=== PATIENT | male | born 1930 | race Caucasian/White ===

== ENCOUNTER 2016-12-04 07:55 | Emergency (ER) | payer OTHER ==
[~2016-12-04] VITALS: Ht 172.7 cm; Wt 74.6 kg
[~2016-12-04 07:55] MED LIST: AGGR20025 PO; ALPR0.5T3 PO; CALC600T44 PO; FISH1000 PO; LEVO100T4 PO; MEVA40TA6 PO; OMEP20TA PO; PROC90TA PO; SYMB160A INH; TAB-TAB PO; TAMS0.4C4 PO; ULTR50TA PO; VASO10TA8 PO
[2016-12-04 08:01] VITALS: BP 144/89; PULSE 83; RESP 16; TEMP 97.6; O2SAT 94
[2016-12-04] MEDS ORDERED: ALPR0.5T3 PO (08:23)
[2016-12-04] MEDS ORDERED: LEVO88TA2 PO (08:23)
[2016-12-04] MEDS ORDERED: AGGR20025 PO (08:23)
[2016-12-04] MEDS ORDERED: ENAL20TA PO (08:23)
[2016-12-04] MEDS ORDERED: TRAM50TA PO (08:23)
[2016-12-04] MEDS ORDERED: REST0.05 EACH EYE (08:23)
[2016-12-04] MEDS ORDERED: LOVA40TA PO (08:23)
[2016-12-04] MEDS ORDERED: SYMB160A INH (08:23)
[2016-12-04] MEDS ORDERED: MIRA50TA PO (08:23)
[2016-12-04] MEDS ORDERED: OMEP20TA PO (08:23)
[2016-12-04] MEDS ORDERED: MECL-62 PO (08:23)
[2016-12-04] MEDS ORDERED: NIFE20 PO (08:23)
[2016-12-04] MEDS ORDERED: SODIUM CHLORID 0.9% 500 ML INJ 500 ML IV ONE (08:30)
[2016-12-04] MEDS ORDERED: SODIUM CHLORIDE 0.9% FLUSH 10 ML FLUSH IVF PRN (08:30)
[2016-12-04 08:40] VITALS: O2SAT 97
--- NOTE | 2016-12-04 08:43 | PD ---
HPI Chief Complaint: Dizziness Time Seen by Provider: 08:20 Travel History International Travel<30 days: No Contact w/Intl Traveler<30days: No Traveled to known affect area: No History of Present Illness HPI Patient is an 86-year-old male with history of TIA, vertigo, hypertension, hyperlipidemia, COPD, presents to emergency room with complaints of dizziness. Patient reports that he woke up at 3 AM this morning to use the restroom, reports that he sat up from his bed and felt acute onset lightheaded and dizzy. Patient reports that he felt as if everything in the room was moving. Reports that his eyes felt a little blurry but reports that his eyes always feel blurry and this is unchanged from baseline. Patient reports that he knows that he has history of vertigo, reports that he took a meclizine and reports that he felt a little better after he took this medication. Patient reports concerns as he feels weak in his knees today, reports that he feels ataxic when he walks. Patient reports that he has had TIAs in the past, and wanted to have everything "checked out". Patient with no chest pain or shortness breath at this time. Denies headache. Reports that his vision is back to baseline. Reports that "my legs still feel weak." PFSH Past Medical History AAA: Yes (3) Arthritis: Yes Asthma: No Autoimmune Disease: No Blood Disorders: No Heart Rhythm Problems: No Cancer: No Cardiovascular Problems: Yes High Cholesterol: Yes Chemotherapy: No Chest Pain: No Congestive Heart Failure: No COPD: Yes Cerebrovascular Accident: Yes Diabetes: No Diminished Hearing: Yes Endocrine: No GERD: Yes Genitourinary: Yes Headaches: No Hepatitis: No Hiatal Hernia: No Hypertension: Yes Immune Disorder: No Kidney Stones: Yes Musculoskeletal: Yes Neurologic: Yes (tia) Psychiatric: No Reproductive: No Respiratory: Yes Immunizations Current: Yes Migraines: No Myocardial Infarction: No Radiation Therapy: No Renal Failure: No Seizures: No Sleep Apnea: No Thyroid Disease: No Ulcer: No PNEUMOCCOCAL Vaccine (Year): 1 Past Surgical History Abdominal Surgery: Yes (inguinal hernia repair) AICD: No Appendectomy: Yes (1948) Arteriovenous Shunt: No Cholecystectomy: No Genitourinary Surgery: Yes (KIDNEY STONE) Insulin Pump: No Joint Replacement: No Pacemaker: No Other Surgery: Yes (HERNIA 63, SALVATORY GLAND REMOVED 1977, FATTY TUMORS FROM BACK REMOVED ) Social History Alcohol Use: Yes (1 DRINK A DAY) Tobacco Use: No (QUIT 50 YRS AGO) Substance Use: No Allergies-Medications (Allergen,Severity, Reaction): Coded Allergies: Penicillin (Verified Allergy, Severe, Rash, 12/04/16) Reported Meds & Prescriptions Reported Meds & Active Scripts Active Reported Meclizine (Meclizine HCl) 25 Mg Tab 25 Mg PO DIRECTED PRN Restasis Opth Drops (Cyclosporine Opth Drops) 0.05% Emul 1 Drop EACH EYE BID Levothyroxine (Levothyroxine Sodium) 88 Mcg Tab 88 Mcg PO DAILY Alprazolam 0.5 Mg Tab 0.5 Mg PO Q4H PRN Myrbetriq (Mirabegron) 50 Mg Tab 50 Mg PO DAILY Tramadol (Tramadol HCl) 50 Mg Tab 50 Mg PO Q4H PRN Symbicort Inh (Budesonide/Formoterol Fumarate) 160-4.5 Mcg/Act Aero 2 Puff INH Q12HR Lovastatin 40 Mg Tab 40 Mg PO DAILY Enalapril (Enalapril Maleate) 20 Mg Tab 20 Mg PO DAILY Nifedipine 20 Mg Cap 30 Mg PO BID Omeprazole 20 Mg Tab 20 Mg PO DAILY Aggrenox (Dipyridamole/Aspirin) 200-25 Mg Cap 1 Cap PO BID Review of Systems General / Constitutional: No: Fever Eyes: No: Diploplia, Blurred Vision, Photophobia, Visual changes HENT: No: Headaches Cardiovascular: No: Chest Pain or Discomfort Respiratory: No: Shortness of Breath Gastrointestinal: No: Abdominal Pain Genitourinary: No: Dysuria Musculoskeletal: No: Pain Skin: No Rash Neurologic: Positive: Dizziness, Ataxia, No: Weakness Psychiatric: No: Depression Endocrine: No: Polydipsia Hematologic/Lymphatic: No: Easy Bruising Physical Exam Narrative GENERAL: mild distress SKIN: Focused skin assessment warm/dry. HEAD: Atraumatic. Normocephalic. EYES: Pupils equal and round. No scleral icterus. No injection or drainage. Patient with horizontal nystagmus on exam ENT: No nasal bleeding or discharge. Mucous membranes pink and moist. NECK: Trachea midline. No JVD. CARDIOVASCULAR: Regular rate and rhythm. No murmur appreciated. RESPIRATORY: No accessory muscle use. Clear to auscultation. Breath sounds equal bilaterally. GASTROINTESTINAL: Abdomen soft, non-tender, nondistended. Hepatic and splenic margins not palpable. MUSCULOSKELETAL: No obvious deformities. No clubbing. No cyanosis. No edema. NEUROLOGICAL: Awake and alert. No obvious cranial nerve deficits. Motor grossly within normal limits. Normal speech. PSYCHIATRIC: Appropriate mood and affect; insight and judgment normal. Data Data Last Documented VS Vital Signs Date Time Temp Pulse Resp B/P Pulse Ox O2 Delivery O2 Flow Rate FiO2 12/04/16 10:24 76 15 146/79 98 12/04/16 08:40 Room Air 12/04/16 08:01 97.6 Orders Prothrombin Time / Inr (Pt) (12/04/16 08:30) Act Partial Throm Time (Ptt) (12/04/16 08:30) Complete Blood Count With Diff (12/04/16 08:30) Comprehensive Metabolic Panel (12/04/16 08:30) Troponin I (12/04/16 08:30) Urinalysis - C+S If Indicated (12/04/16 08:30) Ua Includes Microscopic (12/04/16 08:30) Ct Brain W/O Iv Contrast(Rout) (12/04/16 08:30) Ecg Monitoring (12/04/16 08:30) Iv Access Insert/Monitor (12/04/16 08:30) Oximetry (12/04/16 08:30) Sodium Chloride 0.9% Flush (Ns Flush) (12/04/16 08:30) Sodium Chlorid 0.9% 500 Ml Inj (Ns 500 M (12/04/16 08:30) Labs Laboratory Tests Test 12/04/16 12/04/16 08:45 09:55 White Blood Count 3.6 TH/MM3 Red Blood Count 4.57 MIL/MM3 Hemoglobin 15.3 GM/DL Hematocrit 45.5 % Mean Corpuscular Volume 99.5 FL Mean Corpuscular Hemoglobin 33.5 PG Mean Corpuscular Hemoglobin 33.7 % Concent Red Cell Distribution Width 13.1 % Platelet Count 124 TH/MM3 Mean Platelet Volume 7.3 FL Neutrophils (%) (Auto) 59.3 % Lymphocytes (%) (Auto) 25.6 % Monocytes (%) (Auto) 9.4 % Eosinophils (%) (Auto) 3.1 % Basophils (%) (Auto) 2.6 % Neutrophils # (Auto) 2.2 TH/MM3 Lymphocytes # (Auto) 0.9 TH/MM3 Monocytes # (Auto) 0.3 TH/MM3 Eosinophils # (Auto) 0.1 TH/MM3 Basophils # (Auto) 0.1 TH/MM3 CBC Comment DIFF FINAL Differential Comment Prothrombin Time 10.9 SEC Prothromb Time International 1.0 RATIO Ratio Activated Partial 26.6 SEC Thromboplast Time Sodium Level 143 MEQ/L Potassium Level 4.0 MEQ/L Chloride Level 108 MEQ/L Carbon Dioxide Level 24.0 MEQ/L Anion Gap 11 MEQ/L Blood Urea Nitrogen 19 MG/DL Creatinine 1.20 MG/DL Estimat Glomerular Filtration 57 ML/MIN Rate Random Glucose 92 MG/DL Calcium Level 8.9 MG/DL Total Bilirubin 0.6 MG/DL Aspartate Amino Transf 28 U/L (AST/SGOT) Alanine Aminotransferase 25 U/L (ALT/SGPT) Alkaline Phosphatase 56 U/L Troponin I LESS THAN 0.02 NG/ML Total Protein 7.4 GM/DL Albumin 3.8 GM/DL Urine Collection Type CATH Urine Color YELLOW Urine Turbidity CLEAR Urine pH 6.5 Urine Specific [place] 1.008 Urine Protein NEG mg/dL Urine Glucose (UA) NEG mg/dL Urine Ketones TRACE mg/dL Urine Occult Blood NEG Urine Nitrite NEG Urine Bilirubin NEG Urine Leukocyte Esterase NEG Urine RBC 0-3 /hpf Urine Squamous Epithelial 0-5 /hpf Cells Microscopic Urinalysis Comment CULT NOT INDICATED Urine Collection Time 09:55 MDM Medical Decision Making Medical Screen Exam Complete: Yes Emergency Medical Condition: Yes Interpretation(s) EKG at 0805: NSR at 78bpm, qt/qtc: 396/427, 1st degree av block Vital Signs Date Time Temp Pulse Resp B/P Pulse Ox O2 Delivery O2 Flow Rate FiO2 12/04/16 08:24 Room Air 12/04/16 08:01 97.6 83 16 144/89 94 Differential Diagnosis CVA, vertigo, TIA, ACS, dehydration, electrolyte abnormality Narrative Course Patient is an 86 year old male who present to ER with c/o of dizzyness. Reports acute onset of dizzyness this morning around 3AM. Reports that this is has improved with Antivert, reports concerns that she still feels ataxic and weak in his knees. EKG obtained. Patient was placed on a master baker. Plan to obtain CT of the head, obtain lab work and monitor patient Vital Signs Date Time Temp Pulse Resp B/P Pulse Ox O2 Delivery O2 Flow Rate FiO2 12/04/16 08:40 97 Room Air 12/04/16 08:24 Room Air 12/04/16 08:01 97.6 83 16 144/89 94 Laboratory Tests Test 12/04/16 12/04/16 08:45 09:55 White Blood Count 3.6 TH/MM3 (4.0-11.0) Red Blood Count 4.57 MIL/MM3 (4.50-5.90) Hemoglobin 15.3 GM/DL (13.0-17.0) Hematocrit 45.5 % (39.0-51.0) Mean Corpuscular Volume 99.5 FL (80.0-100.0) Mean Corpuscular Hemoglobin 33.5 PG (27.0-34.0) Mean Corpuscular Hemoglobin 33.7 % Concent (32.0-36.0) Red Cell Distribution Width 13.1 % (11.6-17.2) Platelet Count 124 TH/MM3 (150-450) Mean Platelet Volume 7.3 FL (7.0-11.0) Neutrophils (%) (Auto) 59.3 % (16.0-70.0) Lymphocytes (%) (Auto) 25.6 % (9.0-44.0) Monocytes (%) (Auto) 9.4 % (0.0-8.0) Eosinophils (%) (Auto) 3.1 % (0.0-4.0) Basophils (%) (Auto) 2.6 % (0.0-2.0) Neutrophils # (Auto) 2.2 TH/MM3 (1.8-7.7) Lymphocytes # (Auto) 0.9 TH/MM3 (1.0-4.8) Monocytes # (Auto) 0.3 TH/MM3 (0-0.9) Eosinophils # (Auto) 0.1 TH/MM3 (0-0.4) Basophils # (Auto) 0.1 TH/MM3 (0-0.2) CBC Comment DIFF FINAL Differential Comment Prothrombin Time 10.9 SEC (9.8-11.6) Prothromb Time International 1.0 RATIO Ratio Activated Partial 26.6 SEC Thromboplast Time (24.3-30.1) Sodium Level 143 MEQ/L (136-145) Potassium Level 4.0 MEQ/L (3.5-5.1) Chloride Level 108 MEQ/L (98-107) Carbon Dioxide Level 24.0 MEQ/L (21.0-32.0) Anion Gap 11 MEQ/L (5-15) Blood Urea Nitrogen 19 MG/DL (7-18) Creatinine 1.20 MG/DL (0.60-1.30) Estimat Glomerular Filtration 57 ML/MIN (>89) Rate Random Glucose 92 MG/DL (74-106) Calcium Level 8.9 MG/DL (8.5-10.1) Total Bilirubin 0.6 MG/DL (0.2-1.0) Aspartate Amino Transf 28 U/L (15-37) (AST/SGOT) Alanine Aminotransferase 25 U/L (12-78) (ALT/SGPT) Alkaline Phosphatase 56 U/L (45-117) Troponin I LESS THAN 0.02 NG/ML (0.02-0.05) Total Protein 7.4 GM/DL (6.4-8.2) Albumin 3.8 GM/DL (3.4-5.0) Urine Collection Type CATH Urine Color YELLOW (YELLW/STRAW) Urine Turbidity CLEAR (CLEAR) Urine pH 6.5 (5.0-8.5) Urine Specific [place] 1.008 (1.002-1.035) Urine Protein NEG mg/dL (NEG-TRACE) Urine Glucose (UA) NEG mg/dL (NEG) Urine Ketones TRACE mg/dL (NEG) Urine Occult Blood NEG (NEG) Urine Nitrite NEG (NEG) Urine Bilirubin NEG (NEG) Urine Leukocyte Esterase NEG (NEG) Urine RBC 0-3 /hpf (0-3) Urine Squamous Epithelial 0-5 /hpf (0-5) Cells Microscopic Urinalysis Comment CULT NOT INDICATED Urine Collection Time 09:55 Ct head: No acute infarcts or acute changes (ct reviewed with patient and copy of ct was given to patient). 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 Patient reports complete resolution of dizziness. I did ambulate patient while in the emergency room, patient ambulating in the emergency room without any difficulty and with normal gait with his cane which he always uses. Patient reports that he feels that he is at baseline at this time. I reviewed all labs and all studies as well as ALL findings with patient in detail. Signs and symptoms of when to return to emergency room was reviewed patient. Patient will follow up his primary care doctor and return to the emergency room as needed. Patient thankful for care Diagnosis Primary Impression: Dizziness Additional Impression: Dehydration Patient Instructions: General Instructions Additional Instructions: Please follow up with your primary care doctor in 2-3 days Return to the emergency room as needed Return to the emergency room if symptoms worsen or progress or return Please drink plenty of fluids Bring your radiology reports to doctor's office for follow-up and all findings from today Disposition: 01 DISCHARGE HOME Condition: Stable Maria Esther Timmons DO Dec 04, 2016 08:43
[2016-12-04 08:57] LABS: AUTOMATED NEUTROPHIL # 2.2 TH/MM3 (1.8-7.7); BASOPHIL # 0.1 TH/MM3 (0-0.2); BASOPHIL % 2.6 % (0.0-2.0); EOSINOPHIL # 0.1 TH/MM3 (0-0.4); EOSINOPHIL % 3.1 % (0.0-4.0); HEMATOCRIT 45.5 % (39.0-51.0); HEMO FLAGS DIFF FINAL; LYMPH % 25.6 % (9.0-44.0); LYMPHOCYTE # 0.9 TH/MM3 (1.0-4.8); MEAN CELL VOLUME 99.5 FL (80.0-100.0); MEAN CORPUSCULAR HEMOGLOBIN 33.5 PG (27.0-34.0); MEAN CORPUSCULAR HGB CONC 33.7 % (32.0-36.0); MONO % 9.4 % (0.0-8.0); NEUT % 59.3 % (16.0-70.0); PLATELET COUNT 124 TH/MM3 (150-450); RED BLOOD COUNT 4.57 MIL/MM3 (4.50-5.90); RED CELL DISTRIBUTION WIDTH 13.1 % (11.6-17.2); WHITE BLOOD COUNT 3.6 TH/MM3 (4.0-11.0)
[2016-12-04 09:00] LABS: CHLORIDE 108 MEQ/L (98-107); SODIUM (NA) 143 MEQ/L (136-145)
[2016-12-04 09:04] LABS: ANION GAP 11 MEQ/L (5-15); APTT (PATIENT) 26.6 SEC (24.3-30.1); BLOOD UREA NITROGEN 19 MG/DL (7-18); PROTHROMBIN TIME - PATIENT 10.9 SEC (9.8-11.6)
[2016-12-04 09:07] LABS: ALT (GPT) 25 U/L (12-78); AST (GOT) 28 U/L (15-37); GLOMERULAR FILTRATION RATE 57 ML/MIN (>89)
[2016-12-04 09:09] LABS: TOTAL BILIRUBIN ADULT 0.6 MG/DL (0.2-1.0)
[2016-12-04 09:10] LABS: ALKALINE PHOSPHATASE 56 U/L (45-117)
--- NOTE | 2016-12-04 09:23 | RADHPO ---
EXAM DATE/TIME: 12/04/2016 08:45 [facility] COMPARISON: CT BRAIN W/O CONTRAST, March 19, 2015, 8:07. INDICATIONS : Dizziness. RADIATION DOSE: 64.38 CTDIvol (mGy) MEDICAL HISTORY : Cerebrovascular disease. Cardiovascular disease. Chronic obstructive pulmonary disease. Abdominal aneurysm. Hypertension. SURGICAL HISTORY : Appendectomy. ENCOUNTER: Initial ACUITY: 1 day PAIN SCALE: 0/10 LOCATION: Cranial TECHNIQUE: Multiple contiguous axial images were obtained of the head. Using automated exposure control and adj ustment of the mA and/or kV according to patient size, radiation dose was kept as low as reasonably a chievable to obtain optimal diagnostic quality images. FINDINGS: Diffuse cerebral atrophy is again noted. Mild periventricular and subcortical white matter small vessel ischemic changes are noted bilaterally. There is an old lacunar infarct within the right thalamus which is unchanged. There is no acute infarct, acute hemorrhage, midline shift or extra-ax ial fluid collections. 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 CONCLUSION: 1. Mild periventricular white matter small vessel ischemic changes bilaterally. 2. Mild cerebral atrophy. 3. Old lacunar infarct within the right thalamus. 4. No acute infarct, acute hemorrhage, mass effect or extra-axial fluid collections. 5. Dolichoectasia of the basilar artery. Hermes Eller MD on December 04, 2016 at 8:58 Board Certified Radiologist. This report was verified electronically.
[2016-12-04 09:59] LABS: BLOOD, URINE NEG (NEG); GLUCOSE,URINE NEG (NEG); KETONE, URINE TRACE mg/dL (NEG); NITRITE,URINE NEG (NEG); PH, URINE 6.5 (5.0-8.5)
[2016-12-04 10:04] LABS: COMMENT (UR) CULT NOT INDICATED; CULTURE IF INDICATED CULT NOT INDICATED; METHOD OF COLLECTION CATH; RBC, URINE 0-3 /hpf (0-3); SQUAMOUS EPITHELIAL CELL URINE 0-5 /hpf (0-5); URINE COLOR YELLOW (YELLW/STRAW)
[2016-12-04 10:24] VITALS: BP 146/79
--- NOTE | 2016-12-05 18:50 | EKG ---
Date Performed: 12/04/2016 Time Performed: 08:05:04 PTAGE: 86 years EKG: Sinus rhythm with 1st degree A-V block Left anterior fascicular block Septal T wave changes are nonspecific [place] red to prior tracing no significant change Abnormal ECG PREVIOUS TRACING : 03/19/2015 07.39 DOCTOR: Bridger Chacko Interpretating Date/Time 12/05/2016 18:49:35
== END 2016-12-04 10:40 | disposition home or self-care (01) ==
LOC: PHED 07:55
DX: R42 Dizziness and giddiness (principal); E86.0 Dehydration; I44.0 Atrioventricular block, first degree; I44.4 Left anterior fascicular block; I71.4 Abdominal aortic aneurysm, without rupture; E78.00 Pure hypercholesterolemia, unspecified; J44.9 Chronic obstructive pulmonary disease, unspecified; I10 Essential (primary) hypertension; K21.9 Gastro-esophageal reflux disease without esophagitis; Z86.73 Personal history of transient ischemic attack (TIA), and cerebral infarction without residual deficits; Z87.891 Personal history of nicotine dependence
CPT/HCPCS: 70450; 80053; 81001; 84484; 85025; 85610; 85730; 93005; 96360; 99284; J7040

== ENCOUNTER 2017-04-15 23:03 | Inpatient (IN) | payer OTHER, MEDICARE ==
[~2017-04-15] VITALS: Ht 172.7 cm; Wt 72.2 kg
[~2017-04-15 23:03] MED LIST changes: -CALC600T44 PO; +ENAL20TA PO; -FISH1000 PO; -LEVO100T4 PO; +LEVO88TA2 PO; +LOVA40TA PO; +MECL-62 PO; -MEVA40TA6 PO; +MIRA50TA PO; +NIFE20 PO; -PROC90TA PO; +REST0.05 EACH EYE; -TAB-TAB PO; -TAMS0.4C4 PO; +TRAM50TA PO; -ULTR50TA PO; -VASO10TA8 PO
--- NOTE | 2017-04-15 23:19 | PD ---
HPI Chief Complaint: left arm weakness Time Seen by Provider: 23:14 Travel History International Travel<30 days: No Contact w/Intl Traveler<30days: No Traveled to known affect area: No History of Present Illness HPI This 86-year-old male said he had an episode tonight where his left arm became weak. he says it was flopping around. He did not try to use it but he thinks he would not open able to. He has had 5 TIAs. His last TIA was January [id number]. He is currently on Aggrenox. 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 He was in the hospital in November for vertigo. He is not having a headache. He said the episode lasted about 5 minutes and has resolved. He says he had been on Plavix in the past but had a TIA while taking it and has since been on Aggrenox PFSH Past Medical History AAA: Yes (3) Arthritis: Yes Asthma: No Autoimmune Disease: No Blood Disorders: No Heart Rhythm Problems: No Cancer: No Cardiovascular Problems: Yes High Cholesterol: Yes Chemotherapy: No Chest Pain: No Congestive Heart Failure: No COPD: Yes Cerebrovascular Accident: Yes Diabetes: No Diminished Hearing: Yes Endocrine: No GERD: Yes Genitourinary: Yes Headaches: No Hepatitis: No Hiatal Hernia: No Hypertension: Yes Immune Disorder: No Kidney Stones: Yes Musculoskeletal: Yes Neurologic: Yes (tia) Psychiatric: No Reproductive: No Respiratory: Yes Immunizations Current: Yes Migraines: No Myocardial Infarction: No Radiation Therapy: No Renal Failure: No Seizures: No Sleep Apnea: No Thyroid Disease: No Ulcer: No PNEUMOCCOCAL Vaccine (Year): 1 Past Surgical History Abdominal Surgery: Yes (inguinal hernia repair) AICD: No Appendectomy: Yes (1948) Arteriovenous Shunt: No Cholecystectomy: No Genitourinary Surgery: Yes (KIDNEY STONE) Insulin Pump: No Joint Replacement: No Pacemaker: No Other Surgery: Yes (HERNIA 63, SALVATORY GLAND REMOVED 1977, FATTY TUMORS FROM BACK REMOVED ) Social History Alcohol Use: Yes (1 DRINK A DAY) Tobacco Use: No (QUIT 50 YRS AGO) Substance Use: No Allergies-Medications (Allergen,Severity, Reaction): Coded Allergies: penicillin G (Unverified Allergy, Severe, Rash, 04/15/17) Reported Meds & Prescriptions Reported Meds & Active Scripts Active Reported Restasis Opth 0.05% (Cyclosporine Opth 0.05%) 0.05% Emul 1 Drop EACH EYE BID Levothyroxine (Levothyroxine Sodium) 88 Mcg Tab 88 Mcg PO DAILY Alprazolam 0.5 Mg Tab 0.5 Mg PO Q4H PRN Myrbetriq (Mirabegron) 50 Mg Tab 50 Mg PO DAILY Tramadol (Tramadol HCl) 50 Mg Tab 50 Mg PO Q4H PRN Symbicort Inh (Budesonide/Formoterol Fumarate) 160-4.5 Mcg/Act Aero 2 Puff INH Q12HR Lovastatin 40 Mg Tab 40 Mg PO DAILY Enalapril (Enalapril Maleate) 20 Mg Tab 20 Mg PO DAILY Nifedipine 20 Mg Cap 30 Mg PO BID Omeprazole 20 Mg Tab 20 Mg PO DAILY Aggrenox (Dipyridamole/Aspirin) 200-25 Mg Cap 1 Cap PO BID Review of Systems General / Constitutional: No: Fever, Chills Eyes: No: Diploplia, Blurred Vision HENT: No: Headaches, Vertigo Cardiovascular: No: Chest Pain or Discomfort, Palpitations Respiratory: No: Cough Gastrointestinal: No: Nausea, Vomiting Genitourinary: No: Urgency, Frequency Musculoskeletal: No: Myalgias, Arthralgias Skin: No Rash Neurologic: Positive: Weakness, Focal Abnormalities, No: Change in Mentation Psychiatric: No: Anxiety, Depression Endocrine: No: Heat Intolerance Hematologic/Lymphatic: No: Easy Bruising Physical Exam Narrative GENERAL: Well-developed male SKIN: Focused skin assessment warm/dry. HEAD: Atraumatic. Normocephalic. EYES: Pupils equal and round. No scleral icterus. No injection or drainage. ENT: No nasal bleeding or discharge. Mucous membranes pink and moist. NECK: Trachea midline. No JVD. CARDIOVASCULAR: Regular rate and rhythm. No murmur appreciated. RESPIRATORY: No accessory muscle use. Clear to auscultation. Breath sounds equal bilaterally. GASTROINTESTINAL: Abdomen soft, non-tender, nondistended. Hepatic and splenic margins not palpable. MUSCULOSKELETAL: No obvious deformities. No clubbing. No cyanosis. No edema. NEUROLOGICAL: Awake and alert. No obvious cranial nerve deficits. Motor grossly within normal limits. Normal speech. Waiter Waitress are equal. There is no drift of the arms. Sensation of the arms is intact. Leg strength is symmetric. Babinskis are downgoing bilaterally PSYCHIATRIC: Appropriate mood and affect; insight and judgment normal. Data Data Last Documented VS Vital Signs Date Time Temp Pulse Resp B/P (MAP) Pulse Ox O2 Delivery O2 Flow Rate FiO2 04/15/17 23:26 82 18 97 Room Air 04/15/17 23:23 98.4 149/86 (107) Orders Orders Prothrombin Time / Inr (Pt) (04/15/17 23:15) Act Partial Throm Time (Ptt) (04/15/17 23:15) Complete Blood Count With Diff (04/15/17 23:15) Basic Metabolic Panel (Bmp) (04/15/17 23:15) Troponin I (04/15/17 23:15) Ua Includes Microscopic (04/15/17 23:15) Ct Brain W/O Iv Contrast(Rout) (04/15/17 ) Electrocardiogram (04/15/17 ) Ecg Monitoring (04/15/17 23:15) Iv Access Insert/Monitor (04/15/17 23:15) NPO (04/15/17 23:15) Labs Laboratory Tests Test 04/15/17 23:45 White Blood Count 4.6 TH/MM3 Red Blood Count 4.27 MIL/MM3 Hemoglobin 14.4 GM/DL Hematocrit 43.0 % Mean Corpuscular Volume 100.9 FL Mean Corpuscular Hemoglobin 33.8 PG Mean Corpuscular Hemoglobin Concent 33.5 % Red Cell Distribution Width 13.4 % Platelet Count 130 TH/MM3 Mean Platelet Volume 6.8 FL Neutrophils (%) (Auto) 55.7 % Lymphocytes (%) (Auto) 28.4 % Monocytes (%) (Auto) 12.0 % Eosinophils (%) (Auto) 2.7 % Basophils (%) (Auto) 1.2 % Neutrophils # (Auto) 2.5 TH/MM3 Lymphocytes # (Auto) 1.3 TH/MM3 Monocytes # (Auto) 0.6 TH/MM3 Eosinophils # (Auto) 0.1 TH/MM3 Basophils # (Auto) 0.1 TH/MM3 CBC Comment DIFF FINAL Differential Comment Prothrombin Time 10.6 SEC Prothromb Time International Ratio 1.0 RATIO Activated Partial Thromboplast Time 27.5 SEC Blood Urea Nitrogen 25 MG/DL Random Glucose 92 MG/DL Calcium Level 9.0 MG/DL Sodium Level 138 MEQ/L Potassium Level 4.7 MEQ/L Chloride Level 105 MEQ/L Carbon Dioxide Level 23.6 MEQ/L Anion Gap 9 MEQ/L MDM Medical Decision Making Medical Screen Exam Complete: Yes Emergency Medical Condition: Yes Medical Record Reviewed: Yes Differential Diagnosis Differential includes TIA, CVA, TIA Narrative Course Clinically this gentleman's deficit has resolved. EKG shows a first-degree AV block which has been present previously though his CO is more prolonged now. CT scan is unchanged from December 04. Case discussed with Dr. Pineda. Patient has failed Plavix so we will maintain him on Aggrenox. He has had some issues with thrombocytopenia in the past Diagnosis Primary Impression: TIA (transient ischemic attack) Qualified Codes: G45.1 - Carotid artery syndrome (hemispheric) Admitting Information Admitting Physician Requests: Admit Trenton Phoenix MD Apr 15, 2017 23:19
[2017-04-15 23:23] VITALS: BP 149/86; PULSE 82; RESP 18; TEMP 98.4; O2SAT 97
--- NOTE | 2017-04-15 23:52 | RADRPT ---
EXAM DATE/TIME: 04/15/2017 23:32 [facility] COMPARISON: CT BRAIN W/O CONTRAST, December 04, 2016, 8:45. INDICATIONS : Altered mental status, possible stroke. RADIATION DOSE: 61.27 CTDIvol (mGy) MEDICAL HISTORY : Hypertension. TIA, AAA SURGICAL HISTORY : salivary gland removal ENCOUNTER: Initial ACUITY: 1 day PAIN SCALE: 7/10 LOCATION: cranial TECHNIQUE: Multiple contiguous axial images were obtained of the head. Using automated exposure control and adj ustment of the mA and/or kV according to patient size, radiation dose was kept as low as reasonably a chievable to obtain optimal diagnostic quality images. DICOM format image data is available electro nically for review and comparison. FINDINGS: Compare December 04. Stable cortical atrophy. Stable lacunar infarct right thalamus. No recent infarct. No hydrocephalus. No normal extra-axial fluid. Stable white matter ischemic change. Dolichoectasia of the basilar artery, stable. CONCLUSION: 1. No acute findings. Remote lacunar infarct right thalamus, stable. Jose L Matute MD on April 15, 2017 at 23:46 Board Certified Radiologist. This report was verified electronically.
[2017-04-15 23:57] LABS: AUTOMATED NEUTROPHIL # 2.5 TH/MM3 (1.8-7.7); BASOPHIL # 0.1 TH/MM3 (0-0.2); BASOPHIL % 1.2 % (0.0-2.0); EOSINOPHIL # 0.1 TH/MM3 (0-0.4); EOSINOPHIL % 2.7 % (0.0-4.0); HEMO FLAGS DIFF FINAL; LYMPH % 28.4 % (9.0-44.0); LYMPHOCYTE # 1.3 TH/MM3 (1.0-4.8); MEAN CELL VOLUME 100.9 FL (80.0-100.0); MEAN CORPUSCULAR HEMOGLOBIN 33.8 PG (27.0-34.0); MEAN CORPUSCULAR HGB CONC 33.5 % (32.0-36.0); NEUT % 55.7 % (16.0-70.0); PLATELET COUNT 130 TH/MM3 (150-450); RED BLOOD COUNT 4.27 MIL/MM3 (4.50-5.90); RED CELL DISTRIBUTION WIDTH 13.4 % (11.6-17.2); WHITE BLOOD COUNT 4.6 TH/MM3 (4.0-11.0)
[2017-04-16] VITALS (29 sets, daily range): BP systolic 112–157; BP diastolic 67–84; PULSE 61–94; RESP 18–42; TEMP 97.5–98.3; O2SAT 93–97
[2017-04-16 00:06] LABS: CHLORIDE 105 MEQ/L (98-107); POTASSIUM 4.7 MEQ/L (3.5-5.1); SODIUM (NA) 138 MEQ/L (136-145)
[2017-04-16 00:11] LABS: ANION GAP 9 MEQ/L (5-15); APTT (PATIENT) 27.5 SEC (24.3-30.1); BICARBONATE 23.6 MEQ/L (21.0-32.0); BLOOD UREA NITROGEN 25 MG/DL (7-18); PROTHROMBIN TIME - PATIENT 10.6 SEC (9.8-11.6)
[2017-04-16 00:14] LABS: GLOMERULAR FILTRATION RATE 44 ML/MIN (>89)
[2017-04-16] MEDS ORDERED: SODIUM CHLORIDE 0.9% FLUSH 5 ML FLUSH IV FLUSH PRN (00:45)
[2017-04-16 01:47] LABS: BLOOD, URINE NEG (NEG); GLUCOSE,URINE NEG (NEG); KETONE, URINE NEG (NEG); NITRITE,URINE NEG (NEG); PH, URINE 5.5 (5.0-8.5)
[2017-04-16 01:50] LABS: URINE COLOR YELLOW (YELLW/STRAW)
[2017-04-16 01:51] LABS: RBC, URINE 0-2 /hpf (0-3); SQUAMOUS EPITHELIAL CELL URINE 0-5 /hpf (0-5); WBC, URINE 0-2 /hpf (0-5)
[2017-04-16] MEDS: SODIUM CHLORIDE 0.9% FLUSH 5 ML FLUSH IV FLUSH SCH ×2 (09:00→21:00)
--- NOTE | 2017-04-16 11:24 | MB ---
cc: RANDY MAYO M.D. DATE OF CONSULTATION 04/16/2017 HISTORY An 86-year-old right-handed man with a history of hypertension, hypercholesterolemia, COPD, some chronic renal insufficiency, hypothyroidism who has been on Aggrenox. He tells me he has had about five TIAs over the years. About 20 years ago he had some difficulty moving the right foot and then in 1992 he had some numbness or tingling in the right hand, he is not sure what and then some numbness or weakness in the left hand in 1996 and then in December of 2009 he had weakness of the right hand and some slurred speech. He has been on Aggrenox, followed by Dr. Pineda. At one time he was on Plavix before the Aggrenox. Last night he was just going to bed, got into bed and had a fullness feeling on the left arm and then his left hand would not work properly. No involvement of the face or slurred speech, no vision loss. No chest pain, palpitations, headache or involvement of the left leg. It lasted about 5 minutes and then went away. REVIEW OF SYSTEMS He denies any history of diabetes, DC, CABG, stent, angioplasty, A-fib, Coumadin, hepatic disease, pulmonary disease besides COPD. No history of lupus, ulcer, cancer, seizure. No history of blood clots in his legs. SOCIAL HISTORY He is not a smoker. He has one drink at night. Lives alone. FAMILY HISTORY Negative for cancer, seizure or stroke. MEDICATIONS 1. Aggrenox. 2. Restasis eyedrops. 3. Thyroid medicine. 4. Xanax p.r.n. 0.5. 5. Myrbetriq. 6. Tramadol 50 q.4 hours p.r.n. 7. Symbicort. 8. Lovastatin. 9. Enalapril. 10. Nifedipine. 11. Omeprazole. ALLERGIES PENICILLIN. PAST MEDICAL HISTORY As above. Also some vertigo recently. Back in 2009 he was seen by Dr. Pineda. He was on Plavix and 325 of aspirin at that time. He was also on Tramadol at that time. PHYSICAL EXAMINATION VITAL SIGNS: On exam he has been in sinus rhythm, afebrile, 66, 157/83. NECK: There were no carotid bruits. HEART: Regular rhythm. I do not detect a murmur. NEUROLOGICAL EXAMINATION: Pupils are equal. Visual rose are full. Extraocular movements intact, without nystagmus. Face is symmetrical with normal sensation. Tongue was midline. There is no drift. He had normal strength in upper and lower extremities bilaterally but grasping movements are a little bit clumsy on the left compared to the right. DTRs are trace throughout. Toes are downgoing bilaterally. Pinprick is intact throughout. Vibratory sense was diminished about senior living up the lower leg bilaterally. Pinprick is intact specifically on left hand. He is not ataxic on [id number]. Speech is fluent. He is not aphasic. No apparent distress. LABORATORY DATA CBC is essentially normal, platelet count 130. He had a sed rate back in 2009 that was normal. RPR was normal at that time. Urine drug screen in 2009 positive for marijuana and benzos. UA on this admission negative. Basic metabolic profile here normal except for creatinine of 1.5. LFTs were normal in November of this year as was an albumin. Thyroid has been essentially normal in 2013. LDL cholesterol in 2009 was 80. Troponin was negative in 2013 and negative last night. Coags have been normal in the past. IMAGING STUDIES CAT scan of the brain last night shows what appears to be an older right thalamic infarct. He had MRI of the brain in 2014, showed no acute infarct. He had a neck CTA in 2009 that showed normal carotid systems by report. He had a CTA of the head at that time that was normal. He had an MRI of the brain in 2009 that showed no infarct but an old right thalamic infarct. 2010 echocardiogram showed a normal ejection fraction; mitral valve was normal. Aortic valve was normal at that time. The left atrial size was enlarged, however, at 46. Holter monitoring in 2010 showed sinus rhythm. IMPRESSION Some TIAs in the past but all of his imaging here so far has been negative for an acute infarct and even in 2002 there was something described on the right side. He it was a basal ganglia but I suspect may have been that thalamic infarct. The possibilities could be a small seizure or certainly a TIA is a consideration. We may consider putting him on Coumadin and doing a loop recorder. We will do an MRI of the brain, MRA lime of Ortiz and neck here now. 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 The Ultram can cause seizures so we will stop that. We will check an EEG on him too. MD FIFI Banda/SSB /10:37 AM /10:58 AM
[2017-04-16] MEDS: HEPARIN SODIUM - SQ 10,000 UNITS/ML VIAL SQ SCH ×2 (12:03→20:17)
[2017-04-16] MEDS: SODIUM CHLOR 0.9% 1000 ML INJ 1,000 ML IV SCH (12:05)
[2017-04-16] MEDS: DIPYRIDAMOLE/ASPIRIN 200 MG/25 MG CAP PO SCH ×2 (13:19→20:17)
[2017-04-16 13:30] LABS: FREE T4 1.19 NG/DL (0.76-1.46); LDL CHOLESTEROL 41 MG/DL (0-99); TOTAL PROTEIN SPE 7.4 GM/DL (6.0-7.6)
[2017-04-16] MEDS ORDERED: traMADol HCL 50 MG TAB PO PRN (13:30)
[2017-04-16 13:34] LABS: RHEUMATOID FACTOR TRIGGER LESS THAN 10.0 IU/ML (0.0-14.9)
--- NOTE | 2017-04-16 13:40 | HHI.HP ---
[facility] Esvin Steve MD Admission Diagnosis TIA Diagnoses: Chief Complaint: left arm weakness Travel History International Travel<30 Days: No Contact w/Intl Traveler <30 Da: No Traveled to Known Affected Are: No History of Present Illness Patient is and 83 year old male with a history of HTN and TIA/CVA on aggranox who complains of sudden onset of transient left arm heaviness, numbness and loss of movement, No headache or slurred speech is described. Symptoms resolved spontaneously. He has been recommended for obs due to this. 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 Past Surgical History appy Reported Medications reviewed in the emr Allergies: Coded Allergies: penicillin G (Unverified Allergy, Severe, Rash, 04/15/17) Active Ordered Medications reviewed in the EMR Family History none are living Social History no tobacco/etoh lives alone Physical Exam Vital Signs Vital Signs Date Time Temp Pulse Resp B/P (MAP) Pulse Ox O2 Delivery O2 Flow Rate FiO2 04/16/17 12:00 97.8 68 27 137/80 (99) 04/16/17 08:00 97.8 66 22 157/83 (107) 94 04/16/17 07:50 04/16/17 07:45 66 04/16/17 07:12 61 18 132/80 (97) 96 Room Air 04/16/17 06:33 65 18 156/84 (108) 97 Room Air 04/16/17 04:31 66 18 141/80 (100) 97 Room Air 04/16/17 02:30 73 18 143/81 (101) 97 Room Air 04/16/17 00:28 76 18 148/81 (103) 97 Room Air 04/15/17 23:26 82 18 97 Room Air 04/15/17 23:23 98.4 82 18 149/86 (107) 97 Physical Exam GENERAL: This is a well-nourished, well-developed patient, in no apparent distress. SKIN: No rashes, ecchymoses or lesions. Cool and dry. HEAD: Atraumatic. Normocephalic. No temporal or scalp tenderness. EYES: Pupils equal round and reactive. Extraocular motions intact. No scleral icterus. No injection or drainage. ENT: Nose without bleeding, purulent drainage or septal hematoma. Throat without erythema, tonsillar hypertrophy or exudate. Uvula midline. Airway patent. NECK: Trachea midline. No JVD or lymphadenopathy. Supple, nontender, no meningeal signs. CARDIOVASCULAR: Regular rate and rhythm with a 3/6 systolic murmurs, no gallops or rubs. RESPIRATORY: Clear to auscultation. Breath sounds equal bilaterally. No wheezes , rales, or rhonchi. GASTROINTESTINAL: Abdomen soft, non-tender, nondistended. No hepato-splenomegaly , or palpable masses. No guarding. MUSCULOSKELETAL: Extremities without clubbing, cyanosis, or edema. No joint tenderness, effusion, or edema noted. No calf tenderness. Negative Homans sign bilaterally. NEUROLOGICAL: Awake and alert. Cranial nerves II through XII intact. Motor and sensory grossly within normal limits. Five out of 5 muscle strength in all muscle groups. Normal speech. Laboratory Laboratory Tests Test 04/15/17 23:45 04/16/17 00:00 04/16/17 01:30 04/16/17 11:20 White Blood Count 4.6 Red Blood Count 4.27 Hemoglobin 14.4 Hematocrit 43.0 Mean Corpuscular Volume 100.9 Mean Corpuscular Hemoglobin 33.8 Mean Corpuscular Hemoglobin Concent 33.5 Red Cell Distribution Width 13.4 Platelet Count 130 Mean Platelet Volume 6.8 Neutrophils (%) (Auto) 55.7 Lymphocytes (%) (Auto) 28.4 Monocytes (%) (Auto) 12.0 Eosinophils (%) (Auto) 2.7 Basophils (%) (Auto) 1.2 Neutrophils # (Auto) 2.5 Lymphocytes # (Auto) 1.3 Monocytes # (Auto) 0.6 Eosinophils # (Auto) 0.1 Basophils # (Auto) 0.1 CBC Comment DIFF FINAL Differential Comment Prothrombin Time 10.6 11.0 Prothromb Time International Ratio 1.0 1.0 Activated Partial Thromboplast Time 27.5 Blood Urea Nitrogen 25 Creatinine 1.50 Random Glucose 92 Calcium Level 9.0 Sodium Level 138 Potassium Level 4.7 Chloride Level 105 Carbon Dioxide Level 23.6 Anion Gap 9 Estimat Glomerular Filtration Rate 44 Troponin I LESS THAN 0.02 LESS THAN 0.02 Urine Color YELLOW Urine Turbidity CLEAR Urine pH 5.5 Urine Specific Lapaz 1.010 Urine Protein NEG Urine Glucose (UA) NEG Urine Ketones NEG Urine Occult Blood NEG Urine Nitrite NEG Urine Bilirubin NEG Urine Leukocyte Esterase NEG Urine RBC 0-2 Urine WBC 0-2 Urine Squamous Epithelial Cells 0-5 Urine Bacteria NONE Microscopic Urinalysis Comment Urine Opiates Screen NEG Urine Barbiturates Screen NEG Urine Amphetamines Screen NEG Urine Benzodiazepines Screen NEG Urine Cocaine Screen NEG Urine Cannabinoids Screen NEG Erythrocyte Sedimentation Rate 4 Triglycerides Level 43 Cholesterol Level 172 Thyroid Stimulating Hormone 3rd Gen 0.880 Result Diagram: 04/15/17 2345 04/15/17 2345 Imaging Last Impressions Head CT 04/15/17 0000 Signed Impressions: Service Date/Time: Saturday, April 15, 2017 23:32 - CONCLUSION: 1. No acute findings. Remote lacunar infarct right thalamus, stable. Jose L Matute MD Caprini VTE Risk Assessment Caprini VTE Risk Assessment: Mod/High Risk (score >= 2) Caprini Risk Assessment Model Point Value = 1 Point Value = 2 Point Value = 3 Point Value = 5 Age 41-60 Minor surgery BMI > 25 kg/m2 Swollen legs Varicose veins or History of unexplained or recurrent spontaneous Oral contraceptives or hormone replacement Sepsis (< 1 month) Serious lung disease, including pneumonia (< 1 month) Abnormal pulmonary function Acute myocardial infarction Congestive heart failure (< 1 month) History of inflammatory bowel disease Medical patient at bed rest Age 61-74 Arthroscopic surgery Major open surgery (> 45 min) Laparoscopic surgery (> 45 min) Malignancy Confined to bed (> 72 hours) Immobilizing plaster cast Central venous access Age >= 75 History of VTE Family history of VTE Factor V Leiden Prothrombin [id number] Lupus anticoagulant Anticardiolipin antibodies Elevated serum homocysteine Heparin-induced thrombocytopenia Other congenital or acquired thrombophilia Stroke (< 1 month) Elective arthroplasty Hip, pelvis, or leg fracture Acute spinal cord injury (< 1 month) Prophylaxis Regimen Total Risk Factor Score Risk Level Prophylaxis Regimen 0-1 Low Early ambulation 2 Moderate Order ONE of the following: *Sequential Compression Device (SCD) *Heparin 5000 units SQ BID 3-4 Higher Order ONE of the following medications: *Heparin 5000 units SQ TID *Enoxaparin/Lovenox 40 mg SQ daily (WT < 150 kg, CrCl > 30 mL/min) *Enoxaparin/Lovenox 30 mg SQ daily (WT < 150 kg, CrCl > 10-29 mL/min) *Enoxaparin/Lovenox 30 mg SQ BID (WT < 150 kg, CrCl > 30 mL/min) AND/OR *Sequential Compression Device (SCD) 5 or more Highest Order ONE of the following medications: *Heparin 5000 units SQ TID (Preferred with Epidurals) *Enoxaparin/Lovenox 40 mg SQ daily (WT < 150 kg, CrCl > 30 mL/min) *Enoxaparin/Lovenox 30 mg SQ daily (WT < 150 kg, CrCl > 10-29 mL/min) *Enoxaparin/Lovenox 30 mg SQ BID (WT < 150 kg, CrCl > 30 mL/min) AND *Sequential Compression Device (SCD) Assessment and Plan Problem List: (1) TIA (transient ischemic attack) ICD Code: G45.9 - TIA (transient ischemic attack) Status: Acute Plan: TIA V SZ, resolved Neuro eval appreciated Resume Home BP meds advance diet coumadin added per neuro MRI/MRA/EcHO (2) Hypertension ICD Code: I10 - Hypertension Status: Acute Plan: controlled on home meds which we will resume (3) Hyperlipidemia ICD Code: E78.5 - Hyperlipidemia Status: Acute Plan: continue statin (4) COPD (chronic obstructive pulmonary disease) ICD Code: J44.9 - COPD (chronic obstructive pulmonary disease) Status: Acute Plan: Stable on home meds without exacerbation Problem Qualifiers (1) TIA (transient ischemic attack): Qualified Codes: G45.1 - Carotid artery syndrome (hemispheric) Tatum Garcia MD Apr 16, 2017 13:40
--- NOTE | 2017-04-16 14:20 | RADRPT ---
EXAM DATE/TIME: 04/16/2017 13:52 [facility] COMPARISON: MRA BRAIN W/O CONTRAST, January 11, 2010, 12:53. INDICATIONS : CVA. Left sided weakness. MEDICAL HISTORY : Hypertension. Skin cancer. SURGICAL HISTORY : Appendectomy. Inguinal hernia repair. Right knee, left knee and salivary gland removal. ENCOUNTER: Initial ACUITY: 1 day PAIN SCORE: 0/10 LOCATION: Head. Please note a normal MRA of the brain does not entirely exclude the possibility of a small aneurysm, nor the possibility of distal intracranial vessel disease. TECHNIQUE: 3D time of flight MRA was performed. Source images, multiplanar STS MIP, and 3D volume MIP reconstru ctions were reviewed. FINDINGS: There is excellent visualization of the major intracranial arteries out to the second-order branch ve ssels. There is no evidence for aneurysm, vessel truncation or stenosis, and no evidence for vascula r malformation. CONCLUSION: Normal examination. Pravin Gambino MD on April 16, 2017 at 14:14 Board Certified Radiologist. This report was verified electronically.
[2017-04-16] MEDS ORDERED: GADODIAMIDE PF 287 MG/ML 20 ML VIAL (for RAD MRI) IVCONTRAST ONE (15:02)
--- NOTE | 2017-04-16 15:04 | RADRPT ---
EXAM DATE/TIME: 04/16/2017 13:52 [facility] COMPARISON: No previous studies available for comparison. INDICATIONS : CVA. Left sided weakness. CONTRAST: 20 cc Omniscan (gadodiamide) IV MEDICAL HISTORY : Hypertension. Skin cancer SURGICAL HISTORY : Appendectomy. Inguinal hernia repair. Left knee, right knee and salivary gland removal. ENCOUNTER: Initial ACUITY: 1 day PAIN SCORE: 0/10 LOCATION: Head. TECHNIQUE: Multiplanar, multisequence MRI of the brain was performed both prior to and following the administrat ion of paramagnetic contrast. FINDINGS: The craniocervical junction and midline structures are unremarkable. There are punctate areas restric tiana diffusion at the level of the postcentral sulcus as well as in the right temporal lobe measuring no more than 5 mm diameter. They reflect small areas of embolic infarct. No hemorrhage is identified. There is periventricular hyperintensity on the T2 weighted images consistent with small vessel vascu lar disease slightly more than expected in a patient of this age. Following the administration of con trast no abnormal enhancement is identified. There is old lacunar infarct in the right thalamus. Posterior fossa structures demonstrate no other malady with the exception of dolichoectasia of the ba silar segment. CONCLUSION: 1. Small punctate areas of infarction the vidal white junction in the right middle cerebral artery dis tribution. Embolic process could be considered. No hemorrhage is identified Abiodun Zhang MD on April 16, 2017 at 15:00 Board Certified Radiologist. This report was verified electronically.
--- NOTE | 2017-04-16 15:06 | RADRPT ---
EXAM DATE/TIME: 04/16/2017 13:52 [facility] COMPARISON: No previous studies available for comparison. INDICATIONS : Stroke. Left sided weakness. CONTRAST: 20 cc Omniscan (gadodiamide) IV MEDICAL HISTORY : Hypertension. Skin cancer. SURGICAL HISTORY : Appendectomy. Inguinal hernia repair. Left knee, right knee and salivary gland removal. ENCOUNTER: Initial ACUITY: 1 day PAIN SCORE: 0/10 LOCATION: Head. Percent stenosis is calculated using the diameter of the stenotic region over the diameter of the nor mal distal internal carotid artery. TECHNIQUE: Bolus infused MRA of the extracranial circulation was performed using a neurovascular coil. Post pro cessing was performed including rotating subvolume maximum intensity projections of each carotid monico ry, rotating full volume maximum intensity projections of both carotid arteries, sagittal and coronal sliding thin slab reformations of each carotid artery, and left oblique sliding thin slab reformatio n through the aortic arch to include the origin of the arch branch vessels. FINDINGS: AORTIC ARCH: There is a three vessel origin of the great vessels from the aorta. No evidence of ostial narrowing. RIGHT CAROTID: The common carotid artery is intact. The carotid bulb has a normal configuration without ulceration or narrowing. The internal carotid artery lumen is smooth without stenosis. The external carotid ar kavin is intact. LEFT CAROTID: The common carotid artery is intact. The carotid bulb has a normal configuration without ulceration or narrowing. The internal carotid artery lumen is smooth without stenosis. The external carotid ar kavin is intact. VERTEBRALS: The vertebral arteries have a symmetric diameter. No stenotic lesions are seen. CONCLUSION: 1. No evidence of hemodynamically significant lesion. There is 0-10% stenosis bilaterally. Abiodun Zhang MD on April 16, 2017 at 15:03 Board Certified Radiologist. This report was verified electronically.
[2017-04-16] MEDS: WARFARIN SOD 5 MG TAB PO SCH (16:17)
[2017-04-16 16:55] LABS: HEMOGLOBIN A1a 0.9 %; HEMOGLOBIN A1b 1.8 %; HEMOGLOBIN Ao 85.3 %; HEMOGLOBIN LA1C 1.9 %; HEMOGLOBIN P3 4.2 %
--- NOTE | 2017-04-16 17:43 | EKG ---
Date Performed: 04/15/2017 Time Performed: 23:24:44 PTAGE: 86 years EKG: Sinus rhythm WITH FIRST DEGREE AV BLOCK MARKED LEFT AXIS DEVIATION ABNORMAL ECG Compared to prior tracing no sign ificant change PREVIOUS TRACING : 12/04/2016 08.05 DOCTOR: Bridger Chacko Interpretating Date/Time 04/16/2017 17:41:07
[2017-04-16] MEDS: NIFEdipine 10 MG CAP PO SCH (20:17)
[2017-04-16] MEDS: BUDESONIDE-FORMOTEROL 160/4.5 MCG INHALER INH SCH (20:17)
[2017-04-16] MEDS: PRAVASTATIN SOD 40 MG TAB PO SCH (20:17)
[2017-04-16] MEDS: CYCLOSPORINE 0.05% EACH EYE SCH (20:18)
[2017-04-17] VITALS (35 sets, daily range): BP systolic 102–144; BP diastolic 64–92; PULSE 62–96; RESP 16–47; TEMP 97–98.5; O2SAT 93–98
[2017-04-17] MEDS: SODIUM CHLOR 0.9% 1000 ML INJ 1,000 ML IV SCH (00:06)
[2017-04-17 05:07] LABS: PROTHROMBIN TIME - PATIENT 11.3 SEC (9.8-11.6)
--- NOTE | 2017-04-17 06:54 | MG ---
cc: JANE ERVIN M.D. Lab No: [id number] Date: 04/16/2017 Age: 86 Sex: M Race: DATE OF 1930 AGE [age] years old. EEG NUMBER [id number] REFERRING PHYSICIAN MD Vikas ROOM 8401 NOTE Awake, drowsy with photic stimulation. CT of remote lacune in the right thalamus, otherwise negative study. An 86-year-old man with left arm became weak and floppy, lasted 5 minutes, resolved on its own. History of hypothyroidism, cataracts, mitral valve disease, AAA, COPD, TIAs and on anticoagulant therapy. MEDICATIONS 1. Vasotec. 2. Synthroid. 3. Aggrenox. DESCRIPTION OF RECORD The patient had some background rhythm of 5 Hz, 6 Hz at times. After he relaxes, there is a lot of movement artifact, low amplitude EEG otherwise. Hyperventilation was not done. Photic stimulation - There is a posterior driving response. No epileptiform features. IMPRESSION Mild background slowing consistent with some mild encephalopathic process without any epileptiform features. Jane Ervin MD DF/SSB /8:32 PM /6:47 AM
[2017-04-17] MEDS: TOLTERODINE TARTRATE 4 MG CAP LA PO SCH (08:33)
[2017-04-17] MEDS: ENALAPRIL MALEATE 10 MG TAB PO SCH (08:33)
[2017-04-17] MEDS: NIFEdipine 10 MG CAP PO SCH ×2 (08:33→21:33)
[2017-04-17] MEDS: PANTOPRAZOLE SOD 20 MG DELAYED RELEASE TAB PO SCH (08:33)
[2017-04-17] MEDS: DIPYRIDAMOLE/ASPIRIN 200 MG/25 MG CAP PO SCH ×2 (08:33→21:33)
[2017-04-17] MEDS: SODIUM CHLORIDE 0.9% FLUSH 5 ML FLUSH IV FLUSH SCH ×2 (08:33→21:00)
[2017-04-17] MEDS: HEPARIN SODIUM - SQ 10,000 UNITS/ML VIAL SQ SCH ×2 (08:34→21:33)
[2017-04-17] MEDS: BUDESONIDE-FORMOTEROL 160/4.5 MCG INHALER INH SCH ×2 (08:34→21:32)
[2017-04-17] MEDS: CYCLOSPORINE 0.05% EACH EYE SCH ×2 (09:00→21:00)
[2017-04-17] MEDS ORDERED: INFLUENZA VIRUS VACCINE (QUADRIVALENT) 0.5 ML SYR IM ONE (10:00)
[2017-04-17 10:05] LABS: HDL CHOLESTEROL 108.1 MG/DL (40.0-60.0)
[2017-04-17] MEDS: LEVOTHYROXINE SODIUM 88 MCG TAB PO SCH (11:17)
--- NOTE | 2017-04-17 12:09 | HHI.DCPOC ---
Discharge Care Plan Diagnosis: (1) TIA (transient ischemic attack) Goals to Promote Your Health * To prevent worsening of your condition and complications * To maintain your health at the optimal level Directions to Meet Your Goals Take your medications as prescribed Follow your dietary instruction Follow activity as directed Keep your appointments as scheduled Take your immunizations and boosters as scheduled If your symptoms worsen call your PCP, if no PCP go to Urgent Care Center or Emergency Room Smoking is Dangerous to Your Health. Avoid second hand smoke Call the 24-hour hour crisis hotline for domestic abuse at Tatum Garcia MD Apr 17, 2017 12:09
--- NOTE | 2017-04-17 12:15 | HHI.DS ---
Discharge Summary Admission Date Apr 16, 2017 at 00:15 Discharge Date: Apr 17, 2017 Admitting Diagnosis TIA (1) TIA (transient ischemic attack) ICD Code: G45.9 - TIA (transient ischemic attack) Status: Acute (2) Hypertension ICD Code: I10 - Hypertension Status: Acute (3) Hyperlipidemia ICD Code: E78.5 - Hyperlipidemia Status: Acute (4) COPD (chronic obstructive pulmonary disease) ICD Code: J44.9 - COPD (chronic obstructive pulmonary disease) Status: Acute Procedures eeg Brief History - From Admission Patient is and 83 year old male with a history of HTN and TIA/CVA on aggranox who complains of sudden onset of transient left arm heaviness, numbness and loss of movement, No headache or slurred speech is described. Symptoms resolved spontaneously. He has been recommended for obs due to this. CBC/BMP: 04/15/17 2345 04/15/17 2345 Significant Findings Laboratory Tests Test 04/15/17 23:45 04/16/17 00:00 04/16/17 01:30 04/16/17 11:20 Red Blood Count 4.27 MIL/MM3 (4.50-5.90) Mean Corpuscular Volume 100.9 FL (80.0-100.0) Platelet Count 130 TH/MM3 (150-450) Mean Platelet Volume 6.8 FL (7.0-11.0) Monocytes (%) (Auto) 12.0 % (0.0-8.0) Blood Urea Nitrogen 25 MG/DL (7-18) Creatinine 1.50 MG/DL (0.60-1.30) Estimat Glomerular Filtration Rate 44 ML/MIN (>89) Troponin I LESS THAN 0.02 NG/ML LESS THAN 0.02 NG/ML HDL Cholesterol 122.0 MG/DL (40.0-60.0) Folate GREATER THAN 20.0 NG/ML Test 04/17/17 04:30 HDL Cholesterol 108.1 MG/DL (40.0-60.0) Imaging Last Impressions Neck Magnetic Resonance Angiography 04/16/17 1046 Signed Impressions: Service Date/Time: March 13:52 - CONCLUSION: 1. No evidence of hemodynamically significant lesion. There is 0-10%% stenosis bilaterally. Abiodun Zhang MD Head Magnetic Resonance Angiography 04/16/17 1046 Signed Impressions: Service Date/Time: March 13:52 - CONCLUSION: Normal examination. Pravin Gambino MD Brain MRI 04/16/17 1046 Signed Impressions: Service Date/Time: March 13:52 - CONCLUSION: 1. Small punctate areas of infarction the vidal white junction in the right middle cerebral artery distribution. Embolic process could be considered. No hemorrhage is identified Abiodun Zhang MD Head CT 04/15/17 0000 Signed Impressions: Service Date/Time: Saturday, April 15, 2017 23:32 - CONCLUSION: 1. No acute findings. Remote lacunar infarct right thalamus, stable. Jose L Matute MD Pt update on day of discharge Patient seen in follow up for TIA which has resolved Images and results discussed with paient He has refused Warfarin He will continue his aggrenox and discuss with his Neurologist further Hospital Course Patient is seen and treated in follow-up for TIA symptoms which resolved spontaneously. Patient evaluation for this and was seen in consultation by the neurologist. Patient did have recommended she by neurology to start warfarin however he did refuse this and would like to continue his Aggrenox with further discussion with his primary care physician and personal neurology specialist. Pt Condition on Discharge: Good Discharge Disposition: Discharge Home Discharge Time: <= 30 minutes Discharge Instructions DIET: Follow Instructions for: As Tolerated, No Restrictions Activities you can perform: Regular-No Restrictions Follow up Referrals: PCP Follow-up - 1 Week Continued Medications: Alprazolam (Alprazolam) 0.5 Mg Tab 0.5 MG PO Q4H PRN for ANXIETY, TAB 0 Refills Budesonide-Formoterol Inh (Symbicort Inh) 160-4.5 Mcg/Act Aero 2 PUFF INH Q12HR, #1 INHALER 0 Refills Cyclosporine Opth 0.05% (Restasis Opth 0.05%) 0.05% Emul 1 DROP EACH EYE BID for Dry Eye, #1 BOX 0 Refills Dipyridamole-Aspirin (Aggrenox) 200-25 Mg Cap 1 CAP PO BID for Prevent Blood Clot, #60 CAP 0 Refills Enalapril (Enalapril) 20 Mg Tab 20 MG PO DAILY, #30 TAB 0 Refills Levothyroxine (Levothyroxine) 88 Mcg Tab 88 MCG PO DAILY for Thyroid, #30 TAB 0 Refills Lovastatin (Lovastatin) 40 Mg Tab 40 MG PO DAILY for Cholesterol Management, #30 TAB 0 Refills Mirabegron (Myrbetriq) 50 Mg Tab 50 MG PO DAILY for Urinary Symptom Managemen, #30 TAB 0 Refills Nifedipine (Nifedipine) 20 Mg Cap 30 MG PO BID for Chest Pain, #120 CAP 0 Refills Omeprazole (Omeprazole) 20 Mg Tab 20 MG PO DAILY, #30 TAB 0 Refills Tramadol (Tramadol) 50 Mg Tab 50 MG PO Q4H PRN for PAIN, TAB 0 Refills Tatum Garcia MD Apr 17, 2017 12:15
--- NOTE | 2017-04-17 15:50 | ECHRPT ---
Indication: cva/tia CONCLUSIONS Normal left ventricular size. Wall thickness is normal. The left ventricular systolic function is hyperdynamic with an estimated ejection fraction in the ra nge of 65- 70%. Trace mitral valve regurgitation. Mild thickening of the aortic valve leaflets. No aortic valve regurgitation. Aortic valve mean gradient is 17 mmHg. Aortic valve area is 1.2 cm. Mild Aortic stenosis There is mild tricuspid valve regurgitation. The estimated pulmonary arterial pressure is _36_ mmHg. The pulmonary valve is not well visualized. BP: / HR: Rhythm: MEASUREMENTS (Male / Female) Normal Values Technical Quality:Very technically difficult study 2D ECHO LV Diastolic Diameter PLAX 3.8 cm 4.2 - 5.9 / 3.9 - 5.3 cm LV Systolic Diameter PLAX 2.7 cm IVS Diastolic Thickness 1.0 cm 0.6 - 1.0 / 0.6 - 0.9 cm LVPW Diastolic Thickness 1.0 cm 0.6 - 1.0 / 0.6 - 0.9 cm LV Relative Wall Thickness 0.5 RV Internal Dim ED PLAX 3.1 cm LVOT Diameter 2.1 cm M-MODE Aortic Root Diameter MM 3.4 cm LA Systolic Diameter MM 4.5 cm LA Ao Ratio MM 1.3 DOPPLER AV Peak Velocity 250.0 cm/s AV Peak Gradient 25.0 mmHg AV Mean Gradient 17.0 mmHg AV Velocity Time Integral 58.4 cm LVOT Peak Velocity 91.7 cm/s LVOT Peak Gradient 3.4 mmHg LVOT Velocity Time Integral 20.7 cm AV Area Cont Eq vti 1.2 cm AV Area Cont Eq pk 1.3 cm TR Peak Velocity 301.0 cm/s TR Peak Gradient 36.2 mmHg FINDINGS LEFT VENTRICLE Normal left ventricular size. Wall thickness is normal. The left ventricular systolic function is hyperdynamic with an estimated ejection fraction in the ra nge of 65- 70%. RIGHT VENTRICLE Normal right ventricular size and systolic function. LEFT ATRIUM The left atrial size is normal. RIGHT ATRIUM The right atrial size is normal. ATRIAL SEPTUM Normal atrial septal thickness without atrial level shunting by limited color doppler interrogation. AORTA The aortic root and proximal ascending aorta are normal in size on limited imaging. MITRAL VALVE Structurally normal mitral valve. Trace mitral valve regurgitation. AORTIC VALVE Mild thickening of the aortic valve leaflets. No aortic valve regurgitation. Aortic valve mean gradient is 17 mmHg. Aortic valve area is 1.2 cm. Mild Aortic Stenosis TRICUSPID VALVE Structurally normal tricuspid valve. There is mild tricuspid valve regurgitation. The estimated pulmonary arterial pressure is _36_ mmHg. PULMONARY VALVE The pulmonary valve is not well visualized. VESSELS The inferior vena cava is normal in size. PERICARDIUM No pericardial effusion. Amy Barreto MD, FACC (Electronically Signed) Final Date:17 April 2017 15:48
--- NOTE | 2017-04-17 16:31 | HHI.PR ---
Subjective Remarks sr Objective Vital Signs Date Time Temp Pulse Resp B/P (MAP) Pulse Ox O2 Delivery O2 Flow Rate FiO2 04/17/17 12:00 97.8 85 24 102/64 (77) 95 04/17/17 08:00 97.9 72 28 144/92 (109) 95 04/17/17 08:00 62 04/17/17 06:45 66 28 04/17/17 06:30 70 30 04/17/17 06:15 74 31 04/17/17 06:00 64 04/17/17 06:00 64 28 04/17/17 05:45 64 26 04/17/17 05:30 66 25 04/17/17 05:15 66 21 04/17/17 05:00 68 20 04/17/17 04:45 94 47 04/17/17 04:30 64 27 04/17/17 04:18 66 25 04/17/17 04:03 68 36 04/17/17 04:02 68 28 132/81 (98) 04/17/17 04:00 98.4 95 04/17/17 04:00 68 04/17/17 03:48 82 42 04/17/17 03:33 64 16 04/17/17 03:18 64 17 04/17/17 03:03 62 23 04/17/17 02:48 66 27 04/17/17 02:33 64 24 04/17/17 02:18 68 30 04/17/17 02:03 82 46 04/17/17 02:00 96 04/17/17 01:48 70 19 04/17/17 01:30 74 19 04/17/17 01:15 76 21 04/17/17 01:00 80 32 94 04/17/17 00:45 76 28 04/17/17 00:30 88 38 04/17/17 00:15 74 18 04/17/17 00:00 74 16 04/17/17 00:00 74 04/17/17 00:00 97.5 26 04/16/17 23:30 74 24 04/16/17 23:15 72 19 04/16/17 23:07 72 28 112/67 (82) 04/16/17 23:00 74 23 04/16/17 22:45 80 41 04/16/17 22:30 78 35 04/16/17 22:15 94 39 8/31/17 22:00 84 04/16/17 22:00 84 41 04/16/17 21:45 80 42 04/16/17 21:30 72 34 04/16/17 21:15 92 37 04/16/17 21:00 72 29 04/16/17 20:45 70 30 04/16/17 20:30 64 29 04/16/17 20:15 66 28 04/16/17 20:00 98.3 26 93 04/16/17 20:00 66 24 04/16/17 20:00 66 04/16/17 19:45 68 30 04/16/17 19:30 78 39 04/16/17 19:15 72 30 I/O 04/16/17 04/16/17 04/16/17 04/17/17 04/17/17 04/17/17 07:00 15:00 23:00 07:00 15:00 23:00 Intake Total 200 ml 150 ml 600 ml Output Total 1150 ml 2075 ml 450 ml 100 ml Balance -1150 ml -1875 ml -300 ml 500 ml Intake Oral 200 ml 150 ml IV Total 600 ml Output Urine Total 1150 ml 2075 ml 450 ml 100 ml # Voids 3 # Bowel Movements 0 Result Diagram: 04/15/17 2345 04/15/17 2345 Objective Remarks awake alert a little sob anxious movesall well nl speech Assessment and Plan Assessment and Plan mra cow and neck neg echo neg eeg neg holter pend mri brain positive two small r mca cva i think he should be on coumadin and get loop recorder o/p i dw him he had two new cva acute ldl nl inr 1.0 can [employer] set up o/p sq hep and daily inr? or should stay here until inr up dc agx when inr>1.9 i dw him and his brother in law who can help at home acc to nurse doing fine with gait Abiodun Bean MD Apr 17, 2017 16:31
[2017-04-17] MEDS: WARFARIN SOD 5 MG TAB PO SCH (16:37)
[2017-04-17] MEDS: PRAVASTATIN SOD 40 MG TAB PO SCH (21:33)
[2017-04-18] VITALS (7 sets, daily range): BP systolic 100–149; BP diastolic 66–88; PULSE 66–79; RESP 18–28; TEMP 96–97.9; O2SAT 92–96
[2017-04-18] MEDS: ALPRAZolam 0.5 MG TAB PO PRN ×2 (05:21→08:23)
[2017-04-18] MEDS: LEVOTHYROXINE SODIUM 88 MCG TAB PO SCH (05:21)
[2017-04-18] MEDS ORDERED: ACETAMINOPHEN/HYDROcodone 325 MG/5 MG TAB PO ONE (05:30)
[2017-04-18 06:43] LABS: PROTHROMBIN TIME - PATIENT 11.1 SEC (9.8-11.6)
[2017-04-18] MEDS: DIPYRIDAMOLE/ASPIRIN 200 MG/25 MG CAP PO SCH ×2 (08:20→21:02)
[2017-04-18] MEDS: BUDESONIDE-FORMOTEROL 160/4.5 MCG INHALER INH SCH ×2 (08:20→21:01)
[2017-04-18] MEDS: NIFEdipine 10 MG CAP PO SCH ×2 (08:20→21:04)
[2017-04-18] MEDS: TOLTERODINE TARTRATE 4 MG CAP LA PO SCH (08:22)
[2017-04-18] MEDS: ENALAPRIL MALEATE 10 MG TAB PO SCH (08:22)
[2017-04-18] MEDS: HEPARIN SODIUM - SQ 10,000 UNITS/ML VIAL SQ SCH ×2 (08:22→21:05)
[2017-04-18] MEDS: PANTOPRAZOLE SOD 20 MG DELAYED RELEASE TAB PO SCH (08:23)
[2017-04-18] MEDS: CYCLOSPORINE 0.05% EACH EYE SCH ×2 (08:23→21:00)
[2017-04-18] MEDS: SODIUM CHLORIDE 0.9% FLUSH 5 ML FLUSH IV FLUSH SCH ×2 (08:57→21:00)
--- NOTE | 2017-04-18 10:08 | HM ---
Date Performed: 04/16/2017 Time Performed: 16:46:00 HOOKUP DATE: 04/16/17 04:46:00 PM Manisha ANALYSIS START TIME: 04/16/2017 4:51:00 PM ANALYSIS END TIME: 04/17/2017 4:12:30 PM PATIENT AGE: 86 PATIENT HEIGHT PATIENT WEIGHT DRUG LIST PATIENT DIAGNOSIS: TIA/A-fib TEST NARRATIVE: The patient's average heart rate was 77 BPM. No episodes of tachycardia wer e noted. No episodes of bradycardia were noted. No pauses exceeding 2.0 seconds were noted. 724 ventricular ectopics, which represented 1% of the total beat count, were noted. The highest vent ricular ectopic frequency occurred from 09:00 AM to 10:00 AM Fri. During this time 59 VE(s) occurred . Ventricular ectopics were observed as 688 isolated beat(s) and as 18 couplet(s). No runs were not ed. 42 supraventricular ectopics, which represented < 1% of the total beat count, were noted. Th e highest supraventricular ectopic frequency occurred from 09:00 AM to 10:00 AM Fri. During this jacklyn e 8 SVE(s) occurred. No episodes of ST depression (defined as -1.0 mm or more) were noted in ferrell claudio 1. No episodes of ST depression (defined as -1.0 mm or more) were noted in channel 2. No episod es of ST depression (defined as -1.0 mm or more) were noted in channel 3. No diary events were r eported by the patient. TEST INTERPRETATION: Sinus rhythm SINUS TACHYCARDIA SINUS ARRHYTHMIA OCCASIONAL PVCs IN SINGLETS AND COUPLETS RARE PACs Signed by : Brian Castro
--- NOTE | 2017-04-18 10:14 | HHI.PR ---
Subjective Remarks Patient seen and evaluated in follow-up for stroke. No new events today. Patient is complaining of chronic shoulder pain which is usually relieved with Ultram. Care plan discussed with case management and with nursing team as well as Dr. Bean neurology. Objective Vitals Vital Signs Date Time Temp Pulse Resp B/P (MAP) Pulse Ox O2 Delivery O2 Flow Rate FiO2 04/18/17 08:00 74 04/18/17 07:46 97.0 79 28 133/87 (102) 92 04/18/17 04:00 97.9 69 24 149/88 (108) 94 04/18/17 00:00 97.9 66 18 118/78 (91) 96 04/17/17 20:00 68 04/17/17 20:00 98.5 75 30 108/66 (80) 98 04/17/17 16:00 97.0 74 38 142/86 (104) 93 04/17/17 12:00 97.8 85 24 102/64 (77) 95 I/O 04/17/17 04/17/17 04/17/17 04/18/17 04/18/17 04/18/17 07:00 15:00 23:00 07:00 15:00 23:00 Intake Total 150 ml 600 ml 1620 ml 360 ml Output Total 450 ml 100 ml 1200 ml Balance -300 ml 500 ml 1620 ml -840 ml Intake Oral 150 ml 1000 ml 360 ml IV Total 600 ml 620 ml 0 ml Output Urine Total 450 ml 100 ml 1200 ml # Voids 12 # Bowel Movements 1 0 Result Diagram: 04/15/17 2345 04/15/17 2345 Imaging Last Impressions Neck Magnetic Resonance Angiography 04/16/17 1046 Signed Impressions: Service Date/Time: March 13:52 - CONCLUSION: 1. No evidence of hemodynamically significant lesion. There is 0-10%% stenosis bilaterally. Abiodun Zhang MD Head Magnetic Resonance Angiography 04/16/17 104 Signed Impressions: Service Date/Time: March 13:52 - CONCLUSION: Normal examination. Pravin Gambino MD Brain MRI 04/16/17 1046 Signed Impressions: Service Date/Time: March 13:52 - CONCLUSION: 1. Small punctate areas of infarction the vidal white junction in the right middle cerebral artery distribution. Embolic process could be considered. No hemorrhage is identified Abiodun Zhang MD Head CT 04/15/17 0000 Signed Impressions: Service Date/Time: Saturday, April 15, 2017 23:32 - CONCLUSION: 1. No acute findings. Remote lacunar infarct right thalamus, stable. Jose L Matute MD Objective Remarks GENERAL: This is a well-nourished, well-developed patient, in no apparent distress. CARDIOVASCULAR: Regular rate and rhythm without murmurs, gallops, or rubs. RESPIRATORY: Clear to auscultation. Breath sounds equal bilaterally. No wheezes , rales, or rhonchi. GASTROINTESTINAL: Abdomen soft, non-tender, nondistended. Normal active bowel sounds MUSCULOSKELETAL: Extremities without clubbing, cyanosis, or edema. NEURO: Alert & Oriented x4 to person, place, time, situation. Moves all ext x4 Procedures eeg A/P Problem List: (1) TIA (transient ischemic attack) ICD Code: G45.9 - TIA (transient ischemic attack) Status: Acute Plan: cva Neuro eval appreciated Resume Home BP meds coumadin (2) Hypertension ICD Code: I10 - Hypertension Status: Acute Plan: controlled on home meds which we will resume (3) Hyperlipidemia ICD Code: E78.5 - Hyperlipidemia Status: Acute Plan: continue statin (4) COPD (chronic obstructive pulmonary disease) ICD Code: J44.9 - COPD (chronic obstructive pulmonary disease) Status: Acute Plan: Stable on home meds without exacerbation Discharge Planning home when INR above 1.9 Problem Qualifiers (1) TIA (transient ischemic attack): Qualified Codes: G45.1 - Carotid artery syndrome (hemispheric) Tatum Garcia MD Apr 18, 2017 10:14
[2017-04-18] MEDS: traMADol HCL 50 MG TAB PO PRN (10:43)
[2017-04-18] MEDS: WARFARIN SOD 5 MG TAB PO SCH (16:41)
[2017-04-18] MEDS: PRAVASTATIN SOD 40 MG TAB PO SCH (21:05)
[2017-04-19] MEDS ORDERED: ACETAMINOPHEN/HYDROcodone 325 MG/5 MG TAB PO ONE (00:30)
[2017-04-19 00:59] VITALS: BP 145/82; PULSE 69; RESP 20; TEMP 97; O2SAT 96
[2017-04-19] MEDS: LEVOTHYROXINE SODIUM 88 MCG TAB PO SCH (05:16)
[2017-04-19 07:34] LABS: PROTHROMBIN TIME - PATIENT 11.5 SEC (9.8-11.6)
[2017-04-19 08:00] VITALS: BP 138/89; PULSE 61; RESP 22; TEMP 98; O2SAT 95
[2017-04-19] MEDS: SODIUM CHLORIDE 0.9% FLUSH 5 ML FLUSH IV FLUSH SCH ×2 (09:00→21:00)
[2017-04-19] MEDS: CYCLOSPORINE 0.05% EACH EYE SCH ×2 (09:00→21:40)
[2017-04-19] MEDS: BUDESONIDE-FORMOTEROL 160/4.5 MCG INHALER INH SCH ×2 (09:10→21:42)
[2017-04-19] MEDS: PANTOPRAZOLE SOD 20 MG DELAYED RELEASE TAB PO SCH (09:12)
[2017-04-19] MEDS: ENALAPRIL MALEATE 10 MG TAB PO SCH (09:12)
[2017-04-19] MEDS: NIFEdipine 10 MG CAP PO SCH ×2 (09:13→21:47)
[2017-04-19] MEDS: HEPARIN SODIUM - SQ 10,000 UNITS/ML VIAL SQ SCH ×2 (09:13→21:45)
[2017-04-19] MEDS: DIPYRIDAMOLE/ASPIRIN 200 MG/25 MG CAP PO SCH ×2 (09:24→21:45)
[2017-04-19] MEDS: TOLTERODINE TARTRATE 4 MG CAP LA PO SCH (09:24)
[2017-04-19] MEDS: traMADol HCL 50 MG TAB PO PRN (11:44)
[2017-04-19 12:00] VITALS: BP 115/82; PULSE 79; RESP 20; TEMP 97.7; O2SAT 97
--- NOTE | 2017-04-19 13:33 | HHI.PR ---
Subjective Remarks Patient seen and evaluated today in follow-up for stroke. No new complaints today. INR still 1. Pain better controlled on tramadol Objective Vitals Vital Signs Date Time Temp Pulse Resp B/P (MAP) Pulse Ox O2 Delivery O2 Flow Rate FiO2 04/19/17 12:00 97.7 79 20 115/82 (93) 97 04/19/17 08:00 98.0 61 22 138/89 (105) 95 04/19/17 04:58 04/19/17 00:59 97.0 69 20 145/82 (103) 96 04/18/17 20:18 96.0 77 18 131/80 (97) 95 04/18/17 16:00 97.5 70 19 105/68 (80) 94 I/O 04/18/17 04/18/17 04/18/17 04/19/17 04/19/17 04/19/17 07:00 15:00 23:00 07:00 15:00 23:00 Intake Total 360 ml 240 ml Output Total 1200 ml 600 ml Balance -840 ml -360 ml Intake Oral 360 ml 240 ml IV Total 0 ml Output Urine Total 1200 ml 600 ml # Bowel Movements 0 Result Diagram: 04/15/17 2345 04/15/17 2345 Objective Remarks GENERAL: This is a well-nourished, well-developed patient, in no apparent distress. CARDIOVASCULAR: Regular rate and rhythm without murmurs, gallops, or rubs. RESPIRATORY: Clear to auscultation. Breath sounds equal bilaterally. No wheezes , rales, or rhonchi. GASTROINTESTINAL: Abdomen soft, non-tender, nondistended. Normal active bowel sounds MUSCULOSKELETAL: Extremities without clubbing, cyanosis, or edema. NEURO: Alert & Oriented x4 to person, place, time, situation. Moves all ext x4 Procedures eeg A/P Problem List: (1) CVA (cerebral vascular accident) ICD Code: I63.9 - Cerebral infarction, unspecified Plan: Continue current plans for medical management with Coumadin and statin and risk modification (2) Hypertension ICD Code: I10 - Hypertension Status: Acute Plan: controlled on home meds (3) Hyperlipidemia ICD Code: E78.5 - Hyperlipidemia Status: Acute Plan: continue statin (4) COPD (chronic obstructive pulmonary disease) ICD Code: J44.9 - COPD (chronic obstructive pulmonary disease) Status: Acute Plan: Stable on home meds without exacerbation Discharge Planning home when INR above 1.9 Tatum Garcia MD Apr 19, 2017 13:33
[2017-04-19 16:00] VITALS: BP 116/81; PULSE 75; RESP 20; TEMP 98; O2SAT 96
[2017-04-19] MEDS: WARFARIN SOD 5 MG TAB PO SCH (17:09)
[2017-04-19 20:00] VITALS: BP 116/74; PULSE 66; RESP 16; TEMP 98.4; O2SAT 95
[2017-04-19] MEDS: PRAVASTATIN SOD 40 MG TAB PO SCH (21:46)
[2017-04-20] VITALS: BP 104/72; PULSE 60; RESP 16; TEMP 98.8; O2SAT 95
[2017-04-20] MEDS: LEVOTHYROXINE SODIUM 88 MCG TAB PO SCH (05:07)
[2017-04-20 07:41] LABS: INTERNATIONAL NORMALIZED RATIO 1.1 RATIO; PROTHROMBIN TIME - PATIENT 12.3 SEC (9.8-11.6)
[2017-04-20 08:00] VITALS: BP 130/71; PULSE 80; RESP 20; TEMP 97.7; O2SAT 93
[2017-04-20] MEDS: TOLTERODINE TARTRATE 4 MG CAP LA PO SCH (08:33)
[2017-04-20] MEDS: NIFEdipine 10 MG CAP PO SCH ×2 (08:33→20:57)
[2017-04-20] MEDS: PANTOPRAZOLE SOD 20 MG DELAYED RELEASE TAB PO SCH (08:33)
[2017-04-20] MEDS: ENALAPRIL MALEATE 10 MG TAB PO SCH (08:33)
[2017-04-20] MEDS: DIPYRIDAMOLE/ASPIRIN 200 MG/25 MG CAP PO SCH (08:34)
[2017-04-20] MEDS: HEPARIN SODIUM - SQ 10,000 UNITS/ML VIAL SQ SCH (08:34)
[2017-04-20] MEDS: BUDESONIDE-FORMOTEROL 160/4.5 MCG INHALER INH SCH ×2 (08:34→20:58)
[2017-04-20] MEDS: CYCLOSPORINE 0.05% EACH EYE SCH ×2 (08:35→20:58)
[2017-04-20] MEDS: SODIUM CHLORIDE 0.9% FLUSH 5 ML FLUSH IV FLUSH SCH ×2 (08:37→20:58)
[2017-04-20] MEDS: traMADol HCL 50 MG TAB PO PRN ×2 (08:42→20:57)
[2017-04-20 12:00] VITALS: BP 139/75; PULSE 77; RESP 19; TEMP 98; O2SAT 94
--- NOTE | 2017-04-20 12:37 | HHI.PR ---
Subjective Remarks Patient seen in room Inr 1.1 Objective Vitals Vital Signs Date Time Temp Pulse Resp B/P (MAP) Pulse Ox O2 Delivery O2 Flow Rate FiO2 04/20/17 12:00 98.0 77 19 139/75 (96) 94 04/20/17 08:00 97.7 80 20 130/71 (90) 93 04/20/17 00:00 98.8 60 16 104/72 (83) 95 04/19/17 20:00 98.4 66 16 116/74 (88) 95 04/19/17 16:00 98.0 75 20 116/81 (93) 96 I/O 04/19/17 04/19/17 04/19/17 04/20/17 04/20/17 04/20/17 06:59 14:59 22:59 06:59 14:59 22:59 Intake Total 240 ml 240 ml Output Total 600 ml 300 ml 600 ml Balance -360 ml -60 ml -600 ml Intake Oral 240 ml 240 ml Output Urine Total 600 ml 300 ml 600 ml # Voids 8 Result Diagram: 04/15/17 2345 Imaging Last Impressions Neck Magnetic Resonance Angiography 04/16/17 1046 Signed Impressions: Service Date/Time: March 13:52 - CONCLUSION: 1. No evidence of hemodynamically significant lesion. There is 0-10%% stenosis bilaterally. Abiodun Zhang MD Head Magnetic Resonance Angiography 04/16/17 1046 Signed Impressions: Service Date/Time: March 13:52 - CONCLUSION: Normal examination. Pravin Gambino MD Brain MRI 04/16/17 1046 Signed Impressions: Service Date/Time: March 13:52 - CONCLUSION: 1. Small punctate areas of infarction the vidal white junction in the right middle cerebral artery distribution. Embolic process could be considered. No hemorrhage is identified Abiodun Zhang MD Head CT 04/15/17 0000 Signed Impressions: Service Date/Time: Saturday, April 15, 2017 23:32 - CONCLUSION: 1. No acute findings. Remote lacunar infarct right thalamus, stable. Jose L Matute MD Objective Remarks GENERAL: This is a well-nourished, well-developed patient, in no apparent distress. CARDIOVASCULAR: Regular rate and rhythm without murmurs, gallops, or rubs. RESPIRATORY: Clear to auscultation. Breath sounds equal bilaterally. No wheezes , rales, or rhonchi. GASTROINTESTINAL: Abdomen soft, non-tender, nondistended. Normal active bowel sounds MUSCULOSKELETAL: Extremities without clubbing, cyanosis, or edema. NEURO: Alert & Oriented x4 to person, place, time, situation. Moves all ext x4 Procedures eeg A/P Problem List: (1) CVA (cerebral vascular accident) ICD Code: I63.9 - Cerebral infarction, unspecified Plan: Continue current plans for medical management with Coumadin/lovenox and statin and risk modification (2) Hypertension ICD Code: I10 - Hypertension Status: Acute Plan: controlled on home meds (3) Hyperlipidemia ICD Code: E78.5 - Hyperlipidemia Status: Acute Plan: continue statin (4) COPD (chronic obstructive pulmonary disease) ICD Code: J44.9 - COPD (chronic obstructive pulmonary disease) Status: Acute Discharge Planning home when INR above 1.9 Tatum Garcia MD Apr 20, 2017 12:37
--- NOTE | 2017-04-20 12:38 | HHI.FF ---
Face to Face Verification Diagnosis: (1) CVA (cerebral vascular accident) Home Health Nursing Order: Medical education Signs/symptoms of disease process Medication education-adverse effect Nursing assessment with vital signs I have seen patient Marcellus JacksonJr on 04/20/17. My clinical findings support the need for the requested home health care services because: High risk of falls I certify that my clinical findings support that this patient is homebound because: Unsteady gait/balance Tatum Garcia MD Apr 20, 2017 12:38
[2017-04-20] MEDS: ENOXAPARIN SODIUM 80 MG/0.8 ML SYRINGE SQ SCH ×2 (14:37→20:58)
[2017-04-20 16:00] VITALS: BP 104/66; PULSE 71; RESP 17; TEMP 97.7; O2SAT 93
[2017-04-20] MEDS ORDERED: DO NOT ADM ANY ANTICOAGULANT DRUGS OTHER PRN (16:00)
[2017-04-20] MEDS: WARFARIN SOD 7.5 MG TAB PO SCH (16:59)
[2017-04-20 20:00] VITALS: BP 125/83; PULSE 68; RESP 18; TEMP 96.7; O2SAT 95
[2017-04-20] MEDS: PRAVASTATIN SOD 40 MG TAB PO SCH (20:58)
[2017-04-21] VITALS: BP 115/76; PULSE 61; RESP 18; TEMP 95.5; O2SAT 95
[2017-04-21] MEDS: LEVOTHYROXINE SODIUM 88 MCG TAB PO SCH (05:47)
[2017-04-21 05:58] LABS: INTERNATIONAL NORMALIZED RATIO 1.2 RATIO; PROTHROMBIN TIME - PATIENT 13.8 SEC (9.8-11.6)
[2017-04-21 08:00] VITALS: BP 122/80; PULSE 62; RESP 18; TEMP 97.3; O2SAT 95
[2017-04-21 09:00] LABS: ALBUMIN SPE 4.63 GM/DL (3.50-5.00); ALPHA 1 GLOBULIN 0.19 GM/DL (0.11-0.29)
[2017-04-21] MEDS: SODIUM CHLORIDE 0.9% FLUSH 5 ML FLUSH IV FLUSH SCH ×2 (09:00→21:00)
[2017-04-21 09:01] LABS: BETA GLOBULINS (SPE) 0.75 GM/DL (0.53-1.03)
[2017-04-21] MEDS: CYCLOSPORINE 0.05% EACH EYE SCH ×2 (09:16→21:00)
[2017-04-21] MEDS: TOLTERODINE TARTRATE 4 MG CAP LA PO SCH (09:17)
[2017-04-21] MEDS: PANTOPRAZOLE SOD 20 MG DELAYED RELEASE TAB PO SCH (09:17)
[2017-04-21] MEDS: ENALAPRIL MALEATE 10 MG TAB PO SCH (09:17)
[2017-04-21] MEDS: BUDESONIDE-FORMOTEROL 160/4.5 MCG INHALER INH SCH ×2 (09:17→21:05)
[2017-04-21] MEDS: NIFEdipine 10 MG CAP PO SCH ×2 (09:17→21:06)
[2017-04-21] MEDS: ENOXAPARIN SODIUM 80 MG/0.8 ML SYRINGE SQ SCH ×2 (09:18→21:07)
[2017-04-21] MEDS: traMADol HCL 50 MG TAB PO PRN (09:28)
--- NOTE | 2017-04-21 11:11 | HHI.PR ---
Subjective Remarks Patient seen and evaluated today in follow-up for stroke. Now started on Coumadin. Awaiting for home health care arrangements to be made for Coumadin and Lovenox management Objective Vitals Vital Signs Date Time Temp Pulse Resp B/P (MAP) Pulse Ox O2 Delivery O2 Flow Rate FiO2 04/21/17 08:00 97.3 62 18 122/80 (94) 95 04/21/17 04:00 Room Air 04/21/17 00:00 95.5 61 18 115/76 (89) 95 04/21/17 00:00 Room Air 04/20/17 20:00 Room Air 04/20/17 20:00 96.7 68 18 125/83 (97) 95 04/20/17 16:00 97.7 71 17 104/66 (79) 93 04/20/17 12:00 98.0 77 19 139/75 (96) 94 I/O 04/20/17 04/20/17 04/20/17 04/21/17 04/21/17 04/21/17 07:00 15:00 23:00 07:00 15:00 23:00 Output Total 600 ml 500 ml Balance -600 ml -500 ml Output Urine Total 600 ml 500 ml # Voids 1 # Bowel Movements 1 Imaging Last Impressions Neck Magnetic Resonance Angiography 04/16/17 1046 Signed Impressions: Service Date/Time: March 13:52 - CONCLUSION: 1. No evidence of hemodynamically significant lesion. There is 0-10%% stenosis bilaterally. Abiodun Zhang MD Head Magnetic Resonance Angiography 04/16/17 1046 Signed Impressions: Service Date/Time: March 13:52 - CONCLUSION: Normal examination. Pravin Gambino MD Brain MRI 04/16/17 1046 Signed Impressions: Service Date/Time: March 13:52 - CONCLUSION: 1. Small punctate areas of infarction the vidal white junction in the right middle cerebral artery distribution. Embolic process could be considered. No hemorrhage is identified Abiodun Zhang MD Head CT 04/15/17 0000 Signed Impressions: Service Date/Time: Saturday, April 15, 2017 23:32 - CONCLUSION: 1. No acute findings. Remote lacunar infarct right thalamus, stable. Jose L Matute MD Objective Remarks GENERAL: This is a well-nourished, well-developed patient, in no apparent distress. CARDIOVASCULAR: Regular rate and rhythm without murmurs, gallops, or rubs. RESPIRATORY: Clear to auscultation. Breath sounds equal bilaterally. No wheezes , rales, or rhonchi. GASTROINTESTINAL: Abdomen soft, non-tender, nondistended. Normal active bowel sounds MUSCULOSKELETAL: Extremities without clubbing, cyanosis, or edema. NEURO: Alert & Oriented x4 to person, place, time, situation. Moves all ext x4 Procedures eeg A/P Problem List: (1) CVA (cerebral vascular accident) ICD Code: I63.9 - Cerebral infarction, unspecified Plan: Continue current plans for medical management with Coumadin/lovenox and statin and risk modification (2) Hypertension ICD Code: I10 - Hypertension Status: Acute Plan: controlled on home meds (3) Hyperlipidemia ICD Code: E78.5 - Hyperlipidemia Status: Acute Plan: continue statin (4) COPD (chronic obstructive pulmonary disease) ICD Code: J44.9 - COPD (chronic obstructive pulmonary disease) Status: Acute Discharge Planning home with home healthcare when able to be arranged and goal INR above 1.9 Tatum Garcia MD Apr 21, 2017 11:11
[2017-04-21] MEDS ORDERED: COUM7.5T PO (11:12)
[2017-04-21] MEDS ORDERED: ENOX80P SQ (11:12)
[2017-04-21 12:00] VITALS: BP 112/68; PULSE 75; RESP 20; TEMP 97.5; O2SAT 94
[2017-04-21 16:00] VITALS: BP 115/73; PULSE 78; RESP 20; TEMP 98.9; O2SAT 96
[2017-04-21] MEDS: WARFARIN SOD 7.5 MG TAB PO SCH (17:11)
[2017-04-21 20:00] VITALS: BP 106/69; PULSE 66; RESP 20; TEMP 97.4; O2SAT 97
[2017-04-21] MEDS: PRAVASTATIN SOD 40 MG TAB PO SCH (21:07)
[2017-04-22] VITALS: BP 145/88; PULSE 65; RESP 20; TEMP 97.3; O2SAT 97
[2017-04-22] MEDS: LEVOTHYROXINE SODIUM 88 MCG TAB PO SCH (05:49)
[2017-04-22 08:00] VITALS: BP 136/79; PULSE 63; RESP 20; TEMP 97.5; O2SAT 93
[2017-04-22] MEDS: CYCLOSPORINE 0.05% EACH EYE SCH (09:03)
[2017-04-22] MEDS: SODIUM CHLORIDE 0.9% FLUSH 5 ML FLUSH IV FLUSH SCH (09:03)
[2017-04-22] MEDS: PANTOPRAZOLE SOD 20 MG DELAYED RELEASE TAB PO SCH (09:03)
[2017-04-22] MEDS: TOLTERODINE TARTRATE 4 MG CAP LA PO SCH (09:03)
[2017-04-22] MEDS: ENALAPRIL MALEATE 10 MG TAB PO SCH (09:03)
[2017-04-22] MEDS: BUDESONIDE-FORMOTEROL 160/4.5 MCG INHALER INH SCH (09:03)
[2017-04-22] MEDS: NIFEdipine 10 MG CAP PO SCH (09:03)
[2017-04-22] MEDS: ENOXAPARIN SODIUM 80 MG/0.8 ML SYRINGE SQ SCH ×2 (09:04→18:16)
--- NOTE | 2017-04-22 11:57 | HHI.PR ---
Subjective Remarks Patient denies any neurological complaints. He has been ambulating all throughout the hallway today. He would like to go home today. He states his [id number] can help with the Lovenox shots. The patient states that he still drives. Objective Vitals Vital Signs Date Time Temp Pulse Resp B/P (MAP) Pulse Ox O2 Delivery O2 Flow Rate FiO2 04/22/17 08:00 97.5 63 20 136/79 (98) 93 04/22/17 07:10 Room Air 04/22/17 00:00 97.3 65 20 145/88 (107) 97 04/21/17 20:00 97.4 66 20 106/69 (81) 97 04/21/17 20:00 Room Air 04/21/17 16:00 98.9 78 20 115/73 (87) 96 04/21/17 12:00 97.5 75 20 112/68 (83) 94 I/O 04/21/17 04/21/17 04/21/17 04/22/17 04/22/17 04/22/17 07:00 15:00 23:00 07:00 15:00 23:00 Intake Total 950 ml 500 ml 60 ml Output Total 500 ml 200 ml 525 ml 250 ml Balance -500 ml 750 ml -25 ml -190 ml Intake Oral 950 ml 500 ml 60 ml Output Urine Total 500 ml 200 ml 525 ml 250 ml # Voids 5 2 2 # Bowel Movements 0 0 0 Objective Remarks GENERAL: Well-nourished, well-developed pleasant elderly male patient. SKIN: Warm and dry. HEAD: Normocephalic. EYES: No scleral icterus. No injection or drainage. NECK: Supple, trachea midline. No JVD or lymphadenopathy. CARDIOVASCULAR: Regular rate and rhythm without murmurs, gallops, or rubs. RESPIRATORY: Breath sounds equal bilaterally. No accessory muscle use. GASTROINTESTINAL: Abdomen soft, non-tender, nondistended. EXTREMITIES: No cyanosis, or edema. NEUROLOGICAL: Awake, alert, and oriented x 3. Non-focal. 5 out of 5 strength all 4 extremities. Normal speech. Procedures A/P Problem List: (1) CVA (cerebral vascular accident) ICD Code: I63.9 - Cerebral infarction, unspecified (2) Hypertension ICD Code: I10 - Hypertension Status: Acute (3) Hyperlipidemia ICD Code: E78.5 - Hyperlipidemia Status: Acute (4) COPD (chronic obstructive pulmonary disease) ICD Code: J44.9 - COPD (chronic obstructive pulmonary disease) Status: Acute Assessment and Plan -2 punctate right MCA CVAs, presumably embolic, and the patient previously on Aggrenox with history of previous TIA. Echo and Holter monitor negative. Neck MRA negative. Patient has been started on Coumadin with Lovenox bridging per neurology. Continue pravastatin. Discussed with Dr. Bean. Patient will continue on Lovenox until INR is 1.9. This can be done at home if arrangements can be made. Discussed with Maria Esther social work case manager. [facility] has been arranged. His PCP is Dr. Pravin Steve. -Anxiety. Continue Xanax as needed. Hypertension continue Procardia and enalapril. Hypothyroidism continue Synthroid. Problem Qualifiers (1) CVA (cerebral vascular accident): Qualified Codes: I63.411 - Cerebral infarction due to embolism of right middle cerebral artery Dayanara Najera MD Apr 22, 2017 11:57
[2017-04-22 12:00] VITALS: BP 120/69; PULSE 73; RESP 20; TEMP 98.1; O2SAT 94
--- NOTE | 2017-04-22 12:03 | HHI.FF ---
Face to Face Verification Diagnosis: (1) CVA (cerebral vascular accident) Home Health Nursing Order: Medication education-adverse effect Instructions: lovenox injection teaching. Daily PT/INR blood draws - call results to Dr. Esvin Steve's office for coumadin dose changes. DC lovenox when INR>1.9. If unable to reach Dr. Steve, please page neurologist environmental lead at [facility] for coumadin dosing instructions. I have seen patient Marcellus Jr Manuel on 04/22/17. My clinical findings support the need for the requested home health care services because: Med compliance is questionable Need for psychosocial assistance I certify that my clinical findings support that this patient is homebound because: Need for psychosocial assistance Dayanara Najera MD Apr 22, 2017 12:03
[2017-04-22] MEDS ORDERED: ENOX80P SQ (12:40)
[2017-04-22 13:19] LABS: INTERNATIONAL NORMALIZED RATIO 1.5 RATIO; PROTHROMBIN TIME - PATIENT 16.3 SEC (9.8-11.6)
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
[2017-04-22 16:00] VITALS: BP 138/87; PULSE 75; RESP 20; TEMP 98.1; O2SAT 95
== END 2017-04-22 18:39 | disposition home or self-care (01) | DRG 66 ==
LOC: PHED 23:03 → INTOOBSV 04-16 00:15 → PHEDA 04-16 00:15 → PHEDH 04-16 04:15 → PHICU 04-16 07:47 → PH3B 04-18 15:17 → OBSVTOIN 04-19 13:33 → PH3B 04-19 22:31
PROVIDERS: ADMIT Family Medicine; ATTEND Family Medicine
DX: I63.411 Cerebral infarction due to embolism of right middle cerebral artery (principal); D69.6 Thrombocytopenia, unspecified; J44.9 Chronic obstructive pulmonary disease, unspecified; I44.0 Atrioventricular block, first degree; I10 Essential (primary) hypertension; E78.5 Hyperlipidemia, unspecified; F41.9 Anxiety disorder, unspecified; E03.9 Hypothyroidism, unspecified
CPT/HCPCS: 70450; 70544; 70548; 70553; 80048; 80061; 80307; 81001; 82607; 82746; 82948; 83036; 84165; 84425; 84439; 84443; 84484; 85025; 85610; 85652; 85730; 86038; 86430; 90686; 93005; 93225; 93226; 93306; 95819; 96360; 96372; A9579; G0378; G8987-GP; G8988-GP; J1644; J1650; J7030; Q2038

== ENCOUNTER 2017-04-30 09:23 | Inpatient (IN) | payer OTHER, MEDICARE ==
[~2017-04-30] VITALS: Ht 172.7 cm; Wt 71.0 kg
[2017-04-30] VITALS (7 sets, daily range): BP systolic 97–110; BP diastolic 58–68; PULSE 67–100; RESP 16–24; TEMP 97.5–98.5; O2SAT 93–96
[~2017-04-30 09:23] MED LIST changes: -AGGR20025 PO; +ENOX80P SQ; -MECL-62 PO
[2017-04-30] MEDS ORDERED: SODIUM CHLORIDE 0.9% FLUSH 10 ML FLUSH IVF PRN (09:45)
[2017-04-30] MEDS ORDERED: ENOX80P SQ (09:45)
--- NOTE | 2017-04-30 09:50 | PD ---
HPI Chief Complaint: Chest Pain Time Seen by Provider: 09:33 Travel History International Travel<30 days: No Contact w/Intl Traveler<30days: No Traveled to known affect area: No History of Present Illness HPI Patient is an 86-year-old male with history of hypertension, TIA, CVA, hyperlipidemia, and MVR currently on Lovenox presents to the ER with complaints of back pain radiating to his chest. Patient reports that he was sleeping last night and awoke from his sleep around 3AM with right sided low back pain radiating to his right chest. Patient reports that pain feels like a sharp and stabbing pain, reports that pain has been constant but has "eased up" since last night. He did try taking a tramadol with no relief of symptoms. Reports that he has been feeling short of breath with this chest pain. Patient denies any fevers or chills, denies any abdominal pain, denies any dysuria, hematuria, urinary urgency or frequency at this time. Patient was recently discharged on April 22, 2017 on Lovenox after treatment for CVA. PFSH Past Medical History Hx Anticoagulant Therapy: Yes AAA: Yes (3) Arthritis: Yes Asthma: No Autoimmune Disease: No Blood Disorders: No Heart Rhythm Problems: No Cancer: Yes (BASAL CARCINOMA) Cardiovascular Problems: Yes (MITRAL VALVE LEAK) High Cholesterol: Yes Chemotherapy: No Chest Pain: No Congestive Heart Failure: No COPD: Yes Cerebrovascular Accident: Yes (TIA 5 TIMES IN THE LAST 20YEARS) Diabetes: No Diminished Hearing: Yes Endocrine: No Gastrointestinal Disorders: No GERD: Yes Genitourinary: Yes Headaches: No Hepatitis: No Hiatal Hernia: No Hypertension: Yes Immune Disorder: No Kidney Stones: Yes Musculoskeletal: Yes Neurologic: No Psychiatric: No Reproductive: No Respiratory: Yes Immunizations Current: Yes Migraines: No Myocardial Infarction: No Radiation Therapy: No Renal Failure: No Seizures: No Sleep Apnea: No Thyroid Disease: Yes (HYPO) Ulcer: No Tetanus Vaccination: > 5 Years Influenza Vaccination: Yes PNEUMOCCOCAL Vaccine (Year): 1 Past Surgical History Abdominal Surgery: No AICD: No Appendectomy: Yes (1948) Arteriovenous Shunt: No Cardiac Surgery: No Cholecystectomy: No Ear Surgery: No Eye Surgery: Yes (BILATERAL CATARACT) Genitourinary Surgery: Yes (KIDNEY STONE) Insulin Pump: No Joint Replacement: No Oral Surgery: No Pacemaker: No Thoracic Surgery: No Other Surgery: Yes (HERNIA 61, SALVATORY GLAND REMOVED 1977, FATTY TUMORS FROM BACK REMOVED , b/l knee arthoscopy) Social History Alcohol Use: Yes (1 DRINK A DAY) Tobacco Use: No (QUIT 50 YRS AGO) Substance Use: No Allergies-Medications (Allergen,Severity, Reaction): Coded Allergies: penicillin G (Unverified Allergy, Severe, Rash, 04/30/17) Reported Meds & Prescriptions Reported Meds & Active Scripts Active Reported Lovenox Inj (Enoxaparin Sodium) 80 mg/0.8 ML Syr 80 Mg SQ BID Restasis Opth 0.05% (Cyclosporine Opth 0.05%) 0.05% Emul 1 Drop EACH EYE BID Levothyroxine (Levothyroxine Sodium) 88 Mcg Tab 88 Mcg PO DAILY Alprazolam 0.5 Mg Tab 0.5 Mg PO Q4H PRN Myrbetriq (Mirabegron) 50 Mg Tab 50 Mg PO DAILY Tramadol (Tramadol HCl) 50 Mg Tab 50 Mg PO Q4H PRN Symbicort Inh (Budesonide/Formoterol Fumarate) 160-4.5 Mcg/Act Aero 2 Puff INH Q12HR Lovastatin 40 Mg Tab 40 Mg PO DAILY Enalapril (Enalapril Maleate) 20 Mg Tab 20 Mg PO DAILY Nifedipine 20 Mg Cap 30 Mg PO BID Omeprazole 20 Mg Tab 20 Mg PO DAILY Review of Systems General / Constitutional: No: Fever Eyes: No: Visual changes HENT: No: Headaches Cardiovascular: Positive: Chest Pain or Discomfort Respiratory: Positive: Shortness of Breath Gastrointestinal: Positive: Nausea, No: Vomiting, Diarrhea, Abdominal Pain Genitourinary: No: Dysuria Musculoskeletal: Positive: Pain (low back pain) Skin: No Rash Neurologic: No: Weakness Psychiatric: No: Depression Endocrine: No: Polydipsia Hematologic/Lymphatic: No: Easy Bruising Physical Exam Narrative GENERAL: Mild distress SKIN: Focused skin assessment warm/dry. HEAD: Atraumatic. Normocephalic. EYES: Pupils equal and round. No scleral icterus. No injection or drainage. ENT: No nasal bleeding or discharge. Mucous membranes pink and moist. NECK: Trachea midline. No JVD. CARDIOVASCULAR: Regular rate and rhythm. No murmur appreciated. RESPIRATORY: No accessory muscle use. Clear to auscultation. Breath sounds equal bilaterally. GASTROINTESTINAL: Abdomen soft, non-tender, nondistended. Hepatic and splenic margins not palpable. MUSCULOSKELETAL: No obvious deformities. No clubbing. No cyanosis. No edema. Right sided lumbar paraspinal tenderness NEUROLOGICAL: Awake and alert. No obvious cranial nerve deficits. Motor grossly within normal limits. Normal speech. PSYCHIATRIC: Appropriate mood and affect; insight and judgment normal. Data Data Last Documented VS Vital Signs Date Time Temp Pulse Resp B/P (MAP) Pulse Ox O2 Delivery O2 Flow Rate FiO2 04/30/17 13:23 78 16 100/65 (77) 95 Room Air 04/30/17 09:36 97.5 Orders Orders B-Type Natriuretic Peptide (04/30/17 09:40) Ckmb (Isoenzyme) Profile (04/30/17 09:40) Complete Blood Count With Diff (04/30/17 09:40) Comprehensive Metabolic Panel (04/30/17 09:40) Magnesium (Mg) (04/30/17 09:40) Prothrombin Time / Inr (Pt) (04/30/17 09:40) Act Partial Throm Time (Ptt) (04/30/17 09:40) Troponin I (04/30/17 09:40) Lipase (04/30/17 09:40) Chest, Single Ap (04/30/17 09:40) Ecg Monitoring (04/30/17 09:40) Bilateral Bp Monitoring (04/30/17 09:40) Iv Access Insert/Monitor (04/30/17 09:40) Oximetry (04/30/17 09:40) Sodium Chloride 0.9% Flush (Ns Flush) (04/30/17 09:45) Cta Thor Abd Aorta W Iv C W3d (04/30/17 09:40) Urinalysis - C+S If Indicated (04/30/17 09:40) Iohexol 350 Inj (Omnipaque 350 Inj) (04/30/17 11:10) Blood Culture (04/30/17 11:42) Aztreonam Inj (Azactam Inj) (04/30/17 11:45) Levofloxacin 750 Mg Premix Inj (Levaquin (04/30/17 11:45) Troponin I (04/30/17 12:45) Patient Transfer (04/30/17 ) Admit Order (Ed Use Only) (04/30/17 13:39) Labs Laboratory Tests Test 04/30/17 09:45 04/30/17 12:15 White Blood Count 6.7 TH/MM3 Red Blood Count 3.45 MIL/MM3 Hemoglobin 12.1 GM/DL Hematocrit 35.1 % Mean Corpuscular Volume 101.8 FL Mean Corpuscular Hemoglobin 34.9 PG Mean Corpuscular Hemoglobin Concent 34.3 % Red Cell Distribution Width 12.8 % Platelet Count 142 TH/MM3 Mean Platelet Volume 7.3 FL Neutrophils (%) (Auto) 80.1 % Lymphocytes (%) (Auto) 9.2 % Monocytes (%) (Auto) 10.1 % Eosinophils (%) (Auto) 0.5 % Basophils (%) (Auto) 0.1 % Neutrophils # (Auto) 5.4 TH/MM3 Lymphocytes # (Auto) 0.6 TH/MM3 Monocytes # (Auto) 0.7 TH/MM3 Eosinophils # (Auto) 0.0 TH/MM3 Basophils # (Auto) 0.0 TH/MM3 CBC Comment DIFF FINAL Differential Comment Prothrombin Time 10.7 SEC Prothromb Time International Ratio 1.0 RATIO Activated Partial Thromboplast Time 34.0 SEC Blood Urea Nitrogen 23 MG/DL Creatinine 1.30 MG/DL Random Glucose 125 MG/DL Total Protein 6.9 GM/DL Albumin 3.4 GM/DL Calcium Level 8.7 MG/DL Magnesium Level 1.8 MG/DL Alkaline Phosphatase 47 U/L Aspartate Amino Transf (AST/SGOT) 33 U/L Alanine Aminotransferase (ALT/SGPT) 41 U/L Total Bilirubin 0.8 MG/DL Sodium Level 136 MEQ/L Potassium Level 4.1 MEQ/L Chloride Level 103 MEQ/L Carbon Dioxide Level 25.2 MEQ/L Anion Gap 8 MEQ/L Estimat Glomerular Filtration Rate 52 ML/MIN Total Creatine Kinase 64 U/L Troponin I LESS THAN 0.02 NG/ML LESS THAN 0.02 NG/ML B-Type Natriuretic Peptide 80 PG/ML Lipase 125 U/L MDM Medical Decision Making Medical Screen Exam Complete: Yes Emergency Medical Condition: Yes Medical Record Reviewed: Yes Interpretation(s) EKG at 0930: NSR at 83bpm, qt/qtc: 367/406, 1st degree av block, no acute changes, ekg similar to ekg from 04/15/17 Vital Signs Date Time Temp Pulse Resp B/P (MAP) Pulse Ox O2 Delivery O2 Flow Rate FiO2 04/30/17 09:40 (81) 04/30/17 09:36 Room Air 04/30/17 09:36 97.5 83 16 110/66 (81) 94 Room Air Differential Diagnosis Differential includes ACS, arrhythmia, aortic dissection, PE, nephrolithiasis, electrolyte abnormality Narrative Course Patient is a 86-year-old male who presents to emergency room complaints of low back pain going to his chest which woke him from his sleep around 3 AM this morning. Patient reports that his pain has been persistent but decreased from last night. Patient rates his chest pain as 1 out of 10 at this time. Patient was placed on a laboratory monitor upon arrival to the emergency room. An EKG was obtained which showed no acute ST-T wave changes. Lab work including cardiac enzymes ordered. CTA to rule out aortic dissection ordered. Plan to continue to monitor on laboratory monitor. Vital Signs Date Time Temp Pulse Resp B/P (MAP) Pulse Ox O2 Delivery O2 Flow Rate FiO2 04/30/17 11:20 67 16 109/65 (80) 94 Room Air 04/30/17 09:51 97/58 (71) 104/68 (80) 04/30/17 09:46 94 Room Air 04/30/17 09:40 (81) 04/30/17 09:36 Room Air 04/30/17 09:36 97.5 83 16 110/66 (81) 94 Room Air Laboratory Tests Test 04/30/17 09:45 White Blood Count 6.7 TH/MM3 (4.0-11.0) Red Blood Count 3.45 MIL/MM3 (4.50-5.90) Hemoglobin 12.1 GM/DL (13.0-17.0) Hematocrit 35.1 % (39.0-51.0) Mean Corpuscular Volume 101.8 FL (80.0-100.0) Mean Corpuscular Hemoglobin 34.9 PG (27.0-34.0) Mean Corpuscular Hemoglobin Concent 34.3 % (32.0-36.0) Red Cell Distribution Width 12.8 % (11.6-17.2) Platelet Count 142 TH/MM3 (150-450) Mean Platelet Volume 7.3 FL (7.0-11.0) Neutrophils (%) (Auto) 80.1 % (16.0-70.0) Lymphocytes (%) (Auto) 9.2 % (9.0-44.0) Monocytes (%) (Auto) 10.1 % (0.0-8.0) Eosinophils (%) (Auto) 0.5 % (0.0-4.0) Basophils (%) (Auto) 0.1 % (0.0-2.0) Neutrophils # (Auto) 5.4 TH/MM3 (1.8-7.7) Lymphocytes # (Auto) 0.6 TH/MM3 (1.0-4.8) Monocytes # (Auto) 0.7 TH/MM3 (0-0.9) Eosinophils # (Auto) 0.0 TH/MM3 (0-0.4) Basophils # (Auto) 0.0 TH/MM3 (0-0.2) CBC Comment DIFF FINAL Differential Comment Prothrombin Time 10.7 SEC (9.8-11.6) Prothromb Time International Ratio 1.0 RATIO Activated Partial Thromboplast Time 34.0 SEC (24.3-30.1) Blood Urea Nitrogen 23 MG/DL (7-18) Creatinine 1.30 MG/DL (0.60-1.30) Random Glucose 125 MG/DL (74-106) Total Protein 6.9 GM/DL (6.4-8.2) Albumin 3.4 GM/DL (3.4-5.0) Calcium Level 8.7 MG/DL (8.5-10.1) Magnesium Level 1.8 MG/DL (1.5-2.5) Alkaline Phosphatase 47 U/L (45-117) Aspartate Amino Transf (AST/SGOT) 33 U/L (15-37) Alanine Aminotransferase (ALT/SGPT) 41 U/L (12-78) Total Bilirubin 0.8 MG/DL (0.2-1.0) Sodium Level 136 MEQ/L (136-145) Potassium Level 4.1 MEQ/L (3.5-5.1) Chloride Level 103 MEQ/L (98-107) Carbon Dioxide Level 25.2 MEQ/L (21.0-32.0) Anion Gap 8 MEQ/L (5-15) Estimat Glomerular Filtration Rate 52 ML/MIN (>89) Total Creatine Kinase 64 U/L (39-308) Troponin I LESS THAN 0.02 NG/ML B-Type Natriuretic Peptide 80 PG/ML (0-100) Lipase 125 U/L (73-393) Last Impressions Chest X-Ray 04/30/17939 Signed Impressions: Service Date/Time: , April 30, 2017 09:53 - CONCLUSION: Significant infiltrate in the right lower lobe. Brian Steiner MD X-ray of the chest shows right lower lobe infiltrate, blood cultures ordered, patient was given a dose of IV antibiotics: Azactam as well as Levaquin as he is PCN allergic Last Impressions Chest X-Ray 04/30/17939 Signed Impressions: Service Date/Time: , April 30, 2017 09:53 - CONCLUSION: Significant infiltrate in the right lower lobe. Brian Steiner MD Aorta CTA 04/30/17939 Signed Impressions: Service Date/Time: , April 30, 2017 10:52 - CONCLUSION: 1. No evidence for aortic dissection or significant aneurysm. There is mild ectasia of ascending thoracic aorta and infrarenal abdominal aorta. 2. Moderate-sized slightly dense right-sided hemothorax with loculated hyperdense anterior inferior component extending to the major fissure. There is a focal region of increased density in the medial aspect of this fluid likely reflecting focal calcification although there is an associated subtle hematocrit level. Differential consideration includes focal contrast extravasation. Clinical correlation is recommended. Noncontrast CT examination may be performed if there is sufficient clinical concern and uncertainty, to more definitively determine if this reflects calcification. 3. Associated right lower lobe airspace consolidation may reflect compressive atelectasis versus pneumonia/aspiration. 4. Multiple 6 mm nodules in the left lower lobe, as above. Consider followup CT examination in 3-6 months to determine stability per 2017 flexure criteria as indicated. 5. Ancillary findings include hepatic steatosis, small right renal cyst, sigmoid diverticulosis, nonspecific prostatic enlargement and degenerative spondylosis of the lumbar spine. Kelvin Puckett MD I reviewed results of ct studies with patient in detail, Patient has been pancultured, Patient with right sided low back pain radiating to his chest most likely from RLL pnuemonia and hemothorax. He is currently taking Lovenox actions for CVA - he has not bridged to coumadin yet as he was supposed to start this tomorrow as per patient. HBG 12.1, platelet 142. Patient will require obs for hemothorax of unknown etiology Case reviewed with Dr. Garcia who accepts pt to service Case reviewed with Dr. Villanueva, will accept to [facility] for transfer. Plan to admit to med/surg. Critical Care Narrative Aggregate critical care time was 30 minutes. Time to perform other separately billable procedures was not included in the critical care time. My time did not include minutes spent treating any other patients simultaneously or on activities that did not directly contribute to the patient's treatment. The services I provided to this patient were to treat and/or prevent clinically significant deterioration that could result in: , decompensation, deterioration I provided critical care services requiring my management, as noted below: Chart data review, documentation time, medication orders and management, vital sign assessments/reviewing monitor data, ordering and reviewing lab tests, ordering and interpreting/reviewing x-rays and diagnostic studies, care of the patient and discussion of the patient with the admitting physicians. Diagnosis Primary Impression: Pneumonia Qualified Codes: J18.1 - Lobar pneumonia, unspecified organism Additional Impression: Hemothorax on right Admitting Information Admitting Physician Requests: Observation Maria Esther Timmons DO Apr 30, 2017 09:50
[2017-04-30 10:06] LABS: AUTOMATED NEUTROPHIL # 5.4 TH/MM3 (1.8-7.7); BASOPHIL % 0.1 % (0.0-2.0); EOSINOPHIL % 0.5 % (0.0-4.0); HEMATOCRIT 35.1 % (39.0-51.0); HEMO FLAGS DIFF FINAL; LYMPH % 9.2 % (9.0-44.0); LYMPHOCYTE # 0.6 TH/MM3 (1.0-4.8); MEAN CELL VOLUME 101.8 FL (80.0-100.0); MEAN CORPUSCULAR HEMOGLOBIN 34.9 PG (27.0-34.0); MEAN CORPUSCULAR HGB CONC 34.3 % (32.0-36.0); MONO % 10.1 % (0.0-8.0); NEUT % 80.1 % (16.0-70.0); PLATELET COUNT 142 TH/MM3 (150-450); RED BLOOD COUNT 3.45 MIL/MM3 (4.50-5.90); RED CELL DISTRIBUTION WIDTH 12.8 % (11.6-17.2); WHITE BLOOD COUNT 6.7 TH/MM3 (4.0-11.0)
--- NOTE | 2017-04-30 10:08 | RADRPT ---
EXAM DATE/TIME: 04/30/2017 09:53 [facility] COMPARISON: CHEST SINGLE AP, March 03, 2014, 7:08. INDICATIONS : Right side chest and back pain. MEDICAL HISTORY : Hypertension. Cardiovascular disease. Chronic obstructive pulmonary disease. Cerebrovascular dise ase,AAA SURGICAL HISTORY : Appendectomy. ENCOUNTER: Initial ACUITY: 1 day PAIN SCORE: 3/10 LOCATION: Right chest FINDINGS: A single view of the chest demonstrates a new infiltrate in the right lower lobe. The cardiomediasti nal contours are unremarkable with a very tortuous aorta. Osseous structures are intact. CONCLUSION: Significant infiltrate in the right lower lobe. Brian Steiner MD on April 30, 2017 at 10:05 Board Certified Radiologist. This report was verified electronically.
[2017-04-30 10:24] LABS: CHLORIDE 103 MEQ/L (98-107); POTASSIUM 4.1 MEQ/L (3.5-5.1); SODIUM (NA) 136 MEQ/L (136-145)
[2017-04-30 10:28] LABS: ANION GAP 8 MEQ/L (5-15); BICARBONATE 25.2 MEQ/L (21.0-32.0); MAGNESIUM 1.8 MG/DL (1.5-2.5)
[2017-04-30 10:29] LABS: BLOOD UREA NITROGEN 23 MG/DL (7-18); PROTHROMBIN TIME - PATIENT 10.7 SEC (9.8-11.6)
[2017-04-30 10:31] LABS: ALT (GPT) 41 U/L (12-78); GLOMERULAR FILTRATION RATE 52 ML/MIN (>89)
[2017-04-30 10:33] LABS: AST (GOT) 33 U/L (15-37); TOTAL BILIRUBIN ADULT 0.8 MG/DL (0.2-1.0)
[2017-04-30 10:34] LABS: ALKALINE PHOSPHATASE 47 U/L (45-117)
[2017-04-30 10:35] LABS: CREATINE KINASE 64 U/L (39-308)
[2017-04-30] MEDS ORDERED: IOHEXOL 350 MG/ML 10 ML VIAL (for RAD DIAG) IVCONTRAST ONE (11:10)
[2017-04-30] MEDS ORDERED: AZTREONAM INJ 2,000 MG in SODIUM CHLORIDE 0.9% INJ 100 ML IV ONE (11:45)
[2017-04-30] MEDS ORDERED: LEVOFLOXACIN 750 MG PREMIX INJ 150 ML IV ONE (11:45)
--- NOTE | 2017-04-30 12:10 | RADRPT ---
EXAM DATE/TIME: 04/30/2017 10:52 [facility] COMPARISON: CHEST SINGLE AP, April 30, 2017, 9:53. INDICATIONS : Right low back pain radiating to right chest. Evaluate for aortic dissection. IV CONTRAST: 75 cc Omnipaque 350 (iohexol) IV RADIATION DOSE: 17.86 CTDIvol (mGy) MEDICAL HISTORY : Cerebrovascular disease. Gastroesophageal reflux disease. Chronic obstructive pulmonary disease.Hyper tension. Abdominal aortic aneurysm. Renal stones. SURGICAL HISTORY : None. ENCOUNTER: Initial ACUITY: 1 day PAIN SCALE: 1/10 LOCATION: Right chest TECHNIQUE: Volumetric scanning was performed using a multi-row detector CT scanner. The data was post processed with a variety of visualization algorithms including full volume maximum intensity projection, multi -planar sliding thin slab reformation, curved planar reformation, and surface rendering techniques. Using automated exposure control and adjustment of the mA and/or kV according to patient size, radiat ion dose was kept as low as reasonably achievable to obtain optimal diagnostic quality images. DICOM format image data is available electronically for review and comparison. FINDINGS: LUNGS: Moderate size right-sided pleural effusion with density greater than simple fluid. There is also locu lated fluid extending to the major fissure with increased density and focal region of very high linea r density medially. Associated right lower lobe airspace consolidation. Mild diffuse centrilobular an d seem. 6 mm nodule in the left lung base. Additional subpleural 6-7 mm nodules peripherally in the l eft lower lobe. Small grouping of 2-3 mm nodular opacities in the posterior left lower lobe. MEDIASTINUM: No significant based on adenopathy. Coronary calcifications. Mild aortic valve calcifications. Trace anterior pericardial effusion. Heart is otherwise unremarkable. ABDOMEN: Diffusely decreased hepatic attenuation with focal transient hepatic attenuation defect in the left l obe of the liver. No intrahepatic ductal dilatation. Gallbladder is slightly distended but otherwise unremarkable by CT. Spleen, adrenal glands, and pancreas are unremarkable. Kidneys are symmetrical in size. There is focal scarring in the posterior right mid kidney. Small cyst in the superior pole of the right kidney. No radiopaque renal calculi or hydronephrosis. Mild to moderate sigmoid diverticulo sis. Bowel otherwise appears grossly unremarkable without evidence for obstruction. PELVIS: Bladder is distended but otherwise unremarkable. Nonspecific enlargement of the prostate gland contai luc coarse calcifications. Multiple phleboliths in the pelvis. Degenerative spondylosis of the lumba r spine. THORACIC AORTA: Descending thoracic aorta is mildly ectatic measuring up to 3.6 cm without dissection. There is stent ed 3 vessel arch anatomy. Visualized proximal arch vessels are patent. Mild calcified plaque in the t horacic arch which is otherwise normal in caliber without evidence for dissection. Descending thoraci c aorta is normal in caliber with mild calcified plaque and no evidence for dissection. Mild tortuosi ty near the hiatus. ABDOMINAL AORTA: Autograft is chronic calcifications of the abdominal aorta without significant flow-limiting stenosis or dissection. Infrarenal aorta is mildly ectatic measuring up to 2.8 cm. Patent right renal artery. Duplicated patent left renal arteries. Mild to moderate stenosis of the celiac origin. Circumferenti al bulky calcified plaque involving the proximal SMA which is otherwise patent. The KETTY is patent. PELVIC VESSELS: Iliac arteries are mildly ectatic. Iliac arteries are otherwise patent without evidence for dissectio n or significant flow-limiting stenosis. CONCLUSION: 1. No evidence for aortic dissection or significant aneurysm. There is mild ectasia of ascending thor acic aorta and infrarenal abdominal aorta. 2. Moderate-sized slightly dense right-sided hemothorax with loculated hyperdense anterior inferior c omponent extending to the major fissure. There is a focal region of increased density in the medial a spect of this fluid likely reflecting focal calcification although there is an associated subtle cruzito tocrit level. Differential consideration includes focal contrast extravasation. Clinical correlation is recommended. Noncontrast CT examination may be performed if there is sufficient clinical concern a nd uncertainty, to more definitively determine if this reflects calcification. 3. Associated right lower lobe airspace consolidation may reflect compressive atelectasis versus pneu monia/aspiration. 4. Multiple 6 mm nodules in the left lower lobe, as above. Consider followup CT examination in 3-6 mo nths to determine stability per 2017 flexure criteria as indicated. 5. Ancillary findings include hepatic steatosis, small right renal cyst, sigmoid diverticulosis, nons pecific prostatic enlargement and degenerative spondylosis of the lumbar spine. Kelvin Puckett MD on April 30, 2017 at 11:38 Board Certified Radiologist. This report was verified electronically.
[2017-04-30 14:28] LABS: BLOOD, URINE NEG (NEG); GLUCOSE,URINE NEG (NEG); KETONE, URINE NEG (NEG); NITRITE,URINE NEG (NEG); PH, URINE 5.5 (5.0-8.5)
[2017-04-30 14:37] LABS: METHOD OF COLLECTION CLEAN CATCH; URINE COLOR YELLOW (YELLW/STRAW); WBC, URINE 0-2 /hpf (0-5)
[2017-04-30 14:38] LABS: COMMENT (UR) CULT NOT INDICATED; CULTURE IF INDICATED CULT NOT INDICATED
[2017-04-30] MEDS ORDERED: SODIUM CHLORIDE 0.9% FLUSH 10 ML FLUSH IV FLUSH PRN (17:15)
[2017-04-30] MEDS ORDERED: ACETAMINOPHEN 325 MG TAB PO PRN (17:30)
--- NOTE | 2017-04-30 17:55 | HHI.HP ---
[facility] Esvin Steve MD Admission Diagnosis Hemothorax, pneumonia Diagnoses: Travel History International Travel<30 Days: No Contact w/Intl Traveler <30 Da: No Traveled to Known Affected Are: No History of Present Illness Written by Rupesh Marquez, acting as scribe for Dr. Garcia on 04/30/17 at 17:45. This note was transcribed by scribe Rupesh Marquez PA-C. I, Dr. Valeriy Garcia personally performed the history, physical exam, and medical decision making; and confirmed the accuracy of the information in the transcribed note. Authenticated by Dr. Valeriy Garcia on 04/30/17 at 23:23. 86-year-old male with past medical history of HTN, HLD, atrial regurg, hypothyroidism, and recent CVA he presented for right chest/back pain. The patient woke up in the middle of the night with right back, side, and chest pain. The pain didn't go away so he came to the ED for evaluation. He was recently admitted for stroke 2 weeks ago and was placed on Lovenox. His PCP has been arranging for him to start on Coumadin but he has not started yet. He denies any problems breathing or shortness of breath. He does state that after he came to the ED today he coughed up a clot. He denies any fevers or chills. He was found to have a hemothorax in the ED. ED physician spoke with critical care who recommended admitting the patient to medicine and consult IR and CT surgery for chest tube placement tomorrow. He hasn't noticed any GI bleeding or blood in his urine. The patient denies any nausea, vomiting, diarrhea, dysuria. Review of Systems Except as stated in HPI: all other systems reviewed are Neg Past Family Social History Past Medical History CVA Hypertension Hyperlipidemia Mitral regurg Hyperthyroidism Vertigo History of "extra heartbeats", denies arrhythmia Past Surgical History Appendectomy Inguinal hernia repair Salivary gland removed Bilateral knee arthroscopy Reported Medications Reported Meds & Active Scripts Active Reported Lovenox Inj (Enoxaparin Sodium) 80 mg/0.8 ML Syr 80 Mg SQ BID Restasis Opth 0.05% (Cyclosporine Opth 0.05%) 0.05% Emul 1 Drop EACH EYE BID Levothyroxine (Levothyroxine Sodium) 88 Mcg Tab 88 Mcg PO DAILY Alprazolam 0.5 Mg Tab 0.5 Mg PO Q4H PRN Myrbetriq (Mirabegron) 50 Mg Tab 50 Mg PO DAILY Tramadol (Tramadol HCl) 50 Mg Tab 50 Mg PO Q4H PRN Symbicort Inh (Budesonide/Formoterol Fumarate) 160-4.5 Mcg/Act Aero 2 Puff INH Q12HR Lovastatin 40 Mg Tab 40 Mg PO DAILY Enalapril (Enalapril Maleate) 20 Mg Tab 20 Mg PO DAILY Nifedipine 20 Mg Cap 30 Mg PO BID Omeprazole 20 Mg Tab 20 Mg PO DAILY Allergies: Coded Allergies: penicillin G (Unverified Allergy, Severe, Rash, 04/30/17) Active Ordered Medications Current Medications Medications (Trade) Dose Ordered Sig/Mariann Route Start Time Stop Time Status Last Admin (NS Flush) 2 ml UNSCH PRN IVF 04/30/17 09:45 (NS Flush) 2 ml UNSCH PRN IV FLUSH 04/30/17 17:15 (NS Flush) 2 ml BID IV FLUSH 04/30/17 21:00 (Bussey 5-325 Mg) 1 tab Q6H PRN PO 04/30/17 17:30 (Tylenol) 650 mg Q4H PRN PO 04/30/17 17:30 Family History No family history of cancer or dementia Social History Quit smoking many years ago, 15 pack years in the past Has one cocktail nightly Physical Exam Vital Signs Vital Signs Date Time Temp Pulse Resp B/P (MAP) Pulse Ox O2 Delivery O2 Flow Rate FiO2 04/30/17 16:18 04/30/17 15:42 Room Air 04/30/17 15:25 98.3 73 16 101/64 (76) 93 Room Air 04/30/17 13:23 78 16 100/65 (77) 95 Room Air 04/30/17 13:08 Room Air 04/30/17 11:20 67 16 109/65 (80) 94 Room Air 04/30/17 09:51 97/58 (71) 104/68 (80) 04/30/17 09:46 94 Room Air 04/30/17 09:40 (81) 04/30/17 09:36 Room Air 04/30/17 09:36 97.5 83 16 110/66 (81) 94 Room Air Physical Exam GENERAL: Well-developed well-nourished. In no acute distress. SKIN: Warm and dry. No lesions noted. HEENT: Normocephalic. Pupils equal and round. Mucous membranes pink and moist. CARDIOVASCULAR: Regular rate and rhythm. No murmur appreciated. RESPIRATORY: No accessory muscle use. Clear to auscultation. Breath sounds equal bilaterally. GASTROINTESTINAL: Abdomen soft, non-tender, nondistended. Bowel sounds x4. MUSCULOSKELETAL: No obvious deformities. No clubbing or cyanosis. No edema. NEUROLOGICAL: Awake and alert. No focal neurological deficits. Moves upper and lower extremities spontaneously. Normal speech. PSYCHIATRIC: Appropriate mood and affect; insight and judgment normal. Laboratory Laboratory Tests Test 04/30/17 09:45 04/30/17 12:15 04/30/17 14:10 White Blood Count 6.7 Red Blood Count 3.45 Hemoglobin 12.1 Hematocrit 35.1 Mean Corpuscular Volume 101.8 Mean Corpuscular Hemoglobin 34.9 Mean Corpuscular Hemoglobin Concent 34.3 Red Cell Distribution Width 12.8 Platelet Count 142 Mean Platelet Volume 7.3 Neutrophils (%) (Auto) 80.1 Lymphocytes (%) (Auto) 9.2 Monocytes (%) (Auto) 10.1 Eosinophils (%) (Auto) 0.5 Basophils (%) (Auto) 0.1 Neutrophils # (Auto) 5.4 Lymphocytes # (Auto) 0.6 Monocytes # (Auto) 0.7 Eosinophils # (Auto) 0.0 Basophils # (Auto) 0.0 CBC Comment DIFF FINAL Differential Comment Prothrombin Time 10.7 Prothromb Time International Ratio 1.0 Activated Partial Thromboplast Time 34.0 Blood Urea Nitrogen 23 Creatinine 1.30 Random Glucose 125 Total Protein 6.9 Albumin 3.4 Calcium Level 8.7 Magnesium Level 1.8 Alkaline Phosphatase 47 Aspartate Amino Transf (AST/SGOT) 33 Alanine Aminotransferase (ALT/SGPT) 41 Total Bilirubin 0.8 Sodium Level 136 Potassium Level 4.1 Chloride Level 103 Carbon Dioxide Level 25.2 Anion Gap 8 Estimat Glomerular Filtration Rate 52 Total Creatine Kinase 64 Troponin I LESS THAN 0.02 LESS THAN 0.02 B-Type Natriuretic Peptide 80 Lipase 125 Urine Collection Type CLEAN CATCH Urine Color YELLOW Urine Turbidity CLEAR Urine pH 5.5 Urine Specific [place] GREATER THAN 1.035 Urine Protein NEG Urine Glucose (UA) NEG Urine Ketones NEG Urine Occult Blood NEG Urine Nitrite NEG Urine Bilirubin NEG Urine Leukocyte Esterase NEG Urine WBC 0-2 Microscopic Urinalysis Comment CULT NOT INDICATED Date/Time Source Procedure Growth Status 04/30/17 11:45 Blood Peripheral Aerobic Blood Culture Pending Received 04/30/17 11:45 Blood Peripheral Anaerobic Blood Culture Pending Received Result Diagram: 04/30/1794404/30/17944 Caprini VTE Risk Assessment Caprini VTE Risk Assessment: Mod/High Risk (score >= 2) VTE Pharm Contraindication: Active bleeding Caprini Risk Assessment Model Point Value = 1 Point Value = 2 Point Value = 3 Point Value = 5 Age 41-60 Minor surgery BMI > 25 kg/m2 Swollen legs Varicose veins or History of unexplained or recurrent spontaneous Oral contraceptives or hormone replacement Sepsis (< 1 month) Serious lung disease, including pneumonia (< 1 month) Abnormal pulmonary function Acute myocardial infarction Congestive heart failure (< 1 month) History of inflammatory bowel disease Medical patient at bed rest Age 61-74 Arthroscopic surgery Major open surgery (> 45 min) Laparoscopic surgery (> 45 min) Malignancy Confined to bed (> 72 hours) Immobilizing plaster cast Central venous access Age >= 75 History of VTE Family history of VTE Factor V Leiden Prothrombin [id number] Lupus anticoagulant Anticardiolipin antibodies Elevated serum homocysteine Heparin-induced thrombocytopenia Other congenital or acquired thrombophilia Stroke (< 1 month) Elective arthroplasty Hip, pelvis, or leg fracture Acute spinal cord injury (< 1 month) Prophylaxis Regimen Total Risk Factor Score Risk Level Prophylaxis Regimen 0-1 Low Early ambulation 2 Moderate Order ONE of the following: *Sequential Compression Device (SCD) *Heparin 5000 units SQ BID 3-4 Higher Order ONE of the following medications: *Heparin 5000 units SQ TID *Enoxaparin/Lovenox 40 mg SQ daily (WT < 150 kg, CrCl > 30 mL/min) *Enoxaparin/Lovenox 30 mg SQ daily (WT < 150 kg, CrCl > 10-29 mL/min) *Enoxaparin/Lovenox 30 mg SQ BID (WT < 150 kg, CrCl > 30 mL/min) AND/OR *Sequential Compression Device (SCD) 5 or more Highest Order ONE of the following medications: *Heparin 5000 units SQ TID (Preferred with Epidurals) *Enoxaparin/Lovenox 40 mg SQ daily (WT < 150 kg, CrCl > 30 mL/min) *Enoxaparin/Lovenox 30 mg SQ daily (WT < 150 kg, CrCl > 10-29 mL/min) *Enoxaparin/Lovenox 30 mg SQ BID (WT < 150 kg, CrCl > 30 mL/min) AND *Sequential Compression Device (SCD) Assessment and Plan Assessment and Plan 86-year-old male with past medical history of HTN, HLD, atrial regurg, hypothyroidism, and recent CVA he presented for right chest/back pain and admitted for right hemothorax Acute spontaneous hemothorax: Seen on chest x-ray and aorta CTA. Denies any respiratory complaints. Reviewed: Hemoglobin 12.1, previously 14.4 on 04/15/17. Afebrile with no leukocytosis. -IR consulted for chest tube placement -Check pleural fluid studies -CT surgery consulted -Supplemental O2 as needed -Monitor H&H -Hold Lovenox Right chest/axilla/back pleuritic pain: Likely secondary to the above. Reviewed: Troponin negative 2. EKG with NSR, first-degree AV block. -Pain control with Bussey as needed Recent CVA: -Previously evaluated by neurology and recommendation to start on full anticoagulation -Ideally would resume full anticoagulation when able -Continue statin Other chronic medical conditions include HTN, anxiety, GERD, hypothyroidism: Stable at this time and will continue home medications as indicated DVT prophylaxis: Holding anticoagulation with bleeding as above. SCDs. Discussed Condition With Patient, RN, ED staff Rupesh Marquez Apr 30, 2017 17:55 Chuck Garcia DO Apr 30, 2017 23:23
[2017-04-30] MEDS: ALPRAZolam 0.5 MG TAB PO PRN (20:17)
[2017-04-30] MEDS: SODIUM CHLORIDE 0.9% FLUSH 10 ML FLUSH IV FLUSH SCH (20:17)
[2017-04-30] MEDS: NIFEdipine 10 MG CAP PO SCH (20:17)
[2017-04-30] MEDS: ACETAMINOPHEN/HYDROcodone 325 MG/5 MG TAB PO PRN (20:18)
[2017-04-30] MEDS ORDERED: NIFEdipine 20 MG CAP PO SCH (21:00)
[2017-04-30] MEDS ORDERED: PT:RESTASIS OPTH SOL EACH EYE SCH (21:00)
[2017-04-30] MEDS: BUDESONIDE-FORMOTEROL 160/4.5 MCG INHALER INH SCH (21:00)
[2017-04-30] MEDS ORDERED: NON-FORMULARY DRUG (Cyclosporine Opth 0.05% (Restasis Opth 0.05%) 1 DROP) EACH EYE SCH (21:00)
[2017-05-01] VITALS (21 sets, daily range): BP systolic 87–114; BP diastolic 48–66; PULSE 78–104; RESP 16–34; TEMP 97.4–100.5; O2SAT 91–97
[2017-05-01] MEDS ORDERED: LIDOCAINE 1%/EPINEPHrine 1:100,000 SOLN 30 ML VIAL ONE (03:02)
--- NOTE | 2017-05-01 04:22 | PD.CONS ---
[facility] Service Critical Care Medicine Consult Requested By Dr. Jerome Reason for Consult Effusion hypotension anemia Primary Care Physician Esvin Steve MD History of Present Illness This is a 78-year-old male. He is full code. Date of admission 2016. Date of consultation 05/01/2017. Past mesentery includes recent right temporal/posterior central CVA currently on enoxaparin, dry eyes, gastroesophageal reflux disease, hypertension, disc edema, hypothyroidism, diverticulosis, overactive bladder, COPD, osteoarthritis and chronic thrombocytopenia. Patient presents to [facility] on a.m. of 04/30 with chief complaint of right-sided back pain chest pain. 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 His PCP has been arranging for him to start on warfarin but he has not started yet Positive hemoptysis He denies any fevers or chills. He was found to have a right-sided hemothorax in the ED. Overnight, patient became hypotensive. Hemoglobin went from 12-9. Worsening right-sided effusion. We are asked to evaluate the patient. Review of Systems Constitutional: DENIES: Fatigue, Fever, Weight gain, Weight loss Endocrine: DENIES: Polydipsia, Polyuria Eyes: DENIES: Blurred vision Ears, nose, mouth, throat: DENIES: Tinnitus Respiratory: COMPLAINS OF: Cough, Hemoptysis, Shortness of breath, DENIES: Apneas Cardiovascular: COMPLAINS OF: Chest pain Gastrointestinal: COMPLAINS OF: Abdominal pain, DENIES: Black stools, Nausea, Vomiting Genitourinary: COMPLAINS OF: Urinary frequency, DENIES: Hematuria Musculoskeletal: COMPLAINS OF: Joint pain Integumentary: COMPLAINS OF: Abnormal pigmentation Hematologic/lymphatic: COMPLAINS OF: Bruising, DENIES: Lymphadenopathy Immunologic/allergic: DENIES: Urticaria Neurologic: DENIES: Abnormal gait, Headache Psychiatric: COMPLAINS OF: Anxiety, DENIES: Confusion Past Family Social History Allergies: Coded Allergies: penicillin G (Unverified Allergy, Severe, Rash, 04/30/17) Past Medical History Diverticulosis COPD Osteoarthritis Overactive bladder Chronic thrombocytopenia Hypothyroidism History of right MCA CVA hypertension Dyslipidemia Dry eyes Gastroesophageal reflux disease Past Surgical History Appendectomy Inguinal hernia repair Salivary gland removal Bilateral total knee replacement Reported Medications Lovenox Inj (Enoxaparin Sodium) 80 mg/0.8 ML Syr 80 Mg SQ BID Restasis Opth 0.05% (Cyclosporine Opth 0.05%) 0.05% Emul 1 Drop EACH EYE BID Levothyroxine (Levothyroxine Sodium) 88 Mcg Tab 88 Mcg PO DAILY Alprazolam 0.5 Mg Tab 0.5 Mg PO Q4H PRN Myrbetriq (Mirabegron) 50 Mg Tab 50 Mg PO DAILY Tramadol (Tramadol HCl) 50 Mg Tab 50 Mg PO Q4H PRN Symbicort Inh (Budesonide/Formoterol Fumarate) 160-4.5 Mcg/Act Aero 2 Puff INH Q12HR Lovastatin 40 Mg Tab 40 Mg PO DAILY Enalapril (Enalapril Maleate) 20 Mg Tab 20 Mg PO DAILY Nifedipine 20 Mg Cap 30 Mg PO BID Omeprazole 20 Mg Tab 20 Mg PO DAILY Active Ordered Medications Reviewed in EMR Family History Insignificant for hypertension or diabetes or coronary disease Social History Quit tobacco 15 years ago. One cocktail nightly. Denies IV drug use. Physical Exam Vital Signs Vital Signs Date Time Temp Pulse Resp B/P (MAP) Pulse Ox O2 Delivery O2 Flow Rate FiO2 05/01/17 00:00 Nasal Cannula 5.00 05/01/17 00:00 97.4 92 24 87/54 (65) 96 05/01/17 00:00 91 04/30/17 20:00 98.5 92 24 104/66 (79) 96 04/30/17 20:00 100 04/30/17 20:00 Nasal Cannula 5.00 04/30/17 16:18 04/30/17 15:42 Room Air 04/30/17 15:25 98.3 73 16 101/64 (76) 93 Room Air 04/30/17 13:23 78 16 100/65 (77) 95 Room Air 04/30/17 13:08 Room Air 04/30/17 11:20 67 16 109/65 (80) 94 Room Air 04/30/17 09:51 97/58 (71) 104/68 (80) 04/30/17 09:46 94 Room Air 04/30/17 09:40 (81) 04/30/17 09:36 Room Air 04/30/17 09:36 97.5 83 16 110/66 (81) 94 Room Air Physical Exam GENERAL: 78-year-old male, resting in bed in mild respiratory distress SKIN: Warm and dry. HEAD: Atraumatic. Normocephalic. EYES: Pupils equal and round 2 mm bilaterally and reactive. No scleral icterus. No injection or drainage. ENT: No nasal bleeding or discharge. Mucous membranes pink and moist. NECK: Trachea midline. No JVD. CARDIOVASCULAR: IRR. RESPIRATORY: Diminished breath sounds right lower lobe. No wheezing. GASTROINTESTINAL: Abdomen soft, non-tender, nondistended. Hypoactive bowel sounds are appreciated MUSCULOSKELETAL: Extremities without significant peripheral edema. NEUROLOGICAL: Awake and alert. No obvious cranial nerve deficits. Motor grossly within normal limits. Five out of 5 muscle strength in the arms and legs. Normal speech. Some dysdiadochokinesis left greater than right Laboratory Laboratory Tests Test 04/30/17 09:45 04/30/17 12:15 04/30/17 14:10 White Blood Count 6.7 Red Blood Count 3.45 Hemoglobin 12.1 Hematocrit 35.1 Mean Corpuscular Volume 101.8 Mean Corpuscular Hemoglobin 34.9 Mean Corpuscular Hemoglobin Concent 34.3 Red Cell Distribution Width 12.8 Platelet Count 142 Mean Platelet Volume 7.3 Neutrophils (%) (Auto) 80.1 Lymphocytes (%) (Auto) 9.2 Monocytes (%) (Auto) 10.1 Eosinophils (%) (Auto) 0.5 Basophils (%) (Auto) 0.1 Neutrophils # (Auto) 5.4 Lymphocytes # (Auto) 0.6 Monocytes # (Auto) 0.7 Eosinophils # (Auto) 0.0 Basophils # (Auto) 0.0 CBC Comment DIFF FINAL Differential Comment Prothrombin Time 10.7 Prothromb Time International Ratio 1.0 Activated Partial Thromboplast Time 34.0 Blood Urea Nitrogen 23 Creatinine 1.30 Random Glucose 125 Total Protein 6.9 Albumin 3.4 Calcium Level 8.7 Magnesium Level 1.8 Alkaline Phosphatase 47 Aspartate Amino Transf (AST/SGOT) 33 Alanine Aminotransferase (ALT/SGPT) 41 Total Bilirubin 0.8 Sodium Level 136 Potassium Level 4.1 Chloride Level 103 Carbon Dioxide Level 25.2 Anion Gap 8 Estimat Glomerular Filtration Rate 52 Total Creatine Kinase 64 Troponin I LESS THAN 0.02 LESS THAN 0.02 B-Type Natriuretic Peptide 80 Lipase 125 Urine Collection Type CLEAN CATCH Urine Color YELLOW Urine Turbidity CLEAR Urine pH 5.5 Urine Specific [place] GREATER THAN 1.035 Urine Protein NEG Urine Glucose (UA) NEG Urine Ketones NEG Urine Occult Blood NEG Urine Nitrite NEG Urine Bilirubin NEG Urine Leukocyte Esterase NEG Urine WBC 0-2 Microscopic Urinalysis Comment CULT NOT INDICATED Date/Time Source Procedure Growth Status 04/30/17 11:45 Blood Peripheral Aerobic Blood Culture Pending Received 04/30/17 11:45 Blood Peripheral Anaerobic Blood Culture Pending Received Result Diagram: 04/30/1745 04/30/1745 Imaging Last 72 hours Impressions Chest X-Ray 04/30/1740 Signed Impressions: Service Date/Time: April 09:53 - CONCLUSION: Significant infiltrate in the right lower lobe. Brian Steiner MD Aorta CTA 04/30/17939 Signed Impressions: Service Date/Time: , April 30, 2017 10:52 - CONCLUSION: 1. No evidence for aortic dissection or significant aneurysm. There is mild ectasia of ascending thoracic aorta and infrarenal abdominal aorta. 2. Moderate-sized slightly dense right-sided hemothorax with loculated hyperdense anterior inferior component extending to the major fissure. There is a focal region of increased density in the medial aspect of this fluid likely reflecting focal calcification although there is an associated subtle hematocrit level. Differential consideration includes focal contrast extravasation. Clinical correlation is recommended. Noncontrast CT examination may be performed if there is sufficient clinical concern and uncertainty, to more definitively determine if this reflects calcification. 3. Associated right lower lobe airspace consolidation may reflect compressive atelectasis versus pneumonia/aspiration. 4. Multiple 6 mm nodules in the left lower lobe, as above. Consider followup CT examination in 3-6 months to determine stability per 2017 flexure criteria as indicated. 5. Ancillary findings include hepatic steatosis, small right renal cyst, sigmoid diverticulosis, nonspecific prostatic enlargement and degenerative spondylosis of the lumbar spine. Kelvin Puckett MD Assessment and Plan Assessment and Plan Neuro/Psych: History of left MCA CVA MRI brain 05/03 revealed right temporal/posterior central sulci possible embolic CVA Evaluated by Dr. Bean. Recommended anticoagulation currently on anoxic. Acetaminophen for fever On alprazolam 0.5 mill grams by mouth every 4 hours when necessary anxiety On tramadol 50 mg every 4's. [facility] Continue cyclosporine ophthalmology 0.05% one drop each eye twice a day CV: Hypertension dyslipidemia Trace MR/TR 2-D echocardiogram 04/17/17 revealed EF 65-70%. Mild MR/TR. PAP 36 mmHg On enalapril 20 mg daily and nifedipine 30 mg twice a day for hypertension at home. On lovastatin 40 mg daily for dyslipidemia. Hospital substitution with Pravachol Resp: COPD Likely right-sided hemothorax Continue budesonide/formoterol fumarate 160/4.5 mics grams 2 puffs every 4 hours Albuterol/operative aerosols every 6 hours with albuterol aerosols every 2 hours when necessary dyspnea Currently on nasal cannula at 5 L to maintain saturations greater than equal to 92% Incentive spirometry while awake Will likely need chest tube placement. CT surgery consulted GI: Gastroesophageal reflux disease Diverticulosis Patient is currently nothing by mouth Currently Protonix 20 mg's by mouth daily. On omeprazole 20 mg daily at home Docusate sodium for bowel regimen : Overactive bladder On Mirabegron 50 mg daily for overactive bladder [place] catheter for accurate I's and O's in critically ill patient if indicated Endo: Hypothyroidism Continue levothyroxine 88 mcg by mouth daily Renal: Creatinine 1.3 chronic kidney disease? Creatinine currently within normal limits Monitor urine output Accurate I's and O's Heme: Enoxaparin use Acute blood loss anemia Elevated PTT Received protamine 50 mg IV 1 now Hold anticoagulation Transfuse 1 unit PRBCs now. Serial hemoglobins every 6 hours ID: Monitor for infection Placed on vancomycin/aztreonam/metronidazole for possible pneumonia right lower lobe 04/30 blood cultures 2 pending FEN: Replace electrolytes as clinically indicated MSK: PT evaluate and treat Access - Utilize IV. Central line if indicated Prophylaxis - GI - pantoprazole - DVT - SCD/holding pharmacological prophylaxis with hemothorax Level III consult Code Status Full code. Discussed Condition With Patient. Care plan discussed and all questions answered Betito Mora MD May 01, 2017 04:22
[2017-05-01] MEDS ORDERED: Vancomycin Consult Pharmacy 1 EA OTHER PRN (04:45)
[2017-05-01 04:50] LABS: HEMATOCRIT 26.4 % (39.0-51.0); REVIEW FLAG FINAL
[2017-05-01] MEDS ORDERED: MAGNESIUM SULFATE INJ 4 GM in SODIUM CHLORIDE 0.9% INJ 92 ML IV PRN (05:00)
[2017-05-01] MEDS ORDERED: BISACODYL 10 MG SUPP RECTAL PRN (05:00)
[2017-05-01] MEDS ORDERED: RESP: ALBUTEROL 2.5 MG/3 ML NEB (PRN) INH (05:00)
[2017-05-01] MEDS ORDERED: MAGNESIUM OXIDE 400 MG TAB PO PRN (05:00)
[2017-05-01] MEDS ORDERED: ONDANSETRON HCL 4 MG/2 ML VIAL IV PUSH PRN (05:00)
[2017-05-01] MEDS ORDERED: MAGNESIUM HYDROXIDE SUSP 30 ML CUP PO PRN (05:00)
[2017-05-01] MEDS ORDERED: LACTULOSE SYRUP 20 GM/30 ML CUP PO PRN (05:00)
[2017-05-01] MEDS ORDERED: POTASSIUM CHLOR 40 MEQ PREMIX 100 ML IV PRN ×2 (05:00)
[2017-05-01] MEDS ORDERED: POTASSIUM PHOSPHATE MONOBASIC 500 MG TAB PO/TUBE PRN (05:00)
[2017-05-01] MEDS ORDERED: CHLORHEXIDINE GLUCONATE 2 % 1 PACK (2 CLOTHS) TOP PRN (05:00)
[2017-05-01] MEDS ORDERED: POTASSIUM PHOSPHATE MONOBASIC 500 MG TAB PO PRN (05:00)
[2017-05-01] MEDS ORDERED: POTASSIUM CHLOR 20 MEQ PREMIX 100 ML IV PRN ×2 (05:00)
[2017-05-01] MEDS ORDERED: SENNOSIDES 8.6 MG TAB PO PRN (05:00)
[2017-05-01] MEDS ORDERED: POTASSIUM PHOSPHATE INJ 30 MMOL in SODIUM CHLOR 0.9% 250 ML INJ 250 ML IV PRN (05:00)
[2017-05-01] MEDS ORDERED: MAGNESIUM SULFATE INJ 2 GM in SODIUM CHLORIDE 0.9% INJ 96 ML IV PRN (05:00)
[2017-05-01] MEDS ORDERED: POTASSIUM CHLORIDE 25 MEQ EFFERVESCENT TAB PO PRN (05:00)
[2017-05-01] MEDS ORDERED: SODIUM PHOSPHATE INJ 30 MMOL in SODIUM CHLOR 0.9% 250 ML INJ 240 ML IV PRN (05:00)
[2017-05-01] MEDS ORDERED: MISCELLANEOUS NURSING INFORMATION XX SCH (05:00)
[2017-05-01] MEDS ORDERED: PROTAMINE SULFATE 50 MG/5 ML VIAL IV ONE (05:15)
[2017-05-01] MEDS ORDERED: CHLORHEXIDINE GLUCONATE 2 % 1 PACK (2 CLOTHS)(extra cloths) TOPICAL PRN (05:15)
[2017-05-01] MEDS: LEVOTHYROXINE SODIUM 88 MCG TAB PO SCH (05:23)
[2017-05-01] MEDS: AZTREONAM INJ 2,000 MG in SODIUM CHLORIDE 0.9% INJ 100 ML IV SCH ×2 (08:04→16:10)
[2017-05-01] MEDS: ARTIFICIAL TEARS OPTH SOLN 15 ML BTL EACH EYE SCH ×3 (08:11→16:10)
[2017-05-01] MEDS: PANTOPRAZOLE SOD 20 MG DELAYED RELEASE TAB PO SCH (08:12)
[2017-05-01] MEDS: metroNIDAZOLE 500 MG INJ 100 ML IV SCH ×2 (08:12→16:10)
[2017-05-01] MEDS: BUDESONIDE-FORMOTEROL 160/4.5 MCG INHALER INH SCH ×2 (08:12→20:21)
[2017-05-01] MEDS: SODIUM CHLORIDE 0.9% FLUSH 10 ML FLUSH IV FLUSH SCH ×2 (08:12→20:22)
[2017-05-01] MEDS: PRAVASTATIN SOD 40 MG TAB PO SCH (08:12)
[2017-05-01] MEDS: ENALAPRIL MALEATE 10 MG TAB PO SCH ×3 (08:12→09:00)
[2017-05-01] MEDS: DOCUSATE SODIUM 50 MG/SENNA 8.6 MG TAB PO SCH ×2 (08:12→20:22)
[2017-05-01 08:21] LABS: HEMATOCRIT 28.4 % (39.0-51.0); REVIEW FLAG FINAL
[2017-05-01 08:32] LABS: APTT (PATIENT) 28.4 SEC (24.3-30.1); INTERNATIONAL NORMALIZED RATIO 0.9 RATIO; PROTHROMBIN TIME - PATIENT 10.4 SEC (9.8-11.6)
[2017-05-01 08:42] LABS: MAGNESIUM 1.9 MG/DL (1.5-2.5)
[2017-05-01 08:52] LABS: FREE T4 1.06 NG/DL (0.76-1.46)
[2017-05-01] MEDS ORDERED: PT:MYRBETRIQ 50 MG PO SCH (09:00)
[2017-05-01] MEDS ORDERED: NON-FORMULARY DRUG (Mirabegron (Myrbetriq) 50 MG) PO SCH (09:00)
[2017-05-01] MEDS ORDERED: NON-FORMULARY DRUG (Omeprazole 20 MG) PO SCH (09:00)
[2017-05-01] MEDS: NIFEdipine 10 MG CAP PO SCH ×2 (09:00→20:00)
[2017-05-01] MEDS: RESP: ALBUTEROL 2.5 MG/IPRATROPIUM 0.5 MG NEB (SCH) INH ×3 (09:14→20:12)
[2017-05-01 09:23] LABS: AUTOMATED NEUTROPHIL # 7.4 TH/MM3 (1.8-7.7); BASOPHIL % 0.1 % (0.0-2.0); EOSINOPHIL % 0.1 % (0.0-4.0); HEMO FLAGS DIFF FINAL; LYMPH % 7.6 % (9.0-44.0); LYMPHOCYTE # 0.7 TH/MM3 (1.0-4.8); MEAN CELL VOLUME 103.1 FL (80.0-100.0); MEAN CORPUSCULAR HEMOGLOBIN 34.3 PG (27.0-34.0); MEAN CORPUSCULAR HGB CONC 33.3 % (32.0-36.0); MONO % 10.9 % (0.0-8.0); NEUT % 81.3 % (16.0-70.0); PLATELET COUNT 159 TH/MM3 (150-450); RED BLOOD COUNT 2.76 MIL/MM3 (4.50-5.90); RED CELL DISTRIBUTION WIDTH 13.4 % (11.6-17.2); WHITE BLOOD COUNT 9.1 TH/MM3 (4.0-11.0)
[2017-05-01 09:24] LABS: HEMATOCRIT 28.4 % (39.0-51.0)
[2017-05-01 09:58] LABS: BICARBONATE 22.6 MEQ/L (21.0-32.0); POTASSIUM 4.6 MEQ/L (3.5-5.1)
--- NOTE | 2017-05-01 11:37 | EKG ---
Date Performed: 04/30/2017 Time Performed: 09:30:52 PTAGE: 86 years EKG: Sinus rhythm WITH FIRST DEGREE AV BLOCK MARKED LEFT AXIS DEVIATION ABNORMAL ECG Compared to prior tracing no sign ificant change PREVIOUS TRACING : 04/15/2017 23.24 DOCTOR: Bridger Chacko Interpretating Date/Time 05/01/2017 11:36:09
--- NOTE | 2017-05-01 11:50 | PD.CONS ---
History of Present Illness Service Ct Surgery Consult Requested By Dr. Villanueva Reason for Consult Right pleural effusion, probable hemothorax Primary Care Physician Esvin Steve MD Diagnoses: (1) Hemothorax on right History of Present Illness 86y/o male with multiple medical problems and most recently a CVA requiring anticoagulation. He has been on lovenox at home. He developed right pleuritic chest and back pain ~3 days ago and presented to the [facility] ED. He was evaluated for a possible aortic dissection and was found to have a moderate right pleural effusion with an associated drop in RBC. [facility] and transfused. He is currently pain- free and breathing comfortably. He denies any prior history of lung/chest medical issues and also denies falling/trauma. Review of Systems Constitutional: COMPLAINS OF: Fatigue, DENIES: Diaphoretic episodes, Fever, Weight gain, Weight loss, Chills, Dizziness, Change in appetite, Night Sweats Endocrine: DENIES: Heat/cold intolerance, Polydipsia, Polyuria, Polyphagia Eyes: DENIES: Blurred vision, Diplopia, Eye inflammation, Eye pain, Vision loss , Photosensitivity, Double Vision Ears, nose, mouth, throat: DENIES: Tinnitus, Hearing loss, Vertigo, Nasal discharge, Oral lesions, Throat pain, Hoarseness, Ear Pain, Running Nose, Epistaxis, Sinus Pain, Toothache, Odynophagia Respiratory: COMPLAINS OF: Cough, Shortness of breath, DENIES: Apneas, Snoring , Wheezing, Hemoptysis, Sputum production Cardiovascular: COMPLAINS OF: Chest pain, Dyspnea on Exertion, DENIES: Palpitations, Syncope, PND, Lower Extremity Edema, Orthopnea, Claudication Gastrointestinal: DENIES: Abdominal pain, Black stools, Bloody stools, Constipation, Diarrhea, Nausea, Vomiting, Difficulty Swallowing, Anorexia Genitourinary: COMPLAINS OF: Urinary frequency, Dysuria, DENIES: Sexual dysfunction, Urinary incontinence, Urgency, Hematuria, Nocturia, Penile Discharge, Testicular Pain, Testicular Swelling Musculoskeletal: COMPLAINS OF: Muscle aches, Stiffness, DENIES: Joint pain, Joint Swelling, Back pain, Neck pain Integumentary: DENIES: Abnormal pigmentation, Nail changes, Pruritus, Rash Hematologic/lymphatic: DENIES: Bruising, Lymphadenopathy Immunologic/allergic: DENIES: Eczema, Urticaria Neurologic: COMPLAINS OF: Localized weakness, DENIES: Abnormal gait, Headache, Paresthesias, Seizures, Speech Problems, Tremor, Poor Balance Psychiatric: DENIES: Anxiety, Confusion, Mood changes, Depression, Hallucinations, Agitation, Suicidal Ideation, Homicidal Ideation, Delusions Past Family Social History Allergies: Coded Allergies: penicillin G (Unverified Allergy, Severe, Rash, 04/30/17) Past Medical History Past Medical History CVA Hypertension Hyperlipidemia Mitral regurg Hyperthyroidism Vertigo History of "extra heartbeats", denies arrhythmia Past Surgical History Appendectomy Inguinal hernia repair Salivary gland removed Bilateral knee arthroscopy Reported Medications Reported Meds & Active Scripts Active Reported Lovenox Inj (Enoxaparin Sodium) 80 mg/0.8 ML Syr 80 Mg SQ BID Restasis Opth 0.05% (Cyclosporine Opth 0.05%) 0.05% Emul 1 Drop EACH EYE BID Levothyroxine (Levothyroxine Sodium) 88 Mcg Tab 88 Mcg PO DAILY Alprazolam 0.5 Mg Tab 0.5 Mg PO Q4H PRN Myrbetriq (Mirabegron) 50 Mg Tab 50 Mg PO DAILY Tramadol (Tramadol HCl) 50 Mg Tab 50 Mg PO Q4H PRN Symbicort Inh (Budesonide/Formoterol Fumarate) 160-4.5 Mcg/Act Aero 2 Puff INH Q12HR Lovastatin 40 Mg Tab 40 Mg PO DAILY Enalapril (Enalapril Maleate) 20 Mg Tab 20 Mg PO DAILY Nifedipine 20 Mg Cap 30 Mg PO BID Omeprazole 20 Mg Tab 20 Mg PO DAILY Active Ordered Medications Current Medications Medications (Trade) Dose Ordered Sig/Mariann Route Start Time Stop Time Status Last Admin (NS Flush) 2 ml UNSCH PRN IV FLUSH 04/30/17 17:15 (NS Flush) 2 ml BID IV FLUSH 04/30/17 21:00 05/01/17 08:12 ([place] 5-325 Mg) 1 tab Q6H PRN PO 04/30/17 17:30 04/30/17 20:18 (Tylenol) 650 mg Q4H PRN PO 04/30/17 17:30 (Xanax) 0.5 mg Q4H PRN PO 04/30/17 18:15 04/30/17 20:17 (Symbicort 160-4.5 Inh) 2 puff Q12HR INH 04/30/17 21:00 (Vasotec) 20 mg DAILY PO 05/01/17 09:00 (Synthroid) 88 mcg DAILY@0600 PO 05/01/17 06:00 (Pravachol) 40 mg DAILY PO 05/01/17 09:00 05/01/17 08:12 (Procardia) 30 mg BID PO 04/30/17 21:00 04/30/17 20:17 (Protonix) 20 mg DAILY PO 05/01/17 09:00 05/01/17 08:12 Patient Own Medication PT OWN MED: RESTA... BID EACH EYE 04/30/17 21:00 Future Hold Patient Own Medication PT OWN MED: MYRBET... DAILY PO 05/01/17 09:00 Future Hold Aztreonam 2000 mg/ Sodium Chloride 100 ml @ 200 mls/hr Q8H IV 05/01/17 08:00 05/01/17 08:04 Pharmacy Profile Note 0 ml @ 0 mls/hr UNSCH PRN OTHER 05/01/17 04:45 Metronidazole 100 ml @ 100 mls/hr Q8H IV 05/01/17 09:00 05/01/17 08:12 (Tears Naturale Opth Soln) 1 drop TID EACH EYE 05/01/17 09:00 (Zofran Inj) 4 mg Q6H PRN IV PUSH 05/01/17 05:00 (Duoneb Neb) 1 ampule Q6HR NEB INH 05/01/17 10:00 05/01/17 09:14 (Albuterol Neb) 2.5 mg Q2HR NEB PRN INH 05/01/17 05:00 Miscellaneous Information 1 Q361D XX 05/01/17 05:00 (Chlorhexidine 2% Cloth) 3 pack Taper DAILY@04 TOP 05/02/17 04:00 04/28/18 03:59 (Chlorhexidine 2% Cloth) 3 pack UNSCH PRN TOP 05/01/17 05:00 (Teresa-Colace) 1 tab BID PO 05/01/17 09:00 05/01/17 08:12 (Milk Of Magnesia Liq) 30 ml Q12H PRN PO 05/01/17 05:00 (Senokot) 17.2 mg Q12H PRN PO 05/01/17 05:00 (Dulcolax Supp) 10 mg DAILY PRN RECTAL 05/01/17 05:00 (Lactulose Liq) 30 ml DAILY PRN PO 05/01/17 05:00 Potassium Chloride 100 ml @ 50 mls/hr Q2H PRN IV 05/01/17 05:00 Potassium Chloride 100 ml @ 50 mls/hr Q2H PRN IV 05/01/17 05:00 (K-Lyte Cl Eff) 50 meq UNSCH PRN PO 05/01/17 05:00 Potassium Chloride 100 ml @ 25 mls/hr UNSCH PRN IV 05/01/17 05:00 Potassium Chloride 100 ml @ 50 mls/hr Q2H PRN IV 05/01/17 05:00 Magnesium Sulfate 4 gm/Sodium Chloride 100 ml @ 50 mls/hr UNSCH PRN IV 05/01/17 05:00 (Mag-Ox) 800 mg UNSCH PRN PO 05/01/17 05:00 Magnesium Sulfate 2 gm/Sodium Chloride 100 ml @ 50 mls/hr UNSCH PRN IV 05/01/17 05:00 (K-Phos) 2,000 mg Q4H PRN PO 05/01/17 05:00 Sodium Phosphate 30 mmol/Sodium Chloride 250 ml @ 42 mls/hr UNSCH PRN IV 05/01/17 05:00 (K-Phos) 2,000 mg UNSCH PRN PO/TUBE 05/01/17 05:00 Potassium Phosphate 30 mmol/ Sodium Chloride 260 ml @ 42 mls/hr UNSCH PRN IV 05/01/17 05:00 Miscellaneous Information Patient in critical care unit? Ass... Q361D .XX 05/01/17 05:15 (Chlorhexidine 2% Cloth) 3 pack DAILY@04 TOPICAL 05/02/17 04:00 05/06/17 04:01 (Chlorhexidine 2% Cloth) 3 pack UNSCH PRN TOPICAL 05/01/17 05:15 05/06/17 05:10 Family History unremarkable Social History Remote smoking history Occ ETOH Physical Exam Vital Signs Vital Signs Date Time Temp Pulse Resp B/P (MAP) Pulse Ox O2 Delivery O2 Flow Rate FiO2 05/01/17 10:00 85 05/01/17 09:18 95 Nasal Cannula 3.00 05/01/17 08:00 96 Room Air 4.00 05/01/17 08:00 87 05/01/17 08:00 99.0 87 20 102/59 (73) 96 05/01/17 07:54 99.0 89 16 104/60 96 05/01/17 07:53 99.0 89 16 104/60 96 05/01/17 07:33 99.1 90 16 112/62 94 05/01/17 06:09 97 Nasal Cannula 4.00 05/01/17 06:00 80 05/01/17 05:46 Nasal Cannula 4.00 05/01/17 04:25 97.8 93 24 114/66 (82) 96 05/01/17 00:00 Nasal Cannula 5.00 05/01/17 00:00 97.4 92 24 87/54 (65) 96 05/01/17 00:00 91 04/30/17 20:00 98.5 92 24 104/66 (79) 96 04/30/17 20:00 100 04/30/17 20:00 Nasal Cannula 5.00 04/30/17 16:18 04/30/17 15:42 Room Air 04/30/17 15:25 98.3 73 16 101/64 (76) 93 Room Air 04/30/17 13:23 78 16 100/65 (77) 95 Room Air 04/30/17 13:08 Room Air Physical Exam GENERAL: This is a well-nourished, well-developed patient, in no apparent distress. SKIN: No rashes, ecchymoses or lesions. Cool and dry. HEAD: Atraumatic. Normocephalic. No temporal or scalp tenderness. EYES: Pupils equal round and reactive. Extraocular motions intact. No scleral icterus. No injection or drainage. ENT: Nose without bleeding, purulent drainage or septal hematoma. Throat without erythema, tonsillar hypertrophy or exudate. Uvula midline. Airway patent. NECK: Trachea midline. No JVD or lymphadenopathy. Supple, nontender, no meningeal signs. CARDIOVASCULAR: Regular rate and rhythm without murmurs, gallops, or rubs. RESPIRATORY: Clear to auscultation. Breath sounds decreased on right GASTROINTESTINAL: Abdomen soft, non-tender, nondistended. No hepato-splenomegaly , or palpable masses. No guarding. MUSCULOSKELETAL: Extremities without clubbing, cyanosis, or edema. No joint tenderness, effusion, or edema noted. No calf tenderness. Negative Homans sign bilaterally. NEUROLOGICAL: Awake and alert. Cranial nerves II through XII intact. Motor and sensory grossly within normal limits. Five out of 5 muscle strength in all muscle groups. Normal speech. Laboratory Laboratory Tests Test 04/30/17 12:15 04/30/17 14:10 05/01/17 02:00 05/01/17 04:29 Troponin I LESS THAN 0.02 Urine Collection Type CLEAN CATCH Urine Color YELLOW Urine Turbidity CLEAR Urine pH 5.5 Urine Specific [place] GREATER THAN 1.035 Urine Protein NEG Urine Glucose (UA) NEG Urine Ketones NEG Urine Occult Blood NEG Urine Nitrite NEG Urine Bilirubin NEG Urine Leukocyte Esterase NEG Urine WBC 0-2 Microscopic Urinalysis Comment CULT NOT INDICATED Hemoglobin 9.0 Hematocrit 26.4 Nasal Screen MRSA (PCR) MRSA NOT DETECTED Test 05/01/17 07:46 White Blood Count 9.1 Red Blood Count 2.76 Hemoglobin 9.5 Hematocrit 28.4 Mean Corpuscular Volume 103.1 Mean Corpuscular Hemoglobin 34.3 Mean Corpuscular Hemoglobin Concent 33.3 Red Cell Distribution Width 13.4 Platelet Count 159 Mean Platelet Volume 7.3 Neutrophils (%) (Auto) 81.3 Lymphocytes (%) (Auto) 7.6 Monocytes (%) (Auto) 10.9 Eosinophils (%) (Auto) 0.1 Basophils (%) (Auto) 0.1 Neutrophils # (Auto) 7.4 Lymphocytes # (Auto) 0.7 Monocytes # (Auto) 1.0 Eosinophils # (Auto) 0.0 Basophils # (Auto) 0.0 CBC Comment DIFF FINAL Differential Comment Prothrombin Time 10.4 Prothromb Time International Ratio 0.9 Activated Partial Thromboplast Time 28.4 Fibrinogen 344 Blood Urea Nitrogen 29 Creatinine 1.38 Random Glucose 116 Total Protein 5.6 Calcium Level 8.0 Lactate Dehydrogenase 120 Sodium Level 137 Potassium Level 4.6 Chloride Level 104 Carbon Dioxide Level 22.6 Anion Gap 10 Estimat Glomerular Filtration Rate 49 Lactic Acid Level 1.4 Phosphorus Level 3.8 Magnesium Level 1.9 Amylase Level 32 Lipase 60 Free Thyroxine 1.06 Thyroid Stimulating Hormone 3rd Gen 1.960 Date/Time Source Procedure Growth Status 04/30/17 11:45 Blood Peripheral Aerobic Blood Culture - Preliminary NO GROWTH IN 1 DAY Resulted 04/30/17 11:45 Blood Peripheral Anaerobic Blood Culture - Preliminary NO GROWTH IN 1 DAY Resulted Result Diagram: 05/01/17 0746 05/01/17 0746 Imaging Last Impressions Chest X-Ray 04/30/17939 Signed Impressions: Service Date/Time: April 09:53 - CONCLUSION: Significant infiltrate in the right lower lobe. Brian Steiner MD Aorta CTA 04/30/17939 Signed Impressions: Service Date/Time: April 10:52 - CONCLUSION: 1. No evidence for aortic dissection or significant aneurysm. There is mild ectasia of ascending thoracic aorta and infrarenal abdominal aorta. 2. Moderate-sized slightly dense right-sided hemothorax with loculated hyperdense anterior inferior component extending to the major fissure. There is a focal region of increased density in the medial aspect of this fluid likely reflecting focal calcification although there is an associated subtle hematocrit level. Differential consideration includes focal contrast extravasation. Clinical correlation is recommended. Noncontrast CT examination may be performed if there is sufficient clinical concern and uncertainty, to more definitively determine if this reflects calcification. 3. Associated right lower lobe airspace consolidation may reflect compressive atelectasis versus pneumonia/aspiration. 4. Multiple 6 mm nodules in the left lower lobe, as above. Consider followup CT examination in 3-6 months to determine stability per 2017 flexure criteria as indicated. 5. Ancillary findings include hepatic steatosis, small right renal cyst, sigmoid diverticulosis, nonspecific prostatic enlargement and degenerative spondylosis of the lumbar spine. Kelvin Puckett MD Course Patient was transferred from [place] for definitive care. Assessment and Plan Problem List: (1) Hemothorax on right ICD Codes: J94.2 - Hemothorax Status: Acute Assessment and Plan 86y/o male s/p recent CVA presents with right pleural effusion and anemia. This is likely a hemothorax on the right. The etiology of this is unclear but he has been on lovenox at home. Dr. Pinedo called me about him last night and it is reasonable to percutaneously drain this effusion and leave a chest drain since it is relatively recent onset. If the patient develops a retained hemothorax, then surgical intervention may be indicated, Less invasive therapeutic intervention is better given his recent stroke and advanced age/ frailty. Will follow. Rebekah Potts MD May 01, 2017 11:49
[2017-05-01] MEDS ORDERED: VANCOMYCIN INJ 1,250 MG in SODIUM CHLOR 0.9% 250 ML INJ 250 ML IV ONE (14:00)
[2017-05-01] MEDS ORDERED: LIDOCAINE HCL 1% 20 ML VIAL ONE (14:17)
[2017-05-01] MEDS ORDERED: MIDAZOLAM HCL 2 MG/2 ML VIAL ONE ×2 (14:19→14:20)
[2017-05-01 14:39] LABS: REVIEW FLAG FINAL
--- NOTE | 2017-05-01 17:00 | RADRPT ---
EXAM DATE/TIME: 05/01/2017 14:59 INDICATIONS : Hemothorax; Right chest tube placement. SEDATION TIME: 30 minutes MEDICATION(S): 1.) 1 mg midazolam (Versed) IV 2.) 50 mcg fentanyl (Sublimaze) IV DEVICE(S): 1. 18 gauge [place] blunt needle 2. 8 F nonlocking pigtail catheter. MEDICAL HISTORY : Cardiovascular disease. Stroke. SURGICAL HISTORY : None. ENCOUNTER: Initial ACUITY: 1 day PAIN SCORE: 5/10 LOCATION: Right chest tube PROCEDURE: 1.) Conscious sedation with continuous EKG and oximetry monitoring. 2.) EKG and oximetry remained stable throughout the procedure. PROCEDURE : 1. CT guided chest tube placement. 2. Conscious sedation with continuous EKG and oximetry monitoring. The risks, benefits and alternatives to the procedure were explained and verbal and written consent w as obtained. The site was prepped in sterile fashion. Full sterile technique was used, including ca p, mask, sterile gloves and gown and a large sterile sheet. Hand hygiene and 2% chlorhexidine and/or betadine/alcohol prep was utilized per protocol for cutaneous antisepsis. The skin and subcutaneous tissues were infiltrated with local anesthetic solution. Using automated exposure control and adjus tment of the mA and/or kV according to patient size, radiation dose was kept as low as reasonably ach ievable to obtain optimal diagnostic quality images. DICOM format image data is available electronic ally for review and comparison. With CT guidance the chest was punctured and the prescribed catheter was placed in the lung base. Blo sayda pleural fluid was obtained. Wall suction was applied. Post procedure images demonstrate satisfac tory position of the tube. The catheter was sutured in place and a Percu-Stay was applied. Conscious sedation was performed with the prescribed dosages and duration as above. The patient arron ated the procedure well and there were no complications. EKG and oximetry remained stable throughout the procedure. The patient was sent to post anesthesia recovery in stable condition. CONCLUSION: Uncomplicated CT-guided 8 Khmer nonlocking pigtail chest tube placement within the right pleural spa ce as above. Hermes Eller MD on May 01, 2017 at 16:56 Board Certified Radiologist. This report was verified electronically.
[2017-05-01 20:54] LABS: HEMATOCRIT 28.5 % (39.0-51.0); REVIEW FLAG FINAL
[2017-05-01 21:54] LABS: APTT (PATIENT) 28.9 SEC (24.3-30.1); INTERNATIONAL NORMALIZED RATIO 0.9 RATIO; PROTHROMBIN TIME - PATIENT 10.4 SEC (9.8-11.6)
[2017-05-02] VITALS (13 sets, daily range): BP systolic 92–121; BP diastolic 51–66; PULSE 75–100; RESP 12–25; TEMP 98.2–100.6; O2SAT 89–96
[2017-05-02] MEDS: metroNIDAZOLE 500 MG INJ 100 ML IV SCH ×3 (00:24→21:17)
[2017-05-02] MEDS: ACETAMINOPHEN/HYDROcodone 325 MG/5 MG TAB PO PRN ×2 (00:24→13:35)
[2017-05-02] MEDS: AZTREONAM INJ 2,000 MG in SODIUM CHLORIDE 0.9% INJ 100 ML IV SCH ×3 (00:24→16:21)
[2017-05-02] MEDS: RESP: ALBUTEROL 2.5 MG/IPRATROPIUM 0.5 MG NEB (SCH) INH ×3 (02:43→15:47)
[2017-05-02] MEDS: CHLORHEXIDINE GLUCONATE 2 % 1 PACK (2 CLOTHS) TOP SCH (04:00)
[2017-05-02] MEDS: CHLORHEXIDINE GLUCONATE 2 % 1 PACK (2 CLOTHS)(taper/protocol) TOPICAL SCH (04:00)
--- NOTE | 2017-05-02 05:42 | RADRPT ---
EXAM DATE/TIME: 05/02/2017 05:04 [facility] COMPARISON: CHEST SINGLE AP, May 01, 2017, 2:23. INDICATIONS : Follow up effusion. MEDICAL HISTORY : None. SURGICAL HISTORY : None. ENCOUNTER: Subsequent ACUITY: 3 days PAIN SCORE: 5/10 LOCATION: Bilateral chest FINDINGS: A single view of the chest demonstrates interval placement of a right sided cochlear thoracostomy tub e in the lung base. Right-sided effusion is markedly improved. There are bibasilar atelectatic change s, stable on the right and developing on the left. Possible small left sided effusion with blunting o f costophrenic angle. Heart size is normal. Osseous structures are intact with a high riding right sh oulder characteristic of chronic rotator cuff injury. Spurring of the thoracolumbar spine. CONCLUSION: 1. Interval placement of a [place] loop right-sided chest tube with marked improvement in the right-side d effusion. 2. Bibasilar atelectatic changes. Edwin Chacon MD on May 02, 2017 at 5:39 Board Certified Radiologist. This report was verified electronically.
[2017-05-02] MEDS: LEVOTHYROXINE SODIUM 88 MCG TAB PO SCH (06:26)
[2017-05-02] MEDS ORDERED: SODIUM CHLOR 0.9% 1000 ML INJ 1,000 ML IV ONE (07:45)
[2017-05-02] MEDS: SODIUM CHLORIDE 0.9% FLUSH 10 ML FLUSH IV FLUSH SCH ×2 (09:00→21:18)
[2017-05-02] MEDS: PANTOPRAZOLE SOD 20 MG DELAYED RELEASE TAB PO SCH (09:00)
[2017-05-02] MEDS: DOCUSATE SODIUM 50 MG/SENNA 8.6 MG TAB PO SCH ×2 (09:02→21:18)
[2017-05-02] MEDS: ENALAPRIL MALEATE 10 MG TAB PO SCH (09:02)
[2017-05-02] MEDS: NIFEdipine 10 MG CAP PO SCH ×2 (09:02→21:00)
[2017-05-02] MEDS: BUDESONIDE-FORMOTEROL 160/4.5 MCG INHALER INH SCH ×2 (09:02→21:17)
[2017-05-02] MEDS: PRAVASTATIN SOD 40 MG TAB PO SCH (09:02)
[2017-05-02] MEDS: ARTIFICIAL TEARS OPTH SOLN 15 ML BTL EACH EYE SCH ×3 (09:03→19:39)
[2017-05-02 09:54] LABS: HEMATOCRIT 32.4 % (39.0-51.0); MEAN CELL VOLUME 98.6 FL (80.0-100.0); MEAN CORPUSCULAR HEMOGLOBIN 34.2 PG (27.0-34.0); MEAN CORPUSCULAR HGB CONC 34.7 % (32.0-36.0); PLATELET COUNT 124 TH/MM3 (150-450); RED BLOOD COUNT 3.29 MIL/MM3 (4.50-5.90); REVIEW FLAG FINAL; WHITE BLOOD COUNT 7.1 TH/MM3 (4.0-11.0)
[2017-05-02 10:22] LABS: BICARBONATE 23.8 MEQ/L (21.0-32.0); MAGNESIUM 1.9 MG/DL (1.5-2.5)
--- NOTE | 2017-05-02 13:25 | HHI.PR ---
Subjective Remarks Follow up for right hemothorax. Patient is doing well. He complains of some right chest wall pain and he is coughing too. Chest tube is draining bloody fluid. No fever, chills. Objective Vitals Vital Signs Date Time Temp Pulse Resp B/P (MAP) Pulse Ox O2 Delivery O2 Flow Rate FiO2 05/02/17 08:50 96 Nasal Cannula 3.00 05/02/17 07:00 Nasal Cannula 3.00 05/02/17 06:00 75 05/02/17 04:00 75 05/02/17 04:00 98.2 83 25 95/51 (66) 94 05/02/17 02:15 99.5 79 23 92/53 95 05/02/17 02:00 75 05/02/17 00:00 79 05/02/17 00:00 100.6 79 22 96/53 (67) 94 05/01/17 22:00 100 05/01/17 21:35 100.5 104 25 99/58 91 05/01/17 20:12 96 Nasal Cannula 3.00 05/01/17 20:00 100.5 102 34 87/48 (61) 94 05/01/17 20:00 102 05/01/17 19:00 Nasal Cannula 3.00 05/01/17 18:00 86 05/01/17 16:45 80 111/59 (76) 05/01/17 16:30 80 113/58 (76) 05/01/17 16:15 78 108/56 (73) 05/01/17 16:00 80 05/01/17 16:00 98.9 78 18 109/60 (76) 94 05/01/17 14:00 86 I/O 05/01/17 05/01/17 05/01/17 05/02/17 05/02/17 05/02/17 07:00 15:00 23:00 07:00 15:00 23:00 Intake Total 0 ml 290 ml 477.5 ml 935 ml Output Total 2550 ml 620 ml Balance 0 ml 290 ml -2072.5 ml 315 ml Intake Oral 0 ml 200 ml IV Total 462.5 ml Packed Cells 250 ml 700 ml Blood Product IV Normal Saline Flush 40 ml 15 ml 35 ml Output Urine Total 900 ml 200 ml Stool Total 0 ml Chest Tube Drainage Total 1650 ml 420 ml # Bowel Movements 0 Result Diagram: 9/16/17 0730 05/02/17 0730 Imaging Last Impressions Chest X-Ray 05/02/17 0000 Signed Impressions: Service Date/Time: Tuesday, May 02, 2017 05:04 - CONCLUSION: 1. Interval placement of a [place] loop right-sided chest tube with marked improvement in the right-sided effusion. 2. Bibasilar atelectatic changes. Edwin Chacon MD Chest Tube Insertion 05/01/17 0738 Signed Impressions: Service Date/Time: Monday, May 01, 2017 14:59 - CONCLUSION: Uncomplicated CT-guided 8 [place] nonlocking pigtail chest tube placement within the right pleural space as above. Hermes Eller MD Aorta CTA 04/30/17 0940 Signed Impressions: Service Date/Time: April 10:52 - CONCLUSION: 1. No evidence for aortic dissection or significant aneurysm. There is mild ectasia of ascending thoracic aorta and infrarenal abdominal aorta. 2. Moderate-sized slightly dense right-sided hemothorax with loculated hyperdense anterior inferior component extending to the major fissure. There is a focal region of increased density in the medial aspect of this fluid likely reflecting focal calcification although there is an associated subtle hematocrit level. Differential consideration includes focal contrast extravasation. Clinical correlation is recommended. Noncontrast CT examination may be performed if there is sufficient clinical concern and uncertainty, to more definitively determine if this reflects calcification. 3. Associated right lower lobe airspace consolidation may reflect compressive atelectasis versus pneumonia/aspiration. 4. Multiple 6 mm nodules in the left lower lobe, as above. Consider followup CT examination in 3-6 months to determine stability per 2017 flexure criteria as indicated. 5. Ancillary findings include hepatic steatosis, small right renal cyst, sigmoid diverticulosis, nonspecific prostatic enlargement and degenerative spondylosis of the lumbar spine. Kelvin Puckett MD Objective Remarks GENERAL: AOX3, NAD. SKIN: Warm and dry. HEAD: Normocephalic. EYES: No scleral icterus. No injection or drainage. NECK: Supple, trachea midline. No JVD or lymphadenopathy. CARDIOVASCULAR: Regular rate and rhythm without murmurs, gallops, or rubs. Chest tube in place on the right side. RESPIRATORY: Breath sounds equal bilaterally. No accessory muscle use. GASTROINTESTINAL: Abdomen soft, non-tender, nondistended. MUSCULOSKELETAL: No cyanosis, or edema. BACK: Nontender without obvious deformity. No CVA tenderness. Procedures Chest tube placement. A/P Problem List: (1) Hemothorax on right ICD Code: J94.2 - Hemothorax Status: Acute Assessment and Plan 86-year-old male with past medical history of HTN, HLD, atrial regurg, hypothyroidism, and recent CVA he presented for right chest/back pain and admitted for right hemothorax Acute spontaneous hemothorax: Seen on chest x-ray and aorta CTA. Denies any respiratory complaints. - Hemoglobin 14.4 on 04/15/17. Afebrile with no leukocytosis. - Patient became hypotensive overnight and hemoglobin dropped from 12 --> 9. Patient was transferred to ICU. - s/p chest tube placement - Check pleural fluid studies - CT surgery consulted - Supplemental O2 as needed - Hold Lovenox - Probable right lower lobe pneumonia - Critical care placed patient on Vancomycin, Aztreonam, Metronidazole. - If patient remains stable, we will consider discontinuing abx and start on Levaquin PO. History of recent CVA - Previously evaluated by neurology and recommendation to continue Lovenox bridge to Warfarin. - Patient had CVA on plavix as well as on Aggrenox. - It would be difficult choice to re-start Lovenox. - Newer anti-coagulation medications such as Apixaban may be considered. COPD Anxiety Hypertension Hypothyroidism - Continue Nifedipine 30mg BID, Enalapril 20mg Qday - Continue Levothyroxine 88 mcg Qday. - Continue Xanax 0.5mg Q4h PRN - Continue DuoNeb, symbicort. Full code. SCDs. Chuck Garcia DO May 02, 2017 13:25
[2017-05-03] VITALS (9 sets, daily range): BP systolic 96–118; BP diastolic 55–61; PULSE 63–90; RESP 18–19; TEMP 97.6–98.9; O2SAT 92–99
[2017-05-03] MEDS: AZTREONAM INJ 2,000 MG in SODIUM CHLORIDE 0.9% INJ 100 ML IV SCH ×2 (01:20→09:08)
--- NOTE | 2017-05-03 03:35 | RADRPT ---
EXAM DATE/TIME: 05/03/2017 02:54 [facility] COMPARISON: CHEST SINGLE AP, May 02, 2017, 5:04. INDICATIONS : Shortness of breath. MEDICAL HISTORY : Cardiovascular disease. Stroke. SURGICAL HISTORY : None. ENCOUNTER: Subsequent ACUITY: 3 days PAIN SCORE: 0/10 LOCATION: Bilateral chest FINDINGS: A single view of the chest demonstrates apparent interval removal of the previously seen right-sided [place] loop catheter. Persistent bilateral pleural effusions with concomitant atelectatic changes. Emph ysematous changes in the apices. Fullness in both iftikhar probably represent prominent pulmonary arterie s. Heart size is borderline. Stable degenerative changes of the dorsal spine. CONCLUSION: 1. Right-sided small bore chest tube seen previously is no longer present. 2. Emphysematous changes in the apices 3. Small bilateral pleural effusions with concomitant atelectatic changes. Possible worsening effusio n on the left. 4. Stable prominence of the hilar structures probably representing some degree of pulmonary hypertens ion. Edwin Chacon MD on May 03, 2017 at 3:30 Board Certified Radiologist. This report was verified electronically.
[2017-05-03] MEDS: CHLORHEXIDINE GLUCONATE 2 % 1 PACK (2 CLOTHS) TOP SCH (04:00)
[2017-05-03] MEDS: CHLORHEXIDINE GLUCONATE 2 % 1 PACK (2 CLOTHS)(taper/protocol) TOPICAL SCH (04:00)
[2017-05-03] MEDS: RESP: ALBUTEROL 2.5 MG/IPRATROPIUM 0.5 MG NEB (SCH) INH ×4 (04:10→21:58)
[2017-05-03] MEDS: metroNIDAZOLE 500 MG INJ 100 ML IV SCH (04:57)
[2017-05-03] MEDS: LEVOTHYROXINE SODIUM 88 MCG TAB PO SCH (04:58)
[2017-05-03] MEDS: ACETAMINOPHEN/HYDROcodone 325 MG/5 MG TAB PO PRN (06:30)
[2017-05-03] MEDS: NIFEdipine 10 MG CAP PO SCH ×2 (09:00→20:31)
[2017-05-03] MEDS: ENALAPRIL MALEATE 10 MG TAB PO SCH (09:00)
[2017-05-03 09:06] LABS: HEMATOCRIT 30.2 % (39.0-51.0); REVIEW FLAG FINAL
[2017-05-03] MEDS: ARTIFICIAL TEARS OPTH SOLN 15 ML BTL EACH EYE SCH ×3 (09:16→16:45)
[2017-05-03] MEDS: BUDESONIDE-FORMOTEROL 160/4.5 MCG INHALER INH SCH ×2 (09:16→20:33)
[2017-05-03] MEDS: SODIUM CHLORIDE 0.9% FLUSH 10 ML FLUSH IV FLUSH SCH ×2 (09:16→20:30)
[2017-05-03] MEDS: PANTOPRAZOLE SOD 20 MG DELAYED RELEASE TAB PO SCH (09:17)
[2017-05-03] MEDS: DOCUSATE SODIUM 50 MG/SENNA 8.6 MG TAB PO SCH ×2 (09:17→20:31)
[2017-05-03] MEDS: PRAVASTATIN SOD 40 MG TAB PO SCH (09:17)
--- NOTE | 2017-05-03 10:27 | HHI.PR ---
Subjective Remarks Follow up for right hemothorax. Patient is doing well, hemodynamically stable. He pulled his right chest tube last night. CXR from this AM and appears to be improved. No fever, chills. Objective Vitals Vital Signs Date Time Temp Pulse Resp B/P (MAP) Pulse Ox O2 Delivery O2 Flow Rate FiO2 05/03/17 09:04 95 Nasal Cannula 3.00 05/03/17 08:05 98.1 71 19 101/58 (72) 94 05/03/17 04:15 97 Nasal Cannula 3.00 05/03/17 04:00 97.6 90 18 100/58 (72) 95 05/03/17 02:50 96 Nasal Cannula 4.00 05/03/17 00:00 97.8 63 18 96/59 (71) 96 05/02/17 20:00 89 05/02/17 20:00 98.3 89 18 102/54 (70) 95 05/02/17 20:00 Nasal Cannula 4.00 05/02/17 17:45 98.7 87 20 100/57 (71) 95 05/02/17 16:00 98.2 05/02/17 16:00 83 05/02/17 14:00 96 05/02/17 12:00 100 05/02/17 12:00 98.2 100 20 97/53 (68) 89 I/O 05/02/17 05/02/17 05/02/17 05/03/17 05/03/17 05/03/17 07:00 15:00 23:00 07:00 15:00 23:00 Intake Total 935 ml 1200 ml 620 ml 460 ml Output Total 620 ml 1060 ml 820 ml Balance 315 ml 1200 ml -440 ml -360 ml Intake Oral 200 ml 620 ml 360 ml IV Total 1200 ml 100 ml Packed Cells 700 ml Blood Product IV Normal Saline Flush 35 ml Output Urine Total 200 ml 600 ml 700 ml Stool Total 0 ml 300 ml Chest Tube Drainage Total 420 ml 160 ml 120 ml # Bowel Movements 0 Result Diagram: 05/03/17 0824 05/02/17 0730 Imaging Last Impressions Chest X-Ray 05/03/17 0000 Signed Impressions: Service Date/Time: Wednesday, May 03, 2017 02:54 - CONCLUSION: 1. Right-sided small bore chest tube seen previously is no longer present. 2. Emphysematous changes in the apices 3. Small bilateral pleural effusions with concomitant atelectatic changes. Possible worsening effusion on the left. 4. Stable prominence of the hilar structures probably representing some degree of pulmonary hypertension. Edwin Chacon MD Chest Tube Insertion 05/01/17 0738 Signed Impressions: Service Date/Time: Monday, May 01, 2017 14:59 - CONCLUSION: Uncomplicated CT-guided 8 Czech nonlocking pigtail chest tube placement within the right pleural space as above. Hermes Eller MD Aorta CTA 04/30/17 0940 Signed Impressions: Service Date/Time: April 10:52 - CONCLUSION: 1. No evidence for aortic dissection or significant aneurysm. There is mild ectasia of ascending thoracic aorta and infrarenal abdominal aorta. 2. Moderate-sized slightly dense right-sided hemothorax with loculated hyperdense anterior inferior component extending to the major fissure. There is a focal region of increased density in the medial aspect of this fluid likely reflecting focal calcification although there is an associated subtle hematocrit level. Differential consideration includes focal contrast extravasation. Clinical correlation is recommended. Noncontrast CT examination may be performed if there is sufficient clinical concern and uncertainty, to more definitively determine if this reflects calcification. 3. Associated right lower lobe airspace consolidation may reflect compressive atelectasis versus pneumonia/aspiration. 4. Multiple 6 mm nodules in the left lower lobe, as above. Consider followup CT examination in 3-6 months to determine stability per 2017 flexure criteria as indicated. 5. Ancillary findings include hepatic steatosis, small right renal cyst, sigmoid diverticulosis, nonspecific prostatic enlargement and degenerative spondylosis of the lumbar spine. Kelvin Puckett MD Objective Remarks GENERAL: AOX3, NAD. SKIN: Warm and dry. HEAD: Normocephalic. EYES: No scleral icterus. No injection or drainage. NECK: Supple, trachea midline. No JVD or lymphadenopathy. CARDIOVASCULAR: Regular rate and rhythm without murmurs, gallops, or rubs. Chest tube in place on the right side. RESPIRATORY: Breath sounds equal bilaterally. No accessory muscle use. GASTROINTESTINAL: Abdomen soft, non-tender, nondistended. MUSCULOSKELETAL: No cyanosis, or edema. BACK: Nontender without obvious deformity. No CVA tenderness. Procedures Chest tube placement. A/P Problem List: (1) Hemothorax on right ICD Code: J94.2 - Hemothorax Status: Acute Assessment and Plan 86-year-old male with past medical history of HTN, HLD, atrial regurg, hypothyroidism, and recent CVA he presented for right chest/back pain and admitted for right hemothorax Acute spontaneous hemothorax: Seen on chest x-ray and aorta CTA. Denies any respiratory complaints. - Hemoglobin 14.4 on 04/15/17. Afebrile with no leukocytosis. - Patient became hypotensive overnight and hemoglobin dropped from 12 --> 9. Patient was transferred to ICU. - s/p chest tube placement. Patient pulled the chest tube unintentionally. - Check pleural fluid studies - CT surgery consulted. IR placed chest tube. We will get another CXR in the morning. If worsening, we will consult IR. - Discussed with Dr. Ceja (Cardiothoracic surgery). - Supplemental O2 as needed - Hold Lovenox - Probable right lower lobe pneumonia - Critical care placed patient on Vancomycin, Aztreonam, Metronidazole. - Discontinue abx and start on Levaquin today. History of recent CVA - Previously evaluated by neurology and recommendation to continue Lovenox bridge to Warfarin. - Patient had CVA on plavix as well as on Aggrenox. - It would be difficult choice to re-start Lovenox. - Newer anti-coagulation medications such as Apixaban may be considered. COPD Anxiety Hypertension Hypothyroidism - Continue Nifedipine 30mg BID, Enalapril 20mg Qday - Continue Levothyroxine 88 mcg Qday. - Continue Xanax 0.5mg Q4h PRN - Continue DuoNeb, symbicort. Full code. SCDs. Chuck Garcia DO May 03, 2017 10:27 am
[2017-05-03] MEDS ORDERED: VANCOMYCIN INJ 1,250 MG in SODIUM CHLOR 0.9% 250 ML INJ 250 ML IV SCH (12:00)
[2017-05-03] MEDS: LEVOFLOXACIN 750 MG PREMIX INJ 150 ML IV SCH (16:45)
[2017-05-03 17:43] LABS: HEMATOCRIT 33.5 % (39.0-51.0); REVIEW FLAG FINAL
[2017-05-04] VITALS (9 sets, daily range): BP systolic 94–154; BP diastolic 50–78; PULSE 70–95; RESP 18–20; TEMP 97.3–98.6; O2SAT 93–99
[2017-05-04] MEDS: RESP: ALBUTEROL 2.5 MG/IPRATROPIUM 0.5 MG NEB (SCH) INH ×4 (02:59→21:10)
[2017-05-04] MEDS: CHLORHEXIDINE GLUCONATE 2 % 1 PACK (2 CLOTHS) TOP SCH (03:49)
[2017-05-04] MEDS: CHLORHEXIDINE GLUCONATE 2 % 1 PACK (2 CLOTHS)(taper/protocol) TOPICAL SCH (03:49)
[2017-05-04] MEDS: LEVOTHYROXINE SODIUM 88 MCG TAB PO SCH (04:45)
--- NOTE | 2017-05-04 08:19 | PD.CAR.PN ---
CVT Progress Note Subjective/Hospital Course: No complaints today Objective: Vital Signs Date Time Temp Pulse Resp B/P (MAP) Pulse Ox O2 Delivery O2 Flow Rate FiO2 05/04/17 04:00 Nasal Cannula 3.00 05/04/17 04:00 97.6 81 18 154/78 (103) 99 05/04/17 00:00 Nasal Cannula 4.00 05/04/17 00:00 98.0 78 18 117/62 (80) 95 05/03/17 22:00 98 Nasal Cannula 3.00 05/03/17 20:00 82 05/03/17 20:00 Nasal Cannula 4.00 05/03/17 20:00 98.5 88 18 107/61 (76) 99 05/03/17 16:05 98.5 80 18 109/55 (73) 97 05/03/17 14:16 92 Nasal Cannula 4.00 05/03/17 12:26 98.9 82 18 118/60 (79) 92 05/03/17 09:04 95 Nasal Cannula 3.00 Result Diagram: 05/03/17 1729 05/02/17 0730 Imaging: Last Impressions Chest X-Ray 05/03/17 0000 Signed Impressions: Service Date/Time: Wednesday, May 03, 2017 02:54 - CONCLUSION: 1. Right-sided small bore chest tube seen previously is no longer present. 2. Emphysematous changes in the apices 3. Small bilateral pleural effusions with concomitant atelectatic changes. Possible worsening effusion on the left. 4. Stable prominence of the hilar structures probably representing some degree of pulmonary hypertension. Edwin Chacon MD Chest Tube Insertion 05/01/17 0738 Signed Impressions: Service Date/Time: Monday, May 01, 2017 14:59 - CONCLUSION: Uncomplicated CT-guided 8 Swedish nonlocking pigtail chest tube placement within the right pleural space as above. Hermes Eller MD Aorta CTA 04/30/17 0940 Signed Impressions: Service Date/Time: April 10:52 - CONCLUSION: 1. No evidence for aortic dissection or significant aneurysm. There is mild ectasia of ascending thoracic aorta and infrarenal abdominal aorta. 2. Moderate-sized slightly dense right-sided hemothorax with loculated hyperdense anterior inferior component extending to the major fissure. There is a focal region of increased density in the medial aspect of this fluid likely reflecting focal calcification although there is an associated subtle hematocrit level. Differential consideration includes focal contrast extravasation. Clinical correlation is recommended. Noncontrast CT examination may be performed if there is sufficient clinical concern and uncertainty, to more definitively determine if this reflects calcification. 3. Associated right lower lobe airspace consolidation may reflect compressive atelectasis versus pneumonia/aspiration. 4. Multiple 6 mm nodules in the left lower lobe, as above. Consider followup CT examination in 3-6 months to determine stability per 2017 flexure criteria as indicated. 5. Ancillary findings include hepatic steatosis, small right renal cyst, sigmoid diverticulosis, nonspecific prostatic enlargement and degenerative spondylosis of the lumbar spine. Kelvin Puckett MD Cardiovascular: RRR Pulmonary: Improved, CTA GI/: NABS Plan: Chest tube dislodged and out by patient. Right pleural effusion is adequately drained. Will sign-off to primary service for discharge planning. Rebekah Potts MD May 04, 2017 08:19
[2017-05-04] MEDS: DOCUSATE SODIUM 50 MG/SENNA 8.6 MG TAB PO SCH ×2 (09:00→20:46)
--- NOTE | 2017-05-04 09:03 | RADRPT ---
EXAM DATE/TIME: 05/04/2017 08:30 [facility] COMPARISON: CHEST SINGLE AP, May 03, 2017, 2:54. INDICATIONS : Evaluate right hemothorax; patient pulled out chest tube. MEDICAL HISTORY : Hypertension. Chronic obstructive pulmonary disease. Cardiovascular diseas e. Stroke SURGICAL HISTORY : Appendectomy. ENCOUNTER: Subsequent ACUITY: 1 day PAIN SCORE: 0/10 LOCATION: Right chest FINDINGS: There is no pneumothorax following removal of chest tube on right. Consolidative changes remain in t he right base. The heart and pulmonary vascularity are normal. CONCLUSION: There is no pneumothorax following chest tube removal of the right. Shaq Garcia MD FACR on May 04, 2017 at 9:00 Board Certified Radiologist. This report was verified electronically.
[2017-05-04] MEDS: ENALAPRIL MALEATE 10 MG TAB PO SCH (09:35)
[2017-05-04] MEDS: PANTOPRAZOLE SOD 20 MG DELAYED RELEASE TAB PO SCH (09:35)
[2017-05-04] MEDS: NIFEdipine 10 MG CAP PO SCH ×2 (09:37→20:46)
[2017-05-04] MEDS: PRAVASTATIN SOD 40 MG TAB PO SCH (09:37)
[2017-05-04] MEDS: SODIUM CHLORIDE 0.9% FLUSH 10 ML FLUSH IV FLUSH SCH ×2 (09:41→20:46)
[2017-05-04] MEDS: ARTIFICIAL TEARS OPTH SOLN 15 ML BTL EACH EYE SCH ×3 (09:41→18:10)
[2017-05-04] MEDS: BUDESONIDE-FORMOTEROL 160/4.5 MCG INHALER INH SCH ×2 (09:41→20:46)
--- NOTE | 2017-05-04 13:39 | HHI.PR ---
Subjective Remarks Follow up for hemothorax.Patient is doing well. No fever, chills. Objective Vitals Vital Signs Date Time Temp Pulse Resp B/P (MAP) Pulse Ox O2 Delivery O2 Flow Rate FiO2 05/04/17 10:01 98 Nasal Cannula 3.00 05/04/17 08:00 98.1 70 20 139/67 (91) 98 05/04/17 04:00 Nasal Cannula 3.00 05/04/17 04:00 97.6 81 18 154/78 (103) 99 05/04/17 00:00 Nasal Cannula 4.00 05/04/17 00:00 98.0 78 18 117/62 (80) 95 05/03/17 22:00 98 Nasal Cannula 3.00 05/03/17 20:00 82 05/03/17 20:00 Nasal Cannula 4.00 05/03/17 20:00 98.5 88 18 107/61 (76) 99 05/03/17 16:05 98.5 80 18 109/55 (73) 97 05/03/17 14:16 92 Nasal Cannula 4.00 I/O 05/03/17 05/03/17 05/03/17 05/04/17 05/04/17 05/04/17 07:00 15:00 23:00 07:00 15:00 23:00 Intake Total 460 ml 360 ml 250 ml Output Total 820 ml 200 ml 825 ml Balance -360 ml 160 ml -575 ml Intake Oral 360 ml 360 ml 250 ml IV Total 100 ml Output Urine Total 700 ml 200 ml 825 ml Chest Tube Drainage Total 120 ml # Bowel Movements 0 1 Result Diagram: 05/03/17 1729 05/02/17 0730 Imaging Last Impressions Chest X-Ray 05/04/17 08 Signed Impressions: Service Date/Time: Thursday, May 04, 2017 08:30 - CONCLUSION: There is no pneumothorax following chest tube removal of the right. Shaq Garcia MD FACR Chest Tube Insertion 05/01/17 0738 Signed Impressions: Service Date/Time: Monday, May 01, 2017 14:59 - CONCLUSION: Uncomplicated CT-guided 8 Azeri nonlocking pigtail chest tube placement within the right pleural space as above. Hermes Eller MD Aorta CTA 04/30/17 0940 Signed Impressions: Service Date/Time: April 10:52 - CONCLUSION: 1. No evidence for aortic dissection or significant aneurysm. There is mild ectasia of ascending thoracic aorta and infrarenal abdominal aorta. 2. Moderate-sized slightly dense right-sided hemothorax with loculated hyperdense anterior inferior component extending to the major fissure. There is a focal region of increased density in the medial aspect of this fluid likely reflecting focal calcification although there is an associated subtle hematocrit level. Differential consideration includes focal contrast extravasation. Clinical correlation is recommended. Noncontrast CT examination may be performed if there is sufficient clinical concern and uncertainty, to more definitively determine if this reflects calcification. 3. Associated right lower lobe airspace consolidation may reflect compressive atelectasis versus pneumonia/aspiration. 4. Multiple 6 mm nodules in the left lower lobe, as above. Consider followup CT examination in 3-6 months to determine stability per 2017 flexure criteria as indicated. 5. Ancillary findings include hepatic steatosis, small right renal cyst, sigmoid diverticulosis, nonspecific prostatic enlargement and degenerative spondylosis of the lumbar spine. Kelvin Puckett MD Objective Remarks GENERAL: AOX3, NAD. SKIN: Warm and dry. HEAD: Normocephalic. EYES: No scleral icterus. No injection or drainage. NECK: Supple, trachea midline. No JVD or lymphadenopathy. CARDIOVASCULAR: Regular rate and rhythm without murmurs, gallops, or rubs. Chest tube in place on the right side. RESPIRATORY: Breath sounds equal bilaterally. No accessory muscle use. GASTROINTESTINAL: Abdomen soft, non-tender, nondistended. MUSCULOSKELETAL: No cyanosis, or edema. BACK: Nontender without obvious deformity. No CVA tenderness. Procedures Chest tube placement. A/P Problem List: (1) Hemothorax on right ICD Code: J94.2 - Hemothorax Status: Acute Assessment and Plan 86-year-old male with past medical history of HTN, HLD, atrial regurg, hypothyroidism, and recent CVA he presented for right chest/back pain and admitted for right hemothorax Acute spontaneous hemothorax: Seen on chest x-ray and aorta CTA. Denies any respiratory complaints. - Hemoglobin 14.4 on 04/15/17. Afebrile with no leukocytosis. - Patient became hypotensive overnight and hemoglobin dropped from 12 --> 9. Patient was transferred to ICU. - Hgb 11.4 on 05/03/2017. - s/p chest tube placement. Patient pulled the chest tube unintentionally. - CT surgery consulted --> right pleural effusion is adequately drained, cardiothoracic surgery signed off. - Probable right lower lobe pneumonia - Critical care placed patient on Vancomycin, Aztreonam, Metronidazole. - We discontinued the above mentioned abx and started patient on Levaquin. History of recent CVA - Previously evaluated by neurology and recommendation to continue Lovenox bridge to Warfarin. - Patient had CVA on plavix as well as on Aggrenox. - I held a long discussion with patient. One option would be to try to get him therapeutic on Warfarin again. However, similar bleeding episodes can occur. - Also there is no cardiac reason for Warfarin. - Patient has never been on Aspirin and Plavix together for secondary prevention of CVA. He understands the risks and benefits and he would like to take Aspirin, Plavix instead of warfarin. - Will start patient on Aspirin and Plavix. If he does well, we will discharge him in the AM. COPD Anxiety Hypertension Hypothyroidism - Continue Nifedipine 30mg BID, Enalapril 20mg Qday - Continue Levothyroxine 88 mcg Qday. - Continue Xanax 0.5mg Q4h PRN - Continue DuoNeb, symbicort. Full code. SCDs. Chuck Garcia DO May 04, 2017 1:39 pm
[2017-05-04] MEDS: CLOPIDOGREL 75 MG TAB PO SCH (16:38)
[2017-05-04] MEDS: ASPIRIN EC 81 MG TABEC PO SCH (16:38)
[2017-05-04] MEDS: ACETAMINOPHEN/HYDROcodone 325 MG/5 MG TAB PO PRN (20:45)
[2017-05-05] VITALS (8 sets, daily range): BP systolic 103–116; BP diastolic 57–64; PULSE 60–91; RESP 18–20; TEMP 97.3–98.3; O2SAT 92–97
[2017-05-05] MEDS: CHLORHEXIDINE GLUCONATE 2 % 1 PACK (2 CLOTHS) TOP SCH (03:44)
[2017-05-05] MEDS: CHLORHEXIDINE GLUCONATE 2 % 1 PACK (2 CLOTHS)(taper/protocol) TOPICAL SCH (03:44)
[2017-05-05] MEDS: RESP: ALBUTEROL 2.5 MG/IPRATROPIUM 0.5 MG NEB (SCH) INH ×2 (03:47→08:09)
[2017-05-05] MEDS: ACETAMINOPHEN/HYDROcodone 325 MG/5 MG TAB PO PRN ×2 (06:01→13:39)
[2017-05-05] MEDS: LEVOTHYROXINE SODIUM 88 MCG TAB PO SCH (06:01)
[2017-05-05] MEDS: SODIUM CHLORIDE 0.9% FLUSH 10 ML FLUSH IV FLUSH SCH ×2 (09:00→20:00)
[2017-05-05] MEDS: NIFEdipine 10 MG CAP PO SCH ×2 (09:00→20:05)
[2017-05-05] MEDS: ENALAPRIL MALEATE 10 MG TAB PO SCH (09:00)
[2017-05-05] MEDS: CLOPIDOGREL 75 MG TAB PO SCH (09:11)
[2017-05-05] MEDS: PANTOPRAZOLE SOD 20 MG DELAYED RELEASE TAB PO SCH (09:11)
[2017-05-05] MEDS: DOCUSATE SODIUM 50 MG/SENNA 8.6 MG TAB PO SCH ×2 (09:12→20:00)
[2017-05-05] MEDS: PRAVASTATIN SOD 40 MG TAB PO SCH (09:12)
[2017-05-05] MEDS: ASPIRIN EC 81 MG TABEC PO SCH (09:12)
[2017-05-05] MEDS: ALPRAZolam 0.5 MG TAB PO PRN (09:18)
[2017-05-05] MEDS: ARTIFICIAL TEARS OPTH SOLN 15 ML BTL EACH EYE SCH ×3 (09:33→16:44)
[2017-05-05] MEDS: BUDESONIDE-FORMOTEROL 160/4.5 MCG INHALER INH SCH ×2 (09:33→20:04)
--- NOTE | 2017-05-05 10:33 | RADRPT ---
EXAM DATE/TIME: 05/01/2017 02:23 [facility] COMPARISON: CHEST SINGLE AP, April 30, 2017, 9:53. INDICATIONS : Shortness of breath. MEDICAL HISTORY : Hypertension. Cardiovascular disease. Chronic obstructive pulmonary disease. Cerebrovascular disease, AAA SURGICAL HISTORY : Appendectomy. ENCOUNTER: Initial ACUITY: 1 day PAIN SCORE: Non-responsive. LOCATION: chest FINDINGS: A single view of the chest demonstrates masslike opacification medially in the right base which is sl ightly more prominent compared to the prior. As also increasing opacification of the right hemithorax suggesting a worsening layering effusion. Left lung remains clear. Heart size is normal. [place] is of the dorsal spine with associated degenerative spurring. CONCLUSION: 1. Masslike density medially in the right base is more conspicuous when compared to prior and likely represents an acute infiltrate considering the rapidly changing appearance. 2. Increasing opacification of right hemithorax characteristic of an worsening layering effusion. Edwin Chacon MD on May 01, 2017 at 2:43 Board Certified Radiologist. This report was verified electronically.
--- NOTE | 2017-05-05 13:52 | HHI.PR ---
Subjective Remarks Follow up for hemothorax.Patient is doing well. We again discussed at length regarding secondary stroke prevention. Patient has never been on Aspirin and Plavix together for secondary prevention. Since he had hemothorax on Lovenox bridge to warfarin and since there is no clear evidence of Afib, patient would prefer to stay on Aspirin and Plavix. I advised patient to discuss with neurology in the outpatient setting. He would like to follow up with Dr. Berhane Pineda. Objective Vitals Vital Signs Date Time Temp Pulse Resp B/P (MAP) Pulse Ox O2 Delivery O2 Flow Rate FiO2 05/05/17 11:49 2.00 05/05/17 08:11 94 Nasal Cannula 3.00 05/05/17 08:00 97.9 60 20 108/62 (77) 96 05/05/17 04:00 97.3 62 18 116/58 (77) 97 05/05/17 00:00 97.8 76 19 113/59 (77) 94 05/04/17 21:11 94 Nasal Cannula 3.00 05/04/17 20:22 73 05/04/17 20:00 97.4 80 20 101/58 (72) 96 05/04/17 19:30 Nasal Cannula 4.00 05/04/17 16:00 98.6 87 20 94/50 (65) 94 I/O 05/04/17 05/04/17 05/04/17 05/05/17 05/05/17 05/05/17 07:00 15:00 23:00 07:00 15:00 23:00 Intake Total 250 ml 1080 ml 240 ml Output Total 825 ml 1100 ml 975 ml Balance -575 ml -20 ml -735 ml Intake Oral 250 ml 1080 ml 240 ml Output Urine Total 825 ml 1100 ml 975 ml # Bowel Movements 1 0 Result Diagram: 05/03/17 1729 05/02/17 0730 Imaging Last Impressions Chest X-Ray 05/04/17 0800 Signed Impressions: Service Date/Time: Thursday, May 04, 2017 08:30 - CONCLUSION: There is no pneumothorax following chest tube removal of the right. Shaq Garcia MD FACR Chest Tube Insertion 05/01/17 0738 Signed Impressions: Service Date/Time: Monday, May 01, 2017 14:59 - CONCLUSION: Uncomplicated CT-guided 8 Armenian nonlocking pigtail chest tube placement within the right pleural space as above. Hermes Eller MD Aorta CTA 04/30/17 0940 Signed Impressions: Service Date/Time: April 10:52 - CONCLUSION: 1. No evidence for aortic dissection or significant aneurysm. There is mild ectasia of ascending thoracic aorta and infrarenal abdominal aorta. 2. Moderate-sized slightly dense right-sided hemothorax with loculated hyperdense anterior inferior component extending to the major fissure. There is a focal region of increased density in the medial aspect of this fluid likely reflecting focal calcification although there is an associated subtle hematocrit level. Differential consideration includes focal contrast extravasation. Clinical correlation is recommended. Noncontrast CT examination may be performed if there is sufficient clinical concern and uncertainty, to more definitively determine if this reflects calcification. 3. Associated right lower lobe airspace consolidation may reflect compressive atelectasis versus pneumonia/aspiration. 4. Multiple 6 mm nodules in the left lower lobe, as above. Consider followup CT examination in 3-6 months to determine stability per 2017 flexure criteria as indicated. 5. Ancillary findings include hepatic steatosis, small right renal cyst, sigmoid diverticulosis, nonspecific prostatic enlargement and degenerative spondylosis of the lumbar spine. Kelvin Puckett MD Objective Remarks GENERAL: AOX3, NAD. SKIN: Warm and dry. HEAD: Normocephalic. EYES: No scleral icterus. No injection or drainage. NECK: Supple, trachea midline. No JVD or lymphadenopathy. CARDIOVASCULAR: Regular rate and rhythm without murmurs, gallops, or rubs. Chest tube in place on the right side. RESPIRATORY: Breath sounds equal bilaterally. No accessory muscle use. GASTROINTESTINAL: Abdomen soft, non-tender, nondistended. MUSCULOSKELETAL: No cyanosis, or edema. BACK: Nontender without obvious deformity. No CVA tenderness. Procedures Chest tube placement. A/P Problem List: (1) Hemothorax on right ICD Code: J94.2 - Hemothorax Status: Acute (2) History of CVA (cerebrovascular accident) ICD Code: Z86.73 - Personal history of transient ischemic attack (TIA), and cerebral infarction without residual deficits Assessment and Plan 86-year-old male with past medical history of HTN, HLD, atrial regurg, hypothyroidism, and recent CVA he presented for right chest/back pain and admitted for right hemothorax Acute spontaneous hemothorax: Seen on chest x-ray and aorta CTA. Denies any respiratory complaints. - Hemoglobin 14.4 on 04/15/17. Afebrile with no leukocytosis. - Patient became hypotensive overnight and hemoglobin dropped from 12 --> 9. Patient was transferred to ICU. - Hgb 11.4 on 05/03/2017. - s/p chest tube placement. Patient pulled the chest tube unintentionally. - CT surgery consulted --> right pleural effusion is adequately drained, cardiothoracic surgery signed off. - Probable right lower lobe pneumonia - Critical care placed patient on Vancomycin, Aztreonam, Metronidazole. - We discontinued the above mentioned abx and started patient on Levaquin. History of recent CVA - Previously evaluated by neurology and recommendation to continue Lovenox bridge to Warfarin. - Patient had CVA on plavix as well as on Aggrenox. - I held a long discussion with patient. One option would be to try to get him therapeutic on Warfarin again. However, similar bleeding episodes can occur. - Also there is no cardiac reason for Warfarin. - Patient has never been on Aspirin and Plavix together for secondary prevention of CVA. He understands the risks and benefits and he would like to take Aspirin, Plavix instead of warfarin. - Continue Aspirin, Plavix COPD Anxiety Hypertension Hypothyroidism - Continue Nifedipine 30mg BID, Enalapril 20mg Qday - Continue Levothyroxine 88 mcg Qday. - Continue Xanax 0.5mg Q4h PRN - Continue DuoNeb, symbicort. Full code. SCDs. Consulted PT, OT. Both indicated no need for SNF or home health. We will d/c patient home tomorrow AM. Chuck Garcia DO May 05, 2017 13:52
[2017-05-05] MEDS ORDERED: OXYGENDME NAS.CANULA (16:18)
[2017-05-05] MEDS: LEVOFLOXACIN 750 MG PREMIX INJ 150 ML IV SCH ×2 (16:42→18:39)
[2017-05-06] VITALS: BP 127/63; PULSE 77; RESP 18; TEMP 99.8; O2SAT 96
[2017-05-06] MEDS: CHLORHEXIDINE GLUCONATE 2 % 1 PACK (2 CLOTHS)(taper/protocol) TOPICAL SCH (02:22)
[2017-05-06] MEDS: CHLORHEXIDINE GLUCONATE 2 % 1 PACK (2 CLOTHS) TOP SCH (02:22)
[2017-05-06 04:00] VITALS: BP 118/62; PULSE 64; RESP 18; TEMP 98.1; O2SAT 96
[2017-05-06] MEDS: LEVOTHYROXINE SODIUM 88 MCG TAB PO SCH (05:16)
[2017-05-06 08:00] VITALS: BP 123/59; PULSE 66; RESP 20; TEMP 97.2; O2SAT 97
[2017-05-06] MEDS: ARTIFICIAL TEARS OPTH SOLN 15 ML BTL EACH EYE SCH ×2 (08:25→13:00)
[2017-05-06] MEDS: BUDESONIDE-FORMOTEROL 160/4.5 MCG INHALER INH SCH (08:25)
[2017-05-06] MEDS: PANTOPRAZOLE SOD 20 MG DELAYED RELEASE TAB PO SCH (08:26)
[2017-05-06] MEDS: PRAVASTATIN SOD 40 MG TAB PO SCH (08:26)
[2017-05-06] MEDS: ASPIRIN EC 81 MG TABEC PO SCH (08:26)
[2017-05-06] MEDS: CLOPIDOGREL 75 MG TAB PO SCH (08:27)
[2017-05-06] MEDS: SODIUM CHLORIDE 0.9% FLUSH 10 ML FLUSH IV FLUSH SCH (08:27)
[2017-05-06] MEDS: DOCUSATE SODIUM 50 MG/SENNA 8.6 MG TAB PO SCH (08:29)
[2017-05-06] MEDS: ENALAPRIL MALEATE 10 MG TAB PO SCH (08:34)
[2017-05-06] MEDS: NIFEdipine 10 MG CAP PO SCH (08:34)
[2017-05-06 09:06] VITALS: O2SAT 98
--- NOTE | 2017-05-06 09:46 | HHI.FF ---
Face to Face Verification Diagnosis: (1) Hemothorax on right (2) TIA (transient ischemic attack) Home Health Nursing Order: Medical education Signs/symptoms of disease process Oxygen administration education Medication education-adverse effect Nursing assessment with vital signs I have seen patient Marcellus JacksonJr on 05/06/17. My clinical findings support the need for the requested home health care services because: Deconditioned w/ increased weakness Med compliance is questionable Limited ability to care for self Need for psychosocial assistance Impaired cognition/judgement High risk of falls Infection w/ risk of complications I certify that my clinical findings support that this patient is homebound because: Unsteady gait/balance Unsafe to leave home unassisted Need for psychosocial assistance [id number] bed/chair Unable to use public transportation Chuck Garcia DO May 06, 2017 09:46
[2017-05-06] MEDS ORDERED: PLAV75TA29 PO (09:51)
[2017-05-06] MEDS ORDERED: ASPI-99 PO (09:51)
--- NOTE | 2017-05-06 09:58 | HHI.DS ---
Discharge Summary Admission Date Apr 30, 2017 at 13:40 Discharge Date: May 06, 2017 Admitting Diagnosis Hemothorax, pneumonia (1) Hemothorax on right ICD Code: J94.2 - Hemothorax Status: Acute (2) History of CVA (cerebrovascular accident) ICD Code: Z86.73 - Personal history of transient ischemic attack (TIA), and cerebral infarction without residual deficits (3) CKD (chronic kidney disease) stage 3, GFR 30-59 ml/min ICD Code: N18.3 - Chronic kidney disease, stage 3 (moderate) Procedures Chest tube placement. Brief History - From Admission 86-year-old male with past medical history of HTN, HLD, atrial regurg, hypothyroidism, and recent CVA he presented for right chest/back pain. The patient woke up in the middle of the night with right back, side, and chest pain. The pain didn't go away so he came to the ED for evaluation. He was recently admitted for stroke 2 weeks ago and was placed on Lovenox. His PCP has been arranging for him to start on Coumadin but he has not started yet. He denies any problems breathing or shortness of breath. He does state that after he came to the ED today he coughed up a clot. He denies any fevers or chills. He was found to have a hemothorax in the ED. ED physician spoke with critical care who recommended admitting the patient to medicine and consult IR and CT surgery for chest tube placement tomorrow. He hasn't noticed any GI bleeding or blood in his urine. The patient denies any nausea, vomiting, diarrhea, dysuria. CBC/BMP: 05/03/17 1729 05/02/17 0730 Significant Findings Laboratory Tests Test 05/03/17 17:29 Hemoglobin 11.4 GM/DL (13.0-17.0) Hematocrit 33.5 % (39.0-51.0) Imaging Last Impressions Chest X-Ray 05/06/17 0000 Signed Impressions: Service Date/Time: Saturday, May 06, 2017 10:04 - CONCLUSION: 1. Small right-sided effusion and consolidation. Kelton Garcia MD Chest Tube Insertion 05/01/17 0738 Signed Impressions: Service Date/Time: Monday, May 01, 2017 14:59 - CONCLUSION: Uncomplicated CT-guided 8 Vietnamese nonlocking pigtail chest tube placement within the right pleural space as above. Hermes Eller MD Aorta CTA 04/30/17 0940 Signed Impressions: Service Date/Time: April 10:52 - CONCLUSION: 1. No evidence for aortic dissection or significant aneurysm. There is mild ectasia of ascending thoracic aorta and infrarenal abdominal aorta. 2. Moderate-sized slightly dense right-sided hemothorax with loculated hyperdense anterior inferior component extending to the major fissure. There is a focal region of increased density in the medial aspect of this fluid likely reflecting focal calcification although there is an associated subtle hematocrit level. Differential consideration includes focal contrast extravasation. Clinical correlation is recommended. Noncontrast CT examination may be performed if there is sufficient clinical concern and uncertainty, to more definitively determine if this reflects calcification. 3. Associated right lower lobe airspace consolidation may reflect compressive atelectasis versus pneumonia/aspiration. 4. Multiple 6 mm nodules in the left lower lobe, as above. Consider followup CT examination in 3-6 months to determine stability per 2017 flexure criteria as indicated. 5. Ancillary findings include hepatic steatosis, small right renal cyst, sigmoid diverticulosis, nonspecific prostatic enlargement and degenerative spondylosis of the lumbar spine. Kelvin Puckett MD PE at Discharge GENERAL: AOX3, NAD. SKIN: Warm and dry. HEAD: Normocephalic. EYES: No scleral icterus. No injection or drainage. NECK: Supple, trachea midline. No JVD or lymphadenopathy. CARDIOVASCULAR: Regular rate and rhythm without murmurs, gallops, or rubs. Chest tube in place on the right side. RESPIRATORY: Breath sounds equal bilaterally. No accessory muscle use. GASTROINTESTINAL: Abdomen soft, non-tender, nondistended. MUSCULOSKELETAL: No cyanosis, or edema. BACK: Nontender without obvious deformity. No CVA tenderness. Pt update on day of discharge Patient is doing well. At rest, he does not require any supplemental O2. However , even on minor ambulation, his O2 sat drops below 87%. No fever, chills. Eager to go home. His brother in law and neighbor will keep an eye on him. Hospital Course 86-year-old male with past medical history of HTN, HLD, atrial regurg, hypothyroidism, and recent CVA he presented for right chest/back pain and admitted for right hemothorax Acute spontaneous hemothorax: Seen on chest x-ray and aorta CTA. Denies any respiratory complaints. - Hemoglobin 14.4 on 04/15/17. Afebrile with no leukocytosis. - Patient became hypotensive overnight and hemoglobin dropped from 12 --> 9. Patient was transferred to ICU. - Hgb 11.4 on 05/03/2017. - s/p chest tube placement. Patient pulled the chest tube unintentionally. - CT surgery consulted --> right pleural effusion is adequately drained, cardiothoracic surgery signed off. - Probable right lower lobe pneumonia - Critical care placed patient on Vancomycin, Aztreonam, Metronidazole. - We discontinued the above mentioned abx and started patient on Levaquin. - CKD stage III - Will d/c Enalapril for now. If BP is elevated, increasing the dose of Nifedipine would be one option. Also, consider HCTZ if another agent is needed. History of recent CVA - Previously evaluated by neurology and recommendation to continue Lovenox bridge to Warfarin. - Patient had CVA on plavix as well as on Aggrenox. - I held a long discussion with patient. One option would be to try to get him therapeutic on Warfarin again. However, similar bleeding episodes can occur. - Also there is no cardiac reason for Warfarin. - Patient has never been on Aspirin and Plavix together for secondary prevention of CVA. He understands the risks and benefits and he would like to take Aspirin, Plavix instead of warfarin. - Continue Aspirin, Plavix for now. Patient will discuss with Dr. Pineda regarding Aspirin/Plavix Vs. Warfarin. COPD Anxiety Hypertension Hypothyroidism - Continue Nifedipine 30mg BID. Will stop Enalapril due to CKD. - Continue Levothyroxine 88 mcg Qday. - Continue Xanax 0.5mg Q4h PRN - Continue DuoNeb, symbicort. Pt Condition on Discharge: Good Discharge Disposition: Disch w/ Home Health Serv Discharge Time: > 30 minutes Discharge Instructions DIET: Follow Instructions for: Heart Healthy Diet Activities you can perform: Regular-No Restrictions Follow up Referrals: Neurology - 1 Week with Berhane Pineda PhD MD PCP Follow-up - 1 Week New Medications: Oxygen (O2) (Oxygen (O2)) Device LITER CHANG.CANULA CONTINUOUS for Prevent Hypoxemia, #2 Oxygen Concentrator Portable Gaseous 2 L/min via Nasal Canula Continuous For [address] (Adult Aspirin EC Low Strength) 81 Mg Tabec 81 MG PO DAILY for Blood Clot Prevention, #30 TAB 3 Refills Clopidogrel (Plavix) 75 Mg Tab 75 MG PO DAILY for Blood Clot Prevention, #30 TAB 3 Refills Continued Medications: Alprazolam (Alprazolam) 0.5 Mg Tab 0.5 MG PO Q4H PRN for ANXIETY, TAB 0 Refills Budesonide-Formoterol Inh (Symbicort Inh) 160-4.5 Mcg/Act Aero 2 PUFF INH Q12HR, #1 INHALER 0 Refills Cyclosporine Opth 0.05% (Restasis Opth 0.05%) 0.05% Emul 1 DROP EACH EYE BID for Dry Eye, #1 BOX 0 Refills Enalapril (Enalapril) 20 Mg Tab 20 MG PO DAILY, #30 TAB 0 Refills Levothyroxine (Levothyroxine) 88 Mcg Tab 88 MCG PO DAILY for Thyroid, #30 TAB 0 Refills Lovastatin (Lovastatin) 40 Mg Tab 40 MG PO DAILY for Cholesterol Management, #30 TAB 0 Refills Mirabegron (Myrbetriq) 50 Mg Tab 50 MG PO DAILY for Urinary Symptom Managemen, #30 TAB 0 Refills Omeprazole (Omeprazole) 20 Mg Tab 20 MG PO DAILY, #30 TAB 0 Refills Tramadol (Tramadol) 50 Mg Tab 50 MG PO Q4H PRN for PAIN, TAB 0 Refills Discontinued Medications: Enoxaparin Inj (Lovenox Inj) 80 mg/0.8 ML Syr 80 MG SQ BID for Blood Clot Prevention, SYRINGE 0 Refills Nifedipine (Nifedipine) 20 Mg Cap 30 MG PO BID for Chest Pain, #120 CAP 0 Refills Chuck Garcia DO May 06, 2017 09:58
--- NOTE | 2017-05-06 10:29 | RADRPT ---
EXAM DATE/TIME: 05/06/2017 10:04 [facility] COMPARISON: CHEST SINGLE AP, May 04, 2017, 8:30. INDICATIONS : Shortness of breath. Patient had right sided hemothorax. MEDICAL HISTORY : Hypertension. Chronic obstructive pulmonary disease. Cardiovascular disease. Stroke. SURGICAL HISTORY : Appendectomy. ENCOUNTER: Subsequent ACUITY: 3 days PAIN SCORE: 0/10 LOCATION: Bilateral chest FINDINGS: The heart is mildly enlarged. There is effusion at the right lung base. This is similar to previous e xam. There are consolidative changes in the right lung base. There are bilateral COPD changes. The me diastinal contour is within normal limits. The visualized bony structures are grossly intact. CONCLUSION: 1. Small right-sided effusion and consolidation. Kelton Garcia MD on May 06, 2017 at 10:26 Board Certified Radiologist. This report was verified electronically.
[2017-05-06 12:00] VITALS: BP 121/58; PULSE 79; RESP 18; TEMP 97.6; O2SAT 99
== END 2017-05-06 15:05 | disposition home health service (06) | DRG 186 ==
LOC: PHED 09:23 → PHEDA 13:40 → HCIS 16:50 → HIMW 05-01 04:20 → N04B 05-02 18:02
PROVIDERS: ADMIT Hospitalist; ATTEND Hospitalist
PROC: 0W9930Z Drainage of Right Pleural Cavity with Drainage Device, Percutaneous Approach (ICD-10-PCS; principal; 2017-05-01)
PROC: 30233N1 Transfusion of Nonautologous Red Blood Cells into Peripheral Vein, Percutaneous Approach (ICD-10-PCS; 2017-05-01)
DX: J94.2 Hemothorax (principal); J18.9 Pneumonia, unspecified organism; I95.9 Hypotension, unspecified; J44.0 Chronic obstructive pulmonary disease with (acute) lower respiratory infection; D69.6 Thrombocytopenia, unspecified; N18.3 Chronic kidney disease, stage 3 (moderate); K76.0 Fatty (change of) liver, not elsewhere classified; D62 Acute posthemorrhagic anemia; I34.0 Nonrheumatic mitral (valve) insufficiency; R79.1 Abnormal coagulation profile; M54.5 Low back pain; I12.9 Hypertensive chronic kidney disease with stage 1 through stage 4 chronic kidney disease, or unspecified chronic kidney disease; M19.90 Unspecified osteoarthritis, unspecified site; I71.4 Abdominal aortic aneurysm, without rupture; E78.00 Pure hypercholesterolemia, unspecified; K57.30 Diverticulosis of large intestine without perforation or abscess without bleeding; K21.9 Gastro-esophageal reflux disease without esophagitis; I44.0 Atrioventricular block, first degree; Z96.653 Presence of artificial knee joint, bilateral; E03.9 Hypothyroidism, unspecified; M47.816 Spondylosis without myelopathy or radiculopathy, lumbar region; N40.0 Benign prostatic hyperplasia without lower urinary tract symptoms; N32.81 Overactive bladder; F41.9 Anxiety disorder, unspecified; H91.90 Unspecified hearing loss, unspecified ear; Z86.73 Personal history of transient ischemic attack (TIA), and cerebral infarction without residual deficits; Z88.0 Allergy status to penicillin; Z85.828 Personal history of other malignant neoplasm of skin; Z87.442 Personal history of urinary calculi; Z87.891 Personal history of nicotine dependence
CPT/HCPCS: 32557; 36430; 71010; 71275; 74174; 80048; 80053; 80202; 81001; 82150; 82550; 82570; 83605; 83615; 83690; 83735; 83880; 84100; 84155; 84300; 84439; 84443; 84484; 85014; 85018; 85025; 85027; 85384; 85610; 85730; 86850; 86900; 86901; 86920; 87040; 87205; 87641; 93005; 94150; 94620; 94640; 94664; 96365; 96367; 99152; 99153; C1729; C1769; J1956; J2250; J3010; J3370; J7030; J7050; P9016; Q9967

== ENCOUNTER 2017-05-16 14:03 | Inpatient (IN) | payer OTHER, MEDICARE ==
[~2017-05-16] VITALS: Ht 175.3 cm; Wt 77.0 kg
[2017-05-16] VITALS (9 sets, daily range): BP systolic 113–150; BP diastolic 66–82; PULSE 73–94; RESP 16–22; TEMP 98.6; O2SAT 95–98
[~2017-05-16 14:03] MED LIST changes: +ASPI-99 PO; -ENOX80P SQ; -NIFE20 PO; +OXYGENDME NAS.CANULA; +PLAV75TA29 PO
[2017-05-16] MEDS ORDERED: NIFE20 PO (15:44)
[2017-05-16] MEDS ORDERED: CYCL5TAB PO (15:44)
[2017-05-16] MEDS ORDERED: SODIUM CHLORIDE 0.9% FLUSH 10 ML FLUSH IV FLUSH PRN (16:30)
--- NOTE | 2017-05-16 16:44 | PD ---
HPI Chief Complaint: Flank/Kidney Pain Time Seen by Provider: 16:22 Travel History International Travel<30 days: No Contact w/Intl Traveler<30days: No Traveled to known affect area: No History of Present Illness HPI Patient is a 86 year old male with PMH of TIA, COPD, Nephrolithiasis that presents to the ER with right flank pain. He states that the pain is stabbing and so severe that it wakes him up at 3 am while he is sleeping. Moving around and supine position makes the pain worse and pain medication makes it better. He states that the pain is similar to the kidney stones he has had before and actually had a 9mm stone surgically removed in his left ureter about 9 years ago. Recently the patient went to the [facility] 3 weeks ago for TIA like symptoms. He was placed on Lovenox while in the inpatient. Subsequently was discharged and in the interim return to the emergency department on April 30 (2 weeks ago) with nontraumatic hemopneumothorax which on intervention radiology had placed a pigtail catheter for any was evaluated by thoracic surgery. Subsequently the pigtail catheter dislodged while he was sleeping in the hospital he was observed and ultimately discharged. His presentation for the hemothorax was very similar to this right flank pain worsening when he took a deep breath. He denies fevers, nausea, vomiting, chest pain, SOB, palpitations, abdominal pain, hematuria, or new focal /neurological deficits. PFSH Past Medical History Hx Anticoagulant Therapy: Yes AAA: Yes (3) Arthritis: Yes Asthma: No Autoimmune Disease: No Blood Disorders: No Heart Rhythm Problems: No Cancer: Yes (BASAL CARCINOMA) Cardiovascular Problems: Yes (MITRAL VALVE LEAK) High Cholesterol: Yes Chemotherapy: No Chest Pain: No Congestive Heart Failure: No COPD: Yes Cerebrovascular Accident: Yes (HX stroke) Diabetes: No Diminished Hearing: Yes (HEARING AIDS) Endocrine: No Gastrointestinal Disorders: No GERD: Yes Genitourinary: Yes Headaches: No Hepatitis: No Hiatal Hernia: No Hypertension: Yes Immune Disorder: No Kidney Stones: Yes Musculoskeletal: Yes Neurologic: No Psychiatric: No Reproductive: No Respiratory: Yes (COPD) Immunizations Current: Yes Migraines: No Myocardial Infarction: No Radiation Therapy: No Renal Failure: No Seizures: No Sleep Apnea: No Thyroid Disease: Yes (HYPO) Ulcer: No PNEUMOCCOCAL Vaccine (Year): 1 ?: Not Past Surgical History Abdominal Surgery: No AICD: No Appendectomy: Yes (1950) Arteriovenous Shunt: No Cardiac Surgery: No Cholecystectomy: No Ear Surgery: No Eye Surgery: Yes (BILATERAL CATARACT) Genitourinary Surgery: Yes (KIDNEY STONE) Insulin Pump: No Joint Replacement: No Oral Surgery: No Pacemaker: No Thoracic Surgery: No Other Surgery: Yes Social History Alcohol Use: Yes (OCC) Tobacco Use: No (QUIT 50 YRS AGO) Substance Use: No Allergies-Medications (Allergen,Severity, Reaction): Coded Allergies: penicillin G (Unverified Allergy, Severe, Rash, 04/30/17) Reported Meds & Prescriptions Reported Meds & Active Scripts Active Adult Aspirin EC Low Strength (Aspirin) 81 Mg Tabec 81 Mg PO DAILY Plavix (Clopidogrel Bisulfate) 75 Mg Tab 75 Mg PO DAILY Oxygen (O2) Device Liter CHANG.CANULA CONTINUOUS Oxygen Concentrator Portable Gaseous 2 L/min via Nasal Canula Continuous For 99 months Reported Flexeril (Cyclobenzaprine HCl) 5 Mg Tab Unknown Dose PO TID Nifedipine 20 Mg Cap 20 Mg PO DAILY Restasis Opth 0.05% (Cyclosporine Opth 0.05%) 0.05% Emul 1 Drop EACH EYE BID Levothyroxine (Levothyroxine Sodium) 88 Mcg Tab 88 Mcg PO DAILY Alprazolam 0.5 Mg Tab 0.5 Mg PO Q4H PRN Myrbetriq (Mirabegron) 50 Mg Tab 50 Mg PO DAILY Symbicort Inh (Budesonide/Formoterol Fumarate) 160-4.5 Mcg/Act Aero 2 Puff INH Q12HR Lovastatin 40 Mg Tab 40 Mg PO DAILY Enalapril (Enalapril Maleate) 20 Mg Tab 20 Mg PO DAILY Omeprazole 20 Mg Tab 20 Mg PO DAILY Review of Systems Except as stated in HPI: all other systems reviewed are Neg Physical Exam Narrative GENERAL: In no acute distress, patient's family member accompanies him. SKIN: Warm and dry. HEAD: Atraumatic. Normocephalic. EYES: Pupils equal and round. No scleral icterus. No injection or drainage. ENT: No nasal bleeding or discharge. Mucous membranes pink and moist. NECK: Trachea midline. No JVD. CARDIOVASCULAR: Regular rate and rhythm. s1 and s2 appreciated RESPIRATORY: No accessory muscle use. Clear to auscultation. Breath sounds equal bilaterally. On oxygen supplementation. This somewhat dull to percussion in the right base. Is not tachypneic. GASTROINTESTINAL: Abdomen soft, non-tender, nondistended. Hepatic and splenic margins not palpable. No CVA tenderness. MUSCULOSKELETAL: Extremities without clubbing, cyanosis, or edema. No obvious deformities. NEUROLOGICAL: Awake and alert. No obvious cranial nerve deficits. Motor grossly within normal limits. Five out of 5 muscle strength in the arms and legs. Normal speech. PSYCHIATRIC: Appropriate mood and affect; insight and judgment normal. Data Data Last Documented VS Vital Signs Date Time Temp Pulse Resp B/P (MAP) Pulse Ox O2 Delivery O2 Flow Rate FiO2 05/16/17 19:03 84 19 150/73 (98) 95 Nasal Cannula 2.00 05/16/17 14:19 98.6 Orders Orders Complete Blood Count With Diff (05/16/17 16:24) Comprehensive Metabolic Panel (05/16/17 16:24) Lipase (05/16/17 16:24) Prothrombin Time / Inr (Pt) (05/16/17 16:24) Act Partial Throm Time (Ptt) (05/16/17 16:24) Urinalysis - C+S If Indicated (05/16/17 16:24) Iv Access Insert/Monitor (05/16/17 16:24) Ecg Monitoring (05/16/17 16:24) Oximetry (05/16/17 16:24) Sodium Chloride 0.9% Flush (Ns Flush) (05/16/17 16:30) Electrocardiogram (05/16/17 16:24) Chest, Single Ap (05/16/17 ) Arterial Blood Gas (Abg) (05/16/17 ) Ct Thorax/ Chest Wo Iv Contras (05/16/17 ) Type And Screen (05/16/17 18:09) Admit Order (Ed Use Only) (05/16/17 ) Consult Cardiothoracic Surgery (05/16/17 ) Ct Guided Chest Tube Plcmt (05/16/17 ) Labs Laboratory Tests Test 05/16/17 17:15 05/16/17 17:34 05/16/17 17:35 White Blood Count 6.3 TH/MM3 Red Blood Count 3.56 MIL/MM3 Hemoglobin 11.9 GM/DL Hematocrit 35.6 % Mean Corpuscular Volume 99.8 FL Mean Corpuscular Hemoglobin 33.4 PG Mean Corpuscular Hemoglobin Concent 33.5 % Red Cell Distribution Width 13.5 % Platelet Count 257 TH/MM3 Mean Platelet Volume 6.3 FL Neutrophils (%) (Auto) 71.3 % Lymphocytes (%) (Auto) 9.1 % Monocytes (%) (Auto) 11.7 % Eosinophils (%) (Auto) 3.2 % Basophils (%) (Auto) 4.7 % Neutrophils # (Auto) 4.5 TH/MM3 Lymphocytes # (Auto) 0.6 TH/MM3 Monocytes # (Auto) 0.7 TH/MM3 Eosinophils # (Auto) 0.2 TH/MM3 Basophils # (Auto) 0.3 TH/MM3 CBC Comment DIFF FINAL Differential Comment Prothrombin Time 10.7 SEC Prothromb Time International Ratio 1.0 RATIO Activated Partial Thromboplast Time 28.7 SEC Blood Urea Nitrogen 20 MG/DL Creatinine 0.94 MG/DL Random Glucose 101 MG/DL Total Protein 6.5 GM/DL Albumin 2.6 GM/DL Calcium Level 8.7 MG/DL Alkaline Phosphatase 81 U/L Aspartate Amino Transf (AST/SGOT) 62 U/L Alanine Aminotransferase (ALT/SGPT) 45 U/L Total Bilirubin 0.7 MG/DL Sodium Level 136 MEQ/L Potassium Level 4.6 MEQ/L Chloride Level 100 MEQ/L Carbon Dioxide Level 28.5 MEQ/L Anion Gap 8 MEQ/L Estimat Glomerular Filtration Rate 76 ML/MIN Lipase 108 U/L Blood Gas Puncture Site RT RADIAL Blood Gas Patient Temperature 98.6 Blood Gas HCO3 26 mmol/L Blood Gas Base Excess 2.6 mmol/L Blood Gas Oxygen Saturation 92 % Arterial Blood pH 7.45 Arterial Blood Partial Pressure CO2 38 mmHG Arterial Blood Partial Pressure O2 73 mmHG Arterial Blood Oxygen Content 15.8 Vol % Arterial Blood Carboxyhemoglobin 2.1 % Arterial Blood Methemoglobin 1.1 % Blood Gas Hemoglobin 12.1 G/DL Oxygen Delivery Device NASAL CANNULA Blood Gas Liter Flow 1.5 L/M Urine Collection Type CLEAN CATCH Urine Color YELLOW Urine Turbidity CLEAR Urine pH 5.5 Urine Specific [place] 1.010 Urine Protein NEG mg/dL Urine Glucose (UA) NEG mg/dL Urine Ketones NEG mg/dL Urine Occult Blood NEG Urine Nitrite NEG Urine Bilirubin NEG Urine Leukocyte Esterase NEG Urine RBC 0-3 /hpf Urine WBC 0-2 /hpf Urine Squamous Epithelial Cells 0-5 /hpf Microscopic Urinalysis Comment CULT NOT INDICATED Urine Collection Time 17:35 [facility] Medical Decision Making Medical Screen Exam Complete: Yes Emergency Medical Condition: Yes Differential Diagnosis Recurrent hemothorax, kidney stone unlikely, coagulopathy, impending respiratory arrest highly unlikely. Narrative Course Patient roomed in the emergency department, extensive review of the records confirms his history. Patient was admitted hospital had minimally invasive pigtail catheter placed draining his pneumothorax. CAT scans in the past 3 weeks have not shown any kidney stones, he did have loculated pneumothorax. He had a CT of his aorta which did not show any dissections, noncritical aneurysms in the chest as well as abdomen. Today the symptoms are similar however the patient thinks to kidney stone today. Chest x-ray was obtained which does show reaccumulation of hemothorax, noncontrast CT of the chest was obtained which does show a loculated hemothorax. Patient has been tolerating his home 2 L of oxygen which he was not on prior to these recent hospitalizations but is currently using 2 L of oxygen at home. Patient was discussed with Dr. Bess who is familiar with the patient and recommends a repeat pigtail catheter. This echoes his previous recommendations from the previous hospitalization for minimally invasive is a systolic in this patient. I had a Discussion with radiology vacation planner and the patient will be first on for the morning. Continue to monitor him here in the emergency department for nearly 8 hours prior to transfer to the main hospital the patient has been tolerating 2 L of oxygen well. Patient was discussed with Dr. Valenzuela as the last time the patient was admitted for this he did have a hypertensive episode in the middle the night requiring blood transfusion. Dr. Valenzuela happy to admit. Consultations placed Dr. Bess as well as interventional radiology. Diagnosis Primary Impression: Hemothorax on right Admitting Information Admitting Physician Requests: Admit Condition: Hermes Interiano MD May 16, 2017 16:44
--- NOTE | 2017-05-16 17:20 | RADRPT ---
EXAM DATE/TIME: 05/16/2017 16:49 [facility] COMPARISON: CTA THORACIC ABDOMINAL AORTA W 3D RECON, April 30, 2017, 10:52. CHEST SINGLE AP, May 06 017, 10:04. INDICATIONS : Right flank pain. MEDICAL HISTORY : Hypertension. Chronic obstructive pulmonary disease. Cardiovascular disease. Stroke. Hemothorax. SURGICAL HISTORY : Appendectomy. ENCOUNTER: Initial ACUITY: 4 - 6 days PAIN SCORE: 2/10 LOCATION: Right chest FINDINGS: Prominent opacity with meniscal interface obscures portions of the right heart border and the entire right hemidiaphragm; there are patchy areas of consolidation medial right lower lung. The findings a re similar to prior CT on 04/30/17, but have increased in size when compared to chest x-ray 05/06/17. The left lung is clear. The descending thoracic aorta is ectatic and tortuous. The heart is normal size. No evidence of pneumothorax. CONCLUSION: Large right pleural effusion and lower lung consolidation, increased in severity when compared to 04/18 . The left lung is clear. Tay Rosado MD on May 16, 2017 at 17:15 Board Certified Radiologist. This report was verified electronically.
[2017-05-16 17:21] LABS: AUTOMATED NEUTROPHIL # 4.5 TH/MM3 (1.8-7.7); BASOPHIL # 0.3 TH/MM3 (0-0.2); BASOPHIL % 4.7 % (0.0-2.0); EOSINOPHIL # 0.2 TH/MM3 (0-0.4); EOSINOPHIL % 3.2 % (0.0-4.0); HEMATOCRIT 35.6 % (39.0-51.0); HEMO FLAGS DIFF FINAL; LYMPH % 9.1 % (9.0-44.0); LYMPHOCYTE # 0.6 TH/MM3 (1.0-4.8); MEAN CELL VOLUME 99.8 FL (80.0-100.0); MEAN CORPUSCULAR HEMOGLOBIN 33.4 PG (27.0-34.0); MEAN CORPUSCULAR HGB CONC 33.5 % (32.0-36.0); MONO % 11.7 % (0.0-8.0); NEUT % 71.3 % (16.0-70.0); PLATELET COUNT 257 TH/MM3 (150-450); RED BLOOD COUNT 3.56 MIL/MM3 (4.50-5.90); RED CELL DISTRIBUTION WIDTH 13.5 % (11.6-17.2); WHITE BLOOD COUNT 6.3 TH/MM3 (4.0-11.0)
[2017-05-16 17:31] LABS: CHLORIDE 100 MEQ/L (98-107); POTASSIUM 4.6 MEQ/L (3.5-5.1); SODIUM (NA) 136 MEQ/L (136-145)
[2017-05-16 17:35] LABS: ANION GAP 8 MEQ/L (5-15); BICARBONATE 28.5 MEQ/L (21.0-32.0); BLOOD UREA NITROGEN 20 MG/DL (7-18)
[2017-05-16 17:36] LABS: APTT (PATIENT) 28.7 SEC (24.3-30.1); PROTHROMBIN TIME - PATIENT 10.7 SEC (9.8-11.6)
[2017-05-16 17:37] LABS: ALT (GPT) 45 U/L (12-78)
[2017-05-16 17:38] LABS: AST (GOT) 62 U/L (15-37); GLOMERULAR FILTRATION RATE 76 ML/MIN (>89)
[2017-05-16 17:39] LABS: TOTAL BILIRUBIN ADULT 0.7 MG/DL (0.2-1.0)
[2017-05-16 17:39] LABS: BLOOD GAS BASE EXCESS 2.6 mmol/L (-2-2); BLOOD GAS CARBOXYHEMOGLOBIN 2.1 % (0-4); BLOOD GAS HCO3 26 mmol/L (22-26); BLOOD GAS METHEMOGLOBIN 1.1 % (0-2); BLOOD GAS O2 HGB SATURATION 92 % (90-100); BLOOD GAS OXYGEN CONTENT 15.8 Vol % (12.0-20.0); BLOOD GAS PCO2 38 mmHG (38-42); BLOOD GAS PO2 73 mmHG (61-120); BLOOD GAS TOTAL HGB 12.1 G/DL (12.0-16.0); CRITICAL VALUE NO; DRAW SITE RT RADIAL; LITER FLOW 1.5 L/M; NUMBER OF ARTERIAL PUNCTURES 1; OXYGEN DEVICE NASAL CANNULA; STAT NO; TEMP CORR TO 98.6; ULNAR PULSE PRESENT
[2017-05-16 17:40] LABS: ALKALINE PHOSPHATASE 81 U/L (45-117)
[2017-05-16 17:41] LABS: BLOOD, URINE NEG (NEG); GLUCOSE,URINE NEG (NEG); KETONE, URINE NEG (NEG); NITRITE,URINE NEG (NEG); PH, URINE 5.5 (5.0-8.5)
[2017-05-16 17:49] LABS: METHOD OF COLLECTION CLEAN CATCH
[2017-05-16 17:50] LABS: COMMENT (UR) CULT NOT INDICATED; CULTURE IF INDICATED CULT NOT INDICATED; RBC, URINE 0-3 /hpf (0-3); SQUAMOUS EPITHELIAL CELL URINE 0-5 /hpf (0-5); URINE COLOR YELLOW (YELLW/STRAW); WBC, URINE 0-2 /hpf (0-5)
--- NOTE | 2017-05-16 18:46 | RADRPT ---
EXAM DATE/TIME: 05/16/2017 18:24 [facility] COMPARISON: CTA THORACIC ABDOMINAL AORTA W 3D RECON, April 30, 2017, 10:52. INDICATIONS : Pneumothorax. RADIATION DOSE: 8.75 CTDIvol (mGy) MEDICAL HISTORY : Hypothyroidism. Cardiovascular disease Renal calculi. Mitral valve leak. AAA. COPD SURGICAL HISTORY : Appendectomy. ENCOUNTER: Initial ACUITY: 1 day PAIN SCALE: 0/10 LOCATION: Right chest TECHNIQUE: Volumetric scanning of the chest was performed. Using automated exposure control and adjustment of t he mA and/or kV according to patient size, radiation dose was kept as low as reasonably achievable to obtain optimal diagnostic quality images. DICOM format image data is available electronically for r eview and comparison. Follow-up recommendations for detected pulmonary nodules are based at a minimum on nodule size and pa tient risk factors according to Fleischner Society Guidelines. FINDINGS: LUNGS: Airspace consolidation in the right lower lobe medially. There are 3 solid peripheral nodules noted i n the left lung base measuring 3-6 mm. These appear stable from prior exam. Redemonstration of upper lobe predominant centrilobular emphysema. PLEURAE: Redemonstration of moderate to large dense right pleural effusion containing dense blood products inf eriorly. MEDIASTINUM: Moderate coronary artery calcifications. Heart is grossly unremarkable. No gross mediastinal adenopat hy. AXILLAE: Within normal limits. No lymphadenopathy. MUSCULOSKELETAL: Within normal limits for patient age. MISCELLANEOUS: The visualized upper abdominal organs demonstrate no acute abnormality. CONCLUSION: 1. Recurrent moderate to large size right sided hemothorax with associated compressive atelectasis in the right lower lobe. 2. Stable 3-6 mm solid nodules in the left lower lobe. Again, consider followup examination in 3-6 mo nths to document stability per 2017 Fleischner criteria. Kelvin Puckett MD on May 16, 2017 at 18:38 Board Certified Radiologist. This report was verified electronically.
[2017-05-17] VITALS (23 sets, daily range): BP systolic 109–152; BP diastolic 68–88; PULSE 70–101; RESP 18–42; TEMP 98.4–99; O2SAT 92–98
--- NOTE | 2017-05-17 01:17 | EKG ---
Date Performed: 05/16/2017 Time Performed: 16:53:32 PTAGE: 86 years EKG: Sinus rhythm WITH FIRST DEGREE AV BLOCK LEFT AXIS DEVIATION ABNORMAL ECG PREVIOUS TRACING : 04/30/2017 09.30 No significant change from previous tracing noted. DOCTOR: Mayito Leach Interpretating Date/Time 05/17/2017 01:16:22
[2017-05-17] MEDS ORDERED: MAGNESIUM HYDROXIDE SUSP 30 ML CUP PO PRN (03:15)
[2017-05-17] MEDS ORDERED: LACTULOSE SYRUP 20 GM/30 ML CUP PO PRN (03:15)
[2017-05-17] MEDS ORDERED: SODIUM CHLORIDE 0.9% FLUSH 10 ML FLUSH IV FLUSH PRN (03:15)
[2017-05-17] MEDS ORDERED: RESP: ALBUTEROL 2.5 MG/IPRATROPIUM 0.5 MG NEB (PRN) INH (03:15)
[2017-05-17] MEDS ORDERED: SENNOSIDES 8.6 MG TAB PO PRN (03:15)
[2017-05-17] MEDS ORDERED: CHLORHEXIDINE GLUCONATE 2 % 1 PACK (2 CLOTHS) TOP PRN (03:15)
[2017-05-17] MEDS ORDERED: ONDANSETRON HCL 4 MG/2 ML VIAL IV PUSH PRN (03:15)
[2017-05-17] MEDS ORDERED: MISCELLANEOUS NURSING INFORMATION XX SCH (03:15)
[2017-05-17] MEDS ORDERED: BISACODYL 10 MG SUPP RECTAL PRN (03:15)
[2017-05-17] MEDS ORDERED: ZOLPIDEM TARTRATE 5 MG TAB PO PRN (03:15)
--- NOTE | 2017-05-17 03:28 | HHI.HP ---
HPI Service Critical Care Medicine Primary Care Physician Esvin Steve MD Admission Diagnosis Hemothorax Diagnosis: Travel History International Travel<30 Days: No Contact w/Intl Traveler <30 Da: No Traveled to Known Affected Are: No History of Present Illness 86 year old male with past medical history of TIA, COPD, Nephrolithiasis presented to [facility] emergency department at [facility] with right flank pain. The pain is stabbing and so severe that it wakes him up at 3 am while he is sleeping. Moving around and supine position makes the pain worse and pain medication makes it better. He states that the pain is similar to the kidney stones he has had before and actually had a 9mm stone surgically removed in his left ureter about 9 years ago. The patient presented to [facility] 3 weeks ago for TIA like symptoms. He was placed on Lovenox while in the inpatient. Subsequently was discharged and in the interim return to the emergency department on April 30 (2 weeks ago) with spontaneous hemopneumothorax and intervention radiology had placed a pigtail catheter while in the hospital the pigtail catheter was dislodged while patient was sleeping, he was further observed and later discharged without further intervention. His flank pain today is also similar to pain he experienced during the hemopneumothorax during last hospitalization. CT of the chest today revealed recurrent moderate to large size right sided hemothorax with associated compressive atelectasis in the right lower lobe. The CT surgeon was consulted by [facility] ED attending and per recommendation he is being admitted to ICU at [facility] with IR consult for fluoroscopy guided chest tube placement tomorrow a.m. Review of Systems Constitutional: DENIES: Diaphoretic episodes, Fatigue, Fever, Weight gain, Weight loss, Chills, Dizziness, Change in appetite, Night Sweats Endocrine: DENIES: Heat/cold intolerance, Polydipsia, Polyuria, Polyphagia Eyes: DENIES: Blurred vision, Diplopia, Eye inflammation, Eye pain, Vision loss , Photosensitivity, Double Vision Ears, nose, mouth, throat: DENIES: Tinnitus, Hearing loss, Vertigo, Nasal discharge, Oral lesions, Throat pain, Hoarseness, Ear Pain, Running Nose, Epistaxis, Sinus Pain, Toothache, Odynophagia Respiratory: DENIES: Apneas, Cough, Snoring, Wheezing, Hemoptysis, Sputum production, Shortness of breath Cardiovascular: DENIES: Chest pain, Palpitations, Syncope, Dyspnea on Exertion , PND, Lower Extremity Edema, Orthopnea, Claudication Gastrointestinal: DENIES: Abdominal pain, Black stools, Bloody stools, Constipation, Diarrhea, Nausea, Vomiting, Difficulty Swallowing, Anorexia Genitourinary: DENIES: Sexual dysfunction, Urinary frequency, Urinary incontinence, Urgency, Hematuria, Dysuria, Nocturia, Penile Discharge, Testicular Pain, Testicular Swelling Musculoskeletal: DENIES: Joint pain, Muscle aches, Stiffness, Joint Swelling, Back pain, Neck pain Integumentary: DENIES: Abnormal pigmentation, Nail changes, Pruritus, Rash Hematologic/lymphatic: DENIES: Bruising, Lymphadenopathy Immunologic/allergic: DENIES: Eczema, Urticaria Neurologic: DENIES: Abnormal gait, Headache, Localized weakness, Paresthesias, Seizures, Speech Problems, Tremor, Poor Balance Psychiatric: DENIES: Anxiety, Confusion, Mood changes, Depression, Hallucinations, Agitation, Suicidal Ideation, Homicidal Ideation, Delusions Past Family Social History Allergies: Coded Allergies: penicillin G (Unverified Allergy, Severe, Rash, 04/30/17) Past Medical History CVA Hypertension Hyperlipidemia Mitral regurg Hyperthyroidism Vertigo History of "extra heartbeats", denies arrhythmia Past Surgical History Appendectomy Inguinal hernia repair Salivary gland removed Bilateral knee arthroscopy Reported Medications Reported Meds & Active Scripts Active Adult Aspirin EC Low Strength (Aspirin) 81 Mg Tabec 81 Mg PO DAILY Plavix (Clopidogrel Bisulfate) 75 Mg Tab 75 Mg PO DAILY Oxygen (O2) Device Liter CHANG.CANULA CONTINUOUS Oxygen Concentrator Portable Gaseous 2 L/min via Nasal Canula Continuous For 99 months Reported Flexeril (Cyclobenzaprine HCl) 5 Mg Tab Unknown Dose PO TID Nifedipine 20 Mg Cap 20 Mg PO DAILY Restasis Opth 0.05% (Cyclosporine Opth 0.05%) 0.05% Emul 1 Drop EACH EYE BID Levothyroxine (Levothyroxine Sodium) 88 Mcg Tab 88 Mcg PO DAILY Alprazolam 0.5 Mg Tab 0.5 Mg PO Q4H PRN Myrbetriq (Mirabegron) 50 Mg Tab 50 Mg PO DAILY Symbicort Inh (Budesonide/Formoterol Fumarate) 160-4.5 Mcg/Act Aero 2 Puff INH Q12HR Lovastatin 40 Mg Tab 40 Mg PO DAILY Enalapril (Enalapril Maleate) 20 Mg Tab 20 Mg PO DAILY Omeprazole 20 Mg Tab 20 Mg PO DAILY Active Ordered Medications Current Medications Medications (Trade) Dose Ordered Sig/[place] Route PRN Reason Start Time Stop Time Status Last Admin Dose Admin Sodium Chloride (NS Flush) 2 ml UNSCH PRN IV FLUSH FLUSH AFTER USING IV ACCESS 05/16/17 16:30 Alprazolam (Xanax) 0.5 mg Q4H PRN PO ANXIETY 05/17/17 03:15 UNV Budesonide/ Formoterol Fumarate (Symbicort 160-4.5 Inh) 2 puff Q12HR INH 05/17/17 09:00 UNV Enalapril Maleate (Vasotec) 20 mg DAILY PO 05/17/17 09:00 UNV Levothyroxine Sodium (Synthroid) 88 mcg DAILY PO 05/17/17 09:00 UNV Pravastatin Sodium (Pravachol) 40 mg DAILY PO 05/17/17 09:00 UNV Nifedipine (Procardia) 20 mg DAILY PO 05/17/17 09:00 UNV Non-Formulary Medication 1 drop BID EACH EYE 05/17/17 09:00 UNV Non-Formulary Medication 50 mg DAILY PO 05/17/17 09:00 UNV Non-Formulary Medication 20 mg DAILY PO 05/17/17 09:00 UNV Family History No family history significant for cancer dementia Social History Quit smoking many years ago No alcohol or illicit drug abuse Physical Exam Vital Signs Vital Signs Date Time Temp Pulse Resp B/P (MAP) Pulse Ox O2 Delivery O2 Flow Rate FiO2 05/17/17 02:00 73 05/17/17 01:16 99.0 80 20 131/73 (92) 92 05/17/17 00:45 77 22 109/68 (82) 97 Nasal Cannula 2.00 05/16/17 23:18 79 22 130/72 (91) 96 Nasal Cannula 2.00 05/16/17 21:53 73 18 113/66 (82) 95 Room Air 05/16/17 20:31 90 19 122/70 (87) 98 Room Air 05/16/17 19:03 84 19 150/73 (98) 95 Nasal Cannula 2.00 05/16/17 17:45 83 16 120/72 (88) 96 Nasal Cannula 2.00 05/16/17 17:18 18 98 Nasal Cannula 2.00 05/16/17 16:45 88 17 132/79 (96) 96 Nasal Cannula 2.00 05/16/17 15:45 94 17 132/82 (99) 98 Nasal Cannula 2.00 05/16/17 14:19 98.6 94 18 124/71 (88) 96 Physical Exam GENERAL: Elderly very pleasant gentleman, Well-nourished, well-developed . SKIN: Warm and dry. HEAD: Normocephalic. EYES: No scleral icterus. No injection or drainage. NECK: Supple, trachea midline. No JVD or lymphadenopathy. CARDIOVASCULAR: Regular rate and rhythm without murmurs, gallops, or rubs. RESPIRATORY: Breath sounds decreased on right. No accessory muscle use. GASTROINTESTINAL: Abdomen soft, non-tender, nondistended. MUSCULOSKELETAL: No cyanosis, or edema. BACK: Nontender without obvious deformity. NEURO EXAM: GCS: M 6 V 5 E for Mental Status: The patient is alert and oriented to person, place, and time with normal speech. Cranial Nerves: Visual acuity intact bilaterally. Visual rose normal in all quadrants. Pupils are round, reactive to light. Extraocular movements are intact without ptosis. Hearing is normal bilaterally. Voice is normal. Tongue protrudes midline and moves symmetrically. Reflexes: Biceps, patellar, and Achilles are 2/4 bilaterally. No clonus. Laboratory Laboratory Tests Test 05/16/17 17:15 05/16/17 17:34 05/16/17 17:35 White Blood Count 6.3 Red Blood Count 3.56 Hemoglobin 11.9 Hematocrit 35.6 Mean Corpuscular Volume 99.8 Mean Corpuscular Hemoglobin 33.4 Mean Corpuscular Hemoglobin Concent 33.5 Red Cell Distribution Width 13.5 Platelet Count 257 Mean Platelet Volume 6.3 Neutrophils (%) (Auto) 71.3 Lymphocytes (%) (Auto) 9.1 Monocytes (%) (Auto) 11.7 Eosinophils (%) (Auto) 3.2 Basophils (%) (Auto) 4.7 Neutrophils # (Auto) 4.5 Lymphocytes # (Auto) 0.6 Monocytes # (Auto) 0.7 Eosinophils # (Auto) 0.2 Basophils # (Auto) 0.3 CBC Comment DIFF FINAL Differential Comment Prothrombin Time 10.7 Prothromb Time International Ratio 1.0 Activated Partial Thromboplast Time 28.7 Blood Urea Nitrogen 20 Creatinine 0.94 Random Glucose 101 Total Protein 6.5 Albumin 2.6 Calcium Level 8.7 Alkaline Phosphatase 81 Aspartate Amino Transf (AST/SGOT) 62 Alanine Aminotransferase (ALT/SGPT) 45 Total Bilirubin 0.7 Sodium Level 136 Potassium Level 4.6 Chloride Level 100 Carbon Dioxide Level 28.5 Anion Gap 8 Estimat Glomerular Filtration Rate 76 Lipase 108 Blood Gas Puncture Site RT RADIAL Blood Gas Patient Temperature 98.6 Blood Gas HCO3 26 Blood Gas Base Excess 2.6 Blood Gas Oxygen Saturation 92 Arterial Blood pH 7.45 Arterial Blood Partial Pressure CO2 38 Arterial Blood Partial Pressure O2 73 Arterial Blood Oxygen Content 15.8 Arterial Blood Carboxyhemoglobin 2.1 Arterial Blood Methemoglobin 1.1 Blood Gas Hemoglobin 12.1 Oxygen Delivery Device NASAL CANNULA Blood Gas Liter Flow 1.5 Urine Collection Type CLEAN CATCH Urine Color YELLOW Urine Turbidity CLEAR Urine pH 5.5 Urine Specific [employer] 1.010 Urine Protein NEG Urine Glucose (UA) NEG Urine Ketones NEG Urine Occult Blood NEG Urine Nitrite NEG Urine Bilirubin NEG Urine Leukocyte Esterase NEG Urine RBC 0-3 Urine WBC 0-2 Urine Squamous Epithelial Cells 0-5 Microscopic Urinalysis Comment CULT NOT INDICATED Urine Collection Time 17:35 Result Diagram: 05/16/17171405/16/171714 Caprini VTE Risk Assessment Caprini VTE Risk Assessment: No/Low Risk (score <= 1) Caprini Risk Assessment Model Point Value = 1 Point Value = 2 Point Value = 3 Point Value = 5 Age 41-60 Minor surgery BMI > 25 kg/m2 Swollen legs Varicose veins or History of unexplained or recurrent spontaneous Oral contraceptives or hormone replacement Sepsis (< 1 month) Serious lung disease, including pneumonia (< 1 month) Abnormal pulmonary function Acute myocardial infarction Congestive heart failure (< 1 month) History of inflammatory bowel disease Medical patient at bed rest Age 61-74 Arthroscopic surgery Major open surgery (> 45 min) Laparoscopic surgery (> 45 min) Malignancy Confined to bed (> 72 hours) Immobilizing plaster cast Central venous access Age >= 75 History of VTE Family history of VTE Factor V Leiden Prothrombin [id number] Lupus anticoagulant Anticardiolipin antibodies Elevated serum homocysteine Heparin-induced thrombocytopenia Other congenital or acquired thrombophilia Stroke (< 1 month) Elective arthroplasty Hip, pelvis, or leg fracture Acute spinal cord injury (< 1 month) Prophylaxis Regimen Total Risk Factor Score Risk Level Prophylaxis Regimen 0-1 Low Early ambulation 2 Moderate Order ONE of the following: *Sequential Compression Device (SCD) *Heparin 5000 units SQ BID 3-4 Higher Order ONE of the following medications: *Heparin 5000 units SQ TID *Enoxaparin/Lovenox 40 mg SQ daily (WT < 150 kg, CrCl > 30 mL/min) *Enoxaparin/Lovenox 30 mg SQ daily (WT < 150 kg, CrCl > 10-29 mL/min) *Enoxaparin/Lovenox 30 mg SQ BID (WT < 150 kg, CrCl > 30 mL/min) AND/OR *Sequential Compression Device (SCD) 5 or more Highest Order ONE of the following medications: *Heparin 5000 units SQ TID (Preferred with Epidurals) *Enoxaparin/Lovenox 40 mg SQ daily (WT < 150 kg, CrCl > 30 mL/min) *Enoxaparin/Lovenox 30 mg SQ daily (WT < 150 kg, CrCl > 10-29 mL/min) *Enoxaparin/Lovenox 30 mg SQ BID (WT < 150 kg, CrCl > 30 mL/min) AND *Sequential Compression Device (SCD) Assessment and Plan Assessment and Plan Right-sided pneumothorax - Consulted for chest tube placement - Further management per CT surgery COPD - No exacerbation - No steroids indicated - DuoNeb scheduled and when necessary - Symbicort History of TIA - Hold aspirin and Plavix due to hemothorax Hypertension - Enalapril - Procardia Hyperlipidemia - Pravastatin Hypothyroidism - Levothyroxine DVT GI prophylaxis - Teds SCDs - No pharmacological DVT prophylaxis due to hemothorax - Pepcid Critical Care: The total critical care time was 35 minutes. Time to perform other separately billable procedures was not included in the critical care time. Juanjose Valenzuela MD May 17, 2017 03:28
[2017-05-17] MEDS: CHLORHEXIDINE GLUCONATE 2 % 1 PACK (2 CLOTHS) TOP SCH (04:00)
[2017-05-17] MEDS: SODIUM CHLOR 0.9% 1000 ML INJ 1,000 ML IV SCH ×2 (05:59→17:23)
[2017-05-17] MEDS: PT OWN MYRBETRIQ 50 MG PO SCH (09:00)
[2017-05-17] MEDS: SODIUM CHLORIDE 0.9% FLUSH 10 ML FLUSH IV FLUSH SCH ×2 (09:00→22:26)
[2017-05-17] MEDS ORDERED: NON-FORMULARY DRUG (Cyclosporine Opth 0.05% (Restasis Opth 0.05%) 1 DROP) EACH EYE SCH (09:00)
[2017-05-17] MEDS: BUDESONIDE-FORMOTEROL 160/4.5 MCG INHALER INH SCH ×2 (09:00→22:26)
[2017-05-17] MEDS ORDERED: LIDOCAINE HCL 1% 20 ML VIAL ONE (09:07)
[2017-05-17] MEDS ORDERED: MIDAZOLAM HCL 2 MG/2 ML VIAL ONE (10:42)
--- NOTE | 2017-05-17 10:55 | PD.CAR.PN ---
CVT Progress Note Subjective/Hospital Course: Patient known to me from prior admission. He had a right pleural effusion which developed with anticoagulation. This was successfully drained by IR and was consistent with a hemothorax. He developed right flank pain and again has a moderate to large right pleural effusion. He does not have a drop in Hgb as he had previously. He is stable currently. Objective: Vital Signs Date Time Temp Pulse Resp B/P (MAP) Pulse Ox O2 Delivery O2 Flow Rate FiO2 05/17/17 10:00 80 05/17/17 10:00 80 31 133/80 (97) 97 05/17/17 09:30 82 32 133/81 (98) 97 05/17/17 09:00 78 28 143/74 (97) 97 05/17/17 08:30 78 36 136/74 (94) 96 05/17/17 08:00 75 23 140/74 (96) 97 05/17/17 08:00 98.7 05/17/17 08:00 70 05/17/17 06:00 76 05/17/17 04:00 98.4 74 22 118/71 (87) 98 05/17/17 04:00 74 05/17/17 04:00 98.4 74 22 118/71 (87) 98 05/17/17 02:00 73 05/17/17 01:16 99.0 80 20 131/73 (92) 92 05/17/17 01:12 96 Nasal Cannula 2.00 05/17/17 00:45 77 22 109/68 (82) 97 Nasal Cannula 2.00 05/16/17 23:18 79 22 130/72 (91) 96 Nasal Cannula 2.00 05/16/17 21:53 73 18 113/66 (82) 95 Room Air 05/16/17 20:31 90 19 122/70 (87) 98 Room Air 05/16/17 19:03 84 19 150/73 (98) 95 Nasal Cannula 2.00 05/16/17 17:45 83 16 120/72 (88) 96 Nasal Cannula 2.00 05/16/17 17:18 18 98 Nasal Cannula 2.00 05/16/17 16:45 88 17 132/79 (96) 96 Nasal Cannula 2.00 05/16/17 15:45 94 17 132/82 (99) 98 Nasal Cannula 2.00 05/16/17 14:19 98.6 94 18 124/71 (88) 96 Labs: Laboratory Tests Test 05/17/17 01:30 Nasal Screen MRSA (PCR) MRSA DETECTED (NOT DETECT) Result Diagram: 05/16/17 1715 05/16/17 1715 Imaging: Last Impressions Chest X-Ray 05/16/17 0000 Signed Impressions: Service Date/Time: Tuesday, May 16, 2017 16:49 - CONCLUSION: Large right pleural effusion and lower lung consolidation, increased in severity when compared to 05/06/17. The left lung is clear. Tay Rosado MD Chest CT 05/16/17 0000 Signed Impressions: Service Date/Time: Tuesday, May 16, 2017 18:24 - CONCLUSION: 1. Recurrent moderate to large size right sided hemothorax with associated compressive atelectasis in the right lower lobe. 2. Stable 3-6 mm solid nodules in the left lower lobe. Again, consider followup examination in 3-6 months to document stability per 2017 Fleischner criteria. Kelvin Puckett MD Cardiovascular: RRR Pulmonary: Decreased BS on right GI/: NABS Plan: Recommend CT guided drain placement by IR again. He may require thoracoscopic exploration if this issue persists, but its worth draining the effusion again and leaving a drain in for a few days. Will follow. Rebekah Potts MD May 17, 2017 10:55
--- NOTE | 2017-05-17 11:10 | PD.RAD ---
Radiology Note Interventional Radiology Note. 86 Y/o with right effusion moderate in size. We are requested to place a right chest tube. Pt. was evaluated prior to procedure and was noted to have been on both Plavix and 85mg ASA for the previous five days at home. The patients saturation was 98% on nasal canula and resting comfortably. Due to the stability of the patient, the Plavix and ASA procedure was canceled. IF the patients condition deteriorates please reconsult IR for tube placement on an emergent basis. Plavix and ASA held, we will plan on placing the tube on Thursday. Kelton Garcia MD May 17, 2017 11:10
[2017-05-17] MEDS: DOCUSATE SODIUM 50 MG/SENNA 8.6 MG TAB PO SCH ×2 (12:09→22:26)
[2017-05-17] MEDS: LEVOTHYROXINE SODIUM 88 MCG TAB PO SCH (12:09)
[2017-05-17] MEDS: PRAVASTATIN SOD 40 MG TAB PO SCH (12:10)
[2017-05-17] MEDS: NIFEdipine 20 MG CAP PO SCH (12:10)
[2017-05-17] MEDS: PANTOPRAZOLE SOD 20 MG DELAYED RELEASE TAB PO SCH (12:11)
[2017-05-17] MEDS: ENALAPRIL MALEATE 10 MG TAB PO SCH (12:11)
[2017-05-17] MEDS: FAMOTIDINE 20 MG/2 ML VIAL IV PUSH SCH ×2 (12:11→22:26)
[2017-05-17 12:25] LABS: AUTOMATED NEUTROPHIL # 3.8 TH/MM3 (1.8-7.7); BASOPHIL # 0.1 TH/MM3 (0-0.2); BASOPHIL % 1.2 % (0.0-2.0); EOSINOPHIL # 0.2 TH/MM3 (0-0.4); EOSINOPHIL % 4.2 % (0.0-4.0); HEMATOCRIT 34.1 % (39.0-51.0); HEMO FLAGS DIFF FINAL; LYMPH % 8.9 % (9.0-44.0); LYMPHOCYTE # 0.5 TH/MM3 (1.0-4.8); MEAN CELL VOLUME 100.1 FL (80.0-100.0); MEAN CORPUSCULAR HEMOGLOBIN 33.7 PG (27.0-34.0); MEAN CORPUSCULAR HGB CONC 33.7 % (32.0-36.0); MONO % 11.9 % (0.0-8.0); NEUT % 73.8 % (16.0-70.0); PLATELET COUNT 240 TH/MM3 (150-450); RED BLOOD COUNT 3.41 MIL/MM3 (4.50-5.90); RED CELL DISTRIBUTION WIDTH 13.9 % (11.6-17.2); WHITE BLOOD COUNT 5.1 TH/MM3 (4.0-11.0)
[2017-05-17 12:41] LABS: ALT (GPT) 40 U/L (12-78); ANION GAP 7 MEQ/L (5-15); AST (GOT) 39 U/L (15-37); BICARBONATE 29.4 MEQ/L (21.0-32.0); BLOOD UREA NITROGEN 14 MG/DL (7-18); CHLORIDE 102 MEQ/L (98-107); GLOMERULAR FILTRATION RATE 89 ML/MIN (>89); MAGNESIUM 2.1 MG/DL (1.5-2.5); POTASSIUM 4.1 MEQ/L (3.5-5.1); SODIUM (NA) 138 MEQ/L (136-145)
[2017-05-17 12:42] LABS: ALKALINE PHOSPHATASE 80 U/L (45-117); TOTAL BILIRUBIN ADULT 0.7 MG/DL (0.2-1.0)
[2017-05-17] MEDS: RESTASIS OPTH EACH EYE SCH (21:00)
[2017-05-18] VITALS (13 sets, daily range): BP systolic 123–153; BP diastolic 69–81; PULSE 64–90; RESP 22–30; TEMP 98.1–98.8; O2SAT 91–97
[2017-05-18] MEDS: SODIUM CHLOR 0.9% 1000 ML INJ 1,000 ML IV SCH ×2 (03:00→20:38)
[2017-05-18] MEDS: CHLORHEXIDINE GLUCONATE 2 % 1 PACK (2 CLOTHS) TOP SCH (04:00)
[2017-05-18] MEDS: LEVOTHYROXINE SODIUM 88 MCG TAB PO SCH (05:40)
[2017-05-18 05:44] LABS: AUTOMATED NEUTROPHIL # 3.3 TH/MM3 (1.8-7.7); BASOPHIL % 0.9 % (0.0-2.0); EOSINOPHIL # 0.3 TH/MM3 (0-0.4); EOSINOPHIL % 6.1 % (0.0-4.0); HEMATOCRIT 34.5 % (39.0-51.0); HEMO FLAGS DIFF FINAL; LYMPH % 11.1 % (9.0-44.0); LYMPHOCYTE # 0.5 TH/MM3 (1.0-4.8); MEAN CELL VOLUME 99.9 FL (80.0-100.0); MEAN CORPUSCULAR HEMOGLOBIN 33.6 PG (27.0-34.0); MEAN CORPUSCULAR HGB CONC 33.6 % (32.0-36.0); MONO % 13.3 % (0.0-8.0); NEUT % 68.6 % (16.0-70.0); PLATELET COUNT 228 TH/MM3 (150-450); RED BLOOD COUNT 3.45 MIL/MM3 (4.50-5.90); RED CELL DISTRIBUTION WIDTH 13.7 % (11.6-17.2); WHITE BLOOD COUNT 4.7 TH/MM3 (4.0-11.0)
[2017-05-18 05:46] LABS: PROTHROMBIN TIME - PATIENT 11.4 SEC (9.8-11.6)
[2017-05-18 06:09] LABS: ANION GAP 7 MEQ/L (5-15); AST (GOT) 33 U/L (15-37); BICARBONATE 29.2 MEQ/L (21.0-32.0); BLOOD UREA NITROGEN 10 MG/DL (7-18); CHLORIDE 105 MEQ/L (98-107); GLOMERULAR FILTRATION RATE 78 ML/MIN (>89); POTASSIUM 4.1 MEQ/L (3.5-5.1); SODIUM (NA) 141 MEQ/L (136-145)
[2017-05-18 06:13] LABS: ALKALINE PHOSPHATASE 81 U/L (45-117); ALT (GPT) 33 U/L (12-78); TOTAL BILIRUBIN ADULT 0.7 MG/DL (0.2-1.0)
[2017-05-18] MEDS: PANTOPRAZOLE SOD 20 MG DELAYED RELEASE TAB PO SCH (08:57)
[2017-05-18] MEDS: DOCUSATE SODIUM 50 MG/SENNA 8.6 MG TAB PO SCH ×2 (08:57→20:38)
[2017-05-18] MEDS: NIFEdipine 20 MG CAP PO SCH (08:57)
[2017-05-18] MEDS: PRAVASTATIN SOD 40 MG TAB PO SCH (08:58)
[2017-05-18] MEDS: ENALAPRIL MALEATE 10 MG TAB PO SCH (08:58)
[2017-05-18] MEDS: FAMOTIDINE 20 MG/2 ML VIAL IV PUSH SCH ×2 (08:58→20:38)
[2017-05-18] MEDS: SODIUM CHLORIDE 0.9% FLUSH 10 ML FLUSH IV FLUSH SCH ×2 (08:58→20:38)
[2017-05-18] MEDS: PT OWN MYRBETRIQ 50 MG PO SCH (08:59)
[2017-05-18] MEDS: RESTASIS OPTH EACH EYE SCH ×2 (08:59→20:38)
[2017-05-18] MEDS: BUDESONIDE-FORMOTEROL 160/4.5 MCG INHALER INH SCH ×2 (09:05→20:38)
--- NOTE | 2017-05-18 11:32 | HHI.PR ---
Subjective Remarks Follow up for recurrent right sided hemothorax. Patient is currently resting in bed in the ICU well. No acute distress. No fever, chills. Objective Vitals Vital Signs Date Time Temp Pulse Resp B/P (MAP) Pulse Ox O2 Delivery O2 Flow Rate FiO2 05/18/17 10:00 90 05/18/17 09:24 92 Nasal Cannula 2.00 05/18/17 08:00 71 05/18/17 06:00 71 05/18/17 04:00 64 05/18/17 04:00 98.3 68 22 153/81 (105) 97 05/18/17 02:00 69 05/18/17 00:00 84 05/18/17 00:00 98.1 86 24 97 05/17/17 22:00 92 05/17/17 21:20 96 Nasal Cannula 2.00 05/17/17 20:00 91 05/17/17 20:00 98.4 90 18 138/84 (102) 95 05/17/17 18:00 86 05/17/17 17:15 96 42 140/81 (100) 95 05/17/17 17:00 101 37 94 05/17/17 16:00 93 05/17/17 16:00 98.9 05/17/17 16:00 93 32 96 05/17/17 15:00 86 05/17/17 14:00 94 05/17/17 12:14 86 05/17/17 12:14 86 31 152/88 (109) 95 05/17/17 12:00 91 35 92 05/17/17 12:00 91 05/17/17 12:00 98.6 I/O 05/17/17 05/17/17 05/17/17 05/18/17 05/18/17 05/18/17 07:00 15:00 23:00 07:00 15:00 23:00 Intake Total 0 ml 1720 ml 350 ml Output Total 925 ml 1500 ml 1000 ml Balance -925 ml 220 ml -650 ml Intake Oral 0 ml 720 ml 350 ml IV Total 1000 ml Output Urine Total 925 ml 1500 ml 1000 ml # Voids 3 # Bowel Movements 0 0 0 Result Diagram: 05/18/17 04505/18/17451 Imaging Last Impressions Chest X-Ray 05/16/17 0000 Signed Impressions: Service Date/Time: Tuesday, May 16, 2017 16:49 - CONCLUSION: Large right pleural effusion and lower lung consolidation, increased in severity when compared to 05/06/17. The left lung is clear. Tay Rosado MD Chest CT 05/16/17 0000 Signed Impressions: Service Date/Time: Tuesday, May 16, 2017 18:24 - CONCLUSION: 1. Recurrent moderate to large size right sided hemothorax with associated compressive atelectasis in the right lower lobe. 2. Stable 3-6 mm solid nodules in the left lower lobe. Again, consider followup examination in 3-6 months to document stability per 2017 Fleischner criteria. Kelvin Puckett MD Objective Remarks GENERAL: Alert, Oriented x 3, NAD. SKIN: Warm and dry. HEAD: Normocephalic. EYES: No scleral icterus. No injection or drainage. NECK: Supple, trachea midline. No JVD or lymphadenopathy. CARDIOVASCULAR: Regular rate and rhythm without murmurs, gallops, or rubs. RESPIRATORY: Diminished right sided lung sounds, moderate air movements on the left. GASTROINTESTINAL: Abdomen soft, non-tender, nondistended. MUSCULOSKELETAL: No cyanosis, or edema. BACK: Nontender without obvious deformity. No CVA tenderness. Procedures None. A/P Problem List: (1) Hemothorax on right ICD Code: J94.2 - Hemothorax Status: Acute (2) History of CVA (cerebrovascular accident) ICD Code: Z86.73 - Personal history of transient ischemic attack (TIA), and cerebral infarction without residual deficits (3) COPD (chronic obstructive pulmonary disease) ICD Code: J44.9 - COPD (chronic obstructive pulmonary disease) Status: Chronic Assessment and Plan Mr. Jackson is an 86 year old male with a history of multiple CVAs, COPD, recent right sided hemothorax who presented to the ED due to right flank pain. ED work up indicated moderate to large size hemothorax. Patient was admitted to the ICU and IR was consulted for chest tube placement. IR, however, plans to do the procedure on 05/19/2017 due to Plavix, aspirin patient was on for secondary prevention of stroke. - Acute recurrent right hemothorax - Currently, patient is hemodynamically stable. On nasal cannula in the ICU. - IR will place Chest tube on 05/19/2017. - Hypertension - Hyperlipidemia - Hypothyroidism - Continue Nifedipine 20mg Qday, Enalapril 20mg Qday, Pravastatin 40mg Qday - Continue Levothyroxine 88 mcg QAM. - COPD - continue DuoNeb, Symbicort. - Hx of CVA - In the previous admission, I have discussed with patient at length about secondary prevention of stroke. - Previously, he was on Lovenox bridge to warfarin. At the time of previous hemothorax, he was on Lovenox. - After lengthy discussion, we decided to go with Aspirin, Plavix. - However, in light of this new hemothorax, I think it may be reasonable to continue Aspirin only for secondary prevention of stroke. Full code. SCDs. Chuck Garcia DO May 18, 2017 11:32
[2017-05-18] MEDS: ALPRAZolam 0.5 MG TAB PO PRN (20:46)
[2017-05-19] VITALS (19 sets, daily range): BP systolic 113–163; BP diastolic 69–97; PULSE 62–103; RESP 16–25; TEMP 98.2–98.8; O2SAT 92–98
[2017-05-19] MEDS: SODIUM CHLOR 0.9% 1000 ML INJ 1,000 ML IV SCH ×2 (02:50→21:13)
[2017-05-19] MEDS: CHLORHEXIDINE GLUCONATE 2 % 1 PACK (2 CLOTHS) TOP SCH (04:00)
[2017-05-19] MEDS: LEVOTHYROXINE SODIUM 88 MCG TAB PO SCH (05:57)
[2017-05-19] MEDS: ENALAPRIL MALEATE 10 MG TAB PO SCH (09:52)
[2017-05-19] MEDS: BUDESONIDE-FORMOTEROL 160/4.5 MCG INHALER INH SCH ×2 (09:52→21:12)
[2017-05-19] MEDS: NIFEdipine 20 MG CAP PO SCH (09:52)
[2017-05-19] MEDS: RESTASIS OPTH EACH EYE SCH ×2 (09:52→21:00)
[2017-05-19] MEDS: SODIUM CHLORIDE 0.9% FLUSH 10 ML FLUSH IV FLUSH SCH ×2 (09:53→10:15)
[2017-05-19] MEDS: PANTOPRAZOLE SOD 20 MG DELAYED RELEASE TAB PO SCH (09:53)
[2017-05-19] MEDS: DOCUSATE SODIUM 50 MG/SENNA 8.6 MG TAB PO SCH ×2 (09:53→21:12)
[2017-05-19] MEDS: PRAVASTATIN SOD 40 MG TAB PO SCH (09:53)
[2017-05-19] MEDS: FAMOTIDINE 20 MG/2 ML VIAL IV PUSH SCH ×2 (09:54→21:13)
[2017-05-19] MEDS: ALPRAZolam 0.5 MG TAB PO PRN (10:14)
[2017-05-19] MEDS: MORPHINE SULFATE 4 MG/ML INJ IV PUSH PRN (10:15)
--- NOTE | 2017-05-19 13:40 | HHI.PR ---
Subjective Remarks Follow up for recurrent right sided hemothorax. Patient is doing well. No fever , chills. Continues to do well on nasal cannula. Objective Vitals Vital Signs Date Time Temp Pulse Resp B/P (MAP) Pulse Ox O2 Delivery O2 Flow Rate FiO2 05/19/17 12:00 98.2 67 21 128/81 (97) 97 05/19/17 12:00 74 05/19/17 11:00 18 05/19/17 07:14 96 Nasal Cannula 2.00 05/19/17 06:00 64 05/19/17 04:00 62 05/19/17 04:00 98.6 64 23 143/80 (101) 97 05/19/17 02:00 64 05/19/17 00:00 62 05/19/17 00:00 98.4 68 22 133/81 (98) 96 05/18/17 22:00 72 05/18/17 20:00 65 05/18/17 20:00 98.7 79 22 123/69 (87) 94 05/18/17 18:00 67 05/18/17 16:00 98.7 73 26 140/75 (96) 97 05/18/17 16:00 73 05/18/17 14:00 86 I/O 05/18/17 05/18/17 05/18/17 05/19/17 05/19/17 05/19/17 07:00 15:00 23:00 07:00 15:00 23:00 Intake Total 350 ml 640 ml 300 ml Output Total 1000 ml 1000 ml 850 ml Balance -650 ml -360 ml -550 ml Intake Oral 350 ml 640 ml 300 ml Output Urine Total 1000 ml 1000 ml 850 ml # Bowel Movements 0 0 0 Result Diagram: 05/18/17 0452 05/18/17 0452 Imaging Last Impressions Chest X-Ray 05/16/17 0000 Signed Impressions: Service Date/Time: Tuesday, May 16, 2017 16:49 - CONCLUSION: Large right pleural effusion and lower lung consolidation, increased in severity when compared to 05/06/17. The left lung is clear. Tay Rosado MD Chest CT 05/16/17 0000 Signed Impressions: Service Date/Time: Tuesday, May 16, 2017 18:24 - CONCLUSION: 1. Recurrent moderate to large size right sided hemothorax with associated compressive atelectasis in the right lower lobe. 2. Stable 3-6 mm solid nodules in the left lower lobe. Again, consider followup examination in 3-6 months to document stability per 2017 Fleischner criteria. Kelvin Puckett MD Objective Remarks GENERAL: Alert, Oriented x 3, NAD. SKIN: Warm and dry. HEAD: Normocephalic. EYES: No scleral icterus. No injection or drainage. NECK: Supple, trachea midline. No JVD or lymphadenopathy. CARDIOVASCULAR: Regular rate and rhythm without murmurs, gallops, or rubs. RESPIRATORY: Diminished right sided lung sounds, moderate air movements on the left. GASTROINTESTINAL: Abdomen soft, non-tender, nondistended. MUSCULOSKELETAL: No cyanosis, or edema. BACK: Nontender without obvious deformity. No CVA tenderness. Procedures None. A/P Problem List: (1) Hemothorax on right ICD Code: J94.2 - Hemothorax Status: Acute (2) History of CVA (cerebrovascular accident) ICD Code: Z86.73 - Personal history of transient ischemic attack (TIA), and cerebral infarction without residual deficits (3) COPD (chronic obstructive pulmonary disease) ICD Code: J44.9 - COPD (chronic obstructive pulmonary disease) Status: Chronic Assessment and Plan Mr. Jackson is an 86 year old male with a history of multiple CVAs, COPD, recent right sided hemothorax who presented to the ED due to right flank pain. ED work up indicated moderate to large size hemothorax. Patient was admitted to the ICU and IR was consulted for chest tube placement. IR, however, plans to do the procedure on 05/19/2017 due to Plavix, aspirin patient was on for secondary prevention of stroke. - Acute recurrent right hemothorax - Currently, patient is hemodynamically stable. On nasal cannula in the ICU. - IR will place Chest tube this afternoon. - Hypertension - Hyperlipidemia - Hypothyroidism - Continue Nifedipine 20mg Qday, Enalapril 20mg Qday, Pravastatin 40mg Qday - Continue Levothyroxine 88 mcg QAM. - COPD - continue DuoNeb, Symbicort. - Hx of CVA - In the previous admission, I have discussed with patient at length about secondary prevention of stroke. - Previously, he was on Lovenox bridge to warfarin. At the time of previous hemothorax, he was on Lovenox. - After lengthy discussion, we decided to go with Aspirin, Plavix. - However, in light of this new hemothorax, I think it may be reasonable to continue Aspirin only for secondary prevention of stroke. Full code. SCDs. Chuck Garcia DO May 19, 2017 1:40 pm
--- NOTE | 2017-05-19 14:50 | PD.CAR.PN ---
CVT Progress Note Subjective/Hospital Course: Patient known to Dr Potts from prior admission. He had a right pleural effusion which developed with anticoagulation. This was successfully drained by IR and was consistent with a hemothorax. He developed right flank pain and again has a moderate to large right pleural effusion. He does not have a drop in Hgb as he had previously. He is stable currently. 05/19 awaiting placement of pigtail drainage of recurrent large right pleural effusion Objective: GENERAL: SKIN: Warm and dry. HEAD: Normocephalic. EYES: No scleral icterus. No injection or drainage. NECK: Supple, trachea midline. No JVD or lymphadenopathy. CARDIOVASCULAR: Regular rate and rhythm without murmurs, gallops, or rubs. RESPIRATORY: more diminished right lung field No accessory muscle use. GASTROINTESTINAL: Abdomen soft, non-tender, nondistended. MUSCULOSKELETAL: No cyanosis, or edema. BACK: Nontender without obvious deformity. No CVA tenderness. Vital Signs Date Time Temp Pulse Resp B/P (MAP) Pulse Ox O2 Delivery O2 Flow Rate FiO2 05/19/17 14:00 74 05/19/17 12:00 98.2 67 21 128/81 (97) 97 05/19/17 12:00 74 05/19/17 11:00 18 05/19/17 07:14 96 Nasal Cannula 2.00 05/19/17 06:00 64 05/19/17 04:00 62 05/19/17 04:00 98.6 64 23 143/80 (101) 97 05/19/17 02:00 64 05/19/17 00:00 62 05/19/17 00:00 98.4 68 22 133/81 (98) 96 05/18/17 22:00 72 05/18/17 20:00 65 05/18/17 20:00 98.7 79 22 123/69 (87) 94 05/18/17 18:00 67 05/18/17 16:00 98.7 73 26 140/75 (96) 97 05/18/17 16:00 73 Result Diagram: 05/18/17 0452 05/18/17 045 (1) recuurent right pleural effusion Plan: for IR ct guided thoracentesis / pigtail cath placement Princess Nolasco May 19, 2017 14:49
[2017-05-19] MEDS ORDERED: LIDOCAINE HCL 1% 30 ML VIAL ONE (15:29)
[2017-05-19] MEDS ORDERED: MIDAZOLAM HCL 2 MG/2 ML VIAL ONE (15:30)
--- NOTE | 2017-05-19 16:27 | PD.RAD ---
Post CT Procedure Prog Note Pre Procedure Diagnosis: (1) Hemothorax on right Post Procedure Diagnosis: (1) Hemothorax on right Procedure Date: May 19, 2017 Supervising Radiologist: Abiodun Zhang Anesthesia: Conscious Sedation Plan of Activity Patient to Unit: Nursing Unit Patient Condition: Fair See PACS Report for procedural detail/treatment Drainage Procedure Procedure 1 Imaging Guidance: CT Side: Right Procedure Type: Chest Tube Non-Tunneled Procedure: Placement Drainage: Pleurovac Fluid Description: Bloody Abiodun Zhang MD May 19, 2017 16:27
--- NOTE | 2017-05-19 17:06 | RADRPT ---
EXAM DATE/TIME: 05/19/2017 16:23 [facility] COMPARISON: CT THORAX W/O CONTRAST, May 16, 2017, 18:24. INDICATIONS : Chest tube placement right side. MEDICAL HISTORY : Hypothyroidism. Cardiovascular disease Renal calculi. Mitral valve leak. AAA. COPD SURGICAL HISTORY : Appendectomy. ENCOUNTER: Subsequent ACUITY: 1 week PAIN SCORE: 0/10 LOCATION: Bilateral chest FINDINGS: Interval placement of right-sided chest tube. Improving small to moderate size right pleural effusion . No significant pneumothorax. Cardiomediastinal contours are stable. Remainder of exam is unchanged. CONCLUSION: 1. Well-positioned inferior right-sided pigtail chest tube with improved small to moderate-sized righ t pleural effusion. No significant pneumothorax. Kelvin Puckett MD on May 19, 2017 at 17:03 Board Certified Radiologist. This report was verified electronically.
[2017-05-20] VITALS (14 sets, daily range): BP systolic 105–133; BP diastolic 59–81; PULSE 74–98; RESP 16–27; TEMP 98.1–99.4; O2SAT 96–100
[2017-05-20] MEDS: MORPHINE SULFATE 4 MG/ML INJ IV PUSH PRN ×4 (01:08→15:03)
[2017-05-20] MEDS: CHLORHEXIDINE GLUCONATE 2 % 1 PACK (2 CLOTHS) TOP SCH (04:00)
[2017-05-20] MEDS: LEVOTHYROXINE SODIUM 88 MCG TAB PO SCH (07:02)
--- NOTE | 2017-05-20 07:48 | RADRPT ---
EXAM DATE/TIME: 05/19/2017 15:50 INDICATIONS : Hemothorax. SEDATION TIME: 15 minutes MEDICATION(S): 1.) 1 mg midazolam (Versed) IV 2.) 50 mcg fentanyl (Sublimaze) IV DEVICE(S): 1.) 10 Fr Skater FLUID: Total volume de3400 cc of red fluid was remoted. Fluid was discarded. MEDICAL HISTORY : Hypertension. Chronic obstructive pulmonary disease. SURGICAL HISTORY : Appendectomy. ENCOUNTER: Initial ACUITY: 1 day PAIN SCORE: 0/10 LOCATION: Right chest PROCEDURE: 1.) Conscious sedation with continuous EKG and oximetry monitoring. PROCEDURE : 1. CT guided chest tube placement. 2. Conscious sedation with continuous EKG and oximetry monitoring. The risks, benefits and alternatives to the procedure were explained and verbal and written consent w as obtained. The site was prepped in sterile fashion. Full sterile technique was used, including ca p, mask, sterile gloves and gown and a large sterile sheet. Hand hygiene and 2% chlorhexidine and/or betadine/alcohol prep was utilized per protocol for cutaneous antisepsis. The skin and subcutaneous tissues were infiltrated with local anesthetic solution. Using automated exposure control and adjus tment of the mA and/or kV according to patient size, radiation dose was kept as low as reasonably ach ievable to obtain optimal diagnostic quality images. DICOM format image data is available electronic ally for review and comparison. With CT guidance the chest was punctured and the prescribed catheter was placed in the lung apex. Wal l suction was applied. Post procedure images demonstrate satisfactory position of the tube. The cat heter was sutured in place and a Percu-Stay was applied. Conscious sedation was performed with the prescribed dosages and duration as above. The patient arron ated the procedure well and there were no complications. EKG and oximetry remained stable throughout the procedure. The patient was sent to post anesthesia recovery in stable condition. CONCLUSION: Uncomplicated chest tube placement as above. Abiodun Zhang MD on May 20, 2017 at 7:46 Board Certified Radiologist. This report was verified electronically.
[2017-05-20] MEDS: PANTOPRAZOLE SOD 20 MG DELAYED RELEASE TAB PO SCH (08:01)
[2017-05-20] MEDS: BUDESONIDE-FORMOTEROL 160/4.5 MCG INHALER INH SCH ×2 (08:01→19:54)
[2017-05-20] MEDS: FAMOTIDINE 20 MG/2 ML VIAL IV PUSH SCH ×2 (08:01→19:53)
[2017-05-20] MEDS: NIFEdipine 20 MG CAP PO SCH (08:01)
[2017-05-20] MEDS: DOCUSATE SODIUM 50 MG/SENNA 8.6 MG TAB PO SCH ×2 (08:01→19:53)
[2017-05-20] MEDS: SODIUM CHLORIDE 0.9% FLUSH 10 ML FLUSH IV FLUSH SCH ×2 (08:01→19:54)
[2017-05-20] MEDS: PRAVASTATIN SOD 40 MG TAB PO SCH (08:01)
[2017-05-20] MEDS: ENALAPRIL MALEATE 10 MG TAB PO SCH (08:02)
[2017-05-20] MEDS: SODIUM CHLOR 0.9% 1000 ML INJ 1,000 ML IV SCH ×2 (08:05→18:29)
[2017-05-20] MEDS: PT OWN MYRBETRIQ 50 MG PO SCH (09:00)
[2017-05-20] MEDS: RESTASIS OPTH EACH EYE SCH ×3 (09:00→23:43)
--- NOTE | 2017-05-20 10:25 | RADRPT ---
EXAM DATE/TIME: 05/20/2017 09:34 [facility] COMPARISON: CHEST SINGLE AP, May 16, 2017, 16:49. INDICATIONS : Chest tube placement, pneumothorax. MEDICAL HISTORY : Hypothyroidism. Cardiovascular disease Renal calculi. Mitral valve leak. SURGICAL HISTORY : AAA. ENCOUNTER: Subsequent ACUITY: 1 day PAIN SCORE: 0/10 LOCATION: Right chest. FINDINGS: The cardiac silhouette is enlarged in transverse diameter. The aortic knob is prominent with tortuosi ty of the descending thoracic aorta. A right chest tube is in place. There is no evidence of pneumoth orax. The previously seen effusion has resolved. CONCLUSION: 1. Chest tube placement with resolution of the previously seen effusion. There is no evidence of pne umothorax. Abiodun Zhang MD on May 20, 2017 at 10:23 Board Certified Radiologist. This report was verified electronically.
--- NOTE | 2017-05-20 14:00 | HHI.PR ---
Subjective Remarks Follow up for recurrent right sided hemothorax. Patient is doing well. However, he complains of left knee pain. No redness, swelling. He says, left knee pain started after he came to the hospital. No fever, chills. Chest tube was placed yesterday afternoon. Objective Vitals Vital Signs Date Time Temp Pulse Resp B/P (MAP) Pulse Ox O2 Delivery O2 Flow Rate FiO2 05/20/17 13:00 96 24 128/70 (89) 99 05/20/17 12:00 98.1 90 22 122/69 (86) 98 05/20/17 12:00 90 05/20/17 11:00 87 23 116/64 (81) 98 05/20/17 10:00 81 22 105/59 (74) 98 05/20/17 10:00 81 05/20/17 09:00 83 23 119/63 (81) 99 05/20/17 08:26 98 Nasal Cannula 2.00 05/20/17 08:00 79 05/20/17 08:00 98.3 79 25 133/70 (91) 100 05/20/17 07:00 77 25 125/72 (89) 99 05/20/17 06:00 74 05/20/17 04:00 98.4 81 16 130/67 (88) 96 05/20/17 04:00 81 05/20/17 02:00 76 05/20/17 00:00 91 05/20/17 00:00 98.7 93 16 132/81 (98) 97 05/19/17 22:00 94 05/19/17 20:00 103 05/19/17 20:00 98.4 103 16 131/77 (95) 96 05/19/17 19:31 95 Nasal Cannula 2.00 05/19/17 18:30 89 144/81 (102) 05/19/17 18:00 82 05/19/17 18:00 78 142/82 (102) 05/19/17 17:30 80 21 146/79 (101) 98 05/19/17 17:00 98.8 81 24 127/97 (107) 98 05/19/17 17:00 81 05/19/17 14:00 74 I/O 05/19/17 05/19/17 05/19/17 05/20/17 05/20/17 05/20/17 07:00 15:00 23:00 07:00 15:00 23:00 Intake Total 300 ml 240 ml 360 ml 144 ml Output Total 850 ml 600 ml 1100 ml Balance -550 ml -360 ml -740 ml 144 ml Intake Oral 300 ml 240 ml 360 ml IV Total 144 ml Output Urine Total 850 ml 300 ml Chest Tube Drainage Total 600 ml 800 ml # Voids 3 4 # Bowel Movements 0 0 Result Diagram: 05/18/17 0452 05/18/17 0452 Imaging Last Impressions Chest X-Ray 05/20/17 0000 Signed Impressions: Service Date/Time: Saturday, May 20, 2017 09:34 - CONCLUSION: 1. Chest tube placement with resolution of the previously seen effusion. There is no evidence of pneumothorax. Abiodun Zhang MD Chest Tube Insertion 05/19/17 1634 Signed Impressions: Service Date/Time: Friday, May 19, 2017 15:50 - CONCLUSION: Uncomplicated chest tube placement as above. Abiodun Zhang MD Chest CT 05/16/17 0000 Signed Impressions: Service Date/Time: Tuesday, May 16, 2017 18:24 - CONCLUSION: 1. Recurrent moderate to large size right sided hemothorax with associated compressive atelectasis in the right lower lobe. 2. Stable 3-6 mm solid nodules in the left lower lobe. Again, consider followup examination in 3-6 months to document stability per 2017 Fleischner criteria. Kelvin Puckett MD Objective Remarks GENERAL: Alert, Oriented x 3, NAD. SKIN: Warm and dry. HEAD: Normocephalic. EYES: No scleral icterus. No injection or drainage. NECK: Supple, trachea midline. No JVD or lymphadenopathy. CARDIOVASCULAR: Regular rate and rhythm without murmurs, gallops, or rubs. RESPIRATORY: Diminished right sided lung sounds, moderate air movements on the left. GASTROINTESTINAL: Abdomen soft, non-tender, nondistended. MUSCULOSKELETAL: No cyanosis, or edema. BACK: Nontender without obvious deformity. No CVA tenderness. Procedures None. A/P Problem List: (1) Hemothorax on right ICD Code: J94.2 - Hemothorax Status: Acute (2) History of CVA (cerebrovascular accident) ICD Code: Z86.73 - Personal history of transient ischemic attack (TIA), and cerebral infarction without residual deficits (3) COPD (chronic obstructive pulmonary disease) ICD Code: J44.9 - COPD (chronic obstructive pulmonary disease) Status: Chronic Assessment and Plan Mr. Jackson is an 86 year old male with a history of multiple CVAs, COPD, recent right sided hemothorax who presented to the ED due to right flank pain. ED work up indicated moderate to large size hemothorax. Patient was admitted to the ICU and IR was consulted for chest tube placement. IR, however, plans to do the procedure on 05/19/2017 due to Plavix, aspirin patient was on for secondary prevention of stroke. - Acute recurrent right hemothorax - Currently, patient is hemodynamically stable. On nasal cannula in the ICU. - IR placed Chest tube yesterday afternoon. - Hypertension - Hyperlipidemia - Hypothyroidism - Continue Nifedipine 20mg Qday, Enalapril 20mg Qday, Pravastatin 40mg Qday - Continue Levothyroxine 88 mcg QAM. - Left knee pain - No redness, swelling. - Will increase pain medications - acetaminophen for Pain 1-4, Percocet for 5 -10, Morphine PRN for breakthrough. - If it does not improve, we will consider Knee Xray. - COPD - continue DuoNeb, Symbicort. - Hx of CVA - In the previous admission, I have discussed with patient at length about secondary prevention of stroke. - Previously, he was on Lovenox bridge to warfarin. At the time of previous hemothorax, he was on Lovenox. - After lengthy discussion, we decided to go with Aspirin, Plavix. - However, in light of this new hemothorax, I think it may be reasonable to continue Aspirin only for secondary prevention of stroke. - Transfer to the floor. Full code. SCDs. Chuck Garcia DO May 20, 2017 2:00 pm
[2017-05-21] VITALS: BP 107/60; PULSE 84; RESP 18; TEMP 98.5; O2SAT 99
[2017-05-21] MEDS: SODIUM CHLOR 0.9% 1000 ML INJ 1,000 ML IV SCH ×2 (02:37→18:09)
[2017-05-21 04:00] VITALS: BP 98/96; PULSE 86; RESP 17; TEMP 98.2; O2SAT 96
[2017-05-21] MEDS: CHLORHEXIDINE GLUCONATE 2 % 1 PACK (2 CLOTHS) TOP SCH (04:00)
[2017-05-21] MEDS: LEVOTHYROXINE SODIUM 88 MCG TAB PO SCH (07:00)
[2017-05-21 08:00] VITALS: BP 119/69; PULSE 87; RESP 20; TEMP 98.8; O2SAT 95
[2017-05-21] MEDS: DOCUSATE SODIUM 50 MG/SENNA 8.6 MG TAB PO SCH ×2 (08:47→22:22)
[2017-05-21] MEDS: ENALAPRIL MALEATE 10 MG TAB PO SCH (08:47)
[2017-05-21] MEDS: PRAVASTATIN SOD 40 MG TAB PO SCH (08:47)
[2017-05-21] MEDS: PANTOPRAZOLE SOD 20 MG DELAYED RELEASE TAB PO SCH (08:47)
[2017-05-21] MEDS: FAMOTIDINE 20 MG/2 ML VIAL IV PUSH SCH ×2 (08:48→22:22)
[2017-05-21] MEDS: BUDESONIDE-FORMOTEROL 160/4.5 MCG INHALER INH SCH ×2 (08:51→21:00)
[2017-05-21] MEDS: SODIUM CHLORIDE 0.9% FLUSH 10 ML FLUSH IV FLUSH SCH ×2 (08:52→22:21)
[2017-05-21] MEDS: PT OWN MYRBETRIQ 50 MG PO SCH (09:00)
--- NOTE | 2017-05-21 11:30 | HHI.PR ---
Subjective Remarks Follow up for recurrent right sided hemothorax. Patient is currently doing well. Chest tube is in place but no drainage noted. No fever or chills. Objective Vitals Vital Signs Date Time Temp Pulse Resp B/P (MAP) Pulse Ox O2 Delivery O2 Flow Rate FiO2 05/21/17 08:00 98.8 87 20 119/69 (86) 95 05/21/17 04:00 98.2 86 17 98/96 (97) 96 05/21/17 00:00 98.5 84 18 107/60 (76) 99 05/20/17 20:00 98 05/20/17 20:00 98.8 87 22 126/69 (88) 100 05/20/17 20:00 98.8 96 27 116/71 (86) 96 05/20/17 16:00 99.4 87 22 126/69 (88) 100 05/20/17 16:00 87 05/20/17 13:00 96 24 128/70 (89) 99 05/20/17 12:00 98.1 90 22 122/69 (86) 98 05/20/17 12:00 90 I/O 05/20/17 05/20/17 05/20/17 05/21/17 05/21/17 05/21/17 07:00 15:00 23:00 07:00 15:00 23:00 Intake Total 360 ml 144 ml 1121 ml Output Total 1100 ml 495 ml Balance -740 ml 144 ml 626 ml Intake Oral 360 ml 236 ml IV Total 144 ml 885 ml Output Urine Total 300 ml 475 ml Chest Tube Drainage Total 800 ml 20 ml # Voids 4 # Bowel Movements 0 Result Diagram: 05/18/17 0452 05/18/17 0452 Imaging Last Impressions Chest X-Ray 05/20/17 0000 Signed Impressions: Service Date/Time: Saturday, May 20, 2017 09:34 - CONCLUSION: 1. Chest tube placement with resolution of the previously seen effusion. There is no evidence of pneumothorax. Abiodun Zhang MD Chest Tube Insertion 05/19/17 1634 Signed Impressions: Service Date/Time: Friday, May 19, 2017 15:50 - CONCLUSION: Uncomplicated chest tube placement as above. Abiodun Zhang MD Chest CT 05/16/17 0000 Signed Impressions: Service Date/Time: Tuesday, May 16, 2017 18:24 - CONCLUSION: 1. Recurrent moderate to large size right sided hemothorax with associated compressive atelectasis in the right lower lobe. 2. Stable 3-6 mm solid nodules in the left lower lobe. Again, consider followup examination in 3-6 months to document stability per 2017 Fleischner criteria. Kelvin Puckett MD Objective Remarks GENERAL: Alert, Oriented x 3, NAD. SKIN: Warm and dry. HEAD: Normocephalic. EYES: No scleral icterus. No injection or drainage. NECK: Supple, trachea midline. No JVD or lymphadenopathy. CARDIOVASCULAR: Regular rate and rhythm without murmurs, gallops, or rubs. RESPIRATORY: Diminished right sided lung sounds, moderate air movements on the left. Chest tube in place. GASTROINTESTINAL: Abdomen soft, non-tender, nondistended. MUSCULOSKELETAL: No cyanosis, or edema. BACK: Nontender without obvious deformity. No CVA tenderness. Procedures Chest tube placement A/P Problem List: (1) Hemothorax on right ICD Code: J94.2 - Hemothorax Status: Acute (2) History of CVA (cerebrovascular accident) ICD Code: Z86.73 - Personal history of transient ischemic attack (TIA), and cerebral infarction without residual deficits (3) COPD (chronic obstructive pulmonary disease) ICD Code: J44.9 - COPD (chronic obstructive pulmonary disease) Status: Chronic Assessment and Plan Mr. Jackson is an 86 year old male with a history of multiple CVAs, COPD, recent right sided hemothorax who presented to the ED due to right flank pain. ED work up indicated moderate to large size hemothorax. Patient was admitted to the ICU and IR was consulted for chest tube placement. IR, however, plans to do the procedure on 05/19/2017 due to Plavix, aspirin patient was on for secondary prevention of stroke. - Acute recurrent right hemothorax - Currently, patient is hemodynamically stable. On nasal cannula in the ICU. - IR placed Chest tube. Currently no drainage noticed. - Hypertension - Hyperlipidemia - Hypothyroidism - Continue Nifedipine 20mg Qday, Enalapril 20mg Qday, Pravastatin 40mg Qday - Continue Levothyroxine 88 mcg QAM. - Left knee pain - No redness, swelling. - Continue acetaminophen for Pain 1-4, Percocet for 5-10, Morphine PRN for breakthrough. - COPD - continue DuoNeb, Symbicort. - Hx of CVA - In the previous admission, I have discussed with patient at length about secondary prevention of stroke. - Previously, he was on Lovenox bridge to warfarin. At the time of previous hemothorax, he was on Lovenox. - After lengthy discussion, we decided to go with Aspirin, Plavix. - However, in light of this new hemothorax, I think it may be reasonable to continue Aspirin only for secondary prevention of stroke. Full code. SCDs. Chuck Garcia DO May 21, 2017 11:10 am
[2017-05-21 12:00] VITALS: BP 113/55; PULSE 86; RESP 20; TEMP 98.6; O2SAT 97
[2017-05-21 16:00] VITALS: BP 109/58; PULSE 86; RESP 18; TEMP 98.6; O2SAT 97
[2017-05-21 17:43] LABS: HEMATOCRIT 33.2 % (39.0-51.0); REVIEW FLAG FINAL
[2017-05-21 20:00] VITALS: BP 112/58; PULSE 87; RESP 20; TEMP 98.3; O2SAT 95
[2017-05-21] MEDS: RESTASIS OPTH EACH EYE SCH (21:00)
[2017-05-22] VITALS (8 sets, daily range): BP systolic 95–119; BP diastolic 58–65; PULSE 77–97; RESP 18–22; TEMP 97.4–98.6; O2SAT 90–95
[2017-05-22] MEDS: SODIUM CHLOR 0.9% 1000 ML INJ 1,000 ML IV SCH ×3 (02:20→09:06)
[2017-05-22] MEDS: CHLORHEXIDINE GLUCONATE 2 % 1 PACK (2 CLOTHS) TOP SCH (03:23)
[2017-05-22] MEDS: LEVOTHYROXINE SODIUM 88 MCG TAB PO SCH (06:06)
[2017-05-22] MEDS: NIFEdipine 20 MG CAP PO SCH ×2 (06:29→09:02)
[2017-05-22] MEDS: PT OWN MYRBETRIQ 50 MG PO SCH (09:00)
[2017-05-22] MEDS: BUDESONIDE-FORMOTEROL 160/4.5 MCG INHALER INH SCH ×2 (09:00→21:07)
[2017-05-22] MEDS: RESTASIS OPTH EACH EYE SCH ×2 (09:00→21:07)
[2017-05-22] MEDS: SODIUM CHLORIDE 0.9% FLUSH 10 ML FLUSH IV FLUSH SCH ×2 (09:00→21:05)
[2017-05-22] MEDS: ENALAPRIL MALEATE 10 MG TAB PO SCH (09:02)
[2017-05-22] MEDS: PRAVASTATIN SOD 40 MG TAB PO SCH (09:03)
[2017-05-22] MEDS: DOCUSATE SODIUM 50 MG/SENNA 8.6 MG TAB PO SCH ×2 (09:03→21:05)
[2017-05-22] MEDS: FAMOTIDINE 20 MG/2 ML VIAL IV PUSH SCH ×2 (09:03→21:05)
[2017-05-22] MEDS: PANTOPRAZOLE SOD 20 MG DELAYED RELEASE TAB PO SCH (09:03)
--- NOTE | 2017-05-22 09:04 | RADRPT ---
EXAM DATE/TIME: 05/22/2017 08:28 [facility] COMPARISON: CT THORAX W/O CONTRAST, May 16, 2017, 18:24. CT GUIDED CHEST TUBE PLACEMENT RIGHT, May 19, 2017, 15:50. CHEST SINGLE AP, May 20, 2017, 9:34. INDICATIONS : Evaluate for pleural effusion. MEDICAL HISTORY : Hypothyroidism. Cardiovascular disease. Renal calculi. Mitral valve leak. SURGICAL HISTORY : AAA ENCOUNTER: Subsequent ACUITY: 3 days PAIN SCORE: 5/10 LOCATION: Bilateral chest FINDINGS: Right base pigtail thoracostomy tube remains in place. The there is increasing hazy opacity over the right mid and upper chest which may be loculated effusion in the upper pleural space. Stable mild par enchymal opacity and pleural fluid at the right base. Left lung is stable and grossly clear. Cardiac contours are unchanged. CONCLUSION: Worsening right chest opacity which may be redeveloping loculated effusion. Pravin Gambino MD on May 22, 2017 at 9:00 Board Certified Radiologist. This report was verified electronically.
--- NOTE | 2017-05-22 09:23 | HHI.PR ---
Subjective Remarks Follow up for recurrent right sided hemothorax. Patient is doing well. No acute concerns. Chest tube in place, however, not much drainage. Objective Vitals Vital Signs Date Time Temp Pulse Resp B/P (MAP) Pulse Ox O2 Delivery O2 Flow Rate FiO2 05/22/17 08:00 97.4 83 18 109/60 (76) 95 05/22/17 04:25 87 05/22/17 04:00 98.6 77 18 117/65 (82) 95 05/22/17 00:00 98.5 80 20 113/59 (77) 95 05/21/17 20:00 98.3 87 20 112/58 (76) 95 05/21/17 16:00 98.6 86 18 109/58 (75) 97 05/21/17 12:00 98.6 86 20 113/55 (74) 97 I/O 05/21/17 05/21/17 05/21/17 05/22/17 05/22/17 05/22/17 06:59 14:59 22:59 06:59 14:59 22:59 Intake Total 960 ml 1290 ml Output Total 10 ml 450 ml 800 ml Balance -10 ml 510 ml 490 ml Intake Oral 960 ml 300 ml IV Total 990 ml Output Urine Total 450 ml 800 ml Chest Tube Drainage Total 10 ml 0 ml # Bowel Movements 0 0 Result Diagram: 05/21/17 1651 05/18/17 0452 Imaging Last Impressions Chest X-Ray 05/22/17 0000 Signed Impressions: Service Date/Time: Monday, May 22, 2017 08:28 - CONCLUSION: Worsening right chest opacity which may be redeveloping loculated effusion. Pravin Gambino MD Chest Tube Change 05/22/17 0000 Signed Impressions: Service Date/Time: Monday, May 22, 2017 17:06 - CONCLUSION: Uncomplicated chest tube exchange as above. Pravin Gambino MD Chest CT 05/22/17 0000 Signed Impressions: Service Date/Time: Monday, May 22, 2017 10:58 - CONCLUSION: 1. Moderate interval improvement of right-sided hemothorax following placement of small bore right-sided chest tube in the peripheral inferior right hemithorax. However, the fluid now appears loculated with separate components in the inferior lateral hemithorax and medial superior hemithorax. 2. Interval development of simple appearing small left pleural effusion. 3. Remainder of the exam is unchanged. Kelvin Puckett MD Chest Tube Insertion 05/19/17 1634 Signed Impressions: Service Date/Time: Friday, May 19, 2017 15:50 - CONCLUSION: Uncomplicated chest tube placement as above. Abiodun Zhang MD Objective Remarks GENERAL: Alert, Oriented x 3, NAD. SKIN: Warm and dry. HEAD: Normocephalic. EYES: No scleral icterus. No injection or drainage. NECK: Supple, trachea midline. No JVD or lymphadenopathy. CARDIOVASCULAR: Regular rate and rhythm without murmurs, gallops, or rubs. RESPIRATORY: Diminished right sided lung sounds, moderate air movements on the left. Chest tube in place. GASTROINTESTINAL: Abdomen soft, non-tender, nondistended. MUSCULOSKELETAL: No cyanosis, or edema. BACK: Nontender without obvious deformity. No CVA tenderness. Procedures Chest tube placement A/P Problem List: (1) Hemothorax on right ICD Code: J94.2 - Hemothorax Status: Acute (2) History of CVA (cerebrovascular accident) ICD Code: Z86.73 - Personal history of transient ischemic attack (TIA), and cerebral infarction without residual deficits (3) COPD (chronic obstructive pulmonary disease) ICD Code: J44.9 - COPD (chronic obstructive pulmonary disease) Status: Chronic Assessment and Plan Mr. Jackson is an 86 year old male with a history of multiple CVAs, COPD, recent right sided hemothorax who presented to the ED due to right flank pain. ED work up indicated moderate to large size hemothorax. Patient was admitted to the ICU and IR was consulted for chest tube placement. IR, however, plans to do the procedure on 05/19/2017 due to Plavix, aspirin patient was on for secondary prevention of stroke. - Acute recurrent right hemothorax - Currently, patient is hemodynamically stable. - CXR shows loculated fluid build-up which may explain lack of drainage. - Discussed with Cardiothoracic surgery and obtained CT chest which confirmed findings of loculated fluid. - Patient may need a VATS, pleurodesis. - Hypertension - Hyperlipidemia - Hypothyroidism - Continue Nifedipine 20mg Qday, Enalapril 20mg Qday, Pravastatin 40mg Qday - Continue Levothyroxine 88 mcg QAM. - Left knee pain - No redness, swelling. - Continue acetaminophen for Pain 1-4, Percocet for 5-10, Morphine PRN for breakthrough. - COPD - continue DuoNeb, Symbicort. - Hx of CVA - In the previous admission, I have discussed with patient at length about secondary prevention of stroke. - Previously, he was on Lovenox bridge to warfarin. At the time of previous hemothorax, he was on Lovenox. - After lengthy discussion, we decided to go with Aspirin, Plavix. - However, in light of this new hemothorax, I think it may be reasonable to continue Aspirin only for secondary prevention of stroke. Full code. SCDs. Chuck Garcia DO May 22, 2017 09:23
[2017-05-22] MEDS ORDERED: ALTEPLASE RECOMBINANT 2 MG VIAL IV ONE (10:45)
--- NOTE | 2017-05-22 11:23 | RADRPT ---
EXAM DATE/TIME: 05/22/2017 10:58 [facility] COMPARISON: CT GUIDED CHEST TUBE PLACEMENT RIGHT, May 19, 2017, 15:50. CT THORAX W/O CONTRAST, May 16, 2017, 18:24. INDICATIONS : Right hemothorax. RADIATION DOSE: 5.25 CTDIvol (mGy) MEDICAL HISTORY : Aneurysm, abdominal. Chronic obstructive pulmonary disease. Hypertension. SURGICAL HISTORY : Appendectomy. ENCOUNTER: Subsequent ACUITY: 1 week PAIN SCALE: 4/10 LOCATION: Right chest TECHNIQUE: Volumetric scanning of the chest was performed. Using automated exposure control and adjustment of t he mA and/or kV according to patient size, radiation dose was kept as low as reasonably achievable to obtain optimal diagnostic quality images. DICOM format image data is available electronically for r eview and comparison. Follow-up recommendations for detected pulmonary nodules are based at a minimum on nodule size and pa tient risk factors according to Fleischner Society Guidelines. FINDINGS: LUNGS: Moderate upper lobe predominant centrilobular emphysema. Redemonstration of bilateral small 3-6 mm no dules in the lung bases. Mild air space consolidation in the right middle lobe and in the lower lobes adjacent effusions. PLEURAE: Interval placement of small bore right-sided chest tube in the peripheral inferior right hemithorax. Moderate interval improvement of the right sided effusion with now apparent loculations noted inferio rly in medial and superiorly. Interval development of small simple appearing left-sided pleural effus ion. MEDIASTINUM: No significant mediastinal adenopathy. Redemonstration of moderate coronary calcifications. Subtle pe ricardial effusion. AXILLAE: Within normal limits. No lymphadenopathy. MUSCULOSKELETAL: Within normal limits for patient age. MISCELLANEOUS: The visualized upper abdominal organs demonstrate no acute abnormality. CONCLUSION: 1. Moderate interval improvement of right-sided hemothorax following placement of small bore right-si ded chest tube in the peripheral inferior right hemithorax. However, the fluid now appears loculated with separate components in the inferior lateral hemithorax and medial superior hemithorax. 2. Interval development of simple appearing small left pleural effusion. 3. Remainder of the exam is unchanged. Kelvin Puckett MD on May 22, 2017 at 11:13 Board Certified Radiologist. This report was verified electronically.
[2017-05-22] MEDS: MORPHINE SULFATE 4 MG/ML INJ IV PUSH PRN ×2 (12:16→14:37)
--- NOTE | 2017-05-22 15:50 | PD.CAR.PN ---
CVT Progress Note Subjective/Hospital Course: Patient known to Dr Potts from prior admission. He had a right pleural effusion which developed with anticoagulation. This was successfully drained by IR and was consistent with a hemothorax. He developed right flank pain and again has a moderate to large right pleural effusion. He does not have a drop in Hgb as he had previously. He is stable currently. 05/19 awaiting placement of pigtail drainage of recurrent large right pleural effusion 05/22 cxr showing redevelopment of loculated effusion will check CT chest on nasal cannula continue pulm toileting Objective: GENERAL: SKIN: Warm and dry. HEAD: Normocephalic. EYES: No scleral icterus. No injection or drainage. NECK: Supple, trachea midline. No JVD or lymphadenopathy. CARDIOVASCULAR: Regular rate and rhythm without murmurs, gallops, or rubs. RESPIRATORY: Breath sounds equal bilaterally. No accessory muscle use. right chest tube in place, no air leak noted , to wall suction GASTROINTESTINAL: Abdomen soft, non-tender, nondistended. MUSCULOSKELETAL: No cyanosis, or edema. BACK: Nontender without obvious deformity. No CVA tenderness. Vital Signs Date Time Temp Pulse Resp B/P (MAP) Pulse Ox O2 Delivery O2 Flow Rate FiO2 05/22/17 12:00 98.5 97 18 106/58 (74) 90 05/22/17 08:00 97.4 83 18 109/60 (76) 95 05/22/17 04:25 87 05/22/17 04:00 98.6 77 18 117/65 (82) 95 05/22/17 00:00 98.5 80 20 113/59 (77) 95 05/21/17 20:00 98.3 87 20 112/58 (76) 95 05/21/17 16:00 98.6 86 18 109/58 (75) 97 Result Diagram: 05/21/17 1651 05/18/17 0452 (1) recuurent right pleural effusion Plan: s/p pigtail cath placement reaccumulating loculated effusion check ct scan may need may need Right VATS, pleurodesis Princess Nolasco May 22, 2017 15:50
--- NOTE | 2017-05-22 16:40 | RADRPT ---
EXAM DATE/TIME: 05/22/2017 15:12 [facility] COMPARISON: No previous studies available for comparison. INDICATIONS : Patient with a hemothorax. Needs upsizing. MEDICAL HISTORY : 1.HTN 2. COPD 3.TIA 4. Nephrolithiasis 5. Vertigo SURGICAL HISTORY : 1. Appendectomy 2. Inguinal hernia repair 3. rt chest tube ENCOUNTER: Initial ACUITY: 1 week PAIN SCORE: 4/10 LOCATION: Right chest FLUORO TIME: 1.5 minutes IMAGE SERIES: 1 SEDATION TIME: 30 minutes cc MEDICATION(S): 1.) 100 mcg fentanyl (Sublimaze) IV DEVICE(S): 1.) 12 Lebanese non-locking catheter radha PROCEDURE : 1. Fluoroscopically guided chest tube exchange. 2. Conscious sedation with continuous EKG and oximetry monitoring. The risks, benefits and alternatives to the procedure were explained and verbal and written consent w as obtained. The site was prepped in sterile fashion. Full sterile technique was used, including ca p, mask, sterile gloves and gown and a large sterile sheet. Hand hygiene and 2% chlorhexidine and/or betadine/alcohol prep was utilized per protocol for cutaneous antisepsis. The skin and subcutaneous tissues were infiltrated with local anesthetic solution. With fluoroscopic guidance the previously placed chest tube was exchanged for the prescribed catheter . Post procedure imaging demonstrates satisfactory position of the tube. The catheter was sutured i n place and a Percu-Stay was applied. Conscious sedation was performed with the prescribed dosages and duration as above in the presence of an independent trained radiology nurse to assist in the monitoring of the patient. EKG and oximetry remained stable throughout the procedure. The patient tolerated the procedure well and there were no complications. The patient was sent to post anesthesia recovery in stable condition. CONCLUSION: Uncomplicated chest tube exchange as above. The tube was upsized to 12 Lebanese and manipulated into a higher position in the posterior right pleural space at location of loculated effusion. There was goo d spontaneous drainage of serosanguineous fluid. Pravin Gambino MD on May 22, 2017 at 16:31 Board Certified Radiologist. This report was verified electronically.
[2017-05-22] MEDS ORDERED: BUPIVACAINE HCL PF 0.75% 30 ML VIAL ONE (17:05)
--- NOTE | 2017-05-22 17:42 | PD.RAD ---
Post Procedure Progress Note Pre Procedure Diagnosis: (1) Hemothorax on right Post Procedure Diagnosis: (1) Hemothorax on right Procedure Date: May 22, 2017 Supervising Radiologist: Pravin Gambino Proceduralist/Assist: Ravi Peralta RT(R), RT Sydney(R)(CV) Anesthesia: Local, Conscious Sedation Plan of Activity Patient to Unit: Nursing Unit Patient Condition: Good See PACS Report for procedural detail/treatment Drainage Procedure Procedure 1 Imaging Guidance: Fluoroscopy Side: Right Procedure Type: Chest Tube Non-Tunneled Procedure: Reposition, Exchange [place]an: 12 Drainage: Pleurovac Fluid Description: Bloody Additional Detail: tube placed tube was dislodged upon transport back to pt room pt returned for exchange and re-positioning again 2 separate procedure reports thus generated Pravin Gambino MD May 22, 2017 17:42
--- NOTE | 2017-05-22 18:23 | RADRPT ---
EXAM DATE/TIME: 05/22/2017 17:06 [facility] COMPARISON: No previous studies available for comparison. INDICATIONS : Patient with chest that is broken needs exchanging. MEDICAL HISTORY : 1. Hemothorax 2. HTN 3. TIA 4. COPD 5. Nephrolithiasis 6. vertigo SURGICAL HISTORY : 1. Appendectomy 2. Rt chest tube 3. Inguinal hernia repair ENCOUNTER: Subsequent ACUITY: 1 week PAIN SCORE: 4/10 LOCATION: Right chest FLUORO TIME: 3.1 minutes IMAGE SERIES: 1 minutes DEVICE(S): 1.) 12 Greenlandic non-locking catheter radha PROCEDURE : 1. Fluoroscopically guided chest tube exchange. 2. Conscious sedation with continuous EKG and oximetry monitoring. The risks, benefits and alternatives to the procedure were explained and verbal and written consent w as obtained. The site was prepped in sterile fashion. Full sterile technique was used, including ca p, mask, sterile gloves and gown and a large sterile sheet. Hand hygiene and 2% chlorhexidine and/or betadine/alcohol prep was utilized per protocol for cutaneous antisepsis. The skin and subcutaneous tissues were infiltrated with local anesthetic solution. With fluoroscopic guidance the previously placed chest tube was exchanged for the prescribed catheter . Post procedure imaging demonstrates satisfactory position of the tube. The catheter was sutured i n place and a Percu-Stay was applied. Conscious sedation was performed with the prescribed dosages and duration as above in the presence of an independent trained radiology nurse to assist in the monitoring of the patient. EKG and oximetry remained stable throughout the procedure. The patient tolerated the procedure well and there were no complications. The patient was sent to post anesthesia recovery in stable condition. CONCLUSION: Uncomplicated chest tube exchange as above. Pravin Gambino MD on May 22, 2017 at 18:22 Board Certified Radiologist. This report was verified electronically.
[2017-05-23] VITALS (9 sets, daily range): BP systolic 99–133; BP diastolic 55–69; PULSE 65–93; RESP 16–18; TEMP 98–98.7; O2SAT 95–97
[2017-05-23] MEDS: CHLORHEXIDINE GLUCONATE 2 % 1 PACK (2 CLOTHS) TOP SCH (03:20)
[2017-05-23] MEDS: SODIUM CHLOR 0.9% 1000 ML INJ 1,000 ML IV SCH ×2 (03:20→12:37)
[2017-05-23] MEDS: LEVOTHYROXINE SODIUM 88 MCG TAB PO SCH (05:28)
--- NOTE | 2017-05-23 08:40 | RADRPT ---
EXAM DATE/TIME: 05/23/2017 08:16 [facility] COMPARISON: CT THORAX W/O CONTRAST, May 22, 2017, 10:58. CHEST SINGLE AP, May 22, 2017, 8:28. INDICATIONS : Evaluate for pneumothorax. Right sided chest tube. MEDICAL HISTORY : Hypothyroidism. Cardiovascular disease. Renal calculi. Mitral valve leak. SURGICAL HISTORY : Right chest tube. ENCOUNTER: Subsequent ACUITY: 4 - 6 days PAIN SCORE: 0/10 LOCATION: chest FINDINGS: There is a small bore chest tube in place on the right. There is no pneumothorax identified. The tube is in satisfactory position. There is a large area consolidation versus mass at the right lung base. There are diffuse chronic interstitial changes throughout both lungs. There is a small left basilar e ffusion. The heart is normal in size. The bony structures demonstrate degenerative changes but are otherwise intact. CONCLUSION: 1. Right-sided chest tube in good position without evidence of residual pneumothorax. 2. Dense consolidation versus mass at the right lung base. Kelton Garcia MD on May 23, 2017 at 8:38 Board Certified Radiologist. This report was verified electronically.
[2017-05-23] MEDS: DOCUSATE SODIUM 50 MG/SENNA 8.6 MG TAB PO SCH ×2 (08:50→20:29)
[2017-05-23] MEDS: PANTOPRAZOLE SOD 20 MG DELAYED RELEASE TAB PO SCH (08:51)
[2017-05-23] MEDS: ENALAPRIL MALEATE 10 MG TAB PO SCH (08:51)
[2017-05-23] MEDS: PRAVASTATIN SOD 40 MG TAB PO SCH (08:51)
[2017-05-23] MEDS: NIFEdipine 20 MG CAP PO SCH (08:51)
[2017-05-23] MEDS: FAMOTIDINE 20 MG/2 ML VIAL IV PUSH SCH ×2 (08:51→20:30)
[2017-05-23] MEDS: SODIUM CHLORIDE 0.9% FLUSH 10 ML FLUSH IV FLUSH SCH ×2 (08:53→20:30)
[2017-05-23] MEDS: BUDESONIDE-FORMOTEROL 160/4.5 MCG INHALER INH SCH ×2 (08:54→20:31)
[2017-05-23] MEDS: RESTASIS OPTH EACH EYE SCH ×2 (08:55→20:31)
[2017-05-23] MEDS: PT OWN MYRBETRIQ 50 MG PO SCH (08:56)
--- NOTE | 2017-05-23 13:04 | HHI.PR ---
Subjective Remarks Follow up for recurrent right sided hemothorax. Patient is currently resting well. No acute concerns. Objective Vitals Vital Signs Date Time Temp Pulse Resp B/P (MAP) Pulse Ox O2 Delivery O2 Flow Rate FiO2 05/23/17 11:17 80 05/23/17 09:43 96 Nasal Cannula 2.00 05/23/17 08:00 98.6 76 18 120/64 (82) 96 05/23/17 04:00 98.7 65 18 113/57 (75) 96 05/23/17 00:00 98.0 70 18 100/62 (75) 96 05/22/17 21:37 92 Nasal Cannula 2.00 05/22/17 20:00 98.1 97 18 95/60 (72) 93 05/22/17 20:00 87 05/22/17 16:00 98.4 87 22 119/64 (82) 92 I/O 05/22/17 05/22/17 05/22/17 05/23/17 05/23/17 05/23/17 06:59 14:59 22:59 06:59 14:59 22:59 Intake Total 1290 ml 480 ml Output Total 800 ml 400 ml 10 ml Balance 490 ml 80 ml -10 ml Intake Oral 300 ml 480 ml IV Total 990 ml Output Urine Total 800 ml 400 ml Stool Total 0 ml Chest Tube Drainage Total 0 ml 10 ml # Bowel Movements 0 Result Diagram: 05/21/17 1651 Imaging Last Impressions Chest X-Ray 05/23/17 0000 Signed Impressions: Service Date/Time: Tuesday, May 23, 2017 08:16 - CONCLUSION: 1. Right-sided chest tube in good position without evidence of residual pneumothorax. 2. Dense consolidation versus mass at the right lung base. Kelton Garcia MD Chest Tube Change 05/22/17 0000 Signed Impressions: Service Date/Time: Monday, May 22, 2017 17:06 - CONCLUSION: Uncomplicated chest tube exchange as above. Pravin Gambino MD Chest CT 05/22/17 0000 Signed Impressions: Service Date/Time: Monday, May 22, 2017 10:58 - CONCLUSION: 1. Moderate interval improvement of right-sided hemothorax following placement of small bore right-sided chest tube in the peripheral inferior right hemithorax. However, the fluid now appears loculated with separate components in the inferior lateral hemithorax and medial superior hemithorax. 2. Interval development of simple appearing small left pleural effusion. 3. Remainder of the exam is unchanged. Kelvin Puckett MD Chest Tube Insertion 05/19/17 1634 Signed Impressions: Service Date/Time: Friday, May 19, 2017 15:50 - CONCLUSION: Uncomplicated chest tube placement as above. Abiodun Zhang MD Objective Remarks GENERAL: Alert, Oriented x 3, NAD. SKIN: Warm and dry. HEAD: Normocephalic. EYES: No scleral icterus. No injection or drainage. NECK: Supple, trachea midline. No JVD or lymphadenopathy. CARDIOVASCULAR: Regular rate and rhythm without murmurs, gallops, or rubs. RESPIRATORY: Diminished right sided lung sounds, moderate air movements on the left. Chest tube in place. GASTROINTESTINAL: Abdomen soft, non-tender, nondistended. MUSCULOSKELETAL: No cyanosis, or edema. BACK: Nontender without obvious deformity. No CVA tenderness. Procedures Chest tube placement A/P Problem List: (1) Hemothorax on right ICD Code: J94.2 - Hemothorax Status: Acute (2) History of CVA (cerebrovascular accident) ICD Code: Z86.73 - Personal history of transient ischemic attack (TIA), and cerebral infarction without residual deficits (3) COPD (chronic obstructive pulmonary disease) ICD Code: J44.9 - COPD (chronic obstructive pulmonary disease) Status: Chronic Assessment and Plan Mr. Jackson is an 86 year old male with a history of multiple CVAs, COPD, recent right sided hemothorax who presented to the ED due to right flank pain. ED work up indicated moderate to large size hemothorax. Patient was admitted to the ICU and IR was consulted for chest tube placement. IR, however, plans to do the procedure on 05/19/2017 due to Plavix, aspirin patient was on for secondary prevention of stroke. - Acute recurrent right hemothorax - Currently, patient is hemodynamically stable. - CXR shows loculated fluid build-up which may explain lack of drainage. - Discussed with Cardiothoracic surgery and obtained CT chest which confirmed findings of loculated fluid. - Chest x-ray on 05/23/2017 shows dense consolidation versus mass at the right lung base. - Patient may need a VATS, pleurodesis. - Hypertension - Hyperlipidemia - Hypothyroidism - Continue Nifedipine 20mg Qday, Enalapril 20mg Qday, Pravastatin 40mg Qday - Continue Levothyroxine 88 mcg QAM. - Left knee pain - No redness, swelling. - Continue acetaminophen for Pain 1-4, Percocet for 5-10, Morphine PRN for breakthrough. - COPD - continue DuoNeb, Symbicort. - Hx of CVA - In the previous admission, I have discussed with patient at length about secondary prevention of stroke. - Previously, he was on Lovenox bridge to warfarin. At the time of previous hemothorax, he was on Lovenox. - After lengthy discussion, we decided to go with Aspirin, Plavix. - However, in light of this new hemothorax, I think it may be reasonable to continue Aspirin only for secondary prevention of stroke. Full code. SCDs. Chuck Garcia DO May 23, 2017 1:04 pm
[2017-05-23] MEDS: oxyCODONE/ACETAMINOPHEN 7.5 MG/325 MG TAB PO PRN (20:29)
[2017-05-24] VITALS (8 sets, daily range): BP systolic 106–134; BP diastolic 55–66; PULSE 67–79; RESP 16–18; TEMP 97–98.5; O2SAT 93–98
[2017-05-24] MEDS: CHLORHEXIDINE GLUCONATE 2 % 1 PACK (2 CLOTHS) TOP SCH (04:00)
[2017-05-24] MEDS: LEVOTHYROXINE SODIUM 88 MCG TAB PO SCH (06:29)
[2017-05-24] MEDS: SODIUM CHLOR 0.9% 1000 ML INJ 1,000 ML IV SCH ×2 (06:30→15:29)
[2017-05-24] MEDS: ENALAPRIL MALEATE 10 MG TAB PO SCH (10:53)
[2017-05-24] MEDS: DOCUSATE SODIUM 50 MG/SENNA 8.6 MG TAB PO SCH ×2 (10:53→20:33)
[2017-05-24] MEDS: PANTOPRAZOLE SOD 20 MG DELAYED RELEASE TAB PO SCH (10:53)
[2017-05-24] MEDS: SODIUM CHLORIDE 0.9% FLUSH 10 ML FLUSH IV FLUSH SCH ×2 (10:54→20:34)
[2017-05-24] MEDS: RESTASIS OPTH EACH EYE SCH ×2 (10:54→20:43)
[2017-05-24] MEDS: PT OWN MYRBETRIQ 50 MG PO SCH (10:54)
[2017-05-24] MEDS: BUDESONIDE-FORMOTEROL 160/4.5 MCG INHALER INH SCH ×2 (10:54→20:43)
[2017-05-24] MEDS: FAMOTIDINE 20 MG/2 ML VIAL IV PUSH SCH ×2 (10:54→20:33)
[2017-05-24] MEDS: NIFEdipine 20 MG CAP PO SCH (10:54)
[2017-05-24] MEDS: PRAVASTATIN SOD 40 MG TAB PO SCH (10:54)
--- NOTE | 2017-05-24 11:13 | HHI.PR ---
Subjective Remarks Follow up for recurrent right sided hemothorax. Patient is currently doing well. Chest tube is not draining at all. No fever or chills. Objective Vitals Vital Signs Date Time Temp Pulse Resp B/P (MAP) Pulse Ox O2 Delivery O2 Flow Rate FiO2 05/24/17 08:00 98.3 69 18 126/64 (84) 93 05/24/17 04:00 97.0 67 16 106/59 (75) 98 05/24/17 00:00 98.3 72 16 113/66 (82) 97 05/23/17 20:00 98.4 85 16 99/55 (70) 95 05/23/17 19:59 88 05/23/17 16:00 98.3 88 18 133/69 (90) 95 05/23/17 12:00 98.3 93 18 109/62 (78) 97 05/23/17 11:17 80 I/O 05/23/17 05/23/17 05/23/17 05/24/17 05/24/17 05/24/17 07:00 15:00 23:00 07:00 15:00 23:00 Intake Total 720 ml 1889 ml Output Total 10 ml 20 ml 5 ml Balance -10 ml 720 ml -20 ml 1884 ml Intake Oral 720 ml IV Total 1889 ml Chest Tube Drainage Total 10 ml 20 ml 5 ml # Voids 4 100 # Bowel Movements 1 Result Diagram: 05/21/17 1651 Imaging Last Impressions Chest X-Ray 05/23/17 0000 Signed Impressions: Service Date/Time: Tuesday, May 23, 2017 08:16 - CONCLUSION: 1. Right-sided chest tube in good position without evidence of residual pneumothorax. 2. Dense consolidation versus mass at the right lung base. Kelton Garcia MD Chest Tube Change 05/22/17 0000 Signed Impressions: Service Date/Time: Monday, May 22, 2017 17:06 - CONCLUSION: Uncomplicated chest tube exchange as above. Pravin Gambino MD Chest CT 05/22/17 0000 Signed Impressions: Service Date/Time: Monday, May 22, 2017 10:58 - CONCLUSION: 1. Moderate interval improvement of right-sided hemothorax following placement of small bore right-sided chest tube in the peripheral inferior right hemithorax. However, the fluid now appears loculated with separate components in the inferior lateral hemithorax and medial superior hemithorax. 2. Interval development of simple appearing small left pleural effusion. 3. Remainder of the exam is unchanged. Kelvin Puckett MD Chest Tube Insertion 05/19/17 1634 Signed Impressions: Service Date/Time: Friday, May 19, 2017 15:50 - CONCLUSION: Uncomplicated chest tube placement as above. Abiodun Zhang MD Objective Remarks GENERAL: Alert, Oriented x 3, NAD. SKIN: Warm and dry. HEAD: Normocephalic. EYES: No scleral icterus. No injection or drainage. NECK: Supple, trachea midline. No JVD or lymphadenopathy. CARDIOVASCULAR: Regular rate and rhythm without murmurs, gallops, or rubs. RESPIRATORY: Diminished right sided lung sounds, moderate air movements on the left. Chest tube in place. GASTROINTESTINAL: Abdomen soft, non-tender, nondistended. MUSCULOSKELETAL: No cyanosis, or edema. BACK: Nontender without obvious deformity. No CVA tenderness. Procedures Chest tube placement A/P Problem List: (1) Hemothorax on right ICD Code: J94.2 - Hemothorax Status: Acute (2) History of CVA (cerebrovascular accident) ICD Code: Z86.73 - Personal history of transient ischemic attack (TIA), and cerebral infarction without residual deficits (3) COPD (chronic obstructive pulmonary disease) ICD Code: J44.9 - COPD (chronic obstructive pulmonary disease) Status: Chronic Assessment and Plan Mr. Jackson is an 86 year old male with a history of multiple CVAs, COPD, recent right sided hemothorax who presented to the ED due to right flank pain. ED work up indicated moderate to large size hemothorax. Patient was admitted to the ICU and IR was consulted for chest tube placement. IR, however, plans to do the procedure on 05/19/2017 due to Plavix, aspirin patient was on for secondary prevention of stroke. - Acute recurrent right hemothorax - Currently, patient is hemodynamically stable. - CXR shows loculated fluid build-up which may explain lack of drainage. - Discussed with Cardiothoracic surgery and obtained CT chest which confirmed findings of loculated fluid. - Chest x-ray on 05/23/2017 shows dense consolidation versus mass at the right lung base. - Patient may need VATS, pleurodesis. We will discuss with cardiothoracic surgery on 05/25/2017. - Hypertension - Hyperlipidemia - Hypothyroidism - Continue Nifedipine 20mg Qday, Enalapril 20mg Qday, Pravastatin 40mg Qday - Continue Levothyroxine 88 mcg QAM. - Left knee pain - No redness, swelling. - Continue acetaminophen for Pain 1-4, Percocet for 5-10, Morphine PRN for breakthrough. - COPD - continue DuoNeb, Symbicort. - Hx of CVA - In the previous admission, I have discussed with patient at length about secondary prevention of stroke. - Previously, he was on Lovenox bridge to warfarin. At the time of previous hemothorax, he was on Lovenox. - After lengthy discussion, we decided to go with Aspirin, Plavix. - However, in light of this new hemothorax, I think it may be reasonable to continue Aspirin only for secondary prevention of stroke. Full code. SCDs. Chuck Gracia DO May 24, 2017 11:13 am
[2017-05-25] VITALS (9 sets, daily range): BP systolic 108–134; BP diastolic 59–80; PULSE 68–88; RESP 18–20; TEMP 97.6–98.6; O2SAT 92–96
[2017-05-25] MEDS: CHLORHEXIDINE GLUCONATE 2 % 1 PACK (2 CLOTHS) TOP SCH (04:00)
[2017-05-25] MEDS: LEVOTHYROXINE SODIUM 88 MCG TAB PO SCH (06:24)
[2017-05-25] MEDS: SODIUM CHLOR 0.9% 1000 ML INJ 1,000 ML IV SCH (06:25)
[2017-05-25] MEDS: NIFEdipine 20 MG CAP PO SCH (08:40)
[2017-05-25] MEDS: FAMOTIDINE 20 MG/2 ML VIAL IV PUSH SCH (08:40)
[2017-05-25] MEDS: ENALAPRIL MALEATE 10 MG TAB PO SCH (08:41)
[2017-05-25] MEDS: PANTOPRAZOLE SOD 20 MG DELAYED RELEASE TAB PO SCH (08:42)
[2017-05-25] MEDS: PRAVASTATIN SOD 40 MG TAB PO SCH (08:42)
[2017-05-25] MEDS: PT OWN MYRBETRIQ 50 MG PO SCH (08:43)
[2017-05-25] MEDS: SODIUM CHLORIDE 0.9% FLUSH 10 ML FLUSH IV FLUSH SCH ×3 (08:44→21:00)
[2017-05-25] MEDS: RESTASIS OPTH EACH EYE SCH ×2 (08:45→21:00)
[2017-05-25] MEDS: BUDESONIDE-FORMOTEROL 160/4.5 MCG INHALER INH SCH ×2 (08:45→22:18)
[2017-05-25] MEDS: DOCUSATE SODIUM 50 MG/SENNA 8.6 MG TAB PO SCH ×2 (09:00→21:00)
--- NOTE | 2017-05-25 11:08 | RADRPT ---
EXAM DATE/TIME: 05/25/2017 09:37 [facility] COMPARISON: CHEST SINGLE AP, May 22, 2017, 8:28. INDICATIONS : Evaluate loculated effusion and chest tube MEDICAL HISTORY : Hypothyroidism. Cardiovascular disease. Renal calculi. Mitral valve leak. SURGICAL HISTORY : chest tube ENCOUNTER: Subsequent ACUITY: 1 week PAIN SCORE: 0/10 LOCATION: Right chest FINDINGS: Small bore chest tube remains in place in the right with loculated air in the right base. Minimal bl unting left costophrenic sulcus is noted. The heart is enlarged. Pulmonary vascularity is normal. CONCLUSION: Loculated air persisting in the right base in spite of chest tube. Shaq Garcia MD FACR on May 25, 2017 at 10:46 Board Certified Radiologist. This report was verified electronically.
--- NOTE | 2017-05-25 13:36 | HHI.PR ---
Subjective Remarks Follow up for recurrent right sided hemothorax. Patient is currently sitting in his chair. Denies any fever or chills. Chest tube is not draining at all. Objective Vitals Vital Signs Date Time Temp Pulse Resp B/P (MAP) Pulse Ox O2 Delivery O2 Flow Rate FiO2 05/25/17 12:00 98.0 81 20 128/70 (89) 96 05/25/17 09:54 Nasal Cannula 2.00 05/25/17 08:08 94 Nasal Cannula 2.00 05/25/17 08:05 73 05/25/17 08:00 97.7 71 18 134/80 (98) 95 05/25/17 04:00 97.8 68 20 112/74 (87) 92 05/25/17 04:00 Nasal Cannula 2.00 05/25/17 00:00 Nasal Cannula 2.00 05/25/17 00:00 97.6 78 20 108/59 (75) 93 05/24/17 20:22 74 05/24/17 20:00 98.2 76 18 114/55 (74) 93 05/24/17 20:00 Nasal Cannula 2.00 05/24/17 16:00 98.5 79 18 117/59 (78) 94 I/O 05/24/17 05/24/17 05/24/17 05/25/17 05/25/17 05/25/17 07:00 15:00 23:00 07:00 15:00 23:00 Intake Total 1889 ml 240 ml 750 ml 2243 ml Output Total 5 ml 450 ml 5 ml 1410 ml Balance 1884 ml -210 ml 745 ml 833 ml Intake Oral 240 ml 120 ml IV Total 1889 ml 750 ml 2123 ml Output Urine Total 450 ml 1400 ml Chest Tube Drainage Total 5 ml 5 ml 10 ml # Voids 100 # Bowel Movements 1 0 Result Diagram: 05/21/17 1651 Imaging Last Impressions Chest X-Ray 05/23/17 0000 Signed Impressions: Service Date/Time: Tuesday, May 23, 2017 08:16 - CONCLUSION: 1. Right-sided chest tube in good position without evidence of residual pneumothorax. 2. Dense consolidation versus mass at the right lung base. Kelton Garcia MD Chest Tube Change 05/22/17 0000 Signed Impressions: Service Date/Time: Monday, May 22, 2017 17:06 - CONCLUSION: Uncomplicated chest tube exchange as above. Pravin Gambino MD Chest CT 05/22/17 0000 Signed Impressions: Service Date/Time: Monday, May 22, 2017 10:58 - CONCLUSION: 1. Moderate interval improvement of right-sided hemothorax following placement of small bore right-sided chest tube in the peripheral inferior right hemithorax. However, the fluid now appears loculated with separate components in the inferior lateral hemithorax and medial superior hemithorax. 2. Interval development of simple appearing small left pleural effusion. 3. Remainder of the exam is unchanged. Kelvin Puckett MD Chest Tube Insertion 05/19/17 1634 Signed Impressions: Service Date/Time: Friday, May 19, 2017 15:50 - CONCLUSION: Uncomplicated chest tube placement as above. Abiodun Zhang MD Objective Remarks GENERAL: Alert, Oriented x 3, NAD. SKIN: Warm and dry. HEAD: Normocephalic. EYES: No scleral icterus. No injection or drainage. NECK: Supple, trachea midline. No JVD or lymphadenopathy. CARDIOVASCULAR: Regular rate and rhythm without murmurs, gallops, or rubs. RESPIRATORY: Diminished right sided lung sounds, moderate air movements on the left. Chest tube in place. GASTROINTESTINAL: Abdomen soft, non-tender, nondistended. MUSCULOSKELETAL: No cyanosis, or edema. BACK: Nontender without obvious deformity. No CVA tenderness. Procedures Chest tube placement A/P Problem List: (1) Hemothorax on right ICD Code: J94.2 - Hemothorax Status: Acute (2) History of CVA (cerebrovascular accident) ICD Code: Z86.73 - Personal history of transient ischemic attack (TIA), and cerebral infarction without residual deficits (3) COPD (chronic obstructive pulmonary disease) ICD Code: J44.9 - COPD (chronic obstructive pulmonary disease) Status: Chronic Assessment and Plan Mr. Jackson is an 86 year old male with a history of multiple CVAs, COPD, recent right sided hemothorax who presented to the ED due to right flank pain. ED work up indicated moderate to large size hemothorax. Patient was admitted to the ICU and IR was consulted for chest tube placement. IR, however, plans to do the procedure on 05/19/2017 due to Plavix, aspirin patient was on for secondary prevention of stroke. - Acute recurrent right hemothorax - Currently, patient is hemodynamically stable. - CXR shows loculated fluid build-up which may explain lack of drainage. - Discussed with Cardiothoracic surgery and obtained CT chest which confirmed findings of loculated fluid. - Chest x-ray on 05/23/2017 shows dense consolidation versus mass at the right lung base. - Discussed with cardiothoracic surgery. Patient will likely undergo surgical intervention on 05/26/2017. - Hypertension - Hyperlipidemia - Hypothyroidism - Continue Nifedipine 20mg Qday, Enalapril 20mg Qday, Pravastatin 40mg Qday - Continue Levothyroxine 88 mcg QAM. - Left knee pain - No redness, swelling. - Continue acetaminophen for Pain 1-4, Percocet for 5-10, Morphine PRN for breakthrough. - COPD - continue DuoNeb, Symbicort. - Hx of CVA - In the previous admission, I have discussed with patient at length about secondary prevention of stroke. - Previously, he was on Lovenox bridge to warfarin. At the time of previous hemothorax, he was on Lovenox. - After lengthy discussion, we decided to go with Aspirin, Plavix. - However, in light of this new hemothorax, I think it may be reasonable to continue Aspirin only for secondary prevention of stroke. Full code. SCDs. Chuck Garcia DO May 25, 2017 1:36 pm
--- NOTE | 2017-05-25 14:56 | PD.CAR.PN ---
CVT Progress Note Subjective/Hospital Course: Patient known to Dr Potts from prior admission. He had a right pleural effusion which developed with anticoagulation. This was successfully drained by IR and was consistent with a hemothorax. He developed right flank pain and again has a moderate to large right pleural effusion. He does not have a drop in Hgb as he had previously. He is stable currently. 05/19 awaiting placement of pigtail drainage of recurrent large right pleural effusion 05/22 cxr showing redevelopment of loculated effusion will check CT chest on nasal cannula continue pulm toileting 05/25 ct chest noted, still with loculated effusion no air leak in chest tube will schedule for Right VATS , drainage of loculated effusion pleurodesis in am pt agreeable to proceed Objective: GENERAL: SKIN: Warm and dry. HEAD: Normocephalic. EYES: No scleral icterus. No injection or drainage. NECK: Supple, trachea midline. No JVD or lymphadenopathy. CARDIOVASCULAR: Regular rate and rhythm without murmurs, gallops, or rubs. RESPIRATORY: Breath sounds equal bilaterally. No accessory muscle use. right pig tail cath in place , no air leak GASTROINTESTINAL: Abdomen soft, non-tender, nondistended. MUSCULOSKELETAL: No cyanosis, or edema. BACK: Nontender without obvious deformity. No CVA tenderness. Vital Signs Date Time Temp Pulse Resp B/P (MAP) Pulse Ox O2 Delivery O2 Flow Rate FiO2 05/25/17 12:00 98.0 81 20 128/70 (89) 96 05/25/17 09:54 Nasal Cannula 2.00 05/25/17 08:08 94 Nasal Cannula 2.00 05/25/17 08:05 73 05/25/17 08:00 97.7 71 18 134/80 (98) 95 05/25/17 04:00 97.8 68 20 112/74 (87) 92 05/25/17 04:00 Nasal Cannula 2.00 05/25/17 00:00 Nasal Cannula 2.00 05/25/17 00:00 97.6 78 20 108/59 (75) 93 05/24/17 20:22 74 05/24/17 20:00 98.2 76 18 114/55 (74) 93 05/24/17 20:00 Nasal Cannula 2.00 05/24/17 16:00 98.5 79 18 117/59 (78) 94 Result Diagram: 05/21/17 1651 Telemetry: NSR (1) recuurent right pleural effusion Plan: s/p pigtail cath placement reaccumulating loculated effusion Right VATS, pleurodesis , drainage of loculated effusion in am Princess Nolasco May 25, 2017 14:56
[2017-05-25] MEDS ORDERED: SODIUM CHLORIDE 0.9% FLUSH 10 ML FLUSH IV FLUSH PRN (15:00)
[2017-05-25] MEDS ORDERED: VANCOMYCIN INJ 1,250 MG in SODIUM CHLOR 0.9% 250 ML INJ 250 ML IV SCH (15:00)
[2017-05-25] MEDS ORDERED: CHLORHEXIDINE GLUCONATE 4% SOLN 120 ML BTL TOPICAL SCH (15:00)
[2017-05-25] MEDS ORDERED: VANCOMYCIN INJ 1,000 MG in SODIUM CHLORIDE 0.9% IRR BTL 1,000 ML IRRIGATION SCH (15:00)
[2017-05-25 16:47] LABS: PROTHROMBIN TIME - PATIENT 11.3 SEC (9.8-11.6)
[2017-05-25 23:18] LABS: BLOOD, URINE NEG (NEG); COMMENT (UR) CULT NOT INDICATED; CULTURE IF INDICATED CULT NOT INDICATED; GLUCOSE,URINE NEG (NEG); KETONE, URINE NEG (NEG); NITRITE,URINE NEG (NEG); URINE COLOR YELLOW (YELLW/STRAW)
[2017-05-26] VITALS (12 sets, daily range): BP systolic 93–167; BP diastolic 53–84; PULSE 68–106; RESP 16–20; TEMP 97.3–98.8; O2SAT 92–97
[2017-05-26] MEDS: ALPRAZolam 0.5 MG TAB PO PRN (02:27)
[2017-05-26] MEDS: CHLORHEXIDINE GLUCONATE 2 % 1 PACK (2 CLOTHS) TOP SCH (04:00)
[2017-05-26] MEDS: LEVOTHYROXINE SODIUM 88 MCG TAB PO SCH (05:52)
[2017-05-26] MEDS: PT OWN MYRBETRIQ 50 MG PO SCH (09:00)
[2017-05-26] MEDS: SODIUM CHLORIDE 0.9% FLUSH 10 ML FLUSH IV FLUSH SCH ×3 (09:00→20:46)
[2017-05-26] MEDS: RESTASIS OPTH EACH EYE SCH ×2 (09:00→20:50)
[2017-05-26] MEDS: DOCUSATE SODIUM 50 MG/SENNA 8.6 MG TAB PO SCH ×2 (09:00→20:45)
[2017-05-26] MEDS: ENALAPRIL MALEATE 10 MG TAB PO SCH (09:06)
[2017-05-26] MEDS: PANTOPRAZOLE SOD 20 MG DELAYED RELEASE TAB PO SCH (09:06)
[2017-05-26] MEDS: PRAVASTATIN SOD 40 MG TAB PO SCH (09:06)
[2017-05-26] MEDS: NIFEdipine 20 MG CAP PO SCH (09:06)
[2017-05-26] MEDS: BUDESONIDE-FORMOTEROL 160/4.5 MCG INHALER INH SCH ×2 (09:08→20:49)
[2017-05-26] MEDS ORDERED: BUPIVACAINE HCL PF 0.5% 30 ML VIAL ONE (11:48)
[2017-05-26] MEDS ORDERED: GLYCOPYRROLATE 1 MG/5 ML SYRINGE IV PUSH ONE (12:00)
[2017-05-26] MEDS ORDERED: LIDOCAINE HCL 1% PF 5 ML AMPULE OTHER ONE (12:00)
[2017-05-26] MEDS ORDERED: ePHEDrine/NS 25 MG/5 ML SYR IV ONE (12:00)
[2017-05-26] MEDS ORDERED: NORMOSOL R INJ 1,000 ML IV ONE (12:00)
[2017-05-26] MEDS ORDERED: ROCURONIUM INJ 50 MG/5 ML VIAL IV ONE (12:00)
[2017-05-26] MEDS ORDERED: ONDANSETRON HCL 4 MG/2 ML VIAL IV PUSH ONE (12:00)
[2017-05-26] MEDS ORDERED: PHENYLEPHRINE HCL 10 MG/ML VIAL IV ONE ×2 (12:00)
[2017-05-26] MEDS ORDERED: CALCIUM GLUCONATE 10% 1 GM/10 ML VIAL IV ONE (12:00)
[2017-05-26] MEDS ORDERED: PROPOFOL 200 MG/20 ML AMP IV ONE (12:00)
[2017-05-26] MEDS ORDERED: LACTATED RINGER'S 1000 ML INJ 1,000 ML IV ONE (12:00)
[2017-05-26] MEDS ORDERED: NEOSTIGMINE 3 MG/3 ML SYR IV ONE (12:00)
[2017-05-26] MEDS ORDERED: PHENYLEPH/NS 1000 MCG/10 ML SYR IV ONE (12:00)
[2017-05-26] MEDS ORDERED: ACETAMINOPHEN/HYDROcodone 325 MG/5 MG TAB PO PRN (16:15)
[2017-05-26] MEDS ORDERED: ONDANSETRON HCL 4 MG/2 ML VIAL IV PUSH PRN (16:15)
[2017-05-26] MEDS ORDERED: Post-op Orders (for Pharmacy) MISC OTHER ONE (16:15)
[2017-05-26] MEDS ORDERED: RESP: ALBUTEROL 2.5 MG/3 ML NEB (PRN) NEB (16:15)
[2017-05-26] MEDS ORDERED: MAGNESIUM HYDROXIDE SUSP 30 ML CUP PO PRN (16:15)
[2017-05-26] MEDS ORDERED: ACETAMINOPHEN 325 MG TAB PO PRN (16:15)
--- NOTE | 2017-05-26 16:25 | PD.OP ---
cc: Rebekah Potts MD Operative Report Date of Surgery: May 26, 2017 Preoperative Diagnosis: (1) Loculated pleural effusion Postoperative Diagnosis: same Procedure: Right VATS exploration to drain loculated pleural effusion, lysis of adhesions Anesthesia: Dr. Milton Surgeon: Rebekah Potts [employer] Management Specialist(s): ABHISHEK Jose Operation and Findings: After adequate general anesthesia the patient was placed in the left lateral decubitus position and the right chest was prepped and draped in usual manner. A small posterior port incision was performed and electrocautery was used to obtain hemostasis and carry the dissection down through the fascia. A 22G seeker needle was used initially posteriorly and serous fluid was aspirated. A port was initially placed posteriorly followed by the camera. Visualization was somewhat difficult. Overall, ~200 ml of serous effusion was drained. A second anterior port was positioned at ~6th intercostal space. Blunt dissection was used to mobilize the lower lobe and drain as much of the effusion as possible. Exploration of the right hemithorax was significant for friable lung tissue with multiple adhesions between the lung and chest wall. Air leaks were noted on re-expansion and were controlled with a surgical stapler and and aerosilized Evicel. A third lateral port was necessary to position the stapler. A 28F straight and 32F right angle chest tube were positioned secured with a 0-silk suture. The subcutaneous tissue of the ports was approximated running 2-0 Vicryl suture and the skin was approximated using running 4-0 Monocryl subcuticular stitch. All sponge and history counts were correct at the close the procedure and the patient was transferred to the PACU for recovery purposes. Rebekah Potts MD May 26, 2017 16:25
[2017-05-26] MEDS ORDERED: *MEPERIDINE 25 MG INJ VIAL PERIprocedural Use ONLY ONE (16:52)
--- NOTE | 2017-05-26 17:20 | RADRPT ---
EXAM DATE/TIME: 05/26/2017 16:44 [facility] COMPARISON: CHEST SINGLE AP, May 25, 2017, 9:37. INDICATIONS : Post thoracotomy. MEDICAL HISTORY : None. SURGICAL HISTORY : None. ENCOUNTER: Subsequent ACUITY: 3 weeks PAIN SCORE: 0/10 LOCATION: Bilateral chest FINDINGS: Small caliber right-sided chest tube has been removed and replaced with 2 large thoracostomy tubes. O ne extends along the lateral pleural margin into the apex. The second is coiled in the right lung bas e. There is no significant pneumothorax. Significant airspace disease remains evident in both lung bases. Heart and mediastinal structures are stable. CONCLUSION: 1. Interval placement of 2 large bore right-sided thoracostomy tubes. No evidence of pneumothorax. 2. Status post removal of small bore right-sided chest tube. 3. Persistent bibasilar airspace disease Len Young MD on May 26, 2017 at 17:17 Board Certified Radiologist. This report was verified electronically.
[2017-05-26] MEDS: oxyCODONE/ACETAMINOPHEN 7.5 MG/325 MG TAB PO PRN (20:45)
[2017-05-26] MEDS: PANTOPRAZOLE SOD 40 MG DELAYED RELEASE TAB PO SCH (20:45)
[2017-05-26] MEDS: DOCUSATE CALCIUM 240 MG CAP PO SCH (20:46)
--- NOTE | 2017-05-26 20:49 | HHI.PR ---
Subjective Remarks Follow up for recurrent right sided hemothorax. Patient was seen around 10: 30AM. Resting in bed, no acute concerns. He is waiting for surgery this morning. Objective Vitals Vital Signs Date Time Temp Pulse Resp B/P (MAP) Pulse Ox O2 Delivery O2 Flow Rate FiO2 05/26/17 18:00 85 05/26/17 17:37 82 05/26/17 17:37 97.9 82 20 104/59 (74) 92 05/26/17 17:15 79 19 95/54 (68) 97 Nasal Cannula 5 05/26/17 17:00 77 19 103/60 (74) 97 Nasal Cannula 5 05/26/17 16:45 89 19 102/57 (72) 93 Nasal Cannula 5 05/26/17 16:37 97.6 88 19 89/55 (66) 92 Nasal Cannula 5 05/26/17 12:00 97.3 75 20 102/56 (71) 92 05/26/17 09:39 Nasal Cannula 2.00 05/26/17 08:00 98.3 68 18 125/72 (89) 96 05/26/17 08:00 106 05/26/17 04:00 98.4 84 16 167/84 (111) 97 05/26/17 00:00 97.9 82 18 118/67 (84) 94 05/25/17 22:20 Room Air I/O 05/25/17 05/25/17 05/25/17 05/26/17 05/26/17 05/26/17 07:00 15:00 23:00 07:00 15:00 23:00 Intake Total 2243 ml 803 ml 720 ml 0 ml 1600 ml Output Total 1410 ml 1500 ml 1450 ml 840 ml Balance 833 ml 803 ml -780 ml -1450 ml 760 ml Intake Oral 120 ml 720 ml 0 ml IV Total 2123 ml 803 ml 1600 ml Output Urine Total 1400 ml 1500 ml 1450 ml 450 ml Chest Tube Drainage Total 10 ml 0 ml 240 ml Estimated Blood Loss 150 ml # Bowel Movements 0 6 0 Objective Remarks GENERAL: Alert, Oriented x 3, NAD. SKIN: Warm and dry. HEAD: Normocephalic. EYES: No scleral icterus. No injection or drainage. NECK: Supple, trachea midline. No JVD or lymphadenopathy. CARDIOVASCULAR: Regular rate and rhythm without murmurs, gallops, or rubs. RESPIRATORY: Diminished right sided lung sounds, moderate air movements on the left. Chest tube in place. GASTROINTESTINAL: Abdomen soft, non-tender, nondistended. MUSCULOSKELETAL: No cyanosis, or edema. BACK: Nontender without obvious deformity. No CVA tenderness. Procedures Chest tube placement A/P Problem List: (1) Hemothorax on right ICD Code: J94.2 - Hemothorax Status: Acute (2) History of CVA (cerebrovascular accident) ICD Code: Z86.73 - Personal history of transient ischemic attack (TIA), and cerebral infarction without residual deficits (3) COPD (chronic obstructive pulmonary disease) ICD Code: J44.9 - COPD (chronic obstructive pulmonary disease) Status: Chronic Assessment and Plan Mr. Jackson is an 86 year old male with a history of multiple CVAs, COPD, recent right sided hemothorax who presented to the ED due to right flank pain. ED work up indicated moderate to large size hemothorax. Patient was admitted to the ICU and IR was consulted for chest tube placement. IR, however, plans to do the procedure on 05/19/2017 due to Plavix, aspirin patient was on for secondary prevention of stroke. - Acute recurrent right hemothorax - Currently, patient is hemodynamically stable. - CXR shows loculated fluid build-up which may explain lack of drainage. - Discussed with Cardiothoracic surgery and obtained CT chest which confirmed findings of loculated fluid. - Chest x-ray on 05/23/2017 shows dense consolidation versus mass at the right lung base. - surgical intervention today 05/26/2017. - Hypertension - Hyperlipidemia - Hypothyroidism - Continue Nifedipine 20mg Qday, Enalapril 20mg Qday, Pravastatin 40mg Qday - Continue Levothyroxine 88 mcg QAM. - Left knee pain - No redness, swelling. - Continue acetaminophen for Pain 1-4, Percocet for 5-10, Morphine PRN for breakthrough. - COPD - continue DuoNeb, Symbicort. - Hx of CVA - In the previous admission, I have discussed with patient at length about secondary prevention of stroke. - Previously, he was on Lovenox bridge to warfarin. At the time of previous hemothorax, he was on Lovenox. - After lengthy discussion, we decided to go with Aspirin, Plavix. - However, in light of this new hemothorax, I think it may be reasonable to continue Aspirin only for secondary prevention of stroke. Full code. SCDs. Discharge plan: Depending on post surgical recovery and CT surgery's recommendations. Chuck Garcia DO May 26, 2017 20:49
[2017-05-27] VITALS (30 sets, daily range): BP systolic 82–118; BP diastolic 53–70; PULSE 64–103; RESP 17–19; TEMP 97.4–98.4; O2SAT 95–98
[2017-05-27] MEDS: ALPRAZolam 0.5 MG TAB PO PRN (03:32)
[2017-05-27] MEDS: VANCOMYCIN INJ 1,000 MG in SODIUM CHLOR 0.9% 250 ML INJ 250 ML IV SCH ×2 (03:37→13:38)
[2017-05-27] MEDS: CHLORHEXIDINE GLUCONATE 2 % 1 PACK (2 CLOTHS) TOP SCH (03:37)
--- NOTE | 2017-05-27 04:24 | RADRPT ---
EXAM DATE/TIME: 05/27/2017 03:52 [facility] COMPARISON: CHEST SINGLE AP, May 25, 2017, 9:37. CHEST EXPIRATION ONLY, May 23, 2017, 8:16. CHEST SINGL E AP, May 26, 2017, 16:44. INDICATIONS : Short of breath. MEDICAL HISTORY : None. SURGICAL HISTORY : None. ENCOUNTER: Subsequent ACUITY: 2 weeks PAIN SCORE: 0/10 LOCATION: Bilateral chest FINDINGS: Right thoracostomy tubes remain in place. There is persistent pleural-parenchymal opacity at the righ t lung base. No definite pneumothorax. Stable pleural-parenchymal opacity at the left lung base. Card iac contours are unchanged. CONCLUSION: No significant interval change Pravin Gambino MD on May 27, 2017 at 4:17 Board Certified Radiologist. This report was verified electronically.
[2017-05-27 05:26] LABS: AUTOMATED NEUTROPHIL # 8.1 TH/MM3 (1.8-7.7); BASOPHIL % 0.3 % (0.0-2.0); EOSINOPHIL % 0.1 % (0.0-4.0); HEMATOCRIT 36.4 % (39.0-51.0); HEMO FLAGS DIFF FINAL; LYMPH % 5.6 % (9.0-44.0); LYMPHOCYTE # 0.5 TH/MM3 (1.0-4.8); MEAN CELL VOLUME 99.6 FL (80.0-100.0); MEAN CORPUSCULAR HEMOGLOBIN 32.5 PG (27.0-34.0); MEAN CORPUSCULAR HGB CONC 32.6 % (32.0-36.0); MONO % 9.8 % (0.0-8.0); NEUT % 84.2 % (16.0-70.0); PLATELET COUNT 244 TH/MM3 (150-450); RED BLOOD COUNT 3.65 MIL/MM3 (4.50-5.90); WHITE BLOOD COUNT 9.6 TH/MM3 (4.0-11.0)
[2017-05-27] MEDS: LEVOTHYROXINE SODIUM 88 MCG TAB PO SCH (05:39)
[2017-05-27 05:50] LABS: BICARBONATE 26.9 MEQ/L (21.0-32.0); POTASSIUM 4.6 MEQ/L (3.5-5.1)
[2017-05-27] MEDS ORDERED: SODIUM CHLOR 0.9% 250 ML INJ 250 ML IV ONE (07:30)
[2017-05-27] MEDS: DOCUSATE SODIUM 50 MG/SENNA 8.6 MG TAB PO SCH ×2 (08:29→21:00)
[2017-05-27] MEDS: PRAVASTATIN SOD 40 MG TAB PO SCH (08:29)
[2017-05-27] MEDS: PANTOPRAZOLE SOD 20 MG DELAYED RELEASE TAB PO SCH (08:29)
[2017-05-27] MEDS: BUDESONIDE-FORMOTEROL 160/4.5 MCG INHALER INH SCH ×2 (08:29→21:01)
[2017-05-27] MEDS: RESTASIS OPTH EACH EYE SCH ×2 (08:30→21:00)
[2017-05-27] MEDS: SODIUM CHLORIDE 0.9% FLUSH 10 ML FLUSH IV FLUSH SCH ×2 (08:30→21:00)
[2017-05-27] MEDS: ENALAPRIL MALEATE 10 MG TAB PO SCH (09:00)
[2017-05-27] MEDS: PT OWN MYRBETRIQ 50 MG PO SCH (09:00)
[2017-05-27] MEDS: NIFEdipine 20 MG CAP PO SCH (09:00)
[2017-05-27] MEDS ORDERED: SODIUM CHLORID 0.9% 500 ML INJ 500 ML IV ONE (10:00)
[2017-05-27] MEDS: SODIUM CHLOR 0.9% 1000 ML INJ 1,000 ML IV SCH ×2 (10:28→23:37)
--- NOTE | 2017-05-27 10:30 | HHI.PR ---
Subjective Remarks Follow-up hemothorax. I was notified by nursing that the patient has had low blood pressure this morning. He has also had decreased urine output. Bladder scan was done and showed only 30 mL residual. Patient denies chest pain, dyspnea , coughing. States that he feels better. Objective Vitals Vital Signs Date Time Temp Pulse Resp B/P (MAP) Pulse Ox O2 Delivery O2 Flow Rate FiO2 05/27/17 09:00 87 05/27/17 08:40 82/53 (63) 05/27/17 08:00 76 05/27/17 07:45 97.4 77 18 100/56 (71) 95 05/27/17 07:15 97 Nasal Cannula 2.00 05/27/17 07:00 64 05/27/17 06:13 67 05/27/17 05:10 74 05/27/17 04:16 72 05/27/17 03:15 73 05/27/17 03:02 97.6 88 17 93/64 (74) 95 05/27/17 02:12 73 05/27/17 01:11 81 05/27/17 00:40 76 05/26/17 23:40 82 05/26/17 23:01 98.3 88 19 93/53 (66) 97 05/26/17 22:02 84 05/26/17 20:00 70 05/26/17 19:25 98.8 72 20 111/59 (76) 96 05/26/17 19:25 97 Nasal Cannula 3.00 05/26/17 19:00 68 05/26/17 18:00 85 05/26/17 17:37 82 05/26/17 17:37 97.9 82 20 104/59 (74) 92 05/26/17 17:15 79 19 95/54 (68) 97 Nasal Cannula 5 05/26/17 17:00 77 19 103/60 (74) 97 Nasal Cannula 5 05/26/17 16:45 89 19 102/57 (72) 93 Nasal Cannula 5 05/26/17 16:37 97.6 88 19 89/55 (66) 92 Nasal Cannula 5 05/26/17 12:00 97.3 75 20 102/56 (71) 92 I/O 05/26/17 05/26/17 05/26/17 05/27/17 05/27/17 05/27/17 06:59 14:59 22:59 06:59 14:59 22:59 Intake Total 0 ml 1600 ml 720 ml Output Total 1450 ml 840 ml 455 ml Balance -1450 ml 760 ml 265 ml Intake Oral 0 ml 720 ml IV Total 1600 ml Output Urine Total 1450 ml 450 ml 225 ml Chest Tube Drainage Total 240 ml 230 ml Estimated Blood Loss 150 ml Bladder Scan Volume Amount 20 ml # Bowel Movements 0 Result Diagram: 05/27/17 0442 05/27/17 0442 Imaging Last Impressions Chest X-Ray 05/27/17 0500 Signed Impressions: Service Date/Time: Saturday, May 27, 2017 03:52 - CONCLUSION: No significant interval change Pravin Gambino MD Chest Tube Change 05/22/17 0000 Signed Impressions: Service Date/Time: Monday, May 22, 2017 17:06 - CONCLUSION: Uncomplicated chest tube exchange as above. Pravin Gambino MD Chest CT 05/22/17 0000 Signed Impressions: Service Date/Time: Monday, May 22, 2017 10:58 - CONCLUSION: 1. Moderate interval improvement of right-sided hemothorax following placement of small bore right-sided chest tube in the peripheral inferior right hemithorax. However, the fluid now appears loculated with separate components in the inferior lateral hemithorax and medial superior hemithorax. 2. Interval development of simple appearing small left pleural effusion. 3. Remainder of the exam is unchanged. Kelvin Puckett MD Chest Tube Insertion 05/19/17 1634 Signed Impressions: Service Date/Time: Friday, May 19, 2017 15:50 - CONCLUSION: Uncomplicated chest tube placement as above. Abiodun Zhang MD Objective Remarks General: Elderly male in no acute distress. Sitting up on the edge of the bed. Hard of hearing. Heart: Regular rate and rhythm. No murmur. Lungs: Clear to auscultation bilaterally. No wheezes, rales, or rhonchi. Breathing is nonlabored. Abdomen: Soft, nontender, nondistended. Extremities: No lower extremity edema. Psych: Alert and oriented. Procedures Chest tube placement Urinary Catheter: No Vascular Central Line Catheter: No A/P Problem List: (1) Hemothorax on right ICD Code: J94.2 - Hemothorax Status: Acute (2) History of CVA (cerebrovascular accident) ICD Code: Z86.73 - Personal history of transient ischemic attack (TIA), and cerebral infarction without residual deficits (3) COPD (chronic obstructive pulmonary disease) ICD Code: J44.9 - COPD (chronic obstructive pulmonary disease) Status: Chronic (4) Hypotension ICD Code: I95.9 - Hypotension, unspecified Assessment and Plan 1. Recurrent right hemothorax: Appreciate cardiothoracic surgery recommendations. Status post video-assisted thoracoscopy on 05/26/17. 2. Hypotension: Blood pressure has been low. Hold parameters added for blood pressure medications. Received fluid bolus of 250 mL. We'll add another 500 mL fluid bolus and continuous IV fluids after that. 3. Decreased urine output: Likely secondary to hypotension. Monitor closely. 4. Hyperlipidemia: Continue statin. 5. Hypothyroidism: Continue Synthroid. 6. COPD: DuoNeb, Symbicort. 7. History of CVA: Continue aspirin for secondary prevention of stroke. Avoid Lovenox, warfarin, Plavix as patient has developed hemothorax while on those medications. 8. DVT prophylaxis: AVE [facility]. Avoid chemical prophylaxis secondary to hemothorax. Humberto Leos MD May 27, 2017 10:30
[2017-05-27] MEDS ORDERED: ALPRAZolam 0.25 MG TAB PO PRN (11:45)
[2017-05-27 15:52] LABS: BACTERIA, URINE RARE /hpf; BLOOD, URINE NEG (NEG); GLUCOSE,URINE NEG (NEG); HYALINE CAST, URINE 6 /lpf (RARE); KETONE, URINE NEG (NEG); MUCUS URINE FEW /lpf (OCC); NITRITE,URINE NEG (NEG); PH, URINE 5.5 (5.0-8.5); SQUAMOUS EPITHELIAL CELL URINE 1 /hpf (0-5); URINE COLOR YELLOW (YELLW/STRAW)
[2017-05-27 15:56] LABS: COMMENT (UR) CATH-CULTURE IND; CULTURE IF INDICATED CATH CULTURE IND
--- NOTE | 2017-05-27 16:13 | PD.CAR.PN ---
CVT Progress Note Subjective/Hospital Course: Patient known to Dr Potts from prior admission. He had a right pleural effusion which developed with anticoagulation. This was successfully drained by IR and was consistent with a hemothorax. He developed right flank pain and again has a moderate to large right pleural effusion. He does not have a drop in Hgb as he had previously. He is stable currently. 05/19 awaiting placement of pigtail drainage of recurrent large right pleural effusion 05/22 cxr showing redevelopment of loculated effusion will check CT chest on nasal cannula continue pulm toileting 05/25 ct chest noted, still with loculated effusion no air leak in chest tube will schedule for Right VATS , drainage of loculated effusion pleurodesis in am pt agreeable to proceed 05/26 surgery: Right VATS exploration to drain loculated pleural effusion, lysis of adhesions 05/27 pt hypotensive this am , given IV fluid bolus with some improvement recent narcotics and xanax last pm, doses decreased urinary retention , hall replaced UA pending, may need flomax , wait until BP improves OOB as tolerated , pulm toileting Objective: GENERAL: SKIN: Warm and dry. HEAD: Normocephalic. EYES: No scleral icterus. No injection or drainage. NECK: Supple, trachea midline. No JVD or lymphadenopathy. CARDIOVASCULAR: Regular rate and rhythm without murmurs, gallops, or rubs. RESPIRATORY: Breath sounds equal bilaterally. No accessory muscle use. chest tube x 2 right lateral chest wall , no air leak noted / drained 230cc/ 12 hrs GASTROINTESTINAL: Abdomen soft, non-tender, nondistended. MUSCULOSKELETAL: No cyanosis, or edema. BACK: Nontender without obvious deformity. No CVA tenderness. Vital Signs Date Time Temp Pulse Resp B/P (MAP) Pulse Ox O2 Delivery O2 Flow Rate FiO2 05/27/17 14:00 103 05/27/17 13:00 102 05/27/17 12:00 98 05/27/17 11:45 97.6 75 18 93/54 (67) 98 05/27/17 11:00 65 05/27/17 10:00 92 05/27/17 09:00 87 05/27/17 08:40 82/53 (63) 05/27/17 08:00 76 05/27/17 07:45 97.4 77 18 100/56 (71) 95 10/11/17 07:15 97 Nasal Cannula 2.00 05/27/17 07:00 64 05/27/17 06:13 67 05/27/17 05:10 74 05/27/17 04:16 72 05/27/17 03:15 73 05/27/17 03:02 97.6 88 17 93/64 (74) 95 05/27/17 02:12 73 05/27/17 01:11 81 05/27/17 00:40 76 05/26/17 23:40 82 05/26/17 23:01 98.3 88 19 93/53 (66) 97 05/26/17 22:02 84 05/26/17 20:00 70 05/26/17 19:25 98.8 72 20 111/59 (76) 96 05/26/17 19:25 97 Nasal Cannula 3.00 05/26/17 19:00 68 05/26/17 18:00 85 05/26/17 17:37 82 05/26/17 17:37 97.9 82 20 104/59 (74) 92 05/26/17 17:15 79 19 95/54 (68) 97 Nasal Cannula 5 05/26/17 17:00 77 19 103/60 (74) 97 Nasal Cannula 5 05/26/17 16:45 89 19 102/57 (72) 93 Nasal Cannula 5 05/26/17 16:37 97.6 88 19 89/55 (66) 92 Nasal Cannula 5 Labs: Laboratory Tests Test 05/27/17 04:42 05/27/17 14:50 White Blood Count 9.6 TH/MM3 (4.0-11.0) Red Blood Count 3.65 MIL/MM3 (4.50-5.90) Hemoglobin 11.9 GM/DL (13.0-17.0) Hematocrit 36.4 % (39.0-51.0) Mean Corpuscular Volume 99.6 FL (80.0-100.0) Mean Corpuscular Hemoglobin 32.5 PG (27.0-34.0) Mean Corpuscular Hemoglobin Concent 32.6 % (32.0-36.0) Red Cell Distribution Width 14.0 % (11.6-17.2) Platelet Count 244 TH/MM3 (150-450) Mean Platelet Volume 6.9 FL (7.0-11.0) Neutrophils (%) (Auto) 84.2 % (16.0-70.0) Lymphocytes (%) (Auto) 5.6 % (9.0-44.0) Monocytes (%) (Auto) 9.8 % (0.0-8.0) Eosinophils (%) (Auto) 0.1 % (0.0-4.0) Basophils (%) (Auto) 0.3 % (0.0-2.0) Neutrophils # (Auto) 8.1 TH/MM3 (1.8-7.7) Lymphocytes # (Auto) 0.5 TH/MM3 (1.0-4.8) Monocytes # (Auto) 0.9 TH/MM3 (0-0.9) Eosinophils # (Auto) 0.0 TH/MM3 (0-0.4) Basophils # (Auto) 0.0 TH/MM3 (0-0.2) CBC Comment DIFF FINAL Differential Comment Blood Urea Nitrogen 15 MG/DL (7-18) Creatinine 0.93 MG/DL (0.60-1.30) Random Glucose 119 MG/DL (74-106) Calcium Level 8.6 MG/DL (8.5-10.1) Sodium Level 138 MEQ/L (136-145) Potassium Level 4.6 MEQ/L (3.5-5.1) Chloride Level 101 MEQ/L (98-107) Carbon Dioxide Level 26.9 MEQ/L (21.0-32.0) Anion Gap 10 MEQ/L (5-15) Estimat Glomerular Filtration Rate 77 ML/MIN (>89) Urine Color YELLOW (YELLW/STRAW) Urine Turbidity HAZY (CLEAR) Urine pH 5.5 (5.0-8.5) Urine Specific Harbert 1.014 (1.002-1.035) Urine Protein NEG mg/dL (NEG-TRACE) Urine Glucose (UA) NEG mg/dL (NEG) Urine Ketones NEG mg/dL (NEG) Urine Occult Blood NEG (NEG) Urine Nitrite NEG (NEG) Urine Bilirubin NEG (NEG) Urine Urobilinogen 2.0 MG/DL (LESS THAN Urine Leukocyte Esterase MOD (NEG) Urine RBC 5 /hpf (0-3) Urine WBC 8 /hpf (0-5) Urine Squamous Epithelial Cells 1 /hpf (0-5) Urine Bacteria RARE /hpf (NONE) Urine Hyaline Casts 6 /lpf (RARE) Urine Mucus FEW /lpf (OCC) Microscopic Urinalysis Comment CATH-CULTURE IND Result Diagram: 05/27/1744105/27/17441 (1) recuurent right pleural effusion Plan: s/p pigtail cath placement reaccumulating loculated effusion s/p Right VATS, pleurodesis , drainage of loculated effusion keep chest tubes in place pulm toileting (2) Urinary retention Plan: hall cath replaced, await UA, start Flomax if necessary (3) Postoperative hypotension Plan: fluid bolus , BP meds held narcotics reduced Princess Nolasco May 27, 2017 16:13
[2017-05-27] MEDS: CIPROFLOXACIN 200 MG PREMIX 100 ML IV SCH (17:48)
[2017-05-27] MEDS: PANTOPRAZOLE SOD 40 MG DELAYED RELEASE TAB PO SCH (21:00)
[2017-05-27] MEDS: ACETAMINOPHEN/HYDROcodone 325 MG/5 MG TAB PO PRN (21:00)
[2017-05-27] MEDS: DOCUSATE CALCIUM 240 MG CAP PO SCH (21:00)
[2017-05-28] VITALS (30 sets, daily range): BP systolic 93–126; BP diastolic 51–64; PULSE 60–104; RESP 16–18; TEMP 97.5–98.2; O2SAT 94–97
[2017-05-28] MEDS: VANCOMYCIN INJ 1,000 MG in SODIUM CHLOR 0.9% 250 ML INJ 250 ML IV SCH ×2 (02:00→14:28)
[2017-05-28] MEDS: CHLORHEXIDINE GLUCONATE 2 % 1 PACK (2 CLOTHS) TOP SCH (02:14)
--- NOTE | 2017-05-28 05:00 | RADRPT ---
EXAM DATE/TIME: 05/28/2017 04:17 [facility] COMPARISON: CHEST SINGLE AP, May 27, 2017, 3:52. INDICATIONS : Shortness of breath, possible pulmonary disease. MEDICAL HISTORY : None. SURGICAL HISTORY : None. ENCOUNTER: Subsequent ACUITY: 2 weeks PAIN SCORE: 0/10 LOCATION: Bilateral chest FINDINGS: Right thoracostomy tubes remain in place. Persistent bibasilar pleuroparenchymal opacity which is jolie ssly unchanged. Cardiac contours are stable. CONCLUSION: Stable chest appearance Pravin Gambino MD on May 28, 2017 at 4:58 Board Certified Radiologist. This report was verified electronically.
[2017-05-28] MEDS: CIPROFLOXACIN 200 MG PREMIX 100 ML IV SCH ×2 (05:10→18:24)
[2017-05-28 05:45] LABS: AUTOMATED NEUTROPHIL # 5.8 TH/MM3 (1.8-7.7); BASOPHIL % 0.4 % (0.0-2.0); EOSINOPHIL # 0.1 TH/MM3 (0-0.4); EOSINOPHIL % 1.9 % (0.0-4.0); HEMATOCRIT 29.1 % (39.0-51.0); HEMO FLAGS DIFF FINAL; LYMPHOCYTE # 0.7 TH/MM3 (1.0-4.8); MEAN CELL VOLUME 97.6 FL (80.0-100.0); MEAN CORPUSCULAR HEMOGLOBIN 32.7 PG (27.0-34.0); MEAN CORPUSCULAR HGB CONC 33.5 % (32.0-36.0); NEUT % 77.7 % (16.0-70.0); PLATELET COUNT 188 TH/MM3 (150-450); RED BLOOD COUNT 2.98 MIL/MM3 (4.50-5.90); RED CELL DISTRIBUTION WIDTH 13.9 % (11.6-17.2); WHITE BLOOD COUNT 7.5 TH/MM3 (4.0-11.0)
[2017-05-28] MEDS: LEVOTHYROXINE SODIUM 88 MCG TAB PO SCH (06:02)
[2017-05-28 06:07] LABS: BICARBONATE 25.3 MEQ/L (21.0-32.0)
[2017-05-28] MEDS: RESTASIS OPTH EACH EYE SCH ×2 (09:00→21:00)
[2017-05-28] MEDS: SODIUM CHLORIDE 0.9% FLUSH 10 ML FLUSH IV FLUSH SCH ×2 (09:00→22:02)
[2017-05-28] MEDS: NIFEdipine 20 MG CAP PO SCH (09:00)
[2017-05-28] MEDS: ENALAPRIL MALEATE 5 MG TAB PO SCH (09:00)
[2017-05-28] MEDS: PT OWN MYRBETRIQ 50 MG PO SCH (09:00)
[2017-05-28] MEDS: PRAVASTATIN SOD 40 MG TAB PO SCH (09:15)
[2017-05-28] MEDS: DOCUSATE SODIUM 50 MG/SENNA 8.6 MG TAB PO SCH ×2 (09:16→22:02)
[2017-05-28] MEDS: PANTOPRAZOLE SOD 20 MG DELAYED RELEASE TAB PO SCH (09:16)
[2017-05-28] MEDS: BUDESONIDE-FORMOTEROL 160/4.5 MCG INHALER INH SCH ×2 (09:16→21:53)
[2017-05-28] MEDS: ACETAMINOPHEN/HYDROcodone 325 MG/5 MG TAB PO PRN ×2 (14:28→22:03)
--- NOTE | 2017-05-28 15:27 | HHI.PR ---
Subjective Remarks Follow-up hypotension, renal insufficiency. The patient is reporting pain at the site of the chest tube. Feels short of breath. No nausea or vomiting. Objective Vitals Vital Signs Date Time Temp Pulse Resp B/P (MAP) Pulse Ox O2 Delivery O2 Flow Rate FiO2 05/28/17 15:00 69 05/28/17 14:15 126/61 (82) 05/28/17 14:00 65 05/28/17 13:00 60 05/28/17 12:00 64 05/28/17 11:43 98.0 92 18 101/56 (71) 97 05/28/17 11:00 62 05/28/17 10:00 68 05/28/17 09:55 96 Nasal Cannula 2.00 05/28/17 09:00 66 05/28/17 08:00 98.2 64 18 93/51 (65) 96 05/28/17 08:00 64 05/28/17 07:33 96 Nasal Cannula 2.00 05/28/17 07:00 67 05/28/17 06:28 63 05/28/17 05:22 67 05/28/17 04:00 65 05/28/17 03:04 98.0 81 18 113/56 (75) 96 05/28/17 03:04 67 05/28/17 02:19 71 05/28/17 01:15 75 05/28/17 00:24 94 2.00 05/28/17 00:08 72 05/27/17 23:46 98.0 81 19 103/58 (73) 96 05/27/17 23:03 76 05/27/17 22:15 78 05/27/17 21:00 84 05/27/17 20:00 92 05/27/17 19:20 97.7 92 18 118/59 (78) 97 05/27/17 19:20 84 05/27/17 19:20 97 Nasal Cannula 2.00 05/27/17 18:15 97 05/27/17 17:00 75 05/27/17 16:00 76 05/27/17 15:45 98.4 83 18 110/70 (83) 97 I/O 05/27/17 05/27/17 05/27/17 05/28/17 05/28/17 05/28/17 07:00 15:00 23:00 07:00 15:00 23:00 Intake Total 720 ml 1328 ml 240 ml 168 ml Output Total 455 ml 520 ml 300 ml Balance 265 ml 808 ml -60 ml 168 ml Intake Oral 720 ml 840 ml 240 ml IV Total 488 ml 168 ml Output Urine Total 225 ml 400 ml 250 ml Chest Tube Drainage Total 230 ml 120 ml 50 ml Bladder Scan Volume Amount 20 ml # Bowel Movements 0 Result Diagram: 05/28/17 0502 05/28/17 0502 Imaging Last Impressions Chest X-Ray 05/28/17 0600 Signed Impressions: Service Date/Time: May 04:17 - CONCLUSION: Stable chest appearance Pravin Gambino MD Chest Tube Change 05/22/17 0000 Signed Impressions: Service Date/Time: Monday, May 22, 2017 17:06 - CONCLUSION: Uncomplicated chest tube exchange as above. Pravin Gambino MD Chest CT 05/22/17 0000 Signed Impressions: Service Date/Time: Monday, May 22, 2017 10:58 - CONCLUSION: 1. Moderate interval improvement of right-sided hemothorax following placement of small bore right-sided chest tube in the peripheral inferior right hemithorax. However, the fluid now appears loculated with separate components in the inferior lateral hemithorax and medial superior hemithorax. 2. Interval development of simple appearing small left pleural effusion. 3. Remainder of the exam is unchanged. Kelvin Puckett MD Chest Tube Insertion 05/19/17 1634 Signed Impressions: Service Date/Time: Friday, May 19, 2017 15:50 - CONCLUSION: Uncomplicated chest tube placement as above. Abiodun Zhang MD Objective Remarks General: Elderly male in no acute distress. Sitting up in a chair. Hard of hearing. Heart: Regular rate and rhythm. No murmur. Lungs: Diminished breath sounds on the right. Breathing is nonlabored. Right chest tube. Abdomen: Soft, nontender, nondistended. Extremities: No lower extremity edema. Psych: Alert and oriented. Procedures Chest tube placement Urinary Catheter: Yes Assessment to: Continue Vallecillo insert reason: Obstruction/Retention Date of Insertion: May 27, 2017 Vascular Central Line Catheter: No A/P Problem List: (1) Hemothorax on right ICD Code: J94.2 - Hemothorax Status: Acute (2) History of CVA (cerebrovascular accident) ICD Code: Z86.73 - Personal history of transient ischemic attack (TIA), and cerebral infarction without residual deficits (3) COPD (chronic obstructive pulmonary disease) ICD Code: J44.9 - COPD (chronic obstructive pulmonary disease) Status: Chronic (4) Hypotension ICD Code: I95.9 - Hypotension, unspecified (5) Acute kidney injury ICD Code: N17.9 - Acute kidney failure, unspecified Assessment and Plan 1. Recurrent right hemothorax: Appreciate cardiothoracic surgery recommendations. Status post video-assisted thoracoscopy on 05/26/17. 2. Hypotension: Blood pressure is slightly better today. Hold parameters added for blood pressure medications. Continue gentle IV fluids. 3. Decreased urine output, acute kidney injury: Likely secondary to hypotension. Monitor closely. Vallecillo catheter in place. 4. Hyperlipidemia: Continue statin. 5. Hypothyroidism: Continue Synthroid. 6. COPD: DuoNeb, Symbicort. 7. History of CVA: Continue aspirin for secondary prevention of stroke. Avoid Lovenox, warfarin, Plavix as patient has developed hemothorax while on those medications. 8. DVT prophylaxis: AVE Liu. Avoid chemical prophylaxis secondary to hemothorax. Humberto Leos MD May 28, 2017 15:27
--- NOTE | 2017-05-28 15:37 | PD.CAR.PN ---
CVT Progress Note Subjective/Hospital Course: Patient known to Dr Potts from prior admission. He had a right pleural effusion which developed with anticoagulation. This was successfully drained by IR and was consistent with a hemothorax. He developed right flank pain and again has a moderate to large right pleural effusion. He does not have a drop in Hgb as he had previously. He is stable currently. 05/19 awaiting placement of pigtail drainage of recurrent large right pleural effusion 05/22 cxr showing redevelopment of loculated effusion will check CT chest on nasal cannula continue pulm toileting 05/25 ct chest noted, still with loculated effusion no air leak in chest tube will schedule for Right VATS , drainage of loculated effusion pleurodesis in am pt agreeable to proceed 05/26 surgery: Right VATS exploration to drain loculated pleural effusion, lysis of adhesions 05/27 pt hypotensive this am , given IV fluid bolus with some improvement recent narcotics and xanax last pm, doses decreased urinary retention , hall replaced UA pending, may need flomax , wait until BP improves OOB as tolerated , pulm toileting 05/28 UA showing larger leukoestrase, continue IV cipro for now, start po in am start low dose flomax , eval for hall cath removal in am chest tube to water seal, eval for removal in am BP meds with holding parameters creatinine elvated 2/2 low BP yesterday, now improving, DC IV fluids in am Objective: GENERAL: SKIN: Warm and dry. HEAD: Normocephalic. EYES: No scleral icterus. No injection or drainage. NECK: Supple, trachea midline. No JVD or lymphadenopathy. CARDIOVASCULAR: Regular rate and rhythm without murmurs, gallops, or rubs. RESPIRATORY: Breath sounds equal bilaterally. No accessory muscle use. diminished in bases / chest tube x 2 , no air leak, to water seal now GASTROINTESTINAL: Abdomen soft, non-tender, nondistended. MUSCULOSKELETAL: No cyanosis, or edema. BACK: Nontender without obvious deformity. No CVA tenderness. Vital Signs Date Time Temp Pulse Resp B/P (MAP) Pulse Ox O2 Delivery O2 Flow Rate FiO2 05/28/17 15:00 69 05/28/17 14:15 126/61 (82) 05/28/17 14:00 65 05/28/17 13:00 60 05/28/17 12:00 64 05/28/17 11:43 98.0 92 18 101/56 (71) 97 05/28/17 11:00 62 05/28/17 10:00 68 05/28/17 09:55 96 Nasal Cannula 2.00 05/28/17 09:00 66 05/28/17 08:00 98.2 64 18 93/51 (65) 96 05/28/17 08:00 64 05/28/17 07:33 96 Nasal Cannula 2.00 05/28/17 07:00 67 05/28/17 06:28 63 05/28/17 05:22 67 05/28/17 04:00 65 05/28/17 03:04 98.0 81 18 113/56 (75) 96 05/28/17 03:04 67 05/28/17 02:19 71 05/28/17 01:15 75 05/28/17 00:24 94 2.00 05/28/17 00:08 72 05/27/17 23:46 98.0 81 19 103/58 (73) 96 05/27/17 23:03 76 05/27/17 22:15 78 05/27/17 21:00 84 05/27/17 20:00 92 05/27/17 19:20 97.7 92 18 118/59 (78) 97 05/27/17 19:20 84 05/27/17 19:20 97 Nasal Cannula 2.00 05/27/17 18:15 97 05/27/17 17:00 75 05/27/17 16:00 76 05/27/17 15:45 98.4 83 18 110/70 (83) 97 Labs: Laboratory Tests Test 05/28/17 05:02 White Blood Count 7.5 TH/MM3 (4.0-11.0) Red Blood Count 2.98 MIL/MM3 (4.50-5.90) Hemoglobin 9.8 GM/DL (13.0-17.0) Hematocrit 29.1 % (39.0-51.0) Mean Corpuscular Volume 97.6 FL (80.0-100.0) Mean Corpuscular Hemoglobin 32.7 PG (27.0-34.0) Mean Corpuscular Hemoglobin Concent 33.5 % (32.0-36.0) Red Cell Distribution Width 13.9 % (11.6-17.2) Platelet Count 188 TH/MM3 (150-450) Mean Platelet Volume 7.1 FL (7.0-11.0) Neutrophils (%) (Auto) 77.7 % (16.0-70.0) Lymphocytes (%) (Auto) 9.0 % (9.0-44.0) Monocytes (%) (Auto) 11.0 % (0.0-8.0) Eosinophils (%) (Auto) 1.9 % (0.0-4.0) Basophils (%) (Auto) 0.4 % (0.0-2.0) Neutrophils # (Auto) 5.8 TH/MM3 (1.8-7.7) Lymphocytes # (Auto) 0.7 TH/MM3 (1.0-4.8) Monocytes # (Auto) 0.8 TH/MM3 (0-0.9) Eosinophils # (Auto) 0.1 TH/MM3 (0-0.4) Basophils # (Auto) 0.0 TH/MM3 (0-0.2) CBC Comment DIFF FINAL Differential Comment Blood Urea Nitrogen 23 MG/DL (7-18) Creatinine 1.38 MG/DL (0.60-1.30) Random Glucose 101 MG/DL (74-106) Calcium Level 8.1 MG/DL (8.5-10.1) Sodium Level 138 MEQ/L (136-145) Potassium Level 4.0 MEQ/L (3.5-5.1) Chloride Level 104 MEQ/L (98-107) Carbon Dioxide Level 25.3 MEQ/L (21.0-32.0) Anion Gap 9 MEQ/L (5-15) Estimat Glomerular Filtration Rate 49 ML/MIN (>89) Result Diagram: 05/28/17 05005/28/17501 (1) recuurent right pleural effusion Plan: s/p Right VATS, pleurodesis , drainage of loculated effusion keep chest tubes in place / to water seal pulm toileting (2) Urinary retention Plan: hall cath replaced, await UA, start Flomax on cipro (3) Postoperative hypotension Plan: fluid bolus , BP meds held narcotics reduced improved, dc IV fluids in am Princess Nolasco May 28, 2017 15:37
--- NOTE | 2017-05-28 15:44 | HHI.FF ---
Face to Face Verification Diagnosis: (1) Loculated pleural effusion (2) Urinary retention (3) Right VATS exploration to drain loculated pleural effusion, lysis of adhesions Home Health Nursing Order: Signs/symptoms of disease process Medication education-adverse effect Wound care and dressing changes Nursing assessment with vital signs Instructions: Thoracic Surgery patients Mandatory frequency Assess and evaluation, 2-3 x a week for one week Initial visit 1. Review post chest surgery instructions chest precautions, Activity, Elastic hose, Incision care, Driving, Incentive spirometry, Smoking, [place] , Work and other) 2. Need Betadine to paint incision 3. Medication reconciliation 4. Importance of follow up care/ check on appointments 5. Make calendar record temperature daily 6. When to call Home nurse, review instructions, phone list 7. Incentive Spirometry, demonstration Visit 1- Begin discharge instruction for patient family and/ or caregiver using teach back method- 1. Signs and symptoms of infection 2. Disease characteristics 3. Medicines and side effects 4. Foods and nutrition/ appetite 5. Infection control/ hand washing/ hygiene Visit 2- Continue teaching 1. Discharge instructions- include additional information on smoking cessation , Visit 3- Continue teaching- 1. Cough and deep breathing, incision monitoring. Incentive spirometry Q1 hr x 10, while awake, also use acapella device hourly whole awake chest wall Precautions: NO pushing or pulling, ( pt must use chest pillow to support chest with all activities and with coughing Daily incision care: ok to shower daily, no tub bath. 2 days after chest tube removed Wash all incisions with liquid dial soap, clean wash cloth to each site, rinse and pat dry. Observe for any signs of infection, such as drainage which is dark yellow, vidal, green or foul smelling. Immediately report to the surgeon any drainage from the chest incision, or legs, and for any abnormal drainage from the chest tube sites. Notify surgeon if any temp >101.5 degrees F. When specialty dressing removed/ or if you do not have one, continue to shower daily as above, then rinse and pat incision dry and paint with betadine daily x 5 days. Allow steri strips to fall off if you have any. Avoid lotions , creams, salves, oils, etc. for the first month Please see attached forms for additional instructions regarding post Open Heart specialty wound vacuum dressings. REY or Prevena , Dressing to be removed by Nursing staff on For Dr. Potts patients , please obtain PA & Lat CXR in 2 weeks, results to Dr. Potts ( prescription will be given) ( ) (Tele: [phone]) F/U appointment: as per CT instructions: PCP in 2 weeks, CV surgeon 2 weeks, [place] 3-4 weeks For any questions regarding incisions/ dressing / meds / post op care or above Symptoms, Thursday 8am-5pm Heart & Vascular Surgery Office ( Dr. Ceja & Dr. Potts), After Hours / Nights (5pm -8am) Weekends and Holidays Please call [facility] ([facility]) Charge Nurse I have seen patient Marcellus ChiangJr raeann on 05/28/17. My clinical findings support the need for the requested home health care services because: Patient has SOB Deconditioned w/ increased weakness I certify that my clinical findings support that this patient is homebound because: Post-op weakness Princess Nolasco May 28, 2017 15:44
[2017-05-28] MEDS: ACETAMINOPHEN 325 MG TAB PO PRN (16:49)
[2017-05-28] MEDS: TAMSULOSIN HCL 0.4 MG CAP PO SCH (16:49)
[2017-05-28] MEDS: DOCUSATE CALCIUM 240 MG CAP PO SCH (22:02)
[2017-05-28] MEDS: PANTOPRAZOLE SOD 40 MG DELAYED RELEASE TAB PO SCH (22:02)
[2017-05-29] VITALS (27 sets, daily range): BP systolic 101–122; BP diastolic 56–67; PULSE 66–108; RESP 16–20; TEMP 97.8–98.3; O2SAT 92–96
[2017-05-29] MEDS: VANCOMYCIN INJ 1,000 MG in SODIUM CHLOR 0.9% 250 ML INJ 250 ML IV SCH (02:39)
[2017-05-29] MEDS: CHLORHEXIDINE GLUCONATE 2 % 1 PACK (2 CLOTHS) TOP SCH (04:00)
[2017-05-29 04:51] LABS: AUTOMATED NEUTROPHIL # 4.2 TH/MM3 (1.8-7.7); BASOPHIL % 0.7 % (0.0-2.0); EOSINOPHIL # 0.2 TH/MM3 (0-0.4); EOSINOPHIL % 3.7 % (0.0-4.0); HEMATOCRIT 30.1 % (39.0-51.0); HEMO FLAGS DIFF FINAL; LYMPH % 11.2 % (9.0-44.0); LYMPHOCYTE # 0.6 TH/MM3 (1.0-4.8); MEAN CELL VOLUME 97.8 FL (80.0-100.0); MEAN CORPUSCULAR HEMOGLOBIN 32.8 PG (27.0-34.0); MEAN CORPUSCULAR HGB CONC 33.5 % (32.0-36.0); MONO % 11.3 % (0.0-8.0); NEUT % 73.1 % (16.0-70.0); PLATELET COUNT 179 TH/MM3 (150-450); RED BLOOD COUNT 3.08 MIL/MM3 (4.50-5.90); RED CELL DISTRIBUTION WIDTH 13.9 % (11.6-17.2); WHITE BLOOD COUNT 5.7 TH/MM3 (4.0-11.0)
--- NOTE | 2017-05-29 05:08 | RADRPT ---
EXAM DATE/TIME: 05/29/2017 04:31 [facility] COMPARISON: CHEST SINGLE AP, May 28, 2017, 4:17. INDICATIONS : Evaluate pneumothorax, Right side chest tube MEDICAL HISTORY : None. SURGICAL HISTORY : None. ENCOUNTER: Subsequent ACUITY: 2 weeks PAIN SCORE: 8/10 LOCATION: Bilateral chest FINDINGS: A single view of the chest demonstrates 2 right-sided chest tubes without pneumothorax. Basilar airsp karen disease. Small effusions. Tortuous aorta. CONCLUSION: 1. Basilar airspace disease similar to May 28. Right chest tubes without pneumothorax. Jose L Matute MD on May 29, 2017 at 5:05 Board Certified Radiologist. This report was verified electronically.
[2017-05-29 05:28] LABS: BICARBONATE 26.3 MEQ/L (21.0-32.0); POTASSIUM 3.9 MEQ/L (3.5-5.1)
[2017-05-29] MEDS: CIPROFLOXACIN 200 MG PREMIX 100 ML IV SCH (06:18)
[2017-05-29] MEDS: LEVOTHYROXINE SODIUM 88 MCG TAB PO SCH (06:18)
[2017-05-29] MEDS: RESTASIS OPTH EACH EYE SCH ×2 (09:00→21:00)
[2017-05-29] MEDS: PT OWN MYRBETRIQ 50 MG PO SCH (09:00)
[2017-05-29] MEDS: SODIUM CHLORIDE 0.9% FLUSH 10 ML FLUSH IV FLUSH SCH ×2 (09:00→21:00)
--- NOTE | 2017-05-29 09:25 | HHI.PR ---
Subjective Remarks Follow up acute kidney injury, hypotension. Patient still reporting pain at site of chest tube. No dyspnea, cough at this time. No nausea/vomiting. Objective Vitals Vital Signs Date Time Temp Pulse Resp B/P (MAP) Pulse Ox O2 Delivery O2 Flow Rate FiO2 05/29/17 07:43 80 20 114/66 (82) 95 05/29/17 06:00 80 05/29/17 05:00 77 05/29/17 04:00 76 05/29/17 03:00 96 Nasal Cannula 2.00 05/29/17 03:00 66 05/29/17 03:00 97.8 74 16 117/63 (81) 96 05/29/17 02:00 68 05/29/17 01:00 72 05/29/17 00:00 72 05/28/17 23:27 16 05/28/17 23:00 98.0 75 16 116/55 (75) 96 05/28/17 23:00 78 05/28/17 23:00 96 Nasal Cannula 2.00 05/28/17 22:00 104 05/28/17 21:00 80 05/28/17 20:00 86 05/28/17 19:00 94 Nasal Cannula 2.00 05/28/17 19:00 98.1 83 16 103/60 (74) 94 05/28/17 19:00 82 05/28/17 18:35 86 05/28/17 18:28 14 05/28/17 17:20 88 05/28/17 16:54 77 05/28/17 16:53 97.5 77 16 116/64 (81) 97 05/28/17 15:42 78 05/28/17 15:00 69 05/28/17 14:15 126/61 (82) 05/28/17 14:00 65 05/28/17 13:00 60 05/28/17 12:00 64 05/28/17 11:43 98.0 92 18 101/56 (71) 97 05/28/17 11:00 62 05/28/17 10:00 68 05/28/17 09:55 96 Nasal Cannula 2.00 I/O 05/28/17 05/28/17 05/28/17 05/29/17 05/29/17 05/29/17 07:00 15:00 23:00 07:00 15:00 23:00 Intake Total 240 ml 168 ml 1000 ml 595 ml Output Total 300 ml 565 ml 960 ml Balance -60 ml 168 ml 435 ml -365 ml Intake Oral 240 ml 750 ml 360 ml IV Total 168 ml 250 ml 235 ml Output Urine Total 250 ml 525 ml 900 ml Chest Tube Drainage Total 50 ml 40 ml 60 ml # Bowel Movements 0 Result Diagram: 05/29/17 0440 05/29/17 0440 Imaging Last Impressions Chest X-Ray 05/28/17 0600 Signed Impressions: Service Date/Time: May 04:17 - CONCLUSION: Stable chest appearance Pravin Gambino MD Chest Tube Change 05/22/17 0000 Signed Impressions: Service Date/Time: Monday, May 22, 2017 17:06 - CONCLUSION: Uncomplicated chest tube exchange as above. Pravin Gambino MD Chest CT 05/22/17 0000 Signed Impressions: Service Date/Time: Monday, May 22, 2017 10:58 - CONCLUSION: 1. Moderate interval improvement of right-sided hemothorax following placement of small bore right-sided chest tube in the peripheral inferior right hemithorax. However, the fluid now appears loculated with separate components in the inferior lateral hemithorax and medial superior hemithorax. 2. Interval development of simple appearing small left pleural effusion. 3. Remainder of the exam is unchanged. Kelvin Puckett MD Chest Tube Insertion 05/19/17 1634 Signed Impressions: Service Date/Time: Friday, May 19, 2017 15:50 - CONCLUSION: Uncomplicated chest tube placement as above. Abiodun Zhang MD Objective Remarks General: Elderly male in no acute distress. Hard of hearing. Heart: Regular rate and rhythm. No murmur. Lungs: Diminished breath sounds on the right. Breathing is nonlabored. Right chest tube. Abdomen: Soft, nontender, nondistended. Extremities: No lower extremity edema. AVE hose. Psych: Alert and oriented. Procedures Chest tube placement Urinary Catheter: No Vascular Central Line Catheter: No A/P Problem List: (1) Hemothorax on right ICD Code: J94.2 - Hemothorax Status: Acute (2) History of CVA (cerebrovascular accident) ICD Code: Z86.73 - Personal history of transient ischemic attack (TIA), and cerebral infarction without residual deficits (3) COPD (chronic obstructive pulmonary disease) ICD Code: J44.9 - COPD (chronic obstructive pulmonary disease) Status: Chronic (4) Hypotension ICD Code: I95.9 - Hypotension, unspecified (5) Acute kidney injury ICD Code: N17.9 - Acute kidney failure, unspecified Assessment and Plan 1. Recurrent right hemothorax: Appreciate cardiothoracic surgery recommendations. Status post video-assisted thoracoscopy on 05/26/17. Chest tube in place. 2. Hypotension: Improved. IV fluids discontinued this morning. 3. Decreased urine output, acute kidney injury: Likely secondary to hypotension. Monitor closely. Vallecillo catheter removed this morning. Creatinine still trending up. Check renal ultrasound. 4. Hyperlipidemia: Continue statin. 5. Hypothyroidism: Continue Synthroid. 6. COPD: DuoNeb, Symbicort. 7. History of CVA: Continue aspirin for secondary prevention of stroke. Avoid Lovenox, warfarin, Plavix as patient has developed hemothorax while on those medications. 8. DVT prophylaxis: VALENTINEs, AVE rodrigues. Avoid chemical prophylaxis secondary to hemothorax. Humberto Leos MD May 29, 2017 09:25
[2017-05-29] MEDS: CIPROFLOXACIN 250 MG TAB PO SCH ×2 (09:30→21:25)
[2017-05-29] MEDS: ACETAMINOPHEN/HYDROcodone 325 MG/5 MG TAB PO PRN (09:34)
[2017-05-29] MEDS: PRAVASTATIN SOD 40 MG TAB PO SCH (09:36)
[2017-05-29] MEDS: ENALAPRIL MALEATE 5 MG TAB PO SCH (09:36)
[2017-05-29] MEDS: TAMSULOSIN HCL 0.4 MG CAP PO SCH (09:36)
[2017-05-29] MEDS: NIFEdipine 20 MG CAP PO SCH (09:36)
[2017-05-29] MEDS: DOCUSATE SODIUM 50 MG/SENNA 8.6 MG TAB PO SCH ×2 (09:36→21:23)
[2017-05-29] MEDS: BUDESONIDE-FORMOTEROL 160/4.5 MCG INHALER INH SCH ×2 (09:37→21:30)
[2017-05-29] MEDS ORDERED: SODIUM CHLORID 0.9% 500 ML INJ 500 ML IV ONE (10:00)
--- NOTE | 2017-05-29 11:59 | RADRPT ---
EXAM DATE/TIME: 05/29/2017 11:19 [facility] COMPARISON: No previous studies available for comparison. INDICATIONS : Increased BUN/creatinine. MEDICAL HISTORY : Hypothyroidism. Aneurysm, abdominal. Hypercholesterolemia. CVA. Mitral valve leak. HTN. COPD. GERD. R enal calculi. Arthritis. Basal carcinoma. MRSA. Anticoagulant therapy. SURGICAL HISTORY : Appendectomy. Bilateral cataracts. Kidney stone removal. Bilateral knee surgery. ENCOUNTER: Initial ACUITY: 1 day PAIN SCORE: 0/10 LOCATION: Bilateral flank MEASUREMENTS: RIGHT KIDNEY: 10.6 x 5.0 x 5.2 cm LEFT KIDNEY: 10.0 x 4.2 x 4.9 cm FINDINGS: RIGHT KIDNEY: Renal cortex is normal in thickness and echotexture. 1.4 cm cyst No hydronephrosis, stone, or mass. LEFT KIDNEY: Renal cortex is normal in thickness and echotexture. No hydronephrosis, stone, or mass. BLADDER: Within normal limits given the degree of distension. CONCLUSION: Negative hydronephrosis. Shaq Garcia MD FACR on May 29, 2017 at 11:56 Board Certified Radiologist. This report was verified electronically.
--- NOTE | 2017-05-29 14:31 | PD.CAR.PN ---
CVT Progress Note Subjective/Hospital Course: Patient known to Dr Potts from prior admission. He had a right pleural effusion which developed with anticoagulation. This was successfully drained by IR and was consistent with a hemothorax. He developed right flank pain and again has a moderate to large right pleural effusion. He does not have a drop in Hgb as he had previously. He is stable currently. 05/19 awaiting placement of pigtail drainage of recurrent large right pleural effusion 05/22 cxr showing redevelopment of loculated effusion will check CT chest on nasal cannula continue pulm toileting 05/25 ct chest noted, still with loculated effusion no air leak in chest tube will schedule for Right VATS , drainage of loculated effusion pleurodesis in am pt agreeable to proceed 05/26 surgery: Right VATS exploration to drain loculated pleural effusion, lysis of adhesions 05/27 pt hypotensive this am , given IV fluid bolus with some improvement recent narcotics and xanax last pm, doses decreased urinary retention , hall replaced UA pending, may need flomax , wait until BP improves OOB as tolerated , pulm toileting 05/28 UA showing larger leukoestrase, continue IV cipro for now, start po in am start low dose flomax , eval for hall cath removal in am chest tube to water seal, eval for removal in am BP meds with holding parameters creatinine elvated 2/2 low BP yesterday, now improving, DC IV fluids in am 05/29 pt has increased creatinine, additional IV fluids today hall cath removed, bladder scan this afternoon with only 50cc/ urine, increase po fluids as tolerated on po antibiotics and flomax if pt has urinary retention again , and hall replaced , will need urology consult chest tubes dc without difficulty / check cxr in am Objective: GENERAL: SKIN: Warm and dry. tight posterolateral chest incision intact, chest tubes dc without difficulty HEAD: Normocephalic. EYES: No scleral icterus. No injection or drainage. NECK: Supple, trachea midline. No JVD or lymphadenopathy. CARDIOVASCULAR: Regular rate and rhythm without murmurs, gallops, or rubs. RESPIRATORY: Breath sounds equal bilaterally. No accessory muscle use. GASTROINTESTINAL: Abdomen soft, non-tender, nondistended. MUSCULOSKELETAL: No cyanosis, or edema. BACK: Nontender without obvious deformity. No CVA tenderness. Vital Signs Date Time Temp Pulse Resp B/P (MAP) Pulse Ox O2 Delivery O2 Flow Rate FiO2 05/29/17 12:15 96 Nasal Cannula 2.00 05/29/17 12:08 98.3 79 18 116/63 (80) 96 05/29/17 12:00 78 05/29/17 11:00 75 05/29/17 10:50 97 Room Air 05/29/17 10:00 96 05/29/17 09:00 100 05/29/17 08:00 78 05/29/17 07:43 80 20 114/66 (82) 95 05/29/17 07:15 95 Blow By 2.00 05/29/17 07:00 79 05/29/17 06:00 80 05/29/17 05:00 77 05/29/17 04:00 76 05/29/17 03:00 96 Nasal Cannula 2.00 05/29/17 03:00 66 05/29/17 03:00 97.8 74 16 117/63 (81) 96 05/29/17 02:00 68 05/29/17 01:00 72 05/29/17 00:00 72 05/28/17 23:27 16 05/28/17 23:00 98.0 75 16 116/55 (75) 96 05/28/17 23:00 78 05/28/17 23:00 96 Nasal Cannula 2.00 05/28/17 22:00 104 05/28/17 21:00 80 05/28/17 20:00 86 05/28/17 19:00 94 Nasal Cannula 2.00 05/28/17 19:00 98.1 83 16 103/60 (74) 94 05/28/17 19:00 82 05/28/17 18:35 86 05/28/17 18:28 14 05/28/17 17:20 88 05/28/17 16:54 77 05/28/17 16:53 97.5 77 16 116/64 (81) 97 05/28/17 15:42 78 05/28/17 15:00 69 Labs: Laboratory Tests Test 05/29/17 04:40 White Blood Count 5.7 TH/MM3 (4.0-11.0) Red Blood Count 3.08 MIL/MM3 (4.50-5.90) Hemoglobin 10.1 GM/DL (13.0-17.0) Hematocrit 30.1 % (39.0-51.0) Mean Corpuscular Volume 97.8 FL (80.0-100.0) Mean Corpuscular Hemoglobin 32.8 PG (27.0-34.0) Mean Corpuscular Hemoglobin Concent 33.5 % (32.0-36.0) Red Cell Distribution Width 13.9 % (11.6-17.2) Platelet Count 179 TH/MM3 (150-450) Mean Platelet Volume 6.7 FL (7.0-11.0) Neutrophils (%) (Auto) 73.1 % (16.0-70.0) Lymphocytes (%) (Auto) 11.2 % (9.0-44.0) Monocytes (%) (Auto) 11.3 % (0.0-8.0) Eosinophils (%) (Auto) 3.7 % (0.0-4.0) Basophils (%) (Auto) 0.7 % (0.0-2.0) Neutrophils # (Auto) 4.2 TH/MM3 (1.8-7.7) Lymphocytes # (Auto) 0.6 TH/MM3 (1.0-4.8) Monocytes # (Auto) 0.7 TH/MM3 (0-0.9) Eosinophils # (Auto) 0.2 TH/MM3 (0-0.4) Basophils # (Auto) 0.0 TH/MM3 (0-0.2) CBC Comment DIFF FINAL Differential Comment Blood Urea Nitrogen 21 MG/DL (7-18) Creatinine 1.45 MG/DL (0.60-1.30) Random Glucose 97 MG/DL (74-106) Calcium Level 7.9 MG/DL (8.5-10.1) Sodium Level 139 MEQ/L (136-145) Potassium Level 3.9 MEQ/L (3.5-5.1) Chloride Level 107 MEQ/L (98-107) Carbon Dioxide Level 26.3 MEQ/L (21.0-32.0) Anion Gap 6 MEQ/L (5-15) Estimat Glomerular Filtration Rate 46 ML/MIN (>89) Result Diagram: 05/29/1743905/29/17439 (1) recuurent right pleural effusion Plan: s/p Right VATS, pleurodesis , drainage of loculated effusion chest tube dc path noted , severe resp bronchiolitis , destructive emphysema , 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
[2017-05-29] MEDS: DOCUSATE CALCIUM 240 MG CAP PO SCH (21:23)
[2017-05-29] MEDS: PANTOPRAZOLE SOD 40 MG DELAYED RELEASE TAB PO SCH (21:25)
[2017-05-29] MEDS: ACETAMINOPHEN 325 MG TAB PO PRN (21:26)
[2017-05-30] VITALS (27 sets, daily range): BP systolic 92–125; BP diastolic 50–68; PULSE 56–110; RESP 16–18; TEMP 97.9–98.3; O2SAT 93–97
[2017-05-30 05:22] LABS: BICARBONATE 23.5 MEQ/L (21.0-32.0); POTASSIUM 3.7 MEQ/L (3.5-5.1)
[2017-05-30] MEDS: LEVOTHYROXINE SODIUM 88 MCG TAB PO SCH (06:15)
--- NOTE | 2017-05-30 06:40 | RADRPT ---
EXAM DATE/TIME: 05/30/2017 05:05 [place] COMPARISON: CT THORAX W/O CONTRAST, May 22, 2017, 10:58. CHEST SINGLE AP, May 29, 2017, 4:31. INDICATIONS : Shortness of breath, possible pulmonary disease. MEDICAL HISTORY : None. SURGICAL HISTORY : None. ENCOUNTER: Subsequent ACUITY: 2 weeks PAIN SCORE: 0/10 LOCATION: Bilateral chest FINDINGS: There is persistent increased density seen at the bases being much more prominent on the right. There is a more focal masslike consolidation seen at the right base. The mid and upper lungs are clear. Th e heart size is normal. The aorta is tortuous. CONCLUSION: 1. Persistent rounded mass/consolidation at the right base. 2. There is some haziness at the left base likely representing some degree of effusion. Pravin Ricci MD on May 30, 2017 at 6:37 Board Certified Radiologist. This report was verified electronically.
[2017-05-30] MEDS: PT OWN MYRBETRIQ 50 MG PO SCH (09:00)
[2017-05-30] MEDS: RESTASIS OPTH EACH EYE SCH ×2 (09:00→21:00)
[2017-05-30] MEDS: SODIUM CHLORIDE 0.9% FLUSH 10 ML FLUSH IV FLUSH SCH ×2 (09:00→21:00)
[2017-05-30] MEDS: NIFEdipine 20 MG CAP PO SCH (09:01)
[2017-05-30] MEDS: TAMSULOSIN HCL 0.4 MG CAP PO SCH (09:01)
[2017-05-30] MEDS: DOCUSATE SODIUM 50 MG/SENNA 8.6 MG TAB PO SCH ×2 (09:01→21:15)
[2017-05-30] MEDS: PRAVASTATIN SOD 40 MG TAB PO SCH (09:02)
[2017-05-30] MEDS: CIPROFLOXACIN 250 MG TAB PO SCH ×2 (09:02→21:15)
[2017-05-30] MEDS: BUDESONIDE-FORMOTEROL 160/4.5 MCG INHALER INH SCH ×2 (09:03→21:16)
--- NOTE | 2017-05-30 09:09 | HHI.PR ---
Subjective Remarks Follow up urinary retention. Patient unable to void yesterday and had residual > 250ml on bladder scan. Vallecillo replaced. Urology consult pending. Patient still having some pain at chest tube site, but less today. Chest tube removed. Objective Vitals Vital Signs Date Time Temp Pulse Resp B/P (MAP) Pulse Ox O2 Delivery O2 Flow Rate FiO2 05/30/17 07:30 97.9 70 16 125/65 (85) 97 05/30/17 07:30 97 Nasal Cannula 2.00 05/30/17 06:00 66 05/30/17 05:00 56 05/30/17 04:00 68 05/30/17 03:00 96 Nasal Cannula 2.00 05/30/17 03:00 84 05/30/17 03:00 98.0 77 18 125/65 (85) 96 05/30/17 02:00 72 05/30/17 01:00 70 05/30/17 00:00 68 05/29/17 23:00 98.2 83 16 122/67 (85) 96 05/29/17 23:00 72 05/29/17 23:00 96 Nasal Cannula 2.00 05/29/17 22:32 16 05/29/17 22:00 84 05/29/17 21:00 90 05/29/17 20:00 88 05/29/17 19:00 94 05/29/17 19:00 98.3 87 18 107/56 (73) 93 05/29/17 19:00 93 Nasal Cannula 2.00 05/29/17 18:00 98 05/29/17 17:00 96 05/29/17 16:04 96 05/29/17 15:44 98 20 101/59 (73) 92 05/29/17 15:27 92 Nasal Cannula 2.00 05/29/17 15:00 100 05/29/17 14:00 90 05/29/17 13:00 108 05/29/17 12:15 96 Nasal Cannula 2.00 05/29/17 12:08 98.3 79 18 116/63 (80) 96 05/29/17 12:00 78 05/29/17 11:00 75 05/29/17 10:50 97 Room Air 05/29/17 10:00 96 I/O 10/13/17 10/13/05/29/17 05/30/17 05/30/17 05/30/17 07:00 15:00 23:00 07:00 15:00 23:00 Intake Total 595 ml 1700 ml 720 ml Output Total 960 ml 275 ml 650 ml Balance -365 ml 1425 ml 70 ml Intake Oral 360 ml 1200 ml 720 ml IV Total 235 ml 500 ml Output Urine Total 900 ml 275 ml 650 ml Chest Tube Drainage Total 60 ml # Bowel Movements 0 2 Result Diagram: 05/29/17 0440 05/30/17 0416 Imaging Last Impressions Chest X-Ray 05/30/17 0600 Signed Impressions: Service Date/Time: Tuesday, May 30, 2017 05:05 - CONCLUSION: 1. Persistent rounded mass/consolidation at the right base. 2. There is some haziness at the left base likely representing some degree of effusion. Pravin Ricci MD Renal Ultrasound 05/29/17 0000 Signed Impressions: Service Date/Time: Monday, May 29, 2017 11:19 - CONCLUSION: Negative hydronephrosis. Shaq Garcia MD FACR Chest Tube Change 05/22/17 0000 Signed Impressions: Service Date/Time: Monday, May 22, 2017 17:06 - CONCLUSION: Uncomplicated chest tube exchange as above. Pravin Gambino MD Chest CT 05/22/17 0000 Signed Impressions: Service Date/Time: Monday, May 22, 2017 10:58 - CONCLUSION: 1. Moderate interval improvement of right-sided hemothorax following placement of small bore right-sided chest tube in the peripheral inferior right hemithorax. However, the fluid now appears loculated with separate components in the inferior lateral hemithorax and medial superior hemithorax. 2. Interval development of simple appearing small left pleural effusion. 3. Remainder of the exam is unchanged. Kelvin Puckett MD Chest Tube Insertion 05/19/17 1634 Signed Impressions: Service Date/Time: Friday, May 19, 2017 15:50 - CONCLUSION: Uncomplicated chest tube placement as above. Abiodun Zhang MD Objective Remarks General: Elderly male in no acute distress. Hard of hearing. Sitting up in a chair. Heart: Regular rate and rhythm. No murmur. Lungs: Clear to auscultation bilaterally. Breathing is nonlabored. Abdomen: Soft, nontender, nondistended. Extremities: No lower extremity edema. AVE rodrigues. Psych: Alert and oriented. Procedures Chest tube placement Urinary Catheter: Yes Assessment to: Continue Vallecillo insert reason: Obstruction/Retention Vascular Central Line Catheter: No A/P Problem List: (1) Hemothorax on right ICD Code: J94.2 - Hemothorax Status: Acute (2) History of CVA (cerebrovascular accident) ICD Code: Z86.73 - Personal history of transient ischemic attack (TIA), and cerebral infarction without residual deficits (3) COPD (chronic obstructive pulmonary disease) ICD Code: J44.9 - COPD (chronic obstructive pulmonary disease) Status: Chronic (4) Hypotension ICD Code: I95.9 - Hypotension, unspecified (5) Acute kidney injury ICD Code: N17.9 - Acute kidney failure, unspecified Assessment and Plan 1. Recurrent right hemothorax: Appreciate cardiothoracic surgery recommendations. Status post video-assisted thoracoscopy on 05/26/17. Chest tube removed. 2. Hypotension: Blood pressure is improved. IV fluids discontinued. 3. Decreased urine output, acute kidney injury: Likely secondary to hypotension. Monitor closely. Vallecillo catheter replaced. Creatinine still trending up. Renal ultrasound is unremarkable. IV fluids discontinued. Urology consultation is pending. 4. Hyperlipidemia: Continue statin. 5. Hypothyroidism: Continue Synthroid. 6. COPD: DuoNeb, Symbicort. 7. History of CVA: Continue aspirin for secondary prevention of stroke. Avoid Lovenox, warfarin, Plavix as patient has developed hemothorax while on those medications. 8. DVT prophylaxis: SCDs, AVE rodrigues. Avoid chemical prophylaxis secondary to hemothorax. Humberto Leos MD May 30, 2017 09:09
--- NOTE | 2017-05-30 11:52 | PD.CAR.PN ---
CVT Progress Note Subjective/Hospital Course: Patient known to Dr Potts from prior admission. He had a right pleural effusion which developed with anticoagulation. This was successfully drained by IR and was consistent with a hemothorax. He developed right flank pain and again has a moderate to large right pleural effusion. He does not have a drop in Hgb as he had previously. He is stable currently. 05/19 awaiting placement of pigtail drainage of recurrent large right pleural effusion 05/22 cxr showing redevelopment of loculated effusion will check CT chest on nasal cannula continue pulm toileting 05/25 ct chest noted, still with loculated effusion no air leak in chest tube will schedule for Right VATS , drainage of loculated effusion pleurodesis in am pt agreeable to proceed 05/26 surgery: Right VATS exploration to drain loculated pleural effusion, lysis of adhesions 05/27 pt hypotensive this am , given IV fluid bolus with some improvement recent narcotics and xanax last pm, doses decreased urinary retention , hall replaced UA pending, may need flomax , wait until BP improves OOB as tolerated , pulm toileting 05/28 UA showing larger leukoestrase, continue IV cipro for now, start po in am start low dose flomax , eval for hall cath removal in am chest tube to water seal, eval for removal in am BP meds with holding parameters creatinine elvated 2/2 low BP yesterday, now improving, DC IV fluids in am 05/29 pt has increased creatinine, additional IV fluids today hall cath removed, bladder scan this afternoon with only 50cc/ urine, increase po fluids as tolerated on po antibiotics and flomax if pt has urinary retention again , and hall replaced , will need urology consult chest tubes dc without difficulty / check cxr in am 05/30/17 No c/o today. Hall replaced secondary to retention. Creatinine stable at ~ 1.48 Objective: Vital Signs Date Time Temp Pulse Resp B/P (MAP) Pulse Ox O2 Delivery O2 Flow Rate FiO2 05/30/17 11:21 98.0 96 18 92/50 (64) 93 05/30/17 11:21 93 Nasal Cannula 2.00 05/30/17 11:00 95 05/30/17 10:00 90 05/30/17 09:00 86 05/30/17 08:00 76 05/30/17 07:30 97.9 70 16 125/65 (85) 97 05/30/17 07:30 97 Nasal Cannula 2.00 05/30/17 07:00 70 05/30/17 06:00 66 05/30/17 05:00 56 05/30/17 04:00 68 05/30/17 03:00 96 Nasal Cannula 2.00 05/30/17 03:00 84 05/30/17 03:00 98.0 77 18 125/65 (85) 96 05/30/17 02:00 72 05/30/17 01:00 70 05/30/17 00:00 68 05/29/17 23:00 98.2 83 16 122/67 (85) 96 05/29/17 23:00 72 05/29/17 23:00 96 Nasal Cannula 2.00 05/29/17 22:32 16 05/29/17 22:00 84 05/29/17 21:00 90 05/29/17 20:00 88 05/29/17 19:00 94 05/29/17 19:00 98.3 87 18 107/56 (73) 93 05/29/17 19:00 93 Nasal Cannula 2.00 05/29/17 18:00 98 05/29/17 17:00 96 05/29/17 16:04 96 05/29/17 15:44 98 20 101/59 (73) 92 05/29/17 15:27 92 Nasal Cannula 2.00 05/29/17 15:00 100 05/29/17 14:00 90 05/29/17 13:00 108 05/29/17 12:15 96 Nasal Cannula 2.00 05/29/17 12:08 98.3 79 18 116/63 (80) 96 05/29/17 12:00 78 Labs: Laboratory Tests Test 05/30/17 04:16 Blood Urea Nitrogen 23 MG/DL (7-18) Creatinine 1.48 MG/DL (0.60-1.30) Random Glucose 95 MG/DL (74-106) Calcium Level 8.2 MG/DL (8.5-10.1) Sodium Level 137 MEQ/L (136-145) Potassium Level 3.7 MEQ/L (3.5-5.1) Chloride Level 106 MEQ/L (98-107) Carbon Dioxide Level 23.5 MEQ/L (21.0-32.0) Anion Gap 8 MEQ/L (5-15) Estimat Glomerular Filtration Rate 45 ML/MIN (>89) Result Diagram: 05/29/17 0440 05/30/17 0416 Imaging: Last 24 hours Impressions Chest X-Ray 05/30/17 0600 Signed Impressions: Service Date/Time: Thursday, May 30, 2017 05:05 - CONCLUSION: 1. Persistent rounded mass/consolidation at the right base. 2. There is some haziness at the left base likely representing some degree of effusion. Pravin Ricci MD Cardiovascular: RRR Pulmonary: CTA GI/: NABS Incision: dry and intact Plan: Patient with good result s/p VATS. Small loculated effusion remains at right base, but not clinically important. Will sign-off and see him 2 weeks after dischsrge int he office with a CXR. 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
--- NOTE | 2017-05-30 14:42 | MB ---
cc: LORI FUNEZ DATE OF CONSULTATION: 05/30/17 HISTORY OF PRESENT ILLNESS This is a pleasant 86-year-old male who was recently admitted with findings of a right hemothorax which was drained by interventional radiology. He was placed on anticoagulation prior to this time and he does have a history of BPH and urinary incontinence. He is followed by Dr. Ray who states that he placed him on Myrbetriq in the past to help him with his urge incontinence. He states prior to his admission he was getting up three to four times at night for voiding. He says his stream is moderate and he denies any urinary tract infections or a history of gross hematuria. He recently also had a history of a TIA which is the reason why he was placed on anticoagulation medication. He has failed a void trial here in the hospital approximately three times and the last insertion was placed for a urinary volume of 250 cc. He is currently draining clear urine at present. He denies any issues with constipation and he has been weaned off his narcotics. PAST MEDICAL HISTORY His medical history includes a history of - 1. Transient ischemic attack. 2. COPD. 3. Nephrolithiasis. 4. Hypertension. 5. Hyperlipidemia. 6. Mitral regurgitation. 7. Hyperthyroidism. 8. Vertigo. PAST SURGICAL HISTORY Noted for - 1. Appendectomy. 2. Inguinal hernia repair. 3. Bilateral knee arthroscopy. 4. Salivary gland removal. MEDICATIONS For medications please refer to the chart. ALLERGIES HE IS ALLERGIC TO PENICILLIN. FAMILY HISTORY Denies any family history of malignancies. SOCIAL HISTORY He is a prior smoker. Denies any alcohol or drug usage. REVIEW OF SYSTEMS He does have some chest pain due to the recent placement of a chest tube. He presently denies any shortness of breath. Denies abdominal pain. Does note weaknesses with his gait at present. Denies constipation at present. Denies headaches. Denies bleeding disorders. Denies heat and cold intolerance at present. The remaining review of systems were reviewed and are negative. PHYSICAL EXAMINATION VITAL SIGNS TODAY: Temperature 98, heart rate 99, respiratory rate 18, BP 92/50. GENERAL: He is a well-developed, well-nourished 86-year-old male. He is in no acute distress. HEENT: Normocephalic, atraumatic. Pupils equal, round and react to light. Extraocular movements intact. NECK: Neck is supple. HEART: Heart rate is regular rate and rhythm. LUNGS: Breath sounds are bilaterally. ABDOMEN: Abdomen is soft, nontender, nondistended. GENITOURINARY: Uncircumcised phallus. Vallecillo in place draining clear urine. Testes are descended. EXTREMITIES: Extremities show no evidence of cyanosis, clubbing or edema. Psych: generalized mood Skin: no lesions Neuro: CNII-XII intact LABORATORY DATA White count 5.7, hemoglobin 10.1, hematocrit 30.1, platelet count of 179. Sodium 137, potassium 3.7, chloride 106, CO2 23.5, BUN of 23, creatinine 1.48, glucose of 95. Urinalysis shows 5 red cells and 8 white cells, leukocyte esterase is moderate. Urine culture from 05/27/2017 is negative. IMAGING Imaging study from 05/29/2017 shows a renal bladder ultrasound that shows no evidence of any hydronephrosis. ASSESSMENT An 86-year-old male with a history of BPH with urinary retention in the hospital. Continue to hold Myrbetriq for now. Continue with Flomax. Would recommend leaving the Vallecillo catheter in for the next 4 or 5 days to allow him to ambulate and regain his strength and wean off narcotics as appropriate and then give the patient a void trial. On an outpatient basis, he can followup with Dr. Ray in the office and to review his voiding at that time. Thank you for the consult and allowing me to participate in the care this patient. Lori RENTERIA /12:38 PM /2:17 PM MTDHaley
[2017-05-30] MEDS: DOCUSATE CALCIUM 240 MG CAP PO SCH (21:14)
[2017-05-30] MEDS: PANTOPRAZOLE SOD 40 MG DELAYED RELEASE TAB PO SCH (21:15)
[2017-05-30] MEDS: ACETAMINOPHEN 325 MG TAB PO PRN (21:20)
[2017-05-31] VITALS (26 sets, daily range): BP systolic 100–127; BP diastolic 55–67; PULSE 60–107; RESP 16–18; TEMP 97.4–98.7; O2SAT 94–96
[2017-05-31] MEDS: LEVOTHYROXINE SODIUM 88 MCG TAB PO SCH (07:00)
[2017-05-31] MEDS: TAMSULOSIN HCL 0.4 MG CAP PO SCH (08:42)
[2017-05-31] MEDS: CIPROFLOXACIN 250 MG TAB PO SCH ×2 (08:42→21:08)
[2017-05-31] MEDS: RESTASIS OPTH EACH EYE SCH ×2 (08:42→21:00)
[2017-05-31] MEDS: NIFEdipine 20 MG CAP PO SCH (08:42)
[2017-05-31] MEDS: DOCUSATE SODIUM 50 MG/SENNA 8.6 MG TAB PO SCH ×2 (08:42→21:08)
[2017-05-31] MEDS: BUDESONIDE-FORMOTEROL 160/4.5 MCG INHALER INH SCH ×2 (08:42→21:08)
[2017-05-31] MEDS: PRAVASTATIN SOD 40 MG TAB PO SCH (08:42)
[2017-05-31] MEDS: SODIUM CHLORIDE 0.9% FLUSH 10 ML FLUSH IV FLUSH SCH ×2 (08:42→21:08)
[2017-05-31] MEDS: PT OWN MYRBETRIQ 50 MG PO SCH (08:43)
[2017-05-31] MEDS ORDERED: ALPRAZolam 0.25 MG TAB PO PRN (09:15)
[2017-05-31 09:35] LABS: BICARBONATE 25.9 MEQ/L (21.0-32.0); POTASSIUM 3.8 MEQ/L (3.5-5.1)
--- NOTE | 2017-05-31 10:12 | HHI.PR ---
Subjective Remarks Follow up renal insufficiency, urinary retention. Patient reports some pain in his legs from ambulating with physical therapy yesterday. Still with pain at chest tube site, less than yesterday. No chest pain, dyspnea. Objective Vitals Vital Signs Date Time Temp Pulse Resp B/P (MAP) Pulse Ox O2 Delivery O2 Flow Rate FiO2 05/31/17 09:00 96 05/31/17 08:00 90 05/31/17 07:45 96 Nasal Cannula 2.00 05/31/17 07:45 98.5 71 16 115/64 (81) 96 05/31/17 07:00 65 05/31/17 06:00 63 05/31/17 05:04 61 05/31/17 04:00 62 05/31/17 04:00 98.4 65 18 127/66 (86) 95 05/31/17 04:00 97 Nasal Cannula 2.00 05/31/17 03:00 63 05/31/17 02:00 63 05/31/17 00:00 98.0 66 18 118/67 (84) 95 05/31/17 00:00 63 05/30/17 23:18 97 Nasal Cannula 2.00 05/30/17 23:00 70 05/30/17 22:00 73 05/30/17 21:00 70 05/30/17 20:00 79 05/30/17 20:00 96 Nasal Cannula 2.00 05/30/17 20:00 98.2 93 18 121/68 (85) 96 05/30/17 19:00 79 05/30/17 18:00 101 05/30/17 17:00 98 05/30/17 16:00 97 05/30/17 15:42 95 Nasal Cannula 2.00 05/30/17 15:42 98.3 91 16 109/58 (75) 95 05/30/17 15:00 93 05/30/17 14:00 102 05/30/17 13:00 110 05/30/17 12:00 99 05/30/17 11:21 98.0 96 18 92/50 (64) 93 05/30/17 11:21 93 Nasal Cannula 2.00 05/30/17 11:00 95 I/O 05/30/17 05/30/17 05/30/17 05/31/17 05/31/17 05/31/17 07:00 15:00 23:00 07:00 15:00 23:00 Intake Total 720 ml 840 ml 420 ml Output Total 650 ml 600 ml 850 ml Balance 70 ml 240 ml -430 ml Intake Oral 720 ml 840 ml 420 ml Output Urine Total 650 ml 600 ml 850 ml # Bowel Movements 2 Result Diagram: 05/29/17 0440 05/31/17 0839 Imaging Last Impressions Chest X-Ray 05/30/17 0600 Signed Impressions: Service Date/Time: Tuesday, May 30, 2017 05:05 - CONCLUSION: 1. Persistent rounded mass/consolidation at the right base. 2. There is some haziness at the left base likely representing some degree of effusion. Pravin Ricci MD Renal Ultrasound 05/29/17 0000 Signed Impressions: Service Date/Time: Monday, May 29, 2017 11:19 - CONCLUSION: Negative hydronephrosis. Shaq Garcia MD FACR Chest Tube Change 05/22/17 0000 Signed Impressions: Service Date/Time: Monday, May 22, 2017 17:06 - CONCLUSION: Uncomplicated chest tube exchange as above. Pravin Gambino MD Chest CT 05/22/17 0000 Signed Impressions: Service Date/Time: Monday, May 22, 2017 10:58 - CONCLUSION: 1. Moderate interval improvement of right-sided hemothorax following placement of small bore right-sided chest tube in the peripheral inferior right hemithorax. However, the fluid now appears loculated with separate components in the inferior lateral hemithorax and medial superior hemithorax. 2. Interval development of simple appearing small left pleural effusion. 3. Remainder of the exam is unchanged. Kelvin Puckett MD Chest Tube Insertion 05/19/17 1634 Signed Impressions: Service Date/Time: Friday, May 19, 2017 15:50 - CONCLUSION: Uncomplicated chest tube placement as above. Abiodun Zhang MD Objective Remarks General: Elderly male in no acute distress. Hard of hearing. Sitting up in a chair. Heart: Regular rate and rhythm. No murmur. Lungs: Clear to auscultation bilaterally. Breathing is nonlabored. Abdomen: Soft, nontender, nondistended. Extremities: No lower extremity edema. AVE hose. Psych: Alert and oriented. Procedures Chest tube placement Urinary Catheter: No Vascular Central Line Catheter: No A/P Problem List: (1) Hemothorax on right ICD Code: J94.2 - Hemothorax Status: Acute (2) History of CVA (cerebrovascular accident) ICD Code: Z86.73 - Personal history of transient ischemic attack (TIA), and cerebral infarction without residual deficits (3) COPD (chronic obstructive pulmonary disease) ICD Code: J44.9 - COPD (chronic obstructive pulmonary disease) Status: Chronic (4) Hypotension ICD Code: I95.9 - Hypotension, unspecified (5) Acute kidney injury ICD Code: N17.9 - Acute kidney failure, unspecified Assessment and Plan 1. Recurrent right hemothorax: Appreciate cardiothoracic surgery recommendations. Status post video-assisted thoracoscopy on 05/26/17. Chest tube removed. 2. Hypotension: Blood pressure is improved. IV fluids discontinued. 3. Urinary retention, acute kidney injury: Vallecillo catheter replaced. Creatinine still trending up. Renal ultrasound is unremarkable. IV fluids discontinued. Urology recommends leaving Vallecillo in place x4-5 more days then attempting void trial. Consult nephrology. 4. Hyperlipidemia: Continue statin. 5. Hypothyroidism: Continue Synthroid. 6. COPD: DuoNeb, Symbicort. 7. History of CVA: Continue aspirin for secondary prevention of stroke. Avoid Lovenox, warfarin, Plavix as patient has developed hemothorax while on those medications. 8. DVT prophylaxis: AVE Liu. Avoid chemical prophylaxis secondary to hemothorax. Discharge Planning Plan for discharge to SNF soon pending nephrology consult. Case management to assist with discharge planning. Humberto Leos MD May 31, 2017 10:12
[2017-05-31 11:37] LABS: BACTERIA, URINE OCC /hpf; BLOOD, URINE MOD (NEG); GLUCOSE,URINE NEG (NEG); KETONE, URINE NEG (NEG); MUCUS URINE FEW /lpf (OCC); NITRITE,URINE NEG (NEG); SQUAMOUS EPITHELIAL CELL URINE <1 /hpf (0-5); URINE COLOR YELLOW (YELLW/STRAW)
[2017-05-31 11:41] LABS: COMMENT (UR) CATH-CULTURE IND; CULTURE IF INDICATED CATH CULTURE IND
--- NOTE | 2017-05-31 15:24 | MB ---
cc: LADARIUS MATAMOROS MD DATE OF CONSULTATION: 05/31/2017. REASON FOR CONSULTATION: Acute renal failure management. HISTORY OF PRESENT ILLNESS: This is an 86-year-old male with a history of TIA, COPD and previous renal stones. The patient presented to [facility] on May 17 with presentation of flank pain. He was found to have recurrent pleural effusions. The patient was seen here and followed up with CT surgery. He had an initial thoracentesis then secondary to that had a video-assisted thoracoscopic clearance of a loculated effusion. The patient had chest tubes in place. These were out at this time. In addition, the patient has a history of urinary retention and benign prostate hypertrophy. He has had issues with urinary retention here and has failed several voiding trials. He was seen with urology and a Vallecillo was placed yesterday. The patient was started on Flomax. At this point, he is making good urine output with a Vallecillo with 1.4 liters of urine output over the last 24 hours. The patient did develop some mild acute kidney injury. His initial creatinine was 0.9 at the time of his admission. On May 28, the creatinine jumped up to 1.38 and has steadily risen slightly to up to a level of 1.53 today. The patient did have some initial hypotension post surgery with systolic blood pressures ranging in the 90s. At this point, he has a systolic blood pressures that range in the 100s to 110s. Given the acute renal failure, nephrology was consulted for further evaluation. At this time, the patient is resting in bed comfortably. He has a Vallecillo in place. His chest tubes have been removed. He reports he is still coughing up some amounts of blood, however, reports feeling well otherwise. Nephrology was consulted for further evaluation. REVIEW OF SYSTEMS: The patient denies any fevers, chills, no nausea, no vomiting or diarrhea. No constipation. No dysuria. The patient has a Vallecillo in place. No chest pains. The patient has some coughing with blood otherwise no chest pains or shortness of breath otherwise. The review of systems is otherwise negative. PAST MEDICAL HISTORY: The medical history includes: 1. TIA. 2. COPD. 3. Renal stones. 4. Hypertension. 5. Dyslipidemia. 6. Mitral regurgitation. 7. Hypothyroidism. 8. Vertigo. PAST SURGICAL HISTORY: 1. Appendectomy. 2. Inguinal hernia repair. 3. Bilateral knee arthroscopy. 4. Salivary gland removal. 5. Left ureter 9 mm stone removed nine years ago. 6. History of CVA. MEDICATIONS AT HOME: 1. Aspirin. 2. Plavix. 3. Oxygen. 4. Flexeril. 5. Nifedipine. 6. Restasis. 7. Synthroid. 8. Alprazolam. 9. Myrbetiq. 10. Symbicort. 11. Lovastatin. 12. Enalapril. 13. Omeprazole. FAMILY HISTORY: Noncontributory. SOCIAL HISTORY: Previous smoker, quit smoking many years ago. No alcohol, tobacco or drug use. PHYSICAL EXAMINATION: GENERAL: Awake, alert and oriented and in no apparent distress. HEAD, EYES, EARS, NOSE, THROAT: Neck soft supple. CARDIAC: Regular rate and rhythm. PULMONARY: Lungs have decreased breath sounds at the bases. Bilateral rhonchi. Otherwise clear to auscultation. ABDOMEN: The abdomen is soft, nontender and nondistended. EXTREMITIES: Trace edema. LABORATORY FINDINGS: Sodium 140, potassium 2.8, chloride 106, bicarb 25.9, BUN 22, creatinine 1.5 with glucose of 115. White count 5.7, hemoglobin 10.1, hematocrit 30.1 with platelet count 179,000. ASSESSMENT AND PLAN: 10. Acute kidney injury: The patient developed some slight postop hypotension after his VATS surgery. He had initial systolic blood pressures that ranged in the 80s and 90s postoperatively this has gradually improved up to a level with systolic blood pressures that have ranged from the 100s to 120s. I suspect this initial postop hypotension may have contributed to some acute kidney injury with possible mild nonoliguric ATN. At this point the patient is urinating well. He may have some acute kidney injury as well with his urinary retention. The patient failed several voiding trials here and eventually a Vallecillo was placed yesterday and he currently is being followed with and he was started on Flomax and he has had made 1.4 liters of urine output over the next 24 hours. At this point continue with Vallecillo catheter in place and continue Vallecillo management with urology. Also the patient has been receiving his blood pressure medications with Procardia 20 mg daily; I will hold this for any systolic blood pressures under the 120s. I suspect initial hypotension may have contributed to the renal failure. However he is nonoliguric and is making good urine. Continue with p.o. intake. Will further check urine studies and continue to monitor. He had a previous fractional excretion of sodium which was 5.6% consistent with post obstructive acute kidney injury and he has had a Vallecillo in place afterwards. 2. Benign prostate hypertrophy and urinary retention: The patient has failed several voiding trials here and he is currently on Flomax with a Vallecillo catheter in place. Continue management per urology. He is making good urine output with 1.4 liters of urine output over the last 24 hours. A renal ultrasound had otherwise relatively normal findings of 10.0 and 10.6 cm kidneys with normal echogenicity and no findings of any hydronephrosis or stones. Continue to monitor with history of nephrolithiasis. 3. Pleural effusion. The patient had a thoracentesis and VATS surgery here. He now has had his chest tubes removed. Continue to follow up with CT surgery. He is apparently stable at this point. 4. Hypertension. Blood pressure has been running slightly low. Hold all blood pressure medications for a systolic blood pressure under the 120s. MD KATT Cerna/YENI /2:28 PM /3:06 PM MTDD
[2017-05-31] MEDS: PANTOPRAZOLE SOD 40 MG DELAYED RELEASE TAB PO SCH (21:07)
[2017-05-31] MEDS: ACETAMINOPHEN 325 MG TAB PO PRN (21:07)
[2017-05-31] MEDS: DOCUSATE CALCIUM 240 MG CAP PO SCH (21:08)
[2017-06-01] VITALS (25 sets, daily range): BP systolic 94–141; BP diastolic 53–75; PULSE 51–107; RESP 16–18; TEMP 97.9–98.7; O2SAT 93–98
[2017-06-01] MEDS: ACETAMINOPHEN 325 MG TAB PO PRN ×3 (03:19→20:29)
[2017-06-01 04:28] LABS: AUTOMATED NEUTROPHIL # 2.7 TH/MM3 (1.8-7.7); BASOPHIL % 0.6 % (0.0-2.0); EOSINOPHIL # 0.1 TH/MM3 (0-0.4); EOSINOPHIL % 3.3 % (0.0-4.0); HEMATOCRIT 26.6 % (39.0-51.0); HEMO FLAGS DIFF FINAL; LYMPH % 11.7 % (9.0-44.0); LYMPHOCYTE # 0.5 TH/MM3 (1.0-4.8); MEAN CORPUSCULAR HEMOGLOBIN 32.3 PG (27.0-34.0); MEAN CORPUSCULAR HGB CONC 33.3 % (32.0-36.0); MONO % 14.6 % (0.0-8.0); NEUT % 69.8 % (16.0-70.0); PLATELET COUNT 199 TH/MM3 (150-450); RED BLOOD COUNT 2.75 MIL/MM3 (4.50-5.90); RED CELL DISTRIBUTION WIDTH 13.6 % (11.6-17.2); WHITE BLOOD COUNT 3.9 TH/MM3 (4.0-11.0)
[2017-06-01 05:10] LABS: BICARBONATE 25.3 MEQ/L (21.0-32.0); POTASSIUM 3.7 MEQ/L (3.5-5.1)
[2017-06-01] MEDS: LEVOTHYROXINE SODIUM 88 MCG TAB PO SCH (06:11)
[2017-06-01] MEDS ORDERED: ALPR.25 PO (08:30)
[2017-06-01] MEDS ORDERED: TAMS5CAP PO (08:30)
[2017-06-01] MEDS ORDERED: ALBU0.08 NEB (08:30)
--- NOTE | 2017-06-01 08:31 | HHI.DCPOC ---
Discharge Care Plan Diagnosis: (1) Migraine (2) Hypertension (3) Hyperlipidemia (4) GERD (gastroesophageal reflux disease) (5) Right VATS exploration to drain loculated pleural effusion, lysis of adhesions (6) COPD (chronic obstructive pulmonary disease) (7) Hemothorax on right Goals to Promote Your Health * To prevent worsening of your condition and complications * To maintain your health at the optimal level Directions to Meet Your Goals Take your medications as prescribed Follow your dietary instruction Follow activity as directed Keep your appointments as scheduled Take your immunizations and boosters as scheduled If your symptoms worsen call your PCP, if no PCP go to Urgent Care Center or Emergency Room Smoking is Dangerous to Your Health. Avoid second hand smoke Call the 24-hour hour crisis hotline for domestic abuse at Humberto Leos MD Jun 01, 2017 08:31
--- NOTE | 2017-06-01 08:48 | HHI.PR ---
Subjective Remarks Follow up acute kidney injury. Patient still having some pain at the chest tube site, only with movement. Denies chest pain, dyspnea. Objective Vitals Vital Signs Date Time Temp Pulse Resp B/P (MAP) Pulse Ox O2 Delivery O2 Flow Rate FiO2 06/01/17 07:00 53 06/01/17 07:00 97.9 59 18 141/67 (91) 93 06/01/17 07:00 93 Nasal Cannula 2.00 06/01/17 05:00 51 06/01/17 04:00 57 06/01/17 03:52 97 Nasal Cannula 2.00 06/01/17 03:52 98.7 56 18 134/66 (88) 95 06/01/17 03:00 56 06/01/17 02:04 65 06/01/17 01:00 65 06/01/17 00:00 62 06/01/17 00:00 97 Nasal Cannula 2.00 06/01/17 00:00 98.3 64 18 137/63 (87) 95 05/31/17 23:00 60 05/31/17 22:00 68 05/31/17 21:05 88 05/31/17 20:00 82 05/31/17 20:00 98.5 88 18 120/61 (80) 95 05/31/17 19:26 97 Nasal Cannula 2.00 05/31/17 19:00 99 05/31/17 18:00 90 05/31/17 17:00 96 05/31/17 16:00 97 05/31/17 15:30 97.4 97 16 108/55 (72) 94 05/31/17 15:30 94 Nasal Cannula 2.00 05/31/17 15:00 98 05/31/17 14:00 93 05/31/17 13:00 107 05/31/17 12:00 98 05/31/17 11:12 98.7 91 16 100/58 (72) 94 05/31/17 11:12 94 Nasal Cannula 2.00 05/31/17 11:00 65 05/31/17 10:00 94 05/31/17 09:00 96 I/O 05/31/17 05/31/17 05/31/17 06/01/17 06/01/17 06/01/17 06:59 14:59 22:59 06:59 14:59 22:59 Intake Total 420 ml 840 ml 240 ml Output Total 850 ml 900 ml 550 ml Balance -430 ml -60 ml -310 ml Intake Oral 420 ml 840 ml 240 ml Output Urine Total 850 ml 900 ml 550 ml # Bowel Movements 1 Result Diagram: 06/01/17 0409 06/01/17 0409 Imaging Last Impressions Chest X-Ray 05/30/17 0600 Signed Impressions: Service Date/Time: Tuesday, May 30, 2017 05:05 - CONCLUSION: 1. Persistent rounded mass/consolidation at the right base. 2. There is some haziness at the left base likely representing some degree of effusion. Pravin Ricci MD Renal Ultrasound 05/29/17 0000 Signed Impressions: Service Date/Time: Monday, May 29, 2017 11:19 - CONCLUSION: Negative hydronephrosis. Shaq Garcia MD FACR Chest Tube Change 05/22/17 0000 Signed Impressions: Service Date/Time: Monday, May 22, 2017 17:06 - CONCLUSION: Uncomplicated chest tube exchange as above. Pravin Gambino MD Chest CT 05/22/17 0000 Signed Impressions: Service Date/Time: Monday, May 22, 2017 10:58 - CONCLUSION: 1. Moderate interval improvement of right-sided hemothorax following placement of small bore right-sided chest tube in the peripheral inferior right hemithorax. However, the fluid now appears loculated with separate components in the inferior lateral hemithorax and medial superior hemithorax. 2. Interval development of simple appearing small left pleural effusion. 3. Remainder of the exam is unchanged. Kelvin Puckett MD Chest Tube Insertion 05/19/17 1634 Signed Impressions: Service Date/Time: Friday, May 19, 2017 15:50 - CONCLUSION: Uncomplicated chest tube placement as above. Abiodun Zhang MD Objective Remarks General: Elderly male in no acute distress. Hard of hearing. Sitting up in a chair. Heart: Regular rate and rhythm. No murmur. Lungs: Clear to auscultation bilaterally. Breathing is nonlabored. Abdomen: Soft, nontender, nondistended. Extremities: No lower extremity edema. AVE hose. Psych: Alert and oriented. Procedures Chest tube placement Urinary Catheter: Yes Assessment to: Continue Vallecillo insert reason: Obstruction/Retention Vascular Central Line Catheter: No A/P Problem List: (1) Hemothorax on right ICD Code: J94.2 - Hemothorax Status: Acute (2) History of CVA (cerebrovascular accident) ICD Code: Z86.73 - Personal history of transient ischemic attack (TIA), and cerebral infarction without residual deficits (3) COPD (chronic obstructive pulmonary disease) ICD Code: J44.9 - COPD (chronic obstructive pulmonary disease) Status: Chronic (4) Hypotension ICD Code: I95.9 - Hypotension, unspecified (5) Acute kidney injury ICD Code: N17.9 - Acute kidney failure, unspecified Assessment and Plan 1. Recurrent right hemothorax: Appreciate cardiothoracic surgery recommendations. Status post video-assisted thoracoscopy on 05/26/17. Chest tube removed. Respiratory status stable. Continue supplemental oxygen. 2. Hypotension: Blood pressure is improved. IV fluids discontinued. 3. Urinary retention, acute kidney injury: Vallecillo catheter replaced. Creatinine slightly improved today. Renal ultrasound is unremarkable. IV fluids discontinued. Urology recommends leaving Vallecillo in place x4-5 more days then attempting void trial. Appreciate nephrology recommendations. 4. Hyperlipidemia: Continue statin. 5. Hypothyroidism: Continue Synthroid. 6. COPD: DuoNeb, Symbicort. 7. History of CVA: Continue aspirin for secondary prevention of stroke. Avoid Lovenox, warfarin, Plavix as patient has developed hemothorax while on those medications. 8. DVT prophylaxis: Noe, AVE rodrigues. Avoid chemical prophylaxis secondary to hemothorax. Discharge Planning Possible discharge to SNF today or tomorrow pending nephrology clearance. Case management to assist with discharge planning. Humberto Leos MD Jun 01, 2017 08:48
[2017-06-01] MEDS: PT OWN MYRBETRIQ 50 MG PO SCH (09:00)
[2017-06-01] MEDS: RESTASIS OPTH EACH EYE SCH ×2 (09:00→20:30)
[2017-06-01] MEDS: BUDESONIDE-FORMOTEROL 160/4.5 MCG INHALER INH SCH ×2 (09:00→20:30)
[2017-06-01] MEDS: SODIUM CHLORIDE 0.9% FLUSH 10 ML FLUSH IV FLUSH SCH ×2 (09:02→20:30)
[2017-06-01] MEDS: CIPROFLOXACIN 250 MG TAB PO SCH (09:04)
[2017-06-01] MEDS: TAMSULOSIN HCL 0.4 MG CAP PO SCH (09:04)
[2017-06-01] MEDS: PRAVASTATIN SOD 40 MG TAB PO SCH (09:04)
[2017-06-01] MEDS: DOCUSATE SODIUM 50 MG/SENNA 8.6 MG TAB PO SCH ×2 (09:04→20:29)
[2017-06-01] MEDS: NIFEdipine 20 MG CAP PO SCH (09:25)
--- NOTE | 2017-06-01 18:10 | HHI.NPPN ---
Subjective History of Present Illness 86-year-old male with a history of TIA, COPD and previous renal stones. The patient presented to [facility] on May 17 with presentation of flank pain. He was found to have recurrent pleural effusions. Called to see the patient for elevated BUN and Creatinine. Additional Remarks Patient is alert, sitting on the chair and has mild SOB. Review of Systems General Constitutional: Fatigue Respiratory Lungs: SOB, Cough Cardiovascular Cardiac: Edema, JASSO Objective Data Data 06/01/17 06/02/17 19:00 07:00 Intake Total 720 ml Output Total 800 ml Balance -80 ml Intake Oral 720 ml IV Total 0 ml Output Urine Total 800 ml # Bowel Movements 0 Vital Signs Date Time Temp Pulse Resp B/P (MAP) Pulse Ox O2 Delivery O2 Flow Rate FiO2 06/01/17 17:00 101 06/01/17 16:00 100 06/01/17 15:00 98.0 94 18 124/61 (82) 94 06/01/17 15:00 104 06/01/17 15:00 98 Room Air 06/01/17 14:00 101 06/01/17 13:00 62 06/01/17 12:00 90 06/01/17 11:00 97.9 91 16 94/53 (67) 98 06/01/17 11:00 53 06/01/17 11:00 98 Room Air 06/01/17 10:00 87 06/01/17 09:00 86 06/01/17 08:00 62 06/01/17 07:00 53 06/01/17 07:00 97.9 59 18 141/67 (91) 93 06/01/17 07:00 93 Nasal Cannula 2.00 06/01/17 05:00 51 06/01/17 04:00 57 06/01/17 03:52 97 Nasal Cannula 2.00 06/01/17 03:52 98.7 56 18 134/66 (88) 95 06/01/17 03:00 56 06/01/17 02:04 65 06/01/17 01:00 65 06/01/17 00:00 62 06/01/17 00:00 97 Nasal Cannula 2.00 06/01/17 00:00 98.3 64 18 137/63 (87) 95 05/31/17 23:00 60 05/31/17 22:00 68 05/31/17 21:05 88 05/31/17 20:00 82 05/31/17 20:00 98.5 88 18 120/61 (80) 95 05/31/17 19:26 97 Nasal Cannula 2.00 05/31/17 19:00 99 -: 06/01/17 0409 06/01/17 0409 Physical Exam General Appearance: No Acute Distress, Comfortable Eyes Eye Exam: Pupils Reactive Throat Throat Exam: Oral Mucosa [place] & Moist Neck Neck Exam: Neck Supple Pulmonary Resp Exam: Breath Sounds Equal, Crackles, Rhonchi, Decreased Bases Cardiology CV Exam: Regular Gastrointestinal/Abdomen GI Exam: Soft, Non-Tender, Bowel Sounds Present Extremeties Extremities Exam: Trace Edema Neurologic Neuro Exam: Alert, Awake, Oriented Psychiatric Psych Exam: Appropriate Responses Assessment/Plan Problem List: (1) Urinary retention ICD Codes: R33.9 - Retention of urine, unspecified (2) COPD (chronic obstructive pulmonary disease) ICD Codes: J44.9 - COPD (chronic obstructive pulmonary disease) Status: Chronic (3) Hypertension ICD Codes: I10 - Hypertension Status: Chronic (4) Hyperlipidemia ICD Codes: E78.5 - Hyperlipidemia Status: Chronic (5) Acute kidney injury ICD Codes: N17.9 - Acute kidney failure, unspecified Plan Patient has stable Creatinine now 1.4. Has Acute kidney injury, possible ATN. Non oliguric, on Flomax, Has Vallecillo's catheter. Was seen by urology, to keep Vallecillo's for now. If D/C, follow up with urology and PCP. Ajay Higginbotham MD Jun 01, 2017 18:10
[2017-06-01] MEDS: PANTOPRAZOLE SOD 40 MG DELAYED RELEASE TAB PO SCH (20:29)
[2017-06-01] MEDS: DOCUSATE CALCIUM 240 MG CAP PO SCH (20:29)
[2017-06-02] VITALS (22 sets, daily range): BP systolic 129–151; BP diastolic 65–75; PULSE 52–80; RESP 18; TEMP 98.2–98.5; O2SAT 97–99
[2017-06-02 05:28] LABS: BICARBONATE 25.7 MEQ/L (21.0-32.0); POTASSIUM 3.9 MEQ/L (3.5-5.1)
[2017-06-02] MEDS: LEVOTHYROXINE SODIUM 88 MCG TAB PO SCH (06:12)
--- NOTE | 2017-06-02 08:26 | HHI.DS ---
Discharge Summary Admission Date May 16, 2017 at 19:31 Discharge Date: Jun 02, 2017 Admitting Diagnosis Hemothorax (1) Hemothorax on right ICD Code: J94.2 - Hemothorax Status: Acute (2) History of CVA (cerebrovascular accident) ICD Code: Z86.73 - Personal history of transient ischemic attack (TIA), and cerebral infarction without residual deficits (3) COPD (chronic obstructive pulmonary disease) ICD Code: J44.9 - COPD (chronic obstructive pulmonary disease) Status: Chronic (4) Hypotension ICD Code: I95.9 - Hypotension, unspecified (5) Acute kidney injury ICD Code: N17.9 - Acute kidney failure, unspecified Procedures Chest tube placement Brief History - From Admission 86 year old male with past medical history of TIA, COPD, Nephrolithiasis presented to [place] emergency department at [place] with right flank pain. The pain is stabbing and so severe that it wakes him up at 3 am while he is sleeping. Moving around and supine position makes the pain worse and pain medication makes it better. He states that the pain is similar to the kidney stones he has had before and actually had a 9mm stone surgically removed in his left ureter about 9 years ago. The patient presented to [place] 3 weeks ago for TIA like symptoms. He was placed on Lovenox while in the inpatient. Subsequently was discharged and in the interim return to the emergency department on April 30 (2 weeks ago) with spontaneous hemopneumothorax and intervention radiology had placed a pigtail catheter while in the hospital the pigtail catheter was dislodged while patient was sleeping, he was further observed and later discharged without further intervention. His flank pain today is also similar to pain he experienced during the hemopneumothorax during last hospitalization. CT of the chest today revealed recurrent moderate to large size right sided hemothorax with associated compressive atelectasis in the right lower lobe. The CT surgeon was consulted by [facility] ED attending and per recommendation he is being admitted to ICU at [facility] with IR consult for fluoroscopy guided chest tube placement tomorrow a.m. CBC/BMP: 06/01/17 0409 06/02/17 0427 Significant Findings Laboratory Tests Test 05/31/17 08:39 05/31/17 11:09 06/01/17 04:09 06/01/17 21:40 Blood Urea Nitrogen 22 MG/DL (7-18) 25 MG/DL (7-18) Creatinine 1.53 MG/DL (0.60-1.30) 1.43 MG/DL (0.60-1.30) Random Glucose 115 MG/DL (74-106) Estimat Glomerular Filtration Rate 43 ML/MIN (>89) 47 ML/MIN (>89) Urine Turbidity HAZY (CLEAR) Urine Occult Blood MOD (NEG) Urine Leukocyte Esterase LARGE (NEG) Urine WBC 37 /hpf (0-5) Urine Bacteria OCC /hpf (NONE) Urine Mucus FEW /lpf (OCC) White Blood Count 3.9 TH/MM3 (4.0-11.0) Red Blood Count 2.75 MIL/MM3 (4.50-5.90) Hemoglobin 8.9 GM/DL (13.0-17.0) Hematocrit 26.6 % (39.0-51.0) Mean Platelet Volume 6.7 FL (7.0-11.0) Monocytes (%) (Auto) 14.6 % (0.0-8.0) Lymphocytes # (Auto) 0.5 TH/MM3 (1.0-4.8) Calcium Level 7.9 MG/DL (8.5-10.1) Test 06/02/17 04:27 Blood Urea Nitrogen 22 MG/DL (7-18) Creatinine 1.49 MG/DL (0.60-1.30) Calcium Level 8.2 MG/DL (8.5-10.1) Estimat Glomerular Filtration Rate 45 ML/MIN (>89) Imaging Last Impressions Chest X-Ray 05/30/17 0600 Signed Impressions: Service Date/Time: Tuesday, May 30, 2017 05:05 - CONCLUSION: 1. Persistent rounded mass/consolidation at the right base. 2. There is some haziness at the left base likely representing some degree of effusion. Pravin Ricci MD Renal Ultrasound 05/29/17 0000 Signed Impressions: Service Date/Time: Monday, May 29, 2017 11:19 - CONCLUSION: Negative hydronephrosis. Shaq Garcia MD FACR Chest Tube Change 05/22/17 0000 Signed Impressions: Service Date/Time: Monday, May 22, 2017 17:06 - CONCLUSION: Uncomplicated chest tube exchange as above. Pravin Gambino MD Chest CT 05/22/17 0000 Signed Impressions: Service Date/Time: Monday, May 22, 2017 10:58 - CONCLUSION: 1. Moderate interval improvement of right-sided hemothorax following placement of small bore right-sided chest tube in the peripheral inferior right hemithorax. However, the fluid now appears loculated with separate components in the inferior lateral hemithorax and medial superior hemithorax. 2. Interval development of simple appearing small left pleural effusion. 3. Remainder of the exam is unchanged. Kelvin Puckett MD Chest Tube Insertion 05/19/17 1634 Signed Impressions: Service Date/Time: Friday, May 19, 2017 15:50 - CONCLUSION: Uncomplicated chest tube placement as above. Abiodun Zhang MD PE at Discharge General: Elderly male in no acute distress. Hard of hearing. Sitting up in a chair. Heart: Regular rate and rhythm. No murmur. Lungs: Clear to auscultation bilaterally. Breathing is nonlabored. Abdomen: Soft, nontender, nondistended. Extremities: No lower extremity edema. AVE hose. Psych: Alert and oriented. Pt update on day of discharge The patient continues to report pain in the right chest wall with movement. Pain is at the site of the chest tube. This seems to be improving somewhat. No dyspnea, chest pain, nausea, vomiting, diarrhea, constipation. Hospital Course The patient was admitted to the critical care service for management of right- sided pneumothorax. Cardiovascular surgery was consulted. The patient was found to have recurrent hemothorax. Chest tube was placed. VATS was done to drain loculated pleural effusion on the right. The patient developed postoperative hypotension and decreased urine output. His creatinine increased. Vallecillo catheter was placed and the patient was given gentle IV fluid hydration. The chest tube was removed by CV surgery. Urology was consulted and recommended leaving the Vallecillo catheter in place. Nephrology was consulted for evaluation of acute kidney injury. The patient's creatinine remained stable around 1.4. He was felt to be stable for discharge to SNF. Pt Condition on Discharge: Stable Discharge Disposition: Discharge to SNF Discharge Time: > 30 minutes Discharge Instructions DIET: Follow Instructions for: As Tolerated, No Restrictions Activities you can perform: Regular-No Restrictions Follow up Referrals: Appointment for Follow Up Nephrology - 2 Weeks with Ajay Higginbotham MD PCP Follow-up Urology - 1 Week with Amaury Ray MD New Orders: X-RAY CHEST PA & LAT - 2 Weeks New Medications: Albuterol Neb (Albuterol Neb) 2.5 Mg/3 Ml Neb 2.5 MG NEB Q2HR NEB PRN for WHEEZING, #30 NEBULE Alprazolam (Xanax) 0.25 Mg Tab 0.25 MG PO Q12HR PRN for ANXIETY, #6 TAB 0 Refills Tamsulosin (Flomax) 0.4 Mg Cap 0.4 MG PO DAILY for Urinary retention, #30 CAP Continued Medications: Aspirin DR (Adult Aspirin EC Low Strength) 81 Mg Tabec 81 MG PO DAILY for Blood Clot Prevention, #30 TAB 3 Refills Budesonide-Formoterol Inh (Symbicort Inh) 160-4.5 Mcg/Act Aero 2 PUFF INH Q12HR, #1 INHALER 0 Refills Cyclosporine Opth 0.05% (Restasis Opth 0.05%) 0.05% Emul 1 DROP EACH EYE BID for Dry Eye, #1 BOX 0 Refills Levothyroxine (Levothyroxine) 88 Mcg Tab 88 MCG PO DAILY for Thyroid, #30 TAB 0 Refills Lovastatin (Lovastatin) 40 Mg Tab 40 MG PO DAILY for Cholesterol Management, #30 TAB 0 Refills Nifedipine (Nifedipine) 20 Mg Cap 20 MG PO DAILY for Chest Pain, #90 CAP 0 Refills Omeprazole (Omeprazole) 20 Mg Tab 20 MG PO DAILY, #30 TAB 0 Refills Oxygen (O2) (Oxygen (O2)) Device LITER CHANG.CANULA CONTINUOUS for Prevent Hypoxemia, #2 Oxygen Concentrator Portable Gaseous 2 L/min via Nasal Canula Continuous For 99 months Discontinued Medications: Alprazolam (Alprazolam) 0.5 Mg Tab 0.5 MG PO Q4H PRN for ANXIETY, TAB 0 Refills Clopidogrel (Plavix) 75 Mg Tab 75 MG PO DAILY for Blood Clot Prevention, #30 TAB 3 Refills Cyclobenzaprine (Flexeril) 5 Mg Tab Unknown Dose PO TID for Muscle Spasm, #90 TAB 0 Refills Enalapril (Enalapril) 20 Mg Tab 20 MG PO DAILY, #30 TAB 0 Refills Mirabegron (Myrbetriq) 50 Mg Tab 50 MG PO DAILY for Urinary Symptom Managemen, #30 TAB 0 Refills Humberto Leos MD Jun 02, 2017 08:26
[2017-06-02] MEDS: SODIUM CHLORIDE 0.9% FLUSH 10 ML FLUSH IV FLUSH SCH (09:00)
[2017-06-02] MEDS: RESTASIS OPTH EACH EYE SCH (09:00)
[2017-06-02] MEDS: DOCUSATE SODIUM 50 MG/SENNA 8.6 MG TAB PO SCH (09:00)
[2017-06-02] MEDS: PT OWN MYRBETRIQ 50 MG PO SCH (09:00)
[2017-06-02] MEDS: PRAVASTATIN SOD 40 MG TAB PO SCH (09:11)
[2017-06-02] MEDS: NIFEdipine 20 MG CAP PO SCH (09:11)
[2017-06-02] MEDS: BUDESONIDE-FORMOTEROL 160/4.5 MCG INHALER INH SCH (09:12)
[2017-06-02] MEDS: TAMSULOSIN HCL 0.4 MG CAP PO SCH (09:12)
--- NOTE | 2017-06-02 22:24 | HHI.NPPN ---
Subjective History of Present Illness 86-year-old male with a history of TIA, COPD and previous renal stones. The patient presented to [facility] on May 17 with presentation of flank pain. He was found to have recurrent pleural effusions. Called to see the patient for elevated BUN and Creatinine. Additional Remarks Patient seen in the afternoon, sitting on the chair , feeling better. Review of Systems General Constitutional: Fatigue Respiratory Lungs: SOB, Cough Cardiovascular Cardiac: Edema, JASSO Objective Data Data 06/02/17 06/03/17 19:00 07:00 Intake Total 975 ml Output Total 610 ml Balance 365 ml Intake Oral 975 ml Output Urine Total 610 ml # Bowel Movements 0 Vital Signs Date Time Temp Pulse Resp B/P (MAP) Pulse Ox O2 Delivery O2 Flow Rate FiO2 06/02/17 17:00 76 06/02/17 16:39 97 Nasal Cannula 3.00 06/02/17 16:00 98.5 78 18 135/68 (90) 97 06/02/17 16:00 74 06/02/17 15:00 80 06/02/17 14:00 72 06/02/17 13:00 70 06/02/17 12:00 72 06/02/17 11:11 97 Nasal Cannula 3.00 06/02/17 11:09 98.2 78 18 129/65 (86) 97 06/02/17 11:00 78 06/02/17 10:00 68 06/02/17 09:00 72 06/02/17 08:00 98.4 70 18 151/75 (100) 99 06/02/17 08:00 70 06/02/17 07:50 97 Nasal Cannula 3.00 06/02/17 07:00 65 06/02/17 06:00 52 06/02/17 05:00 56 06/02/17 04:00 61 06/02/17 03:10 99 Nasal Cannula 3.00 06/02/17 03:10 98.3 69 18 139/72 (94) 99 06/02/17 03:00 59 06/02/17 02:00 76 06/02/17 01:00 60 06/02/17 00:00 64 06/01/17 23:10 98.5 78 18 135/74 (94) 97 06/01/17 23:10 97 Nasal Cannula 3.00 06/01/17 23:00 73 -: 10/16/17 0409 06/02/17 0427 Physical Exam General Appearance: No Acute Distress, Comfortable Eyes Eye Exam: Pupils Reactive Throat Throat Exam: Oral Mucosa [place] & Moist Neck Neck Exam: Neck Supple Pulmonary Resp Exam: Breath Sounds Equal, Crackles, Rhonchi, Decreased Bases Cardiology CV Exam: Regular Gastrointestinal/Abdomen GI Exam: Soft, Non-Tender, Bowel Sounds Present Extremeties Extremities Exam: Trace Edema Neurologic Neuro Exam: Alert, Awake, Oriented Psychiatric Psych Exam: Appropriate Responses Assessment/Plan Problem List: (1) Urinary retention ICD Codes: R33.9 - Retention of urine, unspecified (2) COPD (chronic obstructive pulmonary disease) ICD Codes: J44.9 - COPD (chronic obstructive pulmonary disease) Status: Chronic (3) Hypertension ICD Codes: I10 - Hypertension Status: Chronic (4) Hyperlipidemia ICD Codes: E78.5 - Hyperlipidemia Status: Chronic (5) Acute kidney injury ICD Codes: N17.9 - Acute kidney failure, unspecified Plan Patient has stable Creatinine now 1.4. Has Acute kidney injury, possible ATN. Non oliguric, on Flomax, Has Vallecillo's catheter. Was seen by urology, to keep Vallecillo's for now. Creatinine remain same, 1.4. Has an element of ONELIA, possibly ATN. Now for D/C to SNF. I will follow in 3-4 weeks. Ajay Higginbotham MD Jun 02, 2017 22:24
== END 2017-06-02 18:00 | DRG 164 ==
LOC: PHED 14:03 → PHEDA 19:31 → HIMN 05-17 01:05 → N04A 05-20 23:19 → HCVI 05-26 14:02 → HCPC 05-26 17:23
PROVIDERS: ADMIT Hospitalist; ATTEND Hospitalist
PROC: 0W9930Z Drainage of Right Pleural Cavity with Drainage Device, Percutaneous Approach (ICD-10-PCS; 2017-05-19)
PROC: 0W29X0Z Change Drainage Device in Right Pleural Cavity, External Approach (ICD-10-PCS; 2017-05-22)
PROC: 0BQK4ZZ Repair Right Lung, Percutaneous Endoscopic Approach (ICD-10-PCS; 2017-05-26)
PROC: 0BDK4ZX Extraction of Right Lung, Percutaneous Endoscopic Approach, Diagnostic (ICD-10-PCS; 2017-05-26)
PROC: 0W9930Z Drainage of Right Pleural Cavity with Drainage Device, Percutaneous Approach (ICD-10-PCS; 2017-05-26)
PROC: 0BNK0ZZ Release Right Lung, Open Approach (ICD-10-PCS; principal; 2017-05-26 13:49)
PROC: 0T9B70Z Drainage of Bladder with Drainage Device, Via Natural or Artificial Opening (ICD-10-PCS; 2017-05-27)
PROC: 0T9B70Z Drainage of Bladder with Drainage Device, Via Natural or Artificial Opening (ICD-10-PCS; 2017-05-29)
DX: J94.2 Hemothorax (principal); J98.11 Atelectasis; N17.9 Acute kidney failure, unspecified; Z99.81 Dependence on supplemental oxygen; J43.9 Emphysema, unspecified; I34.0 Nonrheumatic mitral (valve) insufficiency; J21.9 Acute bronchiolitis, unspecified; J90 Pleural effusion, not elsewhere classified; J98.4 Other disorders of lung; I71.4 Abdominal aortic aneurysm, without rupture; Z86.73 Personal history of transient ischemic attack (TIA), and cerebral infarction without residual deficits; Z87.442 Personal history of urinary calculi; Z79.01 Long term (current) use of anticoagulants; M19.90 Unspecified osteoarthritis, unspecified site; E78.00 Pure hypercholesterolemia, unspecified; I10 Essential (primary) hypertension; K21.9 Gastro-esophageal reflux disease without esophagitis; H91.90 Unspecified hearing loss, unspecified ear; Z87.891 Personal history of nicotine dependence; R42 Dizziness and giddiness; E03.9 Hypothyroidism, unspecified; M25.562 Pain in left knee; N40.1 Benign prostatic hyperplasia with lower urinary tract symptoms; N39.41 Urge incontinence; Z88.0 Allergy status to penicillin; R33.8 Other retention of urine; R33.9 Retention of urine, unspecified; I95.81 Postprocedural hypotension; J94.1 Fibrothorax; G43.909 Migraine, unspecified, not intractable, without status migrainosus
CPT/HCPCS: 32551; 32557; 36600; 71010; 71250; 76775; 80048; 80053; 81001; 82570; 82805; 83690; 83735; 84100; 84300; 85014; 85018; 85025; 85610; 85730; 86850; 86900; 86901; 87086; 87641; 88305; 88307; 93005; 94150; C1729; C1769; J0610; J0744; J2175; J2250; J2270; J2370; J2405; J2710; J2997; J3010; J3370; J7030; J7040; J7050; J7120

== ENCOUNTER 2017-06-14 17:04 | Emergency (ER) | payer MEDICARE, OTHER ==
[~2017-06-14 17:04] MED LIST changes: +ALBU0.08 NEB; +ALPR.25 PO; -ALPR0.5T3 PO; -ENAL20TA PO; -MIRA50TA PO; +NIFE20 PO; -PLAV75TA29 PO; +TAMS5CAP PO; -TRAM50TA PO
[2017-06-14 17:08] VITALS: BP 115/67; PULSE 89; RESP 18; TEMP 97.9; O2SAT 90
[2017-06-14] MEDS ORDERED: PLAV75TA29 PO ×2 (17:21)
[2017-06-14] MEDS ORDERED: MIRA50TA PO ×2 (17:21)
[2017-06-14] MEDS ORDERED: ENAL20TA PO ×2 (17:21)
[2017-06-14] MEDS ORDERED: TRAM50TA PO ×2 (17:21)
[2017-06-14] MEDS ORDERED: ALPR.5 PO ×2 (17:21)
--- NOTE | 2017-06-14 17:36 | PD ---
HPI Chief Complaint: GI Complaint Time Seen by Provider: 17:13 Travel History International Travel<30 days: No Contact w/Intl Traveler<30days: No Traveled to known affect area: No History of Present Illness HPI This patient had a brief spell today that he came in to be evaluated for. At around 2 PM today he had a 5 minute spell where he had some numbness on the tops of fingers 2 through 5 of the right hand. Was only on the top between the PIP joints and MCP joints. Did not include the thumb or palm or wrist. There is no motor strength deficit. No speech slurring or confusion or headache. No involvement of legs or left arm. It resolves spontaneously after 5 minutes. This was approximately 3 hours ago. No other symptoms have recurred. He had one episode of diarrhea around the time it happened. Paramedics brought him in for evaluation. He has history of multiple TIA and was admitted last month for the same. He had extensive neurologic workup. He follows with Dr. Pineda for neurology. Last month he was placed on blood thinners after his hospitalization but has had 2 recurrent spontaneous hemothorax and is now on baby aspirin twice daily. Today he has no respiratory or chest symptoms. Symptoms severity is mild. No alleviating factors. Exacerbating factors. PFSH Past Medical History Hx Anticoagulant Therapy: Yes AAA: Yes (3) Arthritis: Yes Asthma: No Autoimmune Disease: No Blood Disorders: No Heart Rhythm Problems: No Cancer: Yes (BASAL CARCINOMA) Cardiovascular Problems: Yes (MITRAL VALVE LEAK, PVC) High Cholesterol: Yes Chemotherapy: No Chest Pain: Yes Congestive Heart Failure: No COPD: Yes Cerebrovascular Accident: Yes (HX stroke) Diabetes: No Diminished Hearing: Yes (HEARING AIDS) Endocrine: No Gastrointestinal Disorders: No GERD: Yes Genitourinary: Yes (CKD) Headaches: No Hepatitis: No Hiatal Hernia: No Hypertension: Yes Immune Disorder: No Implanted Vascular Access Dvce: No Kidney Stones: Yes Medical other: Yes (DIZZINESS, DEHYDRATION) Musculoskeletal: Yes Neurologic: No Psychiatric: No Reproductive: Yes Respiratory: Yes (COPD, R HEMOTHORAX) Immunizations Current: Yes Migraines: Yes Myocardial Infarction: No Pneumonia: Yes Radiation Therapy: No Renal Failure: No Seizures: No Sleep Apnea: No Thyroid Disease: Yes (HYPO) Ulcer: No Tetanus Vaccination: > 5 Years Influenza Vaccination: Yes PNEUMOCCOCAL Vaccine (Year): 1 Past Surgical History Abdominal Surgery: No AICD: No Appendectomy: Yes (1948) Arteriovenous Shunt: No Cardiac Surgery: No Cholecystectomy: No Ear Surgery: No Eye Surgery: Yes (BILATERAL CATARACT) Genitourinary Surgery: Yes (KIDNEY STONE) Insulin Pump: No Joint Replacement: No Oral Surgery: No Pacemaker: No Thoracic Surgery: No Other Surgery: Yes Social History Alcohol Use: Yes (OCC) Tobacco Use: No (QUIT 50 YRS AGO) Substance Use: No Allergies-Medications (Allergen,Severity, Reaction): Coded Allergies: penicillin G (Unverified Allergy, Severe, Rash, 06/14/17) Reported Meds & Prescriptions Reported Meds & Active Scripts Active Albuterol Neb (Albuterol Sulfate) 2.5 Mg/3 Ml Neb 2.5 Mg NEB Q2HR NEB PRN Adult Aspirin EC Low Strength (Aspirin) 81 Mg Tabec 81 Mg PO DAILY Oxygen (O2) Device Liter CHANG.CANULA CONTINUOUS Oxygen Concentrator Portable Gaseous 2 L/min via Nasal Canula Continuous For 99 months Reported Tramadol (Tramadol HCl) 50 Mg Tab 50 Mg PO Q4H PRN Myrbetriq (Mirabegron) 50 Mg Tab 50 Mg PO DAILY Enalapril (Enalapril Maleate) 20 Mg Tab 20 Mg PO DAILY Xanax (Alprazolam) 0.5 Mg Tab 0.5 Mg PO Q4H PRN Restasis Opth 0.05% (Cyclosporine Opth 0.05%) 0.05% Emul 1 Drop EACH EYE BID Levothyroxine (Levothyroxine Sodium) 88 Mcg Tab 88 Mcg PO DAILY Symbicort Inh (Budesonide/Formoterol Fumarate) 160-4.5 Mcg/Act Aero 2 Puff INH Q12HR Lovastatin 40 Mg Tab 40 Mg PO DAILY Omeprazole 20 Mg Tab 20 Mg PO DAILY Review of Systems General / Constitutional: No: Fever Eyes: No: Visual changes HENT: No: Headaches Cardiovascular: No: Chest Pain or Discomfort Respiratory: No: Shortness of Breath Gastrointestinal: Positive: Diarrhea, No: Abdominal Pain Genitourinary: No: Dysuria Musculoskeletal: No: Pain Skin: No Rash Neurologic: Positive: Sensory Disturbance, No: Weakness Psychiatric: No: Depression Endocrine: No: Polydipsia Hematologic/Lymphatic: No: Easy Bruising Physical Exam Narrative GENERAL: Thin elderly well-developed patient in no apparent distress. SKIN: Focused skin assessment reveals no rash and nodules. Skin is Warm and dry. HEAD: Atraumatic. Normocephalic. EYES: Pupils equal and round. No scleral icterus. No injection or drainage. ENT: No nasal bleeding or discharge. Mucous membranes pink and moist. NECK: Trachea midline. No JVD. CARDIOVASCULAR: Regular rate and rhythm. No murmur appreciated. RESPIRATORY: No accessory muscle use. Clear to auscultation. Breath sounds equal bilaterally. GASTROINTESTINAL: Abdomen soft, non-tender, nondistended. Hepatic and splenic margins not palpable. MUSCULOSKELETAL: No obvious deformities. No clubbing. No cyanosis. No edema. NEUROLOGICAL: Awake and alert. No obvious cranial nerve deficits. Motor grossly within normal limits. Normal speech. Sensation subjectively intact including right hand PSYCHIATRIC: Appropriate mood and affect; insight and judgment normal. Data Data Last Documented VS Vital Signs Date Time Temp Pulse Resp B/P (MAP) Pulse Ox O2 Delivery O2 Flow Rate FiO2 06/14/17 17:14 (83) 06/14/17 17:13 95 Nasal Cannula 2.00 06/14/17 17:08 97.9 89 18 MDM Medical Decision Making Medical Screen Exam Complete: Yes Emergency Medical Condition: Yes Medical Record Reviewed: Yes Differential Diagnosis TIA, CVA, peripheral neuropathy Narrative Course I have reviewed the patient's electronic medical record. Reviewed his extensive neurologic workup from April hospitalization This patient is neurologically intact. He had a very brief and very very localized area of numbness for 5 minutes on the top of his right hand fingers I don't feel he needs a repeat neurologic workup a month later after this. He should call his neurologist tomorrow and get follow-up and he will do this. He has any progression or worsening of symptoms he will return. Given his 2 episodes of spontaneous hemothorax would not recommend going back to heavier duty blood thinners He will continue his twice a day aspirin for now Diagnosis Primary Impression: Numbness and tingling in right hand Additional Impression: Diarrhea Qualified Codes: R19.7 - Diarrhea, unspecified Additional Instructions: Call Dr. Pineda tomorrow morning for follow-up Med/Other Pt SpecificInfo: Other Disposition: 01 DISCHARGE HOME Condition: Stable Humberto Elliott MD Jun 14, 2017 17:36
== END 2017-06-14 18:57 | disposition home or self-care (01) ==
LOC: PHED 17:04
DX: R20.0 Anesthesia of skin (principal); R20.2 Paresthesia of skin; R19.7 Diarrhea, unspecified; I12.9 Hypertensive chronic kidney disease with stage 1 through stage 4 chronic kidney disease, or unspecified chronic kidney disease; E07.9 Disorder of thyroid, unspecified; N18.9 Chronic kidney disease, unspecified; E78.00 Pure hypercholesterolemia, unspecified; H91.90 Unspecified hearing loss, unspecified ear; Z79.01 Long term (current) use of anticoagulants; Z86.79 Personal history of other diseases of the circulatory system; Z87.39 Personal history of other diseases of the musculoskeletal system and connective tissue; Z85.828 Personal history of other malignant neoplasm of skin; Z87.09 Personal history of other diseases of the respiratory system; Z87.19 Personal history of other diseases of the digestive system; Z87.448 Personal history of other diseases of urinary system; Z86.69 Personal history of other diseases of the nervous system and sense organs
CPT/HCPCS: 99283

== ENCOUNTER 2017-06-17 11:03 | Inpatient (IN) | payer OTHER, MEDICARE ==
[2017-06-17] VITALS (8 sets, daily range): BP systolic 91–148; BP diastolic 53–68; PULSE 65–77; RESP 16–20; TEMP 97.3–98.7; O2SAT 89–98
[~2017-06-17] VITALS: Ht 177.8 cm; Wt 69.8 kg
[~2017-06-17 11:03] MED LIST changes: +ALPR.5 PO; +ENAL20TA PO; +MIRA50TA PO; +PLAV75TA29 PO; +TRAM50TA PO
--- NOTE | 2017-06-17 11:24 | PD ---
HPI Chief Complaint: Syncope/Near-Syncope Time Seen by Provider: 11:09 Travel History International Travel<30 days: No Contact w/Intl Traveler<30days: No Traveled to known affect area: No History of Present Illness HPI 86-year-old male presents to the emergency department for evaluation of syncopal episode that occurred this morning. Patient apparently was eating breakfast at the breakfast table when he became unresponsive. EMS was called. Upon arrival, he was still unresponsive. However, he started coming around while in the ambulance. Upon my examination, he is alert and oriented to person , place, time. Patient has past medical history of TIA, COPD, nephrolithiasis, [facility], COPD, hypotension, acute kidney injury, hemothorax, CHF. Patient was recently discharged on June 02, 2017 after having large right recurrent hemothorax with subsequent chest tube placement. Patient states that he was eating breakfast and then remembers being in the ambulance. He states he does have a pain to the back of his head, but states this is chronic for him. He also reports generalized weakness and blurry vision. He denies any chest pain or shortness of breath. No abdominal pain. No nausea, vomiting, diarrhea. Patient denies any history of syncopal episodes. Patient denies any history of DVT or PE. 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 [facility] Past Medical History Hx Anticoagulant Therapy: Yes AAA: Yes (3) Arthritis: Yes Asthma: No Autoimmune Disease: No Blood Disorders: No Heart Rhythm Problems: No Cancer: Yes (BASAL CARCINOMA) Cardiovascular Problems: Yes (MITRAL VALVE LEAK, PVC) High Cholesterol: Yes Chemotherapy: No Chest Pain: Yes Congestive Heart Failure: No COPD: Yes Cerebrovascular Accident: Yes (HX stroke) Diabetes: No Diminished Hearing: Yes (HEARING AIDS) Endocrine: No Gastrointestinal Disorders: No GERD: Yes Genitourinary: Yes (CKD) Headaches: No Hepatitis: No Hiatal Hernia: No Hypertension: Yes Immune Disorder: No Implanted Vascular Access Dvce: No Kidney Stones: Yes Musculoskeletal: Yes Neurologic: No Psychiatric: No Reproductive: Yes Respiratory: Yes (COPD, R HEMOTHORAX) Immunizations Current: Yes Migraines: Yes Myocardial Infarction: No Pneumonia: Yes Radiation Therapy: No Renal Failure: No Seizures: No Sleep Apnea: No Thyroid Disease: Yes (HYPO) Ulcer: No PNEUMOCCOCAL Vaccine (Year): 1 Past Surgical History Abdominal Surgery: No AICD: No Appendectomy: Yes (1948) Arteriovenous Shunt: No Cardiac Surgery: No Cholecystectomy: No Ear Surgery: No Eye Surgery: Yes (BILATERAL CATARACT) Genitourinary Surgery: Yes (KIDNEY STONE) Insulin Pump: No Joint Replacement: No Oral Surgery: No Pacemaker: No Thoracic Surgery: No Other Surgery: Yes Social History Alcohol Use: Yes ([facility]) Tobacco Use: No (QUIT 50 YRS AGO) Substance Use: No Allergies-Medications (Allergen,Severity, Reaction): Coded Allergies: penicillin G (Unverified Allergy, Severe, Rash, 06/17/17) Reported Meds & Prescriptions Reported Meds & Active Scripts Active Albuterol Neb (Albuterol Sulfate) 2.5 Mg/3 Ml Neb 2.5 Mg NEB Q2HR NEB PRN Adult Aspirin EC Low Strength (Aspirin) 81 Mg Tabec 81 Mg PO DAILY Oxygen (O2) Device Liter CHANG.CANULA CONTINUOUS Oxygen Concentrator Portable Gaseous 2 L/min via Nasal Canula Continuous For 99 months Reported Tamsulosin (Tamsulosin HCl) 0.4 Mg Cap 0.4 Mg PO DAILY Ferrous Sulfate 325 Mg (65 Mg Iron) Tablet 325 Mg PO TIDPC Potassium Chloride ER (Potassium Chloride) 20 Meq Tab 20 Meq PO DAILY Lasix (Furosemide) 40 Mg Tab 40 Mg PO DAILY Calcium Carbonate 500 Mg Calcium (1250 Mg) Tab 1,200 Mg PO BID 1,250 mg calcium carbonate (500 mg elemental calcium) Nifedipine 20 Mg Cap 20 Mg PO DAILY Tramadol (Tramadol HCl) 50 Mg Tab 50 Mg PO Q4H PRN Xanax (Alprazolam) 0.5 Mg Tab 0.5 Mg PO Q4H PRN Restasis Opth 0.05% (Cyclosporine Opth 0.05%) 0.05% Emul 1 Drop EACH EYE BID Levothyroxine (Levothyroxine Sodium) 88 Mcg Tab 88 Mcg PO DAILY Symbicort Inh (Budesonide/Formoterol Fumarate) 160-4.5 Mcg/Act Aero 2 Puff INH Q12HR Lovastatin 40 Mg Tab 40 Mg PO DAILY Review of Systems Except as stated in HPI: all other systems reviewed are Neg Physical Exam Narrative GENERAL: Well-nourished, well-developed elderly male patient, pale. Afebrile. SKIN: Focused skin assessment warm/dry. Petechiae noted. HEAD: Normocephalic. Atraumatic. EYES: No scleral icterus. No injection or drainage. PERRLA. EOM Intact. NECK: Supple, trachea midline. No JVD or lymphadenopathy. CARDIOVASCULAR: Regular rate and rhythm without murmurs, gallops, or rubs. Bilateral radial and pedal pulses 2+ RESPIRATORY: Breath sounds equal bilaterally. No accessory muscle use. Lungs sounds diminished throughout. GASTROINTESTINAL: Abdomen soft, non-tender, nondistended. MUSCULOSKELETAL: No cyanosis. Bilateral 2+ lower extremity edema. Bilateral upper and lower extremities strength 5/5. All extremities neurovascularly intact. BACK: Nontender without obvious deformity. No CVA tenderness. NEUROLOGICAL: Awake and alert. Cranial nerves II through XII intact. Motor and sensory grossly within normal limits. Five out of 5 muscle strength in all muscle groups. Normal speech. Data Data Last Documented VS Vital Signs Date Time Temp Pulse Resp B/P (MAP) Pulse Ox O2 Delivery O2 Flow Rate FiO2 06/17/17 14:24 73 20 108/62 (77) 97 Nasal Cannula 2.00 06/17/17 11:11 98.7 Orders Orders Electrocardiogram (06/17/17 ) Complete Blood Count With Diff (06/17/17 11:21) Comprehensive Metabolic Panel (06/17/17 11:21) Magnesium (Mg) (06/17/17 11:21) B-Type Natriuretic Peptide (06/17/17 11:21) Ckmb (Isoenzyme) Profile (06/17/17 11:21) Troponin I (06/17/17 11:21) Act Partial Throm Time (Ptt) (06/17/17 11:21) Prothrombin Time / Inr (Pt) (06/17/17 11:21) Urinalysis - C+S If Indicated (06/17/17 11:21) Chest, Single Ap (06/17/17 11:21) Ct Brain W/O Iv Contrast(Rout) (06/17/17 11:21) Ecg Monitoring (06/17/17 11:21) Iv Access Insert/Monitor (06/17/17 11:21) Oximetry (06/17/17 11:21) Oxygen Administration (06/17/17 11:21) Sodium Chloride 0.9% Flush (Ns Flush) (06/17/17 11:30) Type And Screen (06/17/17 11:24) Ct Pulmonary Angiogram (06/17/17 ) Sodium Chlorid 0.9% 500 Ml Inj (Ns 500 M (06/17/17 11:30) Iohexol 350 Inj (Omnipaque 350 Inj) (06/17/17 13:15) Blood Culture (06/17/17 13:21) Vancomycin Inj (Vancomycin Inj) (06/17/17 13:30) Aztreonam Inj (Azactam Inj) (06/17/17 13:30) Lactic Acid Sepsis Protocol (06/17/17 13:21) Aspirin Chew (Aspirin Chew) (06/17/17 14:30) Admit Order (Ed Use Only) (06/17/17 14:40) Labs Laboratory Tests Test 06/17/17 11:35 06/17/17 13:35 White Blood Count 7.8 TH/MM3 Red Blood Count 2.91 MIL/MM3 Hemoglobin 9.3 GM/DL Hematocrit 27.7 % Mean Corpuscular Volume 95.1 FL Mean Corpuscular Hemoglobin 31.9 PG Mean Corpuscular Hemoglobin Concent 33.6 % Red Cell Distribution Width 14.4 % Platelet Count 190 TH/MM3 Mean Platelet Volume 6.9 FL Neutrophils (%) (Auto) 86.8 % Lymphocytes (%) (Auto) 3.7 % Monocytes (%) (Auto) 8.6 % Eosinophils (%) (Auto) 0.4 % Basophils (%) (Auto) 0.5 % Neutrophils # (Auto) 6.8 TH/MM3 Lymphocytes # (Auto) 0.3 TH/MM3 Monocytes # (Auto) 0.7 TH/MM3 Eosinophils # (Auto) 0.0 TH/MM3 Basophils # (Auto) 0.0 TH/MM3 CBC Comment DIFF FINAL Differential Comment Prothrombin Time 12.0 SEC Prothromb Time International Ratio 1.1 RATIO Activated Partial Thromboplast Time 27.4 SEC Blood Urea Nitrogen 27 MG/DL Creatinine 1.44 MG/DL Random Glucose 141 MG/DL Total Protein 5.9 GM/DL Albumin 1.9 GM/DL Calcium Level 7.6 MG/DL Magnesium Level 1.7 MG/DL Alkaline Phosphatase 113 U/L Aspartate Amino Transf (AST/SGOT) 36 U/L Alanine Aminotransferase (ALT/SGPT) 25 U/L Total Bilirubin 0.6 MG/DL Sodium Level 137 MEQ/L Potassium Level 3.9 MEQ/L Chloride Level 102 MEQ/L Carbon Dioxide Level 26.0 MEQ/L Anion Gap 9 MEQ/L Estimat Glomerular Filtration Rate 46 ML/MIN Total Creatine Kinase 69 U/L Troponin I 0.08 NG/ML B-Type Natriuretic Peptide 188 PG/ML Urine Color YELLOW Urine Turbidity CLEAR Urine pH 5.5 Urine Specific [place] 1.012 Urine Protein NEG mg/dL Urine Glucose (UA) NEG mg/dL Urine Ketones NEG mg/dL Urine Occult Blood NEG Urine Nitrite NEG Urine Bilirubin NEG Urine Urobilinogen LESS THAN 2.0 MG/DL Urine Leukocyte Esterase NEG Urine WBC 1 /hpf Urine Mucus FEW /lpf Microscopic Urinalysis Comment CULT NOT INDICATED Lactic Acid Level 1.3 mmol/L MDM Medical Decision Making Medical Screen Exam Complete: Yes Emergency Medical Condition: Yes Medical Record Reviewed: Yes Interpretation(s) chest x-ray - CONCLUSION: 1. Increased opacity and consolidation in the right lung most characteristic of pneumonia. 2. Mild cardiomegaly and apparent small right effusion. CT brain - CONCLUSION: 1. Mild periventricular and subcortical white matter small vessel ischemic changes bilaterally. 2. Mild cerebral atrophy. 3. No acute infarct, acute hemorrhage, mass effect or extraaxial fluid collections. 4. Old lacunar infarct within the right thalamus. Ct pulmonary angiogram - Differential Diagnosis Electrolyte abnormality versus ACS versus intracranial abnormality versus PE versus dehydration versus TIA versus CVA Narrative Course 86-year-old male presents to the emergency department for evaluation of syncopal episode via EMS. EKG shows sinus rhythm, heart rate 72, no acute ST changes. CBC, CMP, magnesium, CK, troponin, BNP, PTT, PT/INR, UA, type and screen are ordered and pending. Chest x-ray is ordered and pending. CT of the brain and CT pulmonary angiogram are ordered and pending. Patient is given normal saline 500 mL bolus. Patient received normal saline 600 mL bolus prior to arrival via EMS. CBC shows hgb of 9.3, hct 27.7. CMP shows BUN 27, creatinine 1.44, glucose 141. Magnesium is 1.7. CK is 69. Troponin is 0.08. BNP is 188. Coags show no acute abnormality. UA [-]. Chest x-ray shows increased opacity and consolidation in the right lung most characteristic of pneumonia; mild cardiomegaly and apparent small right effusion. CT of the brain shows mild periventricular and subcortical white matter small vessel ischemic changes bilaterally; Mild cerebral atrophy; No acute infarct, acute hemorrhage, mass effect or extraaxial fluid collections; Old lacunar infarct within the right thalamus. CT pulmonary angiogram shows no evidence of pulmonary embolism; scattered patchiness throughout the right mid and lower lung field consistent with probable pneumonia. Clinical correlation is recommended; Stable consolidation of the right lower lobe; Small bilateral pleural effusions (right slightly larger than left); Emphysematous changes bilaterally; Two 7 mm and one 5 mm non-calcified nodules within the lateral aspect of the left lower lobe abutting the pleural. Follow up CT of the chest in six months is recommended to confirm stability; Cardiomegaly and coronary artery calcifications; Mild prominence of the pretracheal and subcarinal mediastinal lymph nodes which is new compared to 05/22/17 and likely reactive; Degenerative changes and scoliosis of the thoracic spine. Blood cultures 2 and lactic acid are ordered and pending. Lactic acid is 1.3. Patient is started on vancomycin 1 g IV, Azactam 2 g IV. Patient took 1 aspirin 81 mg earlier today, he is given aspirin 81 mg by mouth in the emergency department. [facility] is paged for admission. Dr. Mata accepted admission. Diagnosis Primary Impression: Pneumonia Qualified Codes: J18.9 - Pneumonia, unspecified organism Additional Impressions: Syncope Qualified Codes: R55 - Syncope and collapse Elevated troponin Admitting Information Admitting Physician Requests: Admit Apoorva Agudelo Jun 17, 2017 11:24
[2017-06-17] MEDS ORDERED: SODIUM CHLORIDE 0.9% FLUSH 10 ML FLUSH IVF PRN ×2 (11:30)
[2017-06-17] MEDS ORDERED: SODIUM CHLORID 0.9% 500 ML INJ 500 ML IV ONE ×2 (11:30)
--- NOTE | 2017-06-17 11:43 | PD ---
Physical Exam Date Seen by Provider: Jun 17, 2017 Time Seen by Provider: 11:40 Narrative 86-year-old male came to the emergency room after a syncopal episode today. When EMS arrived his blood pressure was low. He received 500 cc of IV fluid en route. Currently he is awake and blood pressure is in 100s. His oxygen saturation on room air is 89-90%. He is answering questions appropriately. Patient was recently admitted for pleural effusion and fluid drained. He was discharged home. He's been seen by the nurse practitioner and I am supervising her. I examined the patient. He says that he feels little woozy but otherwise okay. Denied any chest pain. Patient appeared to be pale. There was significant amount of petechiae on his lower extremities and some on the upper extremities. I did a stool for Hemoccult which was negative. In my opinion patient should be worked up for PE given the recent hospitalization followed by the syncopal episode and hypoxia. Also given the petechiae I'm interested in seeing his platelet count and his coags. Awaiting for the blood test result. Patient obviously will require admission. He does have history of congestive heart failure and his vice president medical affairs is Dr. Cohen. Data Data Last Documented VS Vital Signs Date Time Temp Pulse Resp B/P (MAP) Pulse Ox O2 Delivery O2 Flow Rate FiO2 06/17/17 14:24 73 20 108/62 (77) 97 Nasal Cannula 2.00 06/17/17 11:11 98.7 Orders Orders Electrocardiogram (06/17/17 ) Complete Blood Count With Diff (06/17/17 11:21) Comprehensive Metabolic Panel (06/17/17 11:21) Magnesium (Mg) (06/17/17 11:21) B-Type Natriuretic Peptide (06/17/17 11:21) Ckmb (Isoenzyme) Profile (06/17/17 11:21) Troponin I (06/17/17 11:21) Act Partial Throm Time (Ptt) (06/17/17 11:21) Prothrombin Time / Inr (Pt) (06/17/17 11:21) Urinalysis - C+S If Indicated (06/17/17 11:21) Chest, Single Ap (06/17/17 11:21) Ct Brain W/O Iv Contrast(Rout) (06/17/17 11:21) Ecg Monitoring (06/17/17 11:21) Iv Access Insert/Monitor (06/17/17 11:21) Oximetry (06/17/17 11:21) Oxygen Administration (06/17/17 11:21) Sodium Chloride 0.9% Flush (Ns Flush) (06/17/17 11:30) Type And Screen (06/17/17 11:24) Ct Pulmonary Angiogram (06/17/17 ) Sodium Chlorid 0.9% 500 Ml Inj (Ns 500 M (06/17/17 11:30) Iohexol 350 Inj (Omnipaque 350 Inj) (06/17/17 13:15) Blood Culture (06/17/17 13:21) Vancomycin Inj (Vancomycin Inj) (06/17/17 13:30) Aztreonam Inj (Azactam Inj) (06/17/17 13:30) Lactic Acid Sepsis Protocol (06/17/17 13:21) Aspirin Chew (Aspirin Chew) (06/17/17 14:30) Admit Order (Ed Use Only) (06/17/17 14:40) Labs Laboratory Tests Test 06/17/17 11:35 06/17/17 13:35 White Blood Count 7.8 TH/MM3 Red Blood Count 2.91 MIL/MM3 Hemoglobin 9.3 GM/DL Hematocrit 27.7 % Mean Corpuscular Volume 95.1 FL Mean Corpuscular Hemoglobin 31.9 PG Mean Corpuscular Hemoglobin Concent 33.6 % Red Cell Distribution Width 14.4 % Platelet Count 190 TH/MM3 Mean Platelet Volume 6.9 FL Neutrophils (%) (Auto) 86.8 % Lymphocytes (%) (Auto) 3.7 % Monocytes (%) (Auto) 8.6 % Eosinophils (%) (Auto) 0.4 % Basophils (%) (Auto) 0.5 % Neutrophils # (Auto) 6.8 TH/MM3 Lymphocytes # (Auto) 0.3 TH/MM3 Monocytes # (Auto) 0.7 TH/MM3 Eosinophils # (Auto) 0.0 TH/MM3 Basophils # (Auto) 0.0 TH/MM3 CBC Comment DIFF FINAL Differential Comment Prothrombin Time 12.0 SEC Prothromb Time International Ratio 1.1 RATIO Activated Partial Thromboplast Time 27.4 SEC Blood Urea Nitrogen 27 MG/DL Creatinine 1.44 MG/DL Random Glucose 141 MG/DL Total Protein 5.9 GM/DL Albumin 1.9 GM/DL Calcium Level 7.6 MG/DL Magnesium Level 1.7 MG/DL Alkaline Phosphatase 113 U/L Aspartate Amino Transf (AST/SGOT) 36 U/L Alanine Aminotransferase (ALT/SGPT) 25 U/L Total Bilirubin 0.6 MG/DL Sodium Level 137 MEQ/L Potassium Level 3.9 MEQ/L Chloride Level 102 MEQ/L Carbon Dioxide Level 26.0 MEQ/L Anion Gap 9 MEQ/L Estimat Glomerular Filtration Rate 46 ML/MIN Total Creatine Kinase 69 U/L Troponin I 0.08 NG/ML B-Type Natriuretic Peptide 188 PG/ML Urine Color YELLOW Urine Turbidity CLEAR Urine pH 5.5 Urine Specific [place] 1.012 Urine Protein NEG mg/dL Urine Glucose (UA) NEG mg/dL Urine Ketones NEG mg/dL Urine Occult Blood NEG Urine Nitrite NEG Urine Bilirubin NEG Urine Urobilinogen LESS THAN 2.0 MG/DL Urine Leukocyte Esterase NEG Urine WBC 1 /hpf Urine Mucus FEW /lpf Microscopic Urinalysis Comment CULT NOT INDICATED Lactic Acid Level 1.3 mmol/L MDM Supervised Visit with SEBASTIEN: Yes Interpretation(s) Twelve-lead EKG was reviewed by me. Normal sinus rhythm, left axis deviation, nonspecific ST-T wave changes. Heart rate of 70 bpm. HemaPrompt Test Point of Care Internal Pos. & Neg. Controls: Passed Fecal Specimen Occult Blood: Negative Scripts Levofloxacin (Levaquin) 250 Mg Tablet 250 MG PO DAILY for Infection for 5 Days, #5 TAB 0 Refills Prov: Akhil Brwon MD 06/19/17 Tramadol (Tramadol) 50 Mg Tab 50 MG PO Q6HR Y for PAIN, #12 TAB 0 Refills Prov: Akhil Brown MD 06/19/17 Alprazolam (Xanax) 0.5 Mg Tab 0.5 MG PO Q4H Y for ANXIETY, #12 TAB 0 Refills Prov: Akhil Brown MD 06/19/17 Robert Werner MD Jun 17, 2017 11:43
[2017-06-17] MEDS ORDERED: NIFE20 PO ×4 (11:50)
[2017-06-17 12:00] LABS: HEMATOCRIT 27.7 % (39.0-51.0); HEMOGLOBIN 9.3 GM/DL (13.0-17.0); LYMPH % 3.7 % (9.0-44.0); MEAN CELL VOLUME 95.1 FL (80.0-100.0); MEAN CORPUSCULAR HEMOGLOBIN 31.9 PG (27.0-34.0); MEAN CORPUSCULAR HGB CONC 33.6 % (32.0-36.0); MEAN PLATELET VOLUME 6.9 FL (7.0-11.0); NEUT % 86.8 % (16.0-70.0); PLATELET COUNT 190 TH/MM3 (150-450); RED BLOOD COUNT 2.91 MIL/MM3 (4.50-5.90); RED CELL DISTRIBUTION WIDTH 14.4 % (11.6-17.2); WHITE BLOOD COUNT 7.8 TH/MM3 (4.0-11.0)
[2017-06-17 12:01] LABS: AUTOMATED NEUTROPHIL # 6.8 TH/MM3 (1.8-7.7); BASOPHIL % 0.5 % (0.0-2.0); EOSINOPHIL % 0.4 % (0.0-4.0); LYMPHOCYTE # 0.3 TH/MM3 (1.0-4.8); MONO % 8.6 % (0.0-8.0); MONOCYTE # 0.7 TH/MM3 (0-0.9)
[2017-06-17] MEDS ORDERED: CALC12502 PO ×4 (12:02)
[2017-06-17] MEDS ORDERED: TAMS0.4C4 PO ×4 (12:02)
[2017-06-17] MEDS ORDERED: FERR325T8 PO ×4 (12:02)
[2017-06-17] MEDS ORDERED: FURO1TAB60 PO ×4 (12:02)
[2017-06-17] MEDS ORDERED: POTA-163 PO ×4 (12:02)
--- NOTE | 2017-06-17 12:04 | RADRPT ---
EXAM DATE/TIME: 06/17/2017 11:30 [facility] COMPARISON: CHEST SINGLE AP, May 30, 2017, 5:05. INDICATIONS : Syncope, shortness of breath. MEDICAL HISTORY : None. SURGICAL HISTORY : None. ENCOUNTER: Initial ACUITY: 1 day PAIN SCORE: 0/10 LOCATION: Bilateral chest FINDINGS: 2 AP erect portable views of the chest were obtained and demonstrate no new alveolar opacity in the r ight perihilar region. Denser consolidation is noted at the right lung which has increased as well. T he costophrenic angle is blunted. The left lung is clear. The heart size appears mildly prominent. At herosclerotic changes are again noted in the aorta. Bony thorax remains intact. CONCLUSION: 1. Increased opacity and consolidation in the right lung most characteristic of pneumonia. 2. Mild cardiomegaly and apparent small right effusion. Delbert Samuels MD on June 17, 2017 at 12:01 Board Certified Radiologist. This report was verified electronically.
[2017-06-17 12:15] LABS: ALBUMIN 1.9 GM/DL (3.4-5.0); ALT (GPT) 25 U/L (12-78); AST (GOT) 36 U/L (15-37); BLOOD UREA NITROGEN 27 MG/DL (7-18); CALCIUM 7.6 MG/DL (8.5-10.1); CHLORIDE 102 MEQ/L (98-107); CREATININE 1.44 MG/DL (0.60-1.30); GLOMERULAR FILTRATION RATE 46 ML/MIN (>89); GLUCOSE,RANDOM 141 MG/DL (74-106); MAGNESIUM 1.7 MG/DL (1.5-2.5); SODIUM (NA) 137 MEQ/L (136-145)
[2017-06-17 12:16] LABS: INTERNATIONAL NORMALIZED RATIO 1.1 RATIO
[2017-06-17 12:19] LABS: ALKALINE PHOSPHATASE 113 U/L (45-117); TOTAL BILIRUBIN ADULT 0.6 MG/DL (0.2-1.0); TOTAL PROTEIN 5.9 GM/DL (6.4-8.2); TROPONIN I 0.08 NG/ML (0.02-0.05)
[2017-06-17] MEDS ORDERED: IOHEXOL 350 MG/ML 10 ML VIAL (for RAD DIAG) IVCONTRAST ONE ×2 (13:15)
[2017-06-17] MEDS ORDERED: AZTREONAM INJ 2,000 MG in SODIUM CHLORIDE 0.9% INJ 100 ML IV ONE ×4 (13:30)
[2017-06-17] MEDS ORDERED: VANCOMYCIN INJ 1,000 MG in SODIUM CHLOR 0.9% 250 ML INJ 250 ML IV ONE ×4 (13:30)
--- NOTE | 2017-06-17 13:34 | RADRPT ---
EXAM DATE/TIME: 06/17/2017 13:03 [facility] COMPARISON: MRI BRAIN W & W/O CONTRAST, April 16, 2017, 13:52. MRA BRAIN W/O CONTRAST, April 16, 2017, 13:52. CT BRAIN W/O CONTRAST, April 15, 2017, 23:32. INDICATIONS : Syncope. RADIATION DOSE: 49.04 CTDIvol (mGy) MEDICAL HISTORY : Cardiovascular disease. Cardiovascular disease Hypertension. COPD, Basal ca SURGICAL HISTORY : Appendectomy. ENCOUNTER: Initial ACUITY: 1 day PAIN SCALE: 0/10 LOCATION: cranial TECHNIQUE: Multiple contiguous axial images were obtained of the head. Using automated exposure control and adj ustment of the mA and/or kV according to patient size, radiation dose was kept as low as reasonably a chievable to obtain optimal diagnostic quality images. DICOM format image data is available electro nically for review and comparison. FINDINGS: Mild cerebral atrophy is noted. There is an old lacunar infarct within the right thalamus. Mild per iventricular and subcortical white matter small vessel ischemic changes are noted bilaterally. There is no acute infa rct, acute hemorrhage, midline shift or extraaxial fluid collections. CONCLUSION: 1. Mild periventricular and subcortical white matter small vessel ischemic changes bilaterally. 2. Mild cerebral atrophy. 3. No acute infarct, acute hemorrhage, mass effect or extraaxial fluid collections. 4. Old lacunar infarct within the right thalamus. Hermes Eller MD on June 17, 2017 at 13:20 Board Certified Radiologist. This report was verified electronically.
--- NOTE | 2017-06-17 14:11 | RADRPT ---
EXAM DATE/TIME: 06/17/2017 13:08 [facility] COMPARISON: CT THORAX W/O CONTRAST, May 22, 2017, 10:58. INDICATIONS : Syncope, evaluate for embolism. IV CONTRAST: 96 cc Omnipaque 350 (iohexol) IV RADIATION DOSE: 23.11 CTDIvol (mGy) MEDICAL HISTORY : Cerebrovascular disease. Cardiovascular disease Hypertension. COPD, Basal ca SURGICAL HISTORY : Appendectomy. ENCOUNTER: Initial ACUITY: 1 day PAIN SCALE: 0/10 LOCATION: Chest TECHNIQUE: Volumetric scanning of the chest was performed using a pulmonary embolism protocol MIP images were re constructed. Using automated exposure control and adjustment of the mA and/or kV according to patien t size, radiation dose was kept as low as reasonably achievable to obtain optimal diagnostic quality images. DICOM format image data is available electronically for review and comparison. Follow-up recommendations for detected pulmonary nodules are based at a minimum on nodule size and pa tient risk factors according to Fleischner Society Guidelines. FINDINGS: There is no evidence of pulmonary embolism. Small bilateral pleural effusions are noted (right sligh tly larger than left). There is persistent consolidation of the right lung base. Scattered infiltrates are not ed throughout the remainder of the right and mid lower lung rose consistent with possible pneumonia. Clinical correl ation is recommended. Underlying emphysematous changes are stable. There are two 7 mm and one 5 mm non-calci fied nodules abutting the lateral pleura of the left lower lung field which are indeterminate. Follow up CT of the chest in six months would be helpful for further characterization of these nodules. The heart is prominent in size but stable. Coronary artery calcifications are noted. Pretracheal and subcarinal lymph nodes are mildly enlarged compared to the previous examination and likely are reactive. No hilar or axillary lymphadenopathy i s noted. Degenerative changes and scoliosis of the thoracic spine are noted. CONCLUSION: 1. No evidence of pulmonary embolism. 2. Scattered patchiness throughout the right mid and lower lung field consistent with probable pneum onia. Clinical correlation is recommended. 3. Stable consolidation of the right lower lobe. 4. Small bilateral pleural effusions (right slightly larger than left). 5. Emphysematous changes bilaterally. 6. Two 7 mm and one 5 mm non-calcified nodules within the lateral aspect of the left lower lobe abut ting the pleural. Follow up CT of the chest in six months is recommended to confirm stability. 7. Cardiomegaly and coronary artery calcifications. 8. Mild prominence of the pretracheal and subcarinal mediastinal lymph nodes which is new compared t o 05/22/17 and likely reactive. 9. Degenerative changes and scoliosis of the thoracic spine. Hermes Eller MD on June 17, 2017 at 13:23 Board Certified Radiologist. This report was verified electronically.
[2017-06-17 14:28] LABS: BILIRUBIN, URINE NEG (NEG); BLOOD, URINE NEG (NEG); GLUCOSE,URINE NEG (NEG); KETONE, URINE NEG (NEG); MUCUS URINE FEW /lpf (OCC); NITRITE,URINE NEG (NEG); PH, URINE 5.5 (5.0-8.5); URINE COLOR YELLOW (YELLW/STRAW); URINE LEUKOCYTE ESTERASE NEG (NEG)
[2017-06-17] MEDS ORDERED: ASPIRIN 81 MG CHEW TAB CHEW ONE ×2 (14:30)
--- NOTE | 2017-06-17 15:27 | HHI.HP ---
[facility] Esvin Steve MD Admission Diagnosis pneumonia, syncope, elevated troponin Diagnoses: (1) Pneumonia Diagnosis: Principal (2) Syncope Diagnosis: Principal Chief Complaint: ' I passed out.' Travel History International Travel<30 Days: No Contact w/Intl Traveler <30 Da: No Traveled to Known Affected Are: No History of Present Illness patient is a 86 y/o male with history of fairly recent CVA, hypertension, dyslipidemia, recent admission because of hemothorax, who presented to ER after he passed out at home. he says that he was having his breakfast today when he suddenly passed out. he denies any chest pain, son, nausea, diaphoresis or dizziness before the incident. he didn't fall. he says that he regained his consciousness after ten minutes. he denies any fever, chills or cough. he says that after he had his stroke two months ago he was taken off Aggrenox and started on lovenox and coumadin. however he developed hemothorax for which he was readmitted, underwent chest tube placement and VATS and finally discharged home with home oxygen. Review of Systems Constitutional: DENIES: Fever, Weight loss, Chills, Night Sweats Eyes: DENIES: Blurred vision, Diplopia, Vision loss, Double Vision Ears, nose, mouth, throat: DENIES: Tinnitus, Vertigo, Throat pain, Epistaxis Respiratory: DENIES: Apneas, Cough, Snoring, Wheezing, Hemoptysis, Sputum production, Shortness of breath Cardiovascular: DENIES: Chest pain, Palpitations, Syncope, Dyspnea on Exertion , PND, Lower Extremity Edema, Orthopnea, Claudication Gastrointestinal: DENIES: Abdominal pain, Black stools, Bloody stools, Constipation, Diarrhea, Nausea, Vomiting, Difficulty Swallowing, Anorexia Genitourinary: DENIES: Urinary frequency, Urgency, Hematuria, Dysuria Musculoskeletal: DENIES: Joint pain, Muscle aches, Stiffness, Joint Swelling Integumentary: DENIES: Rash Neurologic: DENIES: Abnormal gait, Headache, Localized weakness, Paresthesias, Seizures, Speech Problems, Tremor, Poor Balance Psychiatric: DENIES: Anxiety, Confusion, Mood changes, Depression, Hallucinations, Agitation, Suicidal Ideation, Homicidal Ideation, Delusions Past Family Social History Past Medical History CVA hypertension hypothyroidism dyslipidemia COPD Past Surgical History recent VATS Reported Medications Tamsulosin (Tamsulosin HCl) 0.4 Mg Cap 0.4 Mg PO DAILY Ferrous Sulfate 325 Mg (65 Mg Iron) Tablet 325 Mg PO TIDPC Potassium Chloride ER (Potassium Chloride) 20 Meq Tab 20 Meq PO DAILY Lasix (Furosemide) 40 Mg Tab 40 Mg PO DAILY Calcium Carbonate 500 Mg Calcium (1250 Mg) Tab 1,200 Mg PO BID 1,250 mg calcium carbonate (500 mg elemental calcium) Nifedipine 20 Mg Cap 20 Mg PO DAILY Tramadol (Tramadol HCl) 50 Mg Tab 50 Mg PO Q4H PRN Xanax (Alprazolam) 0.5 Mg Tab 0.5 Mg PO Q4H PRN Restasis Opth 0.05% (Cyclosporine Opth 0.05%) 0.05% Emul 1 Drop EACH EYE BID Levothyroxine (Levothyroxine Sodium) 88 Mcg Tab 88 Mcg PO DAILY Symbicort Inh (Budesonide/Formoterol Fumarate) 160-4.5 Mcg/Act Aero 2 Puff INH Q12HR Lovastatin 40 Mg Tab 40 Mg PO DAILY Allergies: Coded Allergies: penicillin G (Unverified Allergy, Severe, Rash, 06/17/17) Active Ordered Medications Current Medications Sodium Chloride (NS Flush) 2 ml UNSCH PRN IVF FLUSH AFTER USING IV ACCESS; Start 06/17/17 at 11:30 Sodium Chloride 500 ml @ 500 mls/hr BOLUS ONCE IV Last administered on 12:09; Start 06/17/17 at 11:30; Stop 06/17/17 at 12:29; Status DC Iohexol (Omnipaque 350 Inj) 96 ml STK-MED ONCE IVCONTRAST Last administered on 06/17/17 13:15; Start 06/17/17 at 13:15; Stop 06/17/17 at 13:16; Status DC Vancomycin HCl 1000 mg/Sodium Chloride 250 ml @ 125 mls/hr ONCE ONCE IV Last administered on 06/17/17 14:37; Start 06/17/17 at 13:30; Stop 06/17/17 at 15:29 Aztreonam 2000 mg/ Sodium Chloride 100 ml @ 200 mls/hr ONCE ONCE IV ; Start 06/17/17 at 13:30; Stop 06/17/17 at 13:59; Status DC Aspirin (Aspirin Chew) 81 mg ONCE ONCE CHEW Last administered on 06/17/17t 14: 37; Start 06/17/17 at 14:30; Stop 06/17/17 at 14:31; Status DC Alprazolam (Xanax) 0.5 mg Q4H PRN PO ANXIETY; Start 06/17/17 at 15:15; Status UNV Aspirin (Ecotrin Ec) 81 mg DAILY PO ; Start 06/18/17 at 09:00; Status UNV Budesonide/ Formoterol Fumarate (Symbicort 160-4.5 Inh) 2 puff Q12HR INH ; Start 06/17/17 at 21:00; Status UNV Ferrous Sulfate (Ferrous Sulfate) 325 mg TIDPC PO ; Start 06/17/17 at 18:30; Status UNV Levothyroxine Sodium (Synthroid) 88 mcg DAILY PO ; Start 06/18/17 at 09:00; Status UNV Pravastatin Sodium (Pravachol) 40 mg DAILY PO ; Start 06/18/17 at 09:00; Status UNV Tamsulosin HCl (Flomax) 0.4 mg DAILY PO ; Start 06/18/17 at 09:00; Status UNV Non-Formulary Medication 1 drop BID EACH EYE ; Start 06/17/17 at 21:00; Status UNV Social History no smoking or drinking. Physical Exam Vital Signs Vital Signs Date Time Temp Pulse Resp B/P (MAP) Pulse Ox O2 Delivery O2 Flow Rate FiO2 06/17/17 14:24 73 20 108/62 (77) 97 Nasal Cannula 2.00 06/17/17 12:09 73 20 91/53 (66) 92 Nasal Cannula 2.00 06/17/17 11:28 73 17 94 Nasal Cannula 2.00 06/17/17 11:28 93 Nasal Cannula 2.00 06/17/17 11:18 Nasal Cannula 06/17/17 11:11 98.7 74 17 107/58 (74) 89 Physical Exam GENERAL:elderly male, in no apparent distress. SKIN: No rashes, ecchymoses or lesions. Cool and dry. HEAD: Atraumatic. Normocephalic. No temporal or scalp tenderness. EYES: Pupils equal round and reactive. Extraocular motions intact. No scleral icterus. No injection or drainage. ENT: Nose without bleeding, purulent drainage or septal hematoma. Throat without erythema, tonsillar hypertrophy or exudate. Uvula midline. Airway patent. NECK: Trachea midline. No JVD or lymphadenopathy. Supple, nontender, no meningeal signs. CARDIOVASCULAR: Regular rate and rhythm without murmurs, gallops, or rubs. RESPIRATORY: Clear to auscultation. Breath sounds equal bilaterally. No wheezes , rales, or rhonchi. GASTROINTESTINAL: Abdomen soft, non-tender, nondistended. No hepato-splenomegaly , or palpable masses. No guarding. MUSCULOSKELETAL: Extremities without clubbing, cyanosis, or edema. No joint tenderness, effusion, or edema noted. No calf tenderness. Negative Homans sign bilaterally. NEUROLOGICAL: Awake and alert. Cranial nerves II through XII intact. Motor and sensory grossly within normal limits. Five out of 5 muscle strength in all muscle groups. Normal speech. Laboratory Laboratory Tests Test 06/17/17 11:35 06/17/17 13:35 White Blood Count 7.8 Red Blood Count 2.91 Hemoglobin 9.3 Hematocrit 27.7 Mean Corpuscular Volume 95.1 Mean Corpuscular Hemoglobin 31.9 Mean Corpuscular Hemoglobin Concent 33.6 Red Cell Distribution Width 14.4 Platelet Count 190 Mean Platelet Volume 6.9 Neutrophils (%) (Auto) 86.8 Lymphocytes (%) (Auto) 3.7 Monocytes (%) (Auto) 8.6 Eosinophils (%) (Auto) 0.4 Basophils (%) (Auto) 0.5 Neutrophils # (Auto) 6.8 Lymphocytes # (Auto) 0.3 Monocytes # (Auto) 0.7 Eosinophils # (Auto) 0.0 Basophils # (Auto) 0.0 CBC Comment DIFF FINAL Differential Comment Prothrombin Time 12.0 Prothromb Time International Ratio 1.1 Activated Partial Thromboplast Time 27.4 Blood Urea Nitrogen 27 Creatinine 1.44 Random Glucose 141 Total Protein 5.9 Albumin 1.9 Calcium Level 7.6 Magnesium Level 1.7 Alkaline Phosphatase 113 Aspartate Amino Transf (AST/SGOT) 36 Alanine Aminotransferase (ALT/SGPT) 25 Total Bilirubin 0.6 Sodium Level 137 Potassium Level 3.9 Chloride Level 102 Carbon Dioxide Level 26.0 Anion Gap 9 Estimat Glomerular Filtration Rate 46 Total Creatine Kinase 69 Troponin I 0.08 B-Type Natriuretic Peptide 188 Urine Color YELLOW Urine Turbidity CLEAR Urine pH 5.5 Urine Specific [place] 1.012 Urine Protein NEG Urine Glucose (UA) NEG Urine Ketones NEG Urine Occult Blood NEG Urine Nitrite NEG Urine Bilirubin NEG Urine Urobilinogen LESS THAN 2.0 Urine Leukocyte Esterase NEG Urine WBC 1 Urine Mucus FEW Microscopic Urinalysis Comment CULT NOT INDICATED Lactic Acid Level 1.3 Date/Time Source Procedure Growth Status 06/17/17 13:35 Blood Peripheral Aerobic Blood Culture Pending Received 06/17/17 13:35 Blood Peripheral Anaerobic Blood Culture Pending Received Result Diagram: 06/17/17 1135 06/17/17 1135 Imaging Last Impressions Chest X-Ray 06/17/17 1121 Signed Impressions: Service Date/Time: Thursday, June 17, 2017 11:30 - CONCLUSION: 1. Increased opacity and consolidation in the right lung most characteristic of pneumonia. 2. Mild cardiomegaly and apparent small right effusion. Delbert Samuels MD EKG; sinus rhythm with no acute ST-T changes. Caprini VTE Risk Assessment Caprini VTE Risk Assessment: Mod/High Risk (score >= 2) VTE Pharm Contraindication: Hemorrhage Caprini Risk Assessment Model Point Value = 1 Point Value = 2 Point Value = 3 Point Value = 5 Age 41-60 Minor surgery BMI > 25 kg/m2 Swollen legs Varicose veins or History of unexplained or recurrent spontaneous Oral contraceptives or hormone replacement Sepsis (< 1 month) Serious lung disease, including pneumonia (< 1 month) Abnormal pulmonary function Acute myocardial infarction Congestive heart failure (< 1 month) History of inflammatory bowel disease Medical patient at bed rest Age 61-74 Arthroscopic surgery Major open surgery (> 45 min) Laparoscopic surgery (> 45 min) Malignancy Confined to bed (> 72 hours) Immobilizing plaster cast Central venous access Age >= 75 History of VTE Family history of VTE Factor V Leiden Prothrombin [id number] Lupus anticoagulant Anticardiolipin antibodies Elevated serum homocysteine Heparin-induced thrombocytopenia Other congenital or acquired thrombophilia Stroke (< 1 month) Elective arthroplasty Hip, pelvis, or leg fracture Acute spinal cord injury (< 1 month) Prophylaxis Regimen Total Risk Factor Score Risk Level Prophylaxis Regimen 0-1 Low Early ambulation 2 Moderate Order ONE of the following: *Sequential Compression Device (SCD) *Heparin 5000 units SQ BID 3-4 Higher Order ONE of the following medications: *Heparin 5000 units SQ TID *Enoxaparin/Lovenox 40 mg SQ daily (WT < 150 kg, CrCl > 30 mL/min) *Enoxaparin/Lovenox 30 mg SQ daily (WT < 150 kg, CrCl > 10-29 mL/min) *Enoxaparin/Lovenox 30 mg SQ BID (WT < 150 kg, CrCl > 30 mL/min) AND/OR *Sequential Compression Device (SCD) 5 or more Highest Order ONE of the following medications: *Heparin 5000 units SQ TID (Preferred with Epidurals) *Enoxaparin/Lovenox 40 mg SQ daily (WT < 150 kg, CrCl > 30 mL/min) *Enoxaparin/Lovenox 30 mg SQ daily (WT < 150 kg, CrCl > 10-29 mL/min) *Enoxaparin/Lovenox 30 mg SQ BID (WT < 150 kg, CrCl > 30 mL/min) AND *Sequential Compression Device (SCD) Assessment and Plan Assessment and Plan A/P - syncope with history of fairly recent CVA continue with telemetry and neuro-checks- of note -at the time had a MRA of the neck with no significant stenosis- holter with sinus rhythm and occasional PAC's and PVC's and echo with EF 65% and mild aortic stenosis continue aspirin and statin- will consult Neurology ( ) and Cardiology. -pneumonia ( RML/RLL) with COPD; start on IV Levaquin- neb treatment as needed- patient is oxygen dependent. -minimal elevation of troponin- denies chest pain and no acute ST-T changes- repeat the cardiac enzymes- continue aspirin -transient hypotension- improved-continue with gentle IV hydration- hold BP meds and monitor. -CKD- will monitor. -anemia of chronic disease- on ferrous sulfate- will monitor. -hypothyroidism- continue synthroid -recent hemothorax after was started on anticoagulation for CVA- s/p recent VATS - keep on oxygen to keep O2 sat >90%. -DVT prophylaxis with SCD's -consult PT and case management. Discussed Condition With ER physician and the patient. Physician Certification 2 Midnight Certification Type: Admission for Inpatient Services Order for Inpatient Services The services are ordered in accordance with Medicare regulations or non- Medicare payer requirements, as applicable. In the case of services not specified as inpatient-only, they are appropriately provided as inpatient services in accordance with the 2-midnight benchmark. Estimated LOS (days): 2 days is the estimated time the patient will need to remain in the hospital, assuming treatment plan goals are met and no additional complications. Post-Hospital Plan: Not yet determined Problem Qualifiers (1) Pneumonia: Qualified Codes: J18.9 - Pneumonia, unspecified organism (2) Syncope: Qualified Codes: R55 - Syncope and collapse Akhil Brown MD Jun 17, 2017 15:27
[2017-06-17] MEDS ORDERED: RESP: ALBUTEROL 1.25 MG/3 ML NEB (PRN) NEB ×2 (15:30)
[2017-06-17] MEDS ORDERED: SODIUM CHLOR 0.9% 1000 ML INJ 1,000 ML IV ONE ×2 (15:30)
[2017-06-17] MEDS ORDERED: ACETAMINOPHEN 325 MG TAB PO PRN ×2 (15:30)
[2017-06-17] MEDS ORDERED: LEVOFLOXACIN 500 MG PREMIX INJ 100 ML IV ONE ×2 (16:00)
[2017-06-17] MEDS: FERROUS SULFATE 325 MG (65 MG ELEMENTAL IRON) TAB PO SCH ×2 (17:34)
[2017-06-17] MEDS ORDERED: NON-FORMULARY DRUG (Cyclosporine Opth 0.05% (Restasis Opth 0.05%) 1 DROP) EACH EYE SCH ×2 (21:00)
[2017-06-17] MEDS ORDERED: PT:CYCLOSPORINE OPTH SOL EACH EYE SCH ×2 (21:00)
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
[2017-06-17] MEDS ORDERED: GADODIAMIDE PF 287 MG/ML 5 ML VIAL (for RAD MRI) IVCONTRAST ONE ×2 (21:28)
--- NOTE | 2017-06-17 21:52 | MB ---
cc: ROSS OLMEDO DATE OF CONSULTATION: 06/17/2017 REASON FOR CONSULTATION: Syncope. HISTORY OF PRESENT ILLNESS: The patient is an 86 year-old white male, followed in our office by Dr. Shawn Cohen, with a history of hypertension, multiple TIAs, recent CVA, chronic renal insufficiency, status post recent admission for right hemothorax necessitating percutaneous drainage, who was brought back to the hospital after a syncopal episode. The patient had just finished eating breakfast with his son when right before standing up, he lost consciousness. When he regained consciousness, he was in the ambulance. The patient does not know the duration of the syncopal episode. He denies any other episodes of loss of consciousness. There was no preceding lightheadedness, nausea, headache, abdominal pain. He also denies any recent chest pain, shortness of breath, palpitations. Occasionally he experiences mild dependent pedal edema. At the present time he is resting comfortably feeling "just fine." PAST MEDICAL HISTORY 1. Hypertension 2. 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 3. Hyperlipidemia. 4. Right hemothorax status post video-assisted thoracoscopic surgery by Dr. Rebekah Potts to drain a loculated effusion as well as lysis of adhesions 05/26/2017. 5. Mild valvular disease with 10/27/2016 echocardiogram showing normal ejection fraction, mild regurgitation of the mitral, tricuspid and aortic valves, mild aortic stenosis with a mean gradient of 21 mmHg. 6. Chronic renal insufficiency. 7. 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 PAST SURGICAL HISTORY 1. Appendectomy 2. Inguinal hernia repair. 3. Lipoma resection of his back. 4. Salivary gland resection due to stones. 5. Video-assisted thoracoscopic surgery with drainage of an effusion and lysis of adhesions 05/26/2017. CARDIAC MEDICATIONS AT HOME: 1. Lovastatin 40 mg q hs. 2. Nifedipine 30 milligrams qd. 3. Lasix 40 milligrams qd. 4. Potassium chloride 20 milliequivalents qd. 5. Aspirin 162 milligrams qd. ALLERGIES Penicillin FAMILY HISTORY Noncontributory SOCIAL HISTORY: The patient quit smoking 50 years ago. He drinks occasional alcohol. REVIEW OF SYSTEMS: As in the history of present illness otherwise negative or noncontributory. He also denies headache, visual changes, abdominal pain, melena, dyspepsia, bright red blood per rectum. PHYSICAL EXAMINATION: On physical examination his blood pressure 112/67 with a pulse of 65, respirations 20. GENERAL: He is a well-developed, well-nourished white male in no acute distress. HEENT: Jugular venous pressure is normal. Carotid pulses are 2+ bilaterally and without bruits. CHEST: Examination of the chest reveals clear lung rose. CARDIAC: He has a regular rhythm and rate without S3-S4 or murmur. ABDOMINAL: He has a soft, nontender abdomen. Bowel sounds are present. There is no definite hepatosplenomegaly. EXTREMITIES: Reveals no clubbing or cyanosis. There is trivial pretibial edema bilaterally. EKG shows sinus rhythm, left axis deviation. LABORATORY DATA Includes WBC 7.8, hemoglobin 9.3, platelets 190, potassium 3.9, BUN 27, creatinine 1.44, CK 69, troponin 0.08. Chest x-ray: Shows increased opacity and consolidation of the right lung, suggestive of pneumonia, small right pleural effusion. IMPRESSION Syncopal episode in this 86 year-old white male with a history of multiple transient ischemic attacks, recent CVA, hypertension, chronic renal insufficiency, status post recent admission for right hemothorax. The etiology of his syncope is not entirely clear. The episode was not consistent with a vasovagal mediated event. It also does not appear have been due to orthostatic hypotension as he was still sitting at the time of the event. Thus far on monitoring there has been no arrhythmias noted. Left ventricular function by echo earlier this year was normal with no major valvular disease. The slightly elevated troponin level is nonspecific. There is no clinical evidence for acute coronary syndrome. No acute ST-segment or T-wave changes are seen. RECOMMENDATIONS 1. Continue cardiac monitoring. 2. Should he have recurrent unexplained syncope in the future consider an implantable loop recorder. MD YOLETTE Arroyo/CHANG /5:13 PM /9:45 PM CHRISTOPHER
--- NOTE | 2017-06-17 21:52 | RADRPT ---
EXAM DATE/TIME: 06/17/2017 21:03 1 [facility] COMPARISON: MRI BRAIN W & W/O CONTRAST, April 16, 2017, 13:52. INDICATIONS : CVA. Syncope. Old lacunar infarct in the right thalamus seen on CT. CONTRAST: 15 cc Omniscan (gadodiamide) IV MEDICAL HISTORY : Hypertension. Hypercholesterolemia. Chronic obstructive pulmonary disease. CVA. SURGICAL HISTORY : Appendectomy. Inguinal hernia repair. Total knee replacement, Bilateral, Left salivery gland ENCOUNTER: Initial ACUITY: 1 day PAIN SCORE: 2/10 LOCATION: Bilateral cranial TECHNIQUE: Multiplanar, multisequence MRI of the brain was performed both prior to and following the administrat ion of paramagnetic contrast. FINDINGS: CEREBRUM: The ventricles are normal for age with diffuse moderate atrophic change. No evidence of midline shift , mass lesion, hemorrhage or acute infarction. There is an old lacunar infarct in the basal ganglia. No extraaxial fluid collections are seen. The pituitary gland and suprasellar cistern are normal in configuration. WHITE MATTER: The thyroid images again demonstrate chronic small vessel ischemic changes with increased signal in t he deep white matter. POSTERIOR FOSSA: The cerebellum and brainstem are intact. The 4th ventricle is midline. The cerebellopontine angle is unremarkable. The cerebellar tonsils are normal in position. DIFFUSION IMAGING: No focal areas of restricted diffusion are seen. No evidence of acute infarction. EXTRACRANIAL: The visualized portions of the orbits and paranasal sinuses are unremarkable. POST-CONTRAST: No abnormal areas of parenchymal or dural enhancement. No evidence of blood-brain barrier breakdown. CONCLUSION: 1. No acute hemorrhage, mass or infarction. 2. Moderate atrophy and chronic small vessel ischemic changes. Delbert Samuels MD on June 17, 2017 at 21:48 Board Certified Radiologist. This report was verified electronically.
[2017-06-17] MEDS: BUDESONIDE-FORMOTEROL 160/4.5 MCG INHALER INH SCH ×2 (22:18)
[2017-06-17] MEDS: ALPRAZolam 0.5 MG TAB PO PRN ×2 (22:19)
[2017-06-18] VITALS (7 sets, daily range): BP systolic 128–152; BP diastolic 67–84; PULSE 65–92; RESP 16–21; TEMP 97–98.5; O2SAT 90–96
[2017-06-18] MEDS: LEVOTHYROXINE SODIUM 88 MCG TAB PO SCH ×2 (05:27)
--- NOTE | 2017-06-18 07:09 | PD.CARD.PN ---
Subjective Subjective Remarks Denies further syncope. Denies CP, dyspnea, dizziness, palpitations. Objective Medications Item Value Date Time Aspirin 81 mg 06/18/17 0900 (Ecotrin Ec) DAILY/PO Pravastatin Sodium 40 mg 06/18/17 0900 (Pravachol) DAILY/PO Current Medications Medications (Trade) Dose Ordered Sig/Mariann Route Start Time Stop Time Status Last Admin (NS Flush) 2 ml UNSCH PRN IVF 06/17/17 11:30 (Xanax) 0.5 mg Q4H PRN PO 06/17/17 15:15 06/17/17 22:19 (Ecotrin Ec) 81 mg DAILY PO 06/18/17 09:00 (Symbicort 160-4.5 Inh) 2 puff Q12HR INH 06/17/17 21:00 06/17/17 22:18 (Ferrous Sulfate) 325 mg TIDPC PO 06/17/17 18:30 06/17/17 17:34 (Synthroid) 88 mcg DAILY@0600 PO 06/18/17 06:00 06/18/17 05:27 (Pravachol) 40 mg DAILY PO 06/18/17 09:00 (Flomax) 0.4 mg DAILY PO 06/18/17 09:00 Levofloxacin/ Dextrose 50 ml @ 50 mls/hr Q24H IV 06/18/17 16:00 (Tylenol) 650 mg Q4H PRN PO 06/17/17 15:30 (Albuterol Neb) 1.25 mg Q4HR NEB PRN NEB 06/17/17 15:30 Sodium Chloride 1,000 ml @ 60 mls/hr [id number] ONCE IV 06/17/17 15:30 06/18/17 08:09 06/17/17 16:52 Patient Own Medication PT OWN MED: CYCLOSPORINE O... BID EACH EYE 06/17/17 21:00 Future Hold Vital Signs / I&O Vital Signs Date Time Temp Pulse Resp B/P (MAP) Pulse Ox O2 Delivery O2 Flow Rate FiO2 06/18/17 04:00 97.9 66 16 141/67 (91) 93 06/18/17 00:00 97.9 65 16 128/74 (92) 96 06/17/17 20:00 75 06/17/17 19:00 98.3 72 16 134/68 (90) 94 06/17/17 17:30 97.3 77 18 148/67 (94) 98 06/17/17 17:14 06/17/17 15:29 65 20 112/67 (82) 97 Nasal Cannula 2.00 06/17/17 14:24 73 20 108/62 (77) 97 Nasal Cannula 2.00 06/17/17 12:09 73 20 91/53 (66) 92 Nasal Cannula 2.00 06/17/17 11:28 73 17 94 Nasal Cannula 2.00 06/17/17 11:28 93 Nasal Cannula 2.00 06/17/17 11:18 Nasal Cannula 06/17/17 11:11 98.7 74 17 107/58 (74) 89 I/O 06/17/17 06/17/17 06/17/17 06/18/17 06/18/17 06/18/17 07:00 15:00 23:00 07:00 15:00 23:00 Intake Total 500 ml 250 ml 1578 ml Output Total 250 ml 1100 ml Balance 500 ml 0 ml 478 ml Intake Oral 240 ml IV Total 500 ml 250 ml 1338 ml Output Urine Total 250 ml 1100 ml Physical Exam GENERAL: Well developed, well nourished. No acute distress. HEENT: Jugular venous pressure is normal. CHEST: Lungs clear to auscultation anteriorly. CARDIAC: Regular rate and rhythm without S3, S4, or murmur. ABDOMEN: Soft, nontender, no hepatosplenomegaly. Bowel sounds present. EXTREMITIES: No clubbing, cyanosis, or edema. Laboratory Laboratory Tests Test 06/17/17 11:35 06/17/17 13:35 06/17/17 15:40 06/17/17 20:37 White Blood Count 7.8 TH/MM3 Red Blood Count 2.91 MIL/MM3 Hemoglobin 9.3 GM/DL Hematocrit 27.7 % Mean Corpuscular Volume 95.1 FL Mean Corpuscular Hemoglobin 31.9 PG Mean Corpuscular Hemoglobin Concent 33.6 % Red Cell Distribution Width 14.4 % Platelet Count 190 TH/MM3 Mean Platelet Volume 6.9 FL Neutrophils (%) (Auto) 86.8 % Lymphocytes (%) (Auto) 3.7 % Monocytes (%) (Auto) 8.6 % Eosinophils (%) (Auto) 0.4 % Basophils (%) (Auto) 0.5 % Neutrophils # (Auto) 6.8 TH/MM3 Lymphocytes # (Auto) 0.3 TH/MM3 Monocytes # (Auto) 0.7 TH/MM3 Eosinophils # (Auto) 0.0 TH/MM3 Basophils # (Auto) 0.0 TH/MM3 CBC Comment DIFF FINAL Differential Comment Prothrombin Time 12.0 SEC Prothromb Time International Ratio 1.1 RATIO Activated Partial Thromboplast Time 27.4 SEC Blood Urea Nitrogen 27 MG/DL Creatinine 1.44 MG/DL Random Glucose 141 MG/DL Total Protein 5.9 GM/DL Albumin 1.9 GM/DL Calcium Level 7.6 MG/DL Magnesium Level 1.7 MG/DL Alkaline Phosphatase 113 U/L Aspartate Amino Transf (AST/SGOT) 36 U/L Alanine Aminotransferase (ALT/SGPT) 25 U/L Total Bilirubin 0.6 MG/DL Sodium Level 137 MEQ/L Potassium Level 3.9 MEQ/L Chloride Level 102 MEQ/L Carbon Dioxide Level 26.0 MEQ/L Anion Gap 9 MEQ/L Estimat Glomerular Filtration Rate 46 ML/MIN Total Creatine Kinase 69 U/L Troponin I 0.08 NG/ML 0.08 NG/ML 0.07 NG/ML B-Type Natriuretic Peptide 188 PG/ML Urine Color YELLOW Urine Turbidity CLEAR Urine pH 5.5 Urine Specific [place] 1.012 Urine Protein NEG mg/dL Urine Glucose (UA) NEG mg/dL Urine Ketones NEG mg/dL Urine Occult Blood NEG Urine Nitrite NEG Urine Bilirubin NEG Urine Urobilinogen LESS THAN 2.0 MG/DL Urine Leukocyte Esterase NEG Urine WBC 1 /hpf Urine Mucus FEW /lpf Microscopic Urinalysis Comment CULT NOT INDICATED Lactic Acid Level 1.3 mmol/L Imaging Last 24 hours Impressions Chest X-Ray 06/17/17 1121 Signed Impressions: Service Date/Time: Saturday, June 17, 2017 11:30 - CONCLUSION: 1. Increased opacity and consolidation in the right lung most characteristic of pneumonia. 2. Mild cardiomegaly and apparent small right effusion. Delbert Samuels MD Assessment and Plan Problem List: (1) Syncope ICD Codes: R55 - Syncope and collapse Status: Acute Plan: Stable overnight. No further syncope. Monitoring uneventful. REC OK to discharge today from a cardiac standpoint; overall would rec a 3 week Medicomp monitor as an outpatient rather than a loop recorder as if it is being used to detect atrial fibrillation as well, I have found that the atrial sensitivity of a loop recorder can be poor, and what may appear as atrial fib is really sinus rhythm with PAC's or sinus arrhythmia (2) Elevated troponin ICD Codes: R74.8 - Abnormal levels of other serum enzymes Status: Acute Plan: No other evidence for ACS. The troponin elevation is minimal, nonspecific and in the setting of renal insufficiency. CK normal. Rec no additional evaluation at this time. (3) CVA (cerebral vascular accident) ICD Codes: I63.9 - Cerebral infarction, unspecified Status: Chronic Plan: Dr. Bean's consult noted. Patient with history of recurrent TIA's and CVA. Overall would rec initially a 3 week Medicomp monitor as an outpatient rather than a loop recorder as if it is being used to detect atrial fibrillation as well, I have found that the atrial sensitivity of a loop recorder can be poor, and what may appear as atrial fib is really sinus rhythm with PAC's or sinus arrhythmia (4) HTN (hypertension) ICD Codes: I10 - HTN (hypertension) Status: Chronic Plan: Stable. Mostly normotensive. Code Status full code Discussed Condition With patient Problem Qualifiers (1) Syncope: Qualified Codes: R55 - Syncope and collapse (2) CVA (cerebral vascular accident): Qualified Codes: I63.9 - Cerebral infarction, unspecified (3) HTN (hypertension): Qualified Codes: I10 - Essential (primary) hypertension Mayito Leach MD Jun 18, 2017 07:09
--- NOTE | 2017-06-18 07:44 | HHI.PR ---
Subjective Remarks resting comfortably with no acute distress. has occasional cough. no chest pain. afebrile. d/w the RN and no acute issues over night. Objective Vitals Vital Signs Date Time Temp Pulse Resp B/P (MAP) Pulse Ox O2 Delivery O2 Flow Rate FiO2 06/18/17 04:00 97.9 66 16 141/67 (91) 93 06/18/17 00:00 97.9 65 16 128/74 (92) 96 06/17/17 20:00 75 06/17/17 19:00 98.3 72 16 134/68 (90) 94 06/17/17 17:30 97.3 77 18 148/67 (94) 98 06/17/17 17:14 06/17/17 15:29 65 20 112/67 (82) 97 Nasal Cannula 2.00 06/17/17 14:24 73 20 108/62 (77) 97 Nasal Cannula 2.00 06/17/17 12:09 73 20 91/53 (66) 92 Nasal Cannula 2.00 06/17/17 11:28 73 17 94 Nasal Cannula 2.00 06/17/17 11:28 93 Nasal Cannula 2.00 06/17/17 11:18 Nasal Cannula 06/17/17 11:11 98.7 74 17 107/58 (74) 89 I/O 06/17/17 06/17/17 06/17/17 06/18/17 06/18/17 06/18/17 07:00 15:00 23:00 07:00 15:00 23:00 Intake Total 500 ml 250 ml 1578 ml Output Total 250 ml 1100 ml Balance 500 ml 0 ml 478 ml Intake Oral 240 ml IV Total 500 ml 250 ml 1338 ml Output Urine Total 250 ml 1100 ml Result Diagram: 06/17/17 1135 06/17/17 1135 Imaging Last Impressions Chest X-Ray 06/17/17 1121 Signed Impressions: Service Date/Time: Saturday, June 17, 2017 11:30 - CONCLUSION: 1. Increased opacity and consolidation in the right lung most characteristic of pneumonia. 2. Mild cardiomegaly and apparent small right effusion. Delbert Saumels MD Objective Remarks GENERAL: elderly male, in no apparent distress. CARDIOVASCULAR: Regular rate and regular rhythm without murmurs, gallops, or rubs. RESPIRATORY: diminished air entry in bases. GASTROINTESTINAL: Abdomen soft, non-tender, nondistended. Normal, active bowel sounds MUSCULOSKELETAL: Extremities with mild bilateral pedal edema. NEURO: Alert & Oriented x4 to person, place, time, situation. Moves all ext x4 Medications and IVs Current Medications Sodium Chloride (NS Flush) 2 ml UNSCH PRN IVF FLUSH AFTER USING IV ACCESS; Start 06/17/17 at 11:30 Sodium Chloride 500 ml @ 500 mls/hr BOLUS ONCE IV Last administered on 12:09; Start 06/17/17 at 11:30; Stop 06/17/17 at 12:29; Status DC Iohexol (Omnipaque 350 Inj) 96 ml STK-MED ONCE IVCONTRAST Last administered on 06/17/17 13:15; Start 06/17/17 at 13:15; Stop 06/17/17 at 13:16; Status DC Vancomycin HCl 1000 mg/Sodium Chloride 250 ml @ 125 mls/hr ONCE ONCE IV Last administered on 06/17/17 14:37; Start 06/17/17 at 13:30; Stop 06/17/17 at 15:30 ; Status DC Aztreonam 2000 mg/ Sodium Chloride 100 ml @ 200 mls/hr ONCE ONCE IV Last administered on 06/17/17 16:53; Start 06/17/17 at 13:30; Stop 06/17/17 at 13:59 ; Status DC Aspirin (Aspirin Chew) 81 mg ONCE ONCE CHEW Last administered on 06/17/17 14: 37; Start 06/17/17 at 14:30; Stop 06/17/17 at 14:31; Status DC Alprazolam (Xanax) 0.5 mg Q4H PRN PO ANXIETY Last administered on 06/17/17 22: 19; Start 06/17/17 at 15:15 Aspirin (Ecotrin Ec) 81 mg DAILY PO ; Start 06/18/17 at 09:00 Budesonide/ Formoterol Fumarate (Symbicort 160-4.5 Inh) 2 puff Q12HR INH Last administered on 06/17/17 22:18; Start 06/17/17 at 21:00 Ferrous Sulfate (Ferrous Sulfate) 325 mg TIDPC PO Last administered on 17:34; Start 06/17/17 at 18:30 Levothyroxine Sodium (Synthroid) 88 mcg DAILY@0600 PO Last administered on 06/18 05:27; Start 06/18/17 at 06:00 Pravastatin Sodium (Pravachol) 40 mg DAILY PO ; Start 06/18/17 at 09:00 Tamsulosin HCl (Flomax) 0.4 mg DAILY PO ; Start 06/18/17 at 09:00 Non-Formulary Medication 1 drop BID EACH EYE ; Start 06/17/17 at 21:00; Status UNV Levofloxacin/ Dextrose 100 ml @ 100 mls/hr ONCE ONCE IV Last administered on 06/17/17 17:34; Start 06/17/17 at 16:00; Stop 06/17/17 at 16:59; Status DC Levofloxacin/ Dextrose 50 ml @ 50 mls/hr Q24H IV ; Start 06/18/17 at 16:00 Acetaminophen (Tylenol) 650 mg Q4H PRN PO FEVER/PAIN; Start 06/17/17 at 15:30 Albuterol Sulfate (Albuterol Neb) 1.25 mg Q4HR NEB PRN NEB SOB/WHEEZING; Start 06/17/17 at 15:30 Sodium Chloride 1,000 ml @ 60 mls/hr [id number] ONCE IV Last administered on 06/17 16:52; Start 06/17/17 at 15:30; Stop 06/18/17 at 08:09 Patient Own Medication PT OWN MED: CYCLOSPORINE O... BID EACH EYE ; Start at 21:00; Status Future Hold Gadodiamide (Omniscan Pf Inj) 15 ml STK-MED ONCE IVCONTRAST Last administered on 06/17/17 21:28; Start 06/17/17 at 21:28; Stop 06/17/17 at 21:29; Status DC A/P Assessment and Plan A/P - syncope with history of fairly recent CVA continue with telemetry and neuro-checks- MRI brain with no acute abnormality. of note -at the time had a MRA of the neck with no significant stenosis- holter with sinus rhythm and occasional PAC's and PVC's and echo with EF 65% and mild aortic stenosis continue aspirin and statin- neurology consult appreciated; EEG pending. cardiology consult appreciated; recommended outpatient f/u with Medicomp monitor- cleared for discharge. -pneumonia ( RML/RLL) with COPD; started on IV Levaquin- neb treatment as needed - patient is oxygen dependent.follow the cultures. -minimal elevation of troponin- denies chest pain and no acute ST-T changes- - continue aspirin- no further intervention at this time per cardiology. -transient hypotension- improved-dtop IV hydration- will resume lasix- continue to hold other BP meds and continue to monitor. -CKD- will monitor. -anemia of chronic disease- on ferrous sulfate- will monitor. -hypothyroidism- continue synthroid -recent hemothorax after was started on anticoagulation for CVA- s/p recent VATS - keep on oxygen to keep O2 sat >90%. -DVT prophylaxis with SCD's -consulted PT and case management. Discharge Planning possible discharge tomorrow if stable- pending blood cultures/ EEG and neurology f/u and recommendations. Akhil Brown MD Jun 18, 2017 07:44
--- NOTE | 2017-06-18 08:24 | HHI.PR ---
Subjective Remarks sr Objective Vital Signs Date Time Temp Pulse Resp B/P (MAP) Pulse Ox O2 Delivery O2 Flow Rate FiO2 06/18/17 04:00 97.9 66 16 141/67 (91) 93 06/18/17 00:00 97.9 65 16 128/74 (92) 96 06/17/17 20:00 75 06/17/17 19:00 98.3 72 16 134/68 (90) 94 06/17/17 17:30 97.3 77 18 148/67 (94) 98 06/17/17 17:14 06/17/17 15:29 65 20 112/67 (82) 97 Nasal Cannula 2.00 06/17/17 14:24 73 20 108/62 (77) 97 Nasal Cannula 2.00 06/17/17 12:09 73 20 91/53 (66) 92 Nasal Cannula 2.00 06/17/17 11:28 73 17 94 Nasal Cannula 2.00 06/17/17 11:28 93 Nasal Cannula 2.00 06/17/17 11:18 Nasal Cannula 06/17/17 11:11 98.7 74 17 107/58 (74) 89 I/O 06/17/17 06/17/17 06/17/17 06/18/17 06/18/17 06/18/17 07:00 15:00 23:00 07:00 15:00 23:00 Intake Total 500 ml 250 ml 1578 ml 353 ml Output Total 250 ml 1100 ml Balance 500 ml 0 ml 478 ml 353 ml Intake Oral 240 ml IV Total 500 ml 250 ml 1338 ml 353 ml Output Urine Total 250 ml 1100 ml Result Diagram: 06/17/17 1135 06/17/17 1135 Objective Remarks sob nl speech sitting upright Assessment and Plan Assessment and Plan sr mri neg new cva some chf cards pend eeg pend likley non neuro syncope cards to do 30 day holter b4 loop Abiodun Bean MD Jun 18, 2017 08:24
[2017-06-18] MEDS ORDERED: FUROSEMIDE 20 MG/2 ML VIAL IV PUSH ONE ×2 (08:45)
[2017-06-18] MEDS: ASPIRIN EC 81 MG TABEC PO SCH ×2 (10:02)
[2017-06-18] MEDS: POTASSIUM CHLORIDE 20 MEQ CONTROLLED RELEASE TAB PO SCH ×2 (10:02)
[2017-06-18] MEDS: BUDESONIDE-FORMOTEROL 160/4.5 MCG INHALER INH SCH ×4 (10:02→20:37)
[2017-06-18] MEDS: TAMSULOSIN HCL 0.4 MG CAP PO SCH ×2 (10:02)
[2017-06-18] MEDS: PRAVASTATIN SOD 40 MG TAB PO SCH ×2 (10:03)
[2017-06-18] MEDS: FERROUS SULFATE 325 MG (65 MG ELEMENTAL IRON) TAB PO SCH ×6 (10:03→18:08)
[2017-06-18] MEDS: guaiFENesin SOLUTION 200 MG/10 ML CUP PO PRN ×2 (10:03)
[2017-06-18] MEDS: FUROSEMIDE 40 MG TAB PO SCH ×2 (10:03)
[2017-06-18] MEDS: LEVOFLOXACIN/DEXTROSE 250 MG/50 ML IV SCH ×2 (16:28)
--- NOTE | 2017-06-18 16:43 | EKG ---
Date Performed: 06/17/2017 Time Performed: 11:14:49 PTAGE: 86 years EKG: Sinus rhythm with first degree AV block MARKED LEFT AXIS DEVIATION Since previous tracing, no significant change noted ABNORMAL ECG PREVIOUS TRACING : 05/16/2017 16.53 DOCTOR: Ismael Sweeney Interpretating Date/Time 06/18/2017 16:41:21
[2017-06-18] MEDS: ALPRAZolam 0.5 MG TAB PO PRN ×2 (20:41)
--- NOTE | 2017-06-18 21:16 | MG ---
cc: PRANEETH LANTIGUA MD Lab No: Date: 06/18/17 Age:86 Sex: M Race: DATE OF [address] Bean. MEDICAL HISTORY Hypothyroidism, hearing loss, hypertension, COPD, five times TIA, mitral valve leak, AAA, hyperlipidemia admitted for syncopal episode, unresponsive while eating breakfast. MEDICATIONS 1. Synthroid. 2. Ferrous sulfate. 3. Aspirin. 4. Vancomycin. 5. Xanax. DESCRIPTION The background activity is 8-9 Hz alpha located posteriorly superimposed by excess beta activity. There is intermittent background slowing in the theta range. Hyperventilation was not done. Photic stimulation did not elicit a driving response. During the recording there was drop out of the background activity with transition to stage II sleep with appearance of K complexes and sleep spindles. There were no electrographic seizures or epileptiform discharges noted. INTERPRETATION This is an awake, drowsy and sleep EEG. Beta activity is a nonspecific finding that may be related to medication adverse effect like benzos and barbiturates. Intermittent slowing of the background may indicate an encephalopathic pattern that may be secondary to metabolic, medication or hypoxic effect. Absence of electrographic seizures or epileptiform discharges does not rule out the diagnosis of epilepsy. Clinical correlation is recommended. Praneeth Lantigua MD RGO/EO /7:52 PM /9:11 PM [facility]ENTERHaley
[2017-06-19] VITALS: BP 126/72; PULSE 73; RESP 19; TEMP 98; O2SAT 93
[2017-06-19 04:00] VITALS: BP 140/66; PULSE 78; RESP 18; TEMP 98.2; O2SAT 93
[2017-06-19] MEDS: LEVOTHYROXINE SODIUM 88 MCG TAB PO SCH ×2 (05:34)
--- NOTE | 2017-06-19 07:57 | HHI.PR ---
Subjective Remarks looks much more comfortable today. sob has improved along with his cough. no fever. d/w the RN and no acute issues over night. Objective Vitals Vital Signs Date Time Temp Pulse Resp B/P (MAP) Pulse Ox O2 Delivery O2 Flow Rate FiO2 06/19/17 04:00 98.2 78 18 140/66 (90) 93 06/19/17 00:00 98.0 73 19 126/72 (90) 93 06/18/17 20:00 98.5 73 21 130/73 (92) 94 06/18/17 20:00 75 06/18/17 18:06 80 06/18/17 16:00 97.0 75 18 149/72 (97) 96 06/18/17 11:37 98.0 92 18 152/84 (106) 92 06/18/17 08:00 98.2 81 20 147/81 (103) 90 I/O 06/18/17 06/18/17 06/18/17 06/19/17 06/19/17 06/19/17 07:00 15:00 23:00 07:00 15:00 23:00 Intake Total 1578 ml 353 ml 720 ml 480 ml Output Total 1100 ml 2000 ml 700 ml Balance 478 ml 353 ml -1280 ml -220 ml Intake Oral 240 ml 720 ml 480 ml IV Total 1338 ml 353 ml Output Urine Total 1100 ml 2000 ml 700 ml # Bowel Movements 3 0 Result Diagram: 06/17/17 1135 06/17/17 1135 Imaging Last Impressions Brain MRI 06/17/17 1617 Signed Impressions: Service Date/Time: Saturday, June 17, 2017 21:03 - CONCLUSION: 1. No acute hemorrhage, mass or infarction. 2. Moderate atrophy and chronic small vessel ischemic changes. Delbert Samuels MD Head CT 06/17/17 1121 Signed Impressions: Service Date/Time: Saturday, June 17, 2017 13:03 - CONCLUSION: 1. Mild periventricular and subcortical white matter small vessel ischemic changes bilaterally. 2. Mild cerebral atrophy. 3. No acute infarct, acute hemorrhage, mass effect or extraaxial fluid collections. 4. Old lacunar infarct within the right thalamus. Hermes Eller MD Chest X-Ray 06/17/17 1121 Signed Impressions: Service Date/Time: Saturday, June 17, 2017 11:30 - CONCLUSION: 1. Increased opacity and consolidation in the right lung most characteristic of pneumonia. 2. Mild cardiomegaly and apparent small right effusion. Delbert Samuels MD CT Angiography 06/17/17 0000 Signed Impressions: Service Date/Time: Saturday, June 17, 2017 13:08 - CONCLUSION: 1. No evidence of pulmonary embolism. 2. Scattered patchiness throughout the right mid and lower lung field consistent with probable pneumonia. Clinical correlation is recommended. 3. Stable consolidation of the right lower lobe. 4. Small bilateral pleural effusions (right slightly larger than left). 5. Emphysematous changes bilaterally. 6. Two 7 mm and one 5 mm non-calcified nodules within the lateral aspect of the left lower lobe abutting the pleural. Follow up CT of the chest in six months is recommended to confirm stability. 7. Cardiomegaly and coronary artery calcifications. 8. Mild prominence of the pretracheal and subcarinal mediastinal lymph nodes which is new compared to 05/22/17 and likely reactive. 9. Degenerative changes and scoliosis of the thoracic spine. Hermes Eller MD Objective Remarks GENERAL: elderly male, in no apparent distress. CARDIOVASCULAR: Regular rate and regular rhythm without murmurs, gallops, or rubs. RESPIRATORY: diminished air entry in bases. GASTROINTESTINAL: Abdomen soft, non-tender, nondistended. Normal, active bowel sounds MUSCULOSKELETAL: Extremities with mild bilateral pedal edema. NEURO: Alert & Oriented x4 to person, place, time, situation. Moves all ext x4 Procedures none Medications and IVs Current Medications Sodium Chloride (NS Flush) 2 ml UNSCH PRN IVF FLUSH AFTER USING IV ACCESS; Start 06/17/17 at 11:30 Sodium Chloride 500 ml @ 500 mls/hr BOLUS ONCE IV Last administered on 12:09; Start 06/17/17 at 11:30; Stop 06/17/17 at 12:29; Status DC Iohexol (Omnipaque 350 Inj) 96 ml STK-MED ONCE IVCONTRAST Last administered on 06/17/17 13:15; Start 06/17/17 at 13:15; Stop 06/17/17 at 13:16; Status DC Vancomycin HCl 1000 mg/Sodium Chloride 250 ml @ 125 mls/hr ONCE ONCE IV Last administered on 06/17/17 14:37; Start 06/17/17 at 13:30; Stop 06/17/17 at 15:30 ; Status DC Aztreonam 2000 mg/ Sodium Chloride 100 ml @ 200 mls/hr ONCE ONCE IV Last administered on 06/17/17 16:53; Start 06/17/17 at 13:30; Stop 06/17/17 at 13:59 ; Status DC Aspirin (Aspirin Chew) 81 mg ONCE ONCE CHEW Last administered on 06/17/17 14: 37; Start 06/17/17 at 14:30; Stop 06/17/17 at 14:31; Status DC Alprazolam (Xanax) 0.5 mg Q4H PRN PO ANXIETY Last administered on 06/18/17 20: 41; Start 06/17/17 at 15:15 Aspirin (Ecotrin Ec) 81 mg DAILY PO Last administered on 06/18/17 10:02; Start 06/18/17 at 09:00 Budesonide/ Formoterol Fumarate (Symbicort 160-4.5 Inh) 2 puff Q12HR INH Last administered on 06/18/17 20:37; Start 06/17/17 at 21:00 Ferrous Sulfate (Ferrous Sulfate) 325 mg TIDPC PO Last administered on 18:08; Start 06/17/17 at 18:30 Levothyroxine Sodium (Synthroid) 88 mcg DAILY@0600 PO Last administered on 06/19 05:34; Start 06/18/17 at 06:00 Pravastatin Sodium (Pravachol) 40 mg DAILY PO Last administered on 06/18/17 10 :03; Start 06/18/17 at 09:00 Tamsulosin HCl (Flomax) 0.4 mg DAILY PO Last administered on 06/18/17 10:02; Start 06/18/17 at 09:00 Non-Formulary Medication 1 drop BID EACH EYE ; Start 06/17/17 at 21:00; Status UNV Levofloxacin/ Dextrose 100 ml @ 100 mls/hr ONCE ONCE IV Last administered on 06/17/17 17:34; Start 06/17/17 at 16:00; Stop 06/17/17 at 16:59; Status DC Levofloxacin/ Dextrose 50 ml @ 50 mls/hr Q24H IV Last administered on 16:28; Start 06/18/17 at 16:00 Acetaminophen (Tylenol) 650 mg Q4H PRN PO FEVER/PAIN; Start 06/17/17 at 15:30 Albuterol Sulfate (Albuterol Neb) 1.25 mg Q4HR NEB PRN NEB SOB/WHEEZING; Start 06/17/17 at 15:30 Sodium Chloride 1,000 ml @ 60 mls/hr [id number] ONCE IV Last administered on 06/17 16:52; Start 06/17/17 at 15:30; Stop 06/18/17 at 07:38; Status DC Patient Own Medication PT OWN MED: CYCLOSPORINE O... BID EACH EYE ; Start at 21:00; Status Future Hold Gadodiamide (Omniscan Pf Inj) 15 ml STK-MED ONCE IVCONTRAST Last administered on 06/17/17 21:28; Start 06/17/17 at 21:28; Stop 06/17/17 at 21:29; Status DC Guaifenesin (Robitussin Liq) 200 mg Q4H PRN PO COUGH Last administered on 10:03; Start 06/18/17 at 07:45 Furosemide (Lasix) 40 mg DAILY PO Last administered on 06/18/17 10:03; Start 06/18/17 at 09:00 Potassium Chloride (KCl) 20 meq DAILY PO Last administered on 06/18/17 10:02; Start 06/18/17 at 09:00 Furosemide (Lasix Inj) 20 mg ONCE ONCE IV PUSH Last administered on 06/18/17 10:01; Start 06/18/17 at 08:45; Stop 06/18/17 at 08:46; Status DC A/P Problem List: (1) Pneumonia ICD Code: J18.9 - Pneumonia, unspecified organism Status: Acute (2) Syncope ICD Code: R55 - Syncope and collapse Status: Acute Assessment and Plan A/P - syncope with history of fairly recent CVA MRI brain with no acute abnormality. of note -at the time had a MRA of the neck with no significant stenosis- holter with sinus rhythm and occasional PAC's and PVC's and echo with EF 65% and mild aortic stenosis continue aspirin and statin- d/w today and the patient was cleared for discharge per neurology. cardiology consult appreciated; recommended outpatient f/u with [employer] monitor- cleared for discharge. check orthostatic BP. -pneumonia ( RML/RLL) with COPD; started on IV Levaquin- will switch to po -neb treatment as needed- patient is oxygen dependent. blood cultures negative. -minimal elevation of troponin- denies chest pain and no acute ST-T changes- - continue aspirin- no further intervention at this time per cardiology. -transient hypotension- improved-BP at times on low side- - will resume lasix- continue to hold other BP meds and continue to monitor. f/u s outpatient. -CKD- will monitor. -anemia of chronic disease- on ferrous sulfate- will monitor. -hypothyroidism- continue synthroid -recent hemothorax after was started on anticoagulation for CVA- s/p recent VATS - keep on oxygen to keep O2 sat >90%. -DVT prophylaxis with SCD's -consulted PT and case management. Discharge Planning case management for dc planning to SNF. Problem Qualifiers (1) Pneumonia: Qualified Codes: J18.9 - Pneumonia, unspecified organism (2) Syncope: Qualified Codes: R55 - Syncope and collapse Akhil Brown MD Jun 19, 2017 07:57
[2017-06-19 08:00] VITALS: BP_SYST 103; BP_SYST 126; BP_SYST 139; BP_DIAS 59; BP_DIAS 77; BP_DIAS 79; PULSE 77; RESP 20; TEMP 97.8; O2SAT 92
[2017-06-19] MEDS ORDERED: TRAM50TA PO ×2 (08:01)
[2017-06-19] MEDS ORDERED: ALPR.5 PO ×2 (08:01)
[2017-06-19] MEDS ORDERED: LEVA250T14 PO ×2 (08:01)
--- NOTE | 2017-06-19 08:02 | HHI.PR ---
Subjective Remarks sr Objective Vital Signs Date Time Temp Pulse Resp B/P (MAP) Pulse Ox O2 Delivery O2 Flow Rate FiO2 06/19/17 04:00 98.2 78 18 140/66 (90) 93 06/19/17 00:00 98.0 73 19 126/72 (90) 93 06/18/17 20:00 98.5 73 21 130/73 (92) 94 06/18/17 20:00 75 06/18/17 18:06 80 06/18/17 16:00 97.0 75 18 149/72 (97) 96 06/18/17 11:37 98.0 92 18 152/84 (106) 92 I/O 06/18/17 06/18/17 06/18/17 06/19/17 06/19/17 06/19/17 07:00 15:00 23:00 07:00 15:00 23:00 Intake Total 1578 ml 353 ml 720 ml 480 ml Output Total 1100 ml 2000 ml 700 ml Balance 478 ml 353 ml -1280 ml -220 ml Intake Oral 240 ml 720 ml 480 ml IV Total 1338 ml 353 ml Output Urine Total 1100 ml 2000 ml 700 ml # Bowel Movements 3 0 Result Diagram: 06/17/17 1135 06/17/17 1135 Objective Remarks nl speech sitting upright no change know [facility] [place] Assessment and Plan Assessment and Plan sr mri neg new cva sob better cards on case eegneg likley non neuro syncope cards to do 30 day holter b4 loop check stanidng bp and if ok ok to dc neurowise Abiodun Bean MD Jun 19, 2017 08:02
--- NOTE | 2017-06-19 08:02 | HHI.DS ---
Discharge Summary Admission Date Jun 17, 2017 at 14:43 Discharge Date: Jun 19, 2017 Admitting Diagnosis pneumonia, syncope, elevated troponin (1) Pneumonia ICD Code: J18.9 - Pneumonia, unspecified organism Diagnosis: Principal Status: Acute (2) Syncope ICD Code: R55 - Syncope and collapse Diagnosis: Principal Status: Acute Procedures none Brief History - From Admission patient is a 86 y/o male with history of fairly recent CVA, hypertension, dyslipidemia, recent admission because of hemothorax, who presented to ER after he passed out at home. he says that he was having his breakfast today when he suddenly passed out. he denies any chest pain, son, nausea, diaphoresis or dizziness before the incident. he didn't fall. he says that he regained his consciousness after ten minutes. he denies any fever, chills or cough. he says that after he had his stroke two months ago he was taken off Aggrenox and started on lovenox and coumadin. however he developed hemothorax for which he was readmitted, underwent chest tube placement and VATS and finally discharged home with home oxygen. CBC/BMP: 06/17/17 1135 06/17/17 1135 Significant Findings Laboratory Tests Test 06/17/17 11:35 06/17/17 13:35 06/17/17 15:40 06/17/17 20:37 Red Blood Count 2.91 MIL/MM3 (4.50-5.90) Hemoglobin 9.3 GM/DL (13.0-17.0) Hematocrit 27.7 % (39.0-51.0) Mean Platelet Volume 6.9 FL (7.0-11.0) Neutrophils (%) (Auto) 86.8 % (16.0-70.0) Lymphocytes (%) (Auto) 3.7 % (9.0-44.0) Monocytes (%) (Auto) 8.6 % (0.0-8.0) Lymphocytes # (Auto) 0.3 TH/MM3 (1.0-4.8) Prothrombin Time 12.0 SEC (9.8-11.6) Blood Urea Nitrogen 27 MG/DL (7-18) Creatinine 1.44 MG/DL (0.60-1.30) Random Glucose 141 MG/DL (74-106) Total Protein 5.9 GM/DL (6.4-8.2) Albumin 1.9 GM/DL (3.4-5.0) Calcium Level 7.6 MG/DL (8.5-10.1) Estimat Glomerular Filtration Rate 46 ML/MIN (>89) Troponin I 0.08 NG/ML (0.02-0.05) 0.08 NG/ML (0.02-0.05) 0.07 NG/ML (0.02-0.05) B-Type Natriuretic Peptide 188 PG/ML (0-100) Urine Mucus FEW /lpf (OCC) Imaging Last Impressions Brain MRI 06/17/17 1617 Signed Impressions: Service Date/Time: Saturday, June 17, 2017 21:03 - CONCLUSION: 1. No acute hemorrhage, mass or infarction. 2. Moderate atrophy and chronic small vessel ischemic changes. Delbert Samuels MD Head CT 06/17/17 1121 Signed Impressions: Service Date/Time: Saturday, June 17, 2017 13:03 - CONCLUSION: 1. Mild periventricular and subcortical white matter small vessel ischemic changes bilaterally. 2. Mild cerebral atrophy. 3. No acute infarct, acute hemorrhage, mass effect or extraaxial fluid collections. 4. Old lacunar infarct within the right thalamus. Hermes Eller MD Chest X-Ray 06/17/17 1121 Signed Impressions: Service Date/Time: Saturday, June 17, 2017 11:30 - CONCLUSION: 1. Increased opacity and consolidation in the right lung most characteristic of pneumonia. 2. Mild cardiomegaly and apparent small right effusion. Delbert Samuels MD CT Angiography 06/17/17 0000 Signed Impressions: Service Date/Time: Saturday, June 17, 2017 13:08 - CONCLUSION: 1. No evidence of pulmonary embolism. 2. Scattered patchiness throughout the right mid and lower lung field consistent with probable pneumonia. Clinical correlation is recommended. 3. Stable consolidation of the right lower lobe. 4. Small bilateral pleural effusions (right slightly larger than left). 5. Emphysematous changes bilaterally. 6. Two 7 mm and one 5 mm non-calcified nodules within the lateral aspect of the left lower lobe abutting the pleural. Follow up CT of the chest in six months is recommended to confirm stability. 7. Cardiomegaly and coronary artery calcifications. 8. Mild prominence of the pretracheal and subcarinal mediastinal lymph nodes which is new compared to 05/22/17 and likely reactive. 9. Degenerative changes and scoliosis of the thoracic spine. Hermes Eller MD PE at Discharge GENERAL: elderly male, in no apparent distress. CARDIOVASCULAR: Regular rate and regular rhythm without murmurs, gallops, or rubs. RESPIRATORY: diminished air entry in bases. GASTROINTESTINAL: Abdomen soft, non-tender, nondistended. Normal, active bowel sounds MUSCULOSKELETAL: Extremities with mild bilateral pedal edema. NEURO: Alert & Oriented x4 to person, place, time, situation. Moves all ext x4 Hospital Course - syncope with history of fairly recent CVA MRI brain with no acute abnormality. of note -at the time had a MRA of the neck with no significant stenosis- holter with sinus rhythm and occasional PAC's and PVC's and echo with EF 65% and mild aortic stenosis continue aspirin and statin- d/w today and the patient was cleared for discharge per neurology. cardiology consult appreciated; recommended outpatient f/u with [employer] monitor- cleared for discharge. -pneumonia ( RML/RLL) with COPD; started on IV Levaquin- will switch to po -neb treatment as needed- patient is oxygen dependent. blood cultures negative. -minimal elevation of troponin- denies chest pain and no acute ST-T changes- - continue aspirin- no further intervention at this time per cardiology. -transient hypotension- improved-BP at times on low side- - will resume lasix- continue to hold other BP meds and continue to monitor. f/u s outpatient. -CKD- will monitor. -anemia of chronic disease- on ferrous sulfate- will monitor. -hypothyroidism- continue synthroid -recent hemothorax after was started on anticoagulation for CVA- s/p recent VATS - keep on oxygen to keep O2 sat >90%. -DVT prophylaxis with SCD's -consulted PT and case management. Pt Condition on Discharge: Fair Discharge Disposition: Discharge to SNF Discharge Time: > 30 minutes Discharge Instructions DIET: Follow Instructions for: Heart Healthy Diet Activities you can perform: Regular-No Restrictions Follow up Referrals: Cardiology Neurology PCP Follow-up New Medications: Levofloxacin (Levaquin) 250 Mg Tablet 250 MG PO DAILY for Infection for 5 Days, #5 TAB 0 Refills Changed Medications: Tramadol (Tramadol) 50 Mg Tab 50 MG PO Q6HR PRN for PAIN, #12 TAB 0 Refills (Changed from: Q4H) Continued Medications: Albuterol Neb (Albuterol Neb) 2.5 Mg/3 Ml Neb 2.5 MG NEB Q2HR NEB PRN for WHEEZING, #30 NEBULE Alprazolam (Xanax) 0.5 Mg Tab 0.5 MG PO Q4H PRN for ANXIETY, #12 TAB 0 Refills (This prescription has been renewed) Aspirin DR (Adult Aspirin EC Low Strength) 81 Mg Tabec 81 MG PO DAILY for Blood Clot Prevention, #30 TAB 3 Refills Budesonide-Formoterol Inh (Symbicort Inh) 160-4.5 Mcg/Act Aero 2 PUFF INH Q12HR, #1 INHALER 0 Refills Calcium Carbonate (Calcium Carbonate) 500 Mg Calcium (1250 Mg) Tab 1200 MG PO BID for Calcium Supplement, TAB 0 Refills 1,250 mg calcium carbonate (500 mg elemental calcium) Cyclosporine Opth 0.05% (Restasis Opth 0.05%) 0.05% Emul 1 DROP EACH EYE BID for Dry Eye, #1 BOX 0 Refills Ferrous Sulfate (Ferrous Sulfate) 325 Mg (65 Mg Iron) Tablet 325 MG PO TIDPC for Nutritional Supplement, TAB 0 Refills Furosemide (Lasix) 40 Mg Tab 40 MG PO DAILY, TAB 0 Refills Levothyroxine (Levothyroxine) 88 Mcg Tab 88 MCG PO DAILY for Thyroid, #30 TAB 0 Refills Lovastatin (Lovastatin) 40 Mg Tab 40 MG PO DAILY for Cholesterol Management, #30 TAB 0 Refills Oxygen (O2) (Oxygen (O2)) Device LITER CHANG.CANULA CONTINUOUS for Prevent Hypoxemia, #2 Oxygen Concentrator Portable Gaseous 2 L/min via Nasal Canula Continuous For 99 months Potassium Chloride ER (Potassium Chloride ER) 20 Meq Tab 20 MEQ PO DAILY for Electrolyte Replacement, TAB 0 Refills Tamsulosin (Tamsulosin) 0.4 Mg Cap 0.4 MG PO DAILY for Manage Prostate Problems, CAP 0 Refills Discontinued Medications: Nifedipine (Nifedipine) 20 Mg Cap 20 MG PO DAILY for Chest Pain, #120 CAP 0 Refills Minouei,Mohammadreza MD Jun 19, 2017 08:02
--- NOTE | 2017-06-19 08:02 | HHI.PR ---
Subjective Remarks sr Objective Vital Signs Date Time Temp Pulse Resp B/P (MAP) Pulse Ox O2 Delivery O2 Flow Rate FiO2 06/19/17 04:00 98.2 78 18 140/66 (90) 93 06/19/17 00:00 98.0 73 19 126/72 (90) 93 06/18/17 20:00 98.5 73 21 130/73 (92) 94 06/18/17 20:00 75 06/18/17 18:06 80 06/18/17 16:00 97.0 75 18 149/72 (97) 96 06/18/17 11:37 98.0 92 18 152/84 (106) 92 I/O 06/18/17 06/18/17 06/18/17 06/19/17 06/19/17 06/19/17 07:00 15:00 23:00 07:00 15:00 23:00 Intake Total 1578 ml 353 ml 720 ml 480 ml Output Total 1100 ml 2000 ml 700 ml Balance 478 ml 353 ml -1280 ml -220 ml Intake Oral 240 ml 720 ml 480 ml IV Total 1338 ml 353 ml Output Urine Total 1100 ml 2000 ml 700 ml # Bowel Movements 3 0 Result Diagram: 06/17/17 1135 06/17/17 1135 Objective Remarks nl speech sitting upright no change know [facility] [place] Assessment and Plan Assessment and Plan sr mri neg new cva sob better cards on case eegneg likley non neuro syncope cards to do 30 day holter b4 loop check stanidng bp and if ok ok to dc neurowise Abiodun Bean MD Jun 19, 2017 08:02
--- NOTE | 2017-06-19 08:02 | HHI.PR ---
Subjective Remarks sr Objective Vital Signs Date Time Temp Pulse Resp B/P (MAP) Pulse Ox O2 Delivery O2 Flow Rate FiO2 06/19/17 04:00 98.2 78 18 140/66 (90) 93 06/19/17 00:00 98.0 73 19 126/72 (90) 93 06/18/17 20:00 98.5 73 21 130/73 (92) 94 06/18/17 20:00 75 06/18/17 18:06 80 06/18/17 16:00 97.0 75 18 149/72 (97) 96 06/18/17 11:37 98.0 92 18 152/84 (106) 92 I/O 06/18/17 06/18/17 06/18/17 06/19/17 06/19/17 06/19/17 07:00 15:00 23:00 07:00 15:00 23:00 Intake Total 1578 ml 353 ml 720 ml 480 ml Output Total 1100 ml 2000 ml 700 ml Balance 478 ml 353 ml -1280 ml -220 ml Intake Oral 240 ml 720 ml 480 ml IV Total 1338 ml 353 ml Output Urine Total 1100 ml 2000 ml 700 ml # Bowel Movements 3 0 Result Diagram: 06/17/17 1135 06/17/17 1135 Objective Remarks nl speech sitting upright no change know [facility] [place] Assessment and Plan Assessment and Plan sr mri neg new cva sob better cards on case eegneg likley non neuro syncope cards to do 30 day holter b4 loop check stanidng bp and if ok ok to dc neurowise Abiodun Bean MD Jun 19, 2017 08:02
[2017-06-19] MEDS: FERROUS SULFATE 325 MG (65 MG ELEMENTAL IRON) TAB PO SCH ×6 (08:34→17:38)
[2017-06-19] MEDS: ASPIRIN EC 81 MG TABEC PO SCH ×2 (08:34)
[2017-06-19] MEDS: FUROSEMIDE 40 MG TAB PO SCH ×2 (08:34)
[2017-06-19] MEDS: PRAVASTATIN SOD 40 MG TAB PO SCH ×2 (08:34)
[2017-06-19] MEDS: TAMSULOSIN HCL 0.4 MG CAP PO SCH ×2 (08:34)
[2017-06-19] MEDS: POTASSIUM CHLORIDE 20 MEQ CONTROLLED RELEASE TAB PO SCH ×2 (08:34)
[2017-06-19] MEDS: BUDESONIDE-FORMOTEROL 160/4.5 MCG INHALER INH SCH ×4 (08:35→22:22)
[2017-06-19 12:00] VITALS: BP 93/53; PULSE 105; RESP 20; TEMP 97.8; O2SAT 93
[2017-06-19] MEDS: FUROSEMIDE 20 MG TAB PO SCH ×2 (12:39)
[2017-06-19 16:00] VITALS: BP 151/68; PULSE 94; RESP 20; TEMP 97.6; O2SAT 93
[2017-06-19] MEDS: LEVOFLOXACIN/DEXTROSE 250 MG/50 ML IV SCH ×2 (17:38)
[2017-06-19 20:00] VITALS: BP 137/65; PULSE 72; PULSE 82; RESP 18; TEMP 98.1; O2SAT 94
[2017-06-19] MEDS: ALPRAZolam 0.5 MG TAB PO PRN ×2 (22:30)
[2017-06-20 00:40] VITALS: BP 137/72; PULSE 72; RESP 16; TEMP 97.1; O2SAT 94
[2017-06-20 05:24] VITALS: BP 127/71; PULSE 69; RESP 16; TEMP 98.1; O2SAT 94
[2017-06-20] MEDS: LEVOTHYROXINE SODIUM 88 MCG TAB PO SCH ×2 (06:29)
--- NOTE | 2017-06-20 07:46 | HHI.PR ---
Subjective Remarks in no acute distress. denies chest pain, sob or dizziness. no new complaints. d/w the RN and no acute issues over night. Objective Vitals Vital Signs Date Time Temp Pulse Resp B/P (MAP) Pulse Ox O2 Delivery O2 Flow Rate FiO2 06/20/17 05:24 98.1 69 16 127/71 (89) 94 06/20/17 00:40 97.1 72 16 137/72 (93) 94 06/19/17 20:00 72 06/19/17 20:00 98.1 82 18 137/65 (89) 94 06/19/17 16:00 97.6 94 20 151/68 (95) 93 06/19/17 12:00 97.8 105 20 93/53 (66) 93 06/19/17 08:00 97.8 77 20 139/77 (97) 92 126/79 (95) 103/59 (74) I/O 06/19/17 06/19/17 06/19/17 06/20/17 06/20/17 06/20/17 07:00 15:00 23:00 07:00 15:00 23:00 Intake Total 480 ml 720 ml 240 ml Output Total 700 ml 1200 ml 300 ml Balance -220 ml -480 ml -60 ml Intake Oral 480 ml 720 ml 240 ml Output Urine Total 700 ml 1200 ml 300 ml # Bowel Movements 0 1 0 Result Diagram: 06/17/17 1135 06/17/17 1135 Imaging Last Impressions Brain MRI 06/17/17 1617 Signed Impressions: Service Date/Time: Saturday, June 17, 2017 21:03 - CONCLUSION: 1. No acute hemorrhage, mass or infarction. 2. Moderate atrophy and chronic small vessel ischemic changes. Delbert Samuels MD Head CT 06/17/17 1121 Signed Impressions: Service Date/Time: Saturday, June 17, 2017 13:03 - CONCLUSION: 1. Mild periventricular and subcortical white matter small vessel ischemic changes bilaterally. 2. Mild cerebral atrophy. 3. No acute infarct, acute hemorrhage, mass effect or extraaxial fluid collections. 4. Old lacunar infarct within the right thalamus. Hermes Eller MD Chest X-Ray 06/17/17 112 Signed Impressions: Service Date/Time: Saturday, June 17, 2017 11:30 - CONCLUSION: 1. Increased opacity and consolidation in the right lung most characteristic of pneumonia. 2. Mild cardiomegaly and apparent small right effusion. Delbert Samuels MD CT Angiography 06/17/17 0000 Signed Impressions: Service Date/Time: Thursday, June 17, 2017 13:08 - CONCLUSION: 1. No evidence of pulmonary embolism. 2. Scattered patchiness throughout the right mid and lower lung field consistent with probable pneumonia. Clinical correlation is recommended. 3. Stable consolidation of the right lower lobe. 4. Small bilateral pleural effusions (right slightly larger than left). 5. Emphysematous changes bilaterally. 6. Two 7 mm and one 5 mm non-calcified nodules within the lateral aspect of the left lower lobe abutting the pleural. Follow up CT of the chest in six months is recommended to confirm stability. 7. Cardiomegaly and coronary artery calcifications. 8. Mild prominence of the pretracheal and subcarinal mediastinal lymph nodes which is new compared to 05/22/17 and likely reactive. 9. Degenerative changes and scoliosis of the thoracic spine. Hermes Eller MD Objective Remarks GENERAL: elderly male, in no apparent distress. CARDIOVASCULAR: Regular rate and regular rhythm without murmurs, gallops, or rubs. RESPIRATORY: diminished air entry in bases. GASTROINTESTINAL: Abdomen soft, non-tender, nondistended. Normal, active bowel sounds MUSCULOSKELETAL: Extremities with mild bilateral pedal edema. NEURO: Alert & Oriented x4 to person, place, time, situation. Moves all ext x4 Procedures none Medications and IVs Current Medications Sodium Chloride (NS Flush) 2 ml UNSCH PRN IVF FLUSH AFTER USING IV ACCESS; Start 06/17/17 at 11:30 Sodium Chloride 500 ml @ 500 mls/hr BOLUS ONCE IV Last administered on 12:09; Start 06/17/17 at 11:30; Stop 06/17/17 at 12:29; Status DC Iohexol (Omnipaque 350 Inj) 96 ml STK-MED ONCE IVCONTRAST Last administered on 06/17/17 13:15; Start 06/17/17 at 13:15; Stop 06/17/17 at 13:16; Status DC Vancomycin HCl 1000 mg/Sodium Chloride 250 ml @ 125 mls/hr ONCE ONCE IV Last administered on 11/1/17at 14:37; Start 06/17/17 at 13:30; Stop 06/17/17 at 15:30 ; Status DC Aztreonam 2000 mg/ Sodium Chloride 100 ml @ 200 mls/hr ONCE ONCE IV Last administered on 06/17/17 16:53; Start 06/17/17 at 13:30; Stop 06/17/17 at 13:59 ; Status DC Aspirin (Aspirin Chew) 81 mg ONCE ONCE CHEW Last administered on 06/17/17 14: 37; Start 06/17/17 at 14:30; Stop 06/17/17 at 14:31; Status DC Alprazolam (Xanax) 0.5 mg Q4H PRN PO ANXIETY Last administered on 06/19/17 22: 30; Start 06/17/17 at 15:15 Aspirin (Ecotrin Ec) 81 mg DAILY PO Last administered on 06/19/17 08:34; Start 06/18/17 at 09:00 Budesonide/ Formoterol Fumarate (Symbicort 160-4.5 Inh) 2 puff Q12HR INH Last administered on 06/19/17 22:22; Start 06/17/17 at 21:00 Ferrous Sulfate (Ferrous Sulfate) 325 mg TIDPC PO Last administered on 17:38; Start 06/17/17 at 18:30 Levothyroxine Sodium (Synthroid) 88 mcg DAILY@0600 PO Last administered on 06/20 06:29; Start 06/18/17 at 06:00 Pravastatin Sodium (Pravachol) 40 mg DAILY PO Last administered on 06/19/17 08 :34; Start 06/18/17 at 09:00 Tamsulosin HCl (Flomax) 0.4 mg DAILY PO Last administered on 06/19/17 08:34; Start 06/18/17 at 09:00 Non-Formulary Medication 1 drop BID EACH EYE ; Start 06/17/17 at 21:00; Status UNV Levofloxacin/ Dextrose 100 ml @ 100 mls/hr ONCE ONCE IV Last administered on 06/17/17 17:34; Start 06/17/17 at 16:00; Stop 06/17/17 at 16:59; Status DC Levofloxacin/ Dextrose 50 ml @ 50 mls/hr Q24H IV Last administered on 17:38; Start 06/18/17 at 16:00 Acetaminophen (Tylenol) 650 mg Q4H PRN PO FEVER/PAIN; Start 06/17/17 at 15:30 Albuterol Sulfate (Albuterol Neb) 1.25 mg Q4HR NEB PRN NEB SOB/WHEEZING; Start 06/17/17 at 15:30 Sodium Chloride 1,000 ml @ 60 mls/hr [id number] ONCE IV Last administered on 06/17 16:52; Start 06/17/17 at 15:30; Stop 06/18/17 at 07:38; Status DC Patient Own Medication PT OWN MED: CYCLOSPORINE O... BID EACH EYE ; Start at 21:00; Status Future Hold Gadodiamide (Omniscan Pf Inj) 15 ml STK-MED ONCE IVCONTRAST Last administered on 06/17/17 21:28; Start 06/17/17 at 21:28; Stop 06/17/17 at 21:29; Status DC Guaifenesin (Robitussin Liq) 200 mg Q4H PRN PO COUGH Last administered on 10:03; Start 06/18/17 at 07:45 Furosemide (Lasix) 40 mg DAILY PO Last administered on 06/19/17 08:34; Start 06/18/17 at 09:00; Stop 06/19/17 at 08:41; Status DC Potassium Chloride (KCl) 20 meq DAILY PO Last administered on 06/19/17 08:34; Start 06/18/17 at 09:00 Furosemide (Lasix Inj) 20 mg ONCE ONCE IV PUSH Last administered on 06/18/17 10:01; Start 06/18/17 at 08:45; Stop 06/18/17 at 08:46; Status DC Furosemide (Lasix) 20 mg DAILY PO Last administered on 06/19/17 12:39; Start 06/19/17 at 09:00 A/P Problem List: (1) Pneumonia ICD Code: J18.9 - Pneumonia, unspecified organism Status: Acute (2) Syncope ICD Code: R55 - Syncope and collapse Status: Acute Assessment and Plan A/P - syncope with history of fairly recent CVA MRI brain with no acute abnormality. of note -at the time had a MRA of the neck with no significant stenosis- holter with sinus rhythm and occasional PAC's and PVC's and echo with EF 65% and mild aortic stenosis continue aspirin and statin- previously d/w and the patient was cleared for discharge per neurology. cardiology consult appreciated; recommended outpatient f/u with [facility] monitor- cleared for discharge. -pneumonia ( RML/RLL) with COPD; started on IV Levaquin- will switch to po upon discharge -neb treatment as needed- patient is oxygen dependent. one bottle of blood cultures positive for staph epidermidis; likely contamination- -minimal elevation of troponin- denies chest pain and no acute ST-T changes- - continue aspirin- no further intervention at this time per cardiology. -transient hypotension- improved-however with orthostatic hypotension yesterday - dc'ed IV fluid due to mild fluid overload- decreased lasix- continue to hold other BP meds. orthostatic BP today with no orthostatic hypotension. -CKD- will monitor. -anemia of chronic disease- on ferrous sulfate- will monitor. -hypothyroidism- continue synthroid -recent hemothorax after was started on anticoagulation for CVA- s/p recent VATS - keep on oxygen to keep O2 sat >90%. -pulmonary nodule- f/u as outpatient. -DVT prophylaxis with SCD's -consulted PT and case management. Discharge Planning case management for dc planning to SNF. dc to SNF within the next 24 hrs if stable. f/u with pcp, cardiology and neurology. see med list. d/w the patient. previously d/w the family and . time spent 35 min. Problem Qualifiers (1) Pneumonia: Qualified Codes: J18.9 - Pneumonia, unspecified organism (2) Syncope: Qualified Codes: R55 - Syncope and collapse Akhil Brown MD Jun 20, 2017 07:46
[2017-06-20] MEDS ORDERED: POTA10CA PO ×2 (07:52)
[2017-06-20] MEDS ORDERED: FURO1TAB62 PO ×2 (07:52)
[2017-06-20 08:00] VITALS: PULSE 74
[2017-06-20 09:00] VITALS: BP_SYST 111; BP_SYST 135; BP_DIAS 50; BP_DIAS 75; PULSE 66; PULSE 84; RESP 18; RESP 20; TEMP 97; TEMP 97.4; O2SAT 93
[2017-06-20] MEDS: BUDESONIDE-FORMOTEROL 160/4.5 MCG INHALER INH SCH ×2 (09:34)
[2017-06-20] MEDS: TAMSULOSIN HCL 0.4 MG CAP PO SCH ×2 (09:34)
[2017-06-20] MEDS: ASPIRIN EC 81 MG TABEC PO SCH ×2 (09:34)
[2017-06-20] MEDS: POTASSIUM CHLORIDE 20 MEQ CONTROLLED RELEASE TAB PO SCH ×2 (09:35)
[2017-06-20] MEDS: FUROSEMIDE 20 MG TAB PO SCH ×2 (09:35)
[2017-06-20] MEDS: PRAVASTATIN SOD 40 MG TAB PO SCH ×2 (09:35)
[2017-06-20] MEDS: FERROUS SULFATE 325 MG (65 MG ELEMENTAL IRON) TAB PO SCH ×4 (09:35→13:42)
[2017-06-20] MEDS: guaiFENesin SOLUTION 200 MG/10 ML CUP PO PRN ×2 (09:57)
[2017-06-20 12:07] VITALS: BP 129/62; PULSE 98; RESP 20; TEMP 98.3; O2SAT 93
== END 2017-06-20 14:48 | DRG 194 ==
LOC: NEPE 11:03 → NEDA 14:43 → N04A 17:27
PROVIDERS: ADMIT Internal Medicine; ATTEND Internal Medicine
DX: J18.9 Pneumonia, unspecified organism (principal); I13.0 Hypertensive heart and chronic kidney disease with heart failure and stage 1 through stage 4 chronic kidney disease, or unspecified chronic kidney disease; J44.0 Chronic obstructive pulmonary disease with (acute) lower respiratory infection; I50.9 Heart failure, unspecified; I08.3 Combined rheumatic disorders of mitral, aortic and tricuspid valves; R91.8 Other nonspecific abnormal finding of lung field; R23.3 Spontaneous ecchymoses; E78.5 Hyperlipidemia, unspecified; E03.9 Hypothyroidism, unspecified; D63.8 Anemia in other chronic diseases classified elsewhere; N18.9 Chronic kidney disease, unspecified; H91.90 Unspecified hearing loss, unspecified ear; K21.9 Gastro-esophageal reflux disease without esophagitis; Z96.653 Presence of artificial knee joint, bilateral; I71.4 Abdominal aortic aneurysm, without rupture; M19.90 Unspecified osteoarthritis, unspecified site; I95.1 Orthostatic hypotension; R09.02 Hypoxemia; Z79.82 Long term (current) use of aspirin; Z99.81 Dependence on supplemental oxygen; Z87.891 Personal history of nicotine dependence; Z86.73 Personal history of transient ischemic attack (TIA), and cerebral infarction without residual deficits
CPT/HCPCS: 70450; 70553; 71010; 71275; 80053; 81001; 82550; 83605; 83735; 83880; 84484; 85025; 85610; 85730; 86850; 86900; 86901; 87040; 87186; 87205; 93005; 95819; 96361; 96374; A9579; J1940; J1956; J3370; J7030; J7040; J7050; Q9967

== ENCOUNTER 2017-07-06 14:12 | Inpatient (IN) | payer OTHER, MEDICARE ==
[2017-07-06] VITALS (9 sets, daily range): BP systolic 128–148; BP diastolic 75–98; PULSE 74–93; RESP 18–22; TEMP 97.3–98.3; O2SAT 87–96
[~2017-07-06] VITALS: Ht 172.7 cm; Wt 67.5 kg
[~2017-07-06 14:12] MED LIST changes: -ALPR.25 PO; -ASPI-99 PO; +ASPI1TAB56 PO; +CALC12502 PO; -ENAL20TA PO; +FERR325T18 PO; +FURO1TAB62 PO; +LEVA250T14 PO; -MIRA50TA PO; -NIFE20 PO; -OMEP20TA PO; -PLAV75TA29 PO; +POTA10CA PO; +TAMS0.4C4 PO; -TAMS5CAP PO
[2017-07-06] MEDS ORDERED: SODIUM CHLORIDE 0.9% FLUSH 10 ML FLUSH IVF PRN (14:30)
--- NOTE | 2017-07-06 14:46 | PD ---
HPI Chief Complaint: Cold / Flu Symptoms Time Seen by Provider: 14:19 Travel History International Travel<30 days: No Contact w/Intl Traveler<30days: No Traveled to known affect area: No History of Present Illness HPI This 86-year-old male is complaining of shortness of breath. He is having right posterior chest pain. He has a history of COPD. Recently he has had recurrent pneumothorax on the right side of the chest. This started when he was on Lovenox for treatment of TIAs possible stroke. He has had multiple thoracenteses and a VATS procedure. He was discharged in the hospital on June 20. Since then he has been on oxygen. He was sent to [place]. He is complaining of increasing shortness of breath. He has not smoked for 50 years but he has been diagnosed with COPD in the past. 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) Endocrine: No Gastrointestinal Disorders: No GERD: Yes Genitourinary: Yes (CKD) Headaches: No Hepatitis: No Hiatal Hernia: No Hypertension: Yes Immune Disorder: No Inguinal Hernia: Yes (right side) Implanted Vascular Access Dvce: No Kidney Stones: Yes Musculoskeletal: Yes Neurologic: No Psychiatric: No Reproductive: Yes Respiratory: Yes (COPD, R HEMOTHORAX) Immunizations Current: Yes Migraines: Yes Myocardial Infarction: No Pneumonia: Yes Radiation Therapy: No Renal Failure: No Seizures: No Sleep Apnea: No Thyroid Disease: Yes Ulcer: No PNEUMOCCOCAL Vaccine (Year): 1 Past Surgical History Abdominal Surgery: No AICD: No Appendectomy: Yes Arteriovenous Shunt: No Cardiac Surgery: No Cholecystectomy: No Ear Surgery: No Eye Surgery: Yes (BILATERAL CATARACT) Genitourinary Surgery: Yes (KIDNEY STONE) Insulin Pump: No Joint Replacement: No Oral Surgery: No Pacemaker: No Thoracic Surgery: No Other Surgery: Yes Social History Alcohol Use: Yes Tobacco Use: No Substance Use: No Allergies-Medications (Allergen,Severity, Reaction): Coded Allergies: penicillin G (Unverified Allergy, Severe, Rash, 07/06/17) Reported Meds & Prescriptions Reported Meds & Active Scripts Active Potassium Chloride ER (Potassium Chloride) 10 Meq Cap 10 Meq PO DAILY Lasix (Furosemide) 20 Mg Tab 20 Mg PO DAILY Tramadol (Tramadol HCl) 50 Mg Tab 50 Mg PO Q6HR PRN Xanax (Alprazolam) 0.5 Mg Tab 0.5 Mg PO Q4H PRN Adult Aspirin EC Low Strength (Aspirin) 81 Mg Tabec 81 Mg PO DAILY Oxygen (O2) Device Liter CHANG.CANULA CONTINUOUS Oxygen Concentrator Portable Gaseous 2 L/min via Nasal Canula Continuous For 99 months Reported Tamsulosin (Tamsulosin HCl) 0.4 Mg Cap 0.4 Mg PO DAILY Ferrous Sulfate 325 Mg (65 Mg Iron) Tablet 325 Mg PO TIDPC Calcium Carbonate 500 Mg Calcium (1250 Mg) Tab 1,200 Mg PO DAILY 1,250 mg calcium carbonate (500 mg elemental calcium) Restasis Opth (Cyclosporine Opth) 0.05% Emul 1 Drop EACH EYE BID Levothyroxine (Levothyroxine Sodium) 88 Mcg Tab 88 Mcg PO DAILY Symbicort Inh (Budesonide/Formoterol Fumarate) 160-4.5 Mcg/Act Aero 2 Puff INH Q12HR Lovastatin 40 Mg Tab 40 Mg PO DAILY Review of Systems General / Constitutional: No: Fever, Chills Eyes: No: Diploplia HENT: No: Headaches Cardiovascular: Positive: Chest Pain or Discomfort, Edema Respiratory: Positive: Shortness of Breath, Pleuritic Pain Gastrointestinal: No: Nausea, Vomiting Genitourinary: No: Urgency, Frequency Musculoskeletal: No: Myalgias, Arthralgias Skin: No Rash, No Itching Neurologic: Positive: Weakness Psychiatric: No: Anxiety Endocrine: No: Heat Intolerance Physical Exam Narrative GENERAL: Chronically ill-appearing male in marked respiratory distress. His oxygen saturation is 87 on 2 L nasal cannula SKIN: Focused skin assessment warm/dry. HEAD: Atraumatic. Normocephalic. EYES: Pupils equal and round. No scleral icterus. No injection or drainage. ENT: No nasal bleeding or discharge. Mucous membranes pink and moist. NECK: Trachea midline. No JVD. CARDIOVASCULAR: Regular rate and rhythm. No murmur appreciated. RESPIRATORY: There is accessory muscle use. There is diminished breath sounds in the right chest there are rales at the base on the left. There are scattered rhonchi GASTROINTESTINAL: Abdomen soft, non-tender, nondistended. Hepatic and splenic margins not palpable. MUSCULOSKELETAL: No obvious deformities. No clubbing. No cyanosis. There is bilateral pedal edema, this has been present for some time NEUROLOGICAL: Awake and alert. No obvious cranial nerve deficits. Motor grossly within normal limits. Normal speech. PSYCHIATRIC: Appropriate mood and affect; insight and judgment normal. Data Data Last Documented VS Vital Signs Date Time Temp Pulse Resp B/P (MAP) Pulse Ox O2 Delivery O2 Flow Rate FiO2 07/06/17 15:09 90 18 136/77 (96) 96 Nasal Cannula 4.00 07/06/17 14:30 98.3 Orders Orders Complete Blood Count With Diff (07/06/17 14:27) Comprehensive Metabolic Panel (07/06/17 14:27) B-Type Natriuretic Peptide (07/06/17 14:27) Act Partial Throm Time (Ptt) (07/06/17 14:27) Prothrombin Time / Inr (Pt) (07/06/17 14:27) Troponin I (07/06/17 14:27) Urinalysis - C+S If Indicated (07/06/17 14:) Influenzae A/B Antigen (07/06/17 14:27) Blood Culture (07/06/17 14:27) Iv Access Insert/Monitor (07/06/17 14:27) Electrocardiogram (07/06/17 14:27) Ecg Monitoring (07/06/17 14:27) Oximetry (07/06/17 14:27) Oxygen Administration (07/06/17 14:27) Chest, Single Ap (07/06/17 14:27) Sodium Chloride 0.9% Flush (Ns Flush) (07/06/17 14:30) Albuterol-Ipratropium Neb (Duoneb Neb) (07/06/17 14:30) Lactic Acid Sepsis Protocol (07/06/17 14:27) Methylprednisolone So Succ Inj (Solumedr (07/06/17 15:30) Labs Laboratory Tests Test 07/06/17 14:25 White Blood Count 6.6 TH/MM3 Red Blood Count 3.61 MIL/MM3 Hemoglobin 10.5 GM/DL Hematocrit 32.6 % Mean Corpuscular Volume 90.3 FL Mean Corpuscular Hemoglobin 29.1 PG Mean Corpuscular Hemoglobin Concent 32.2 % Red Cell Distribution Width 13.9 % Platelet Count 248 TH/MM3 Mean Platelet Volume 5.9 FL Neutrophils (%) (Auto) 82.3 % Lymphocytes (%) (Auto) 9.2 % Monocytes (%) (Auto) 8.0 % Eosinophils (%) (Auto) 0.3 % Basophils (%) (Auto) 0.2 % Neutrophils # (Auto) 5.5 TH/MM3 Lymphocytes # (Auto) 0.6 TH/MM3 Monocytes # (Auto) 0.5 TH/MM3 Eosinophils # (Auto) 0.0 TH/MM3 Basophils # (Auto) 0.0 TH/MM3 CBC Comment DIFF FINAL Differential Comment Prothrombin Time 11.2 SEC Prothromb Time International Ratio 1.0 RATIO Activated Partial Thromboplast Time 30.4 SEC Blood Urea Nitrogen 20 MG/DL Creatinine 1.10 MG/DL Random Glucose 103 MG/DL Total Protein 7.6 GM/DL Albumin 2.2 GM/DL Calcium Level 8.2 MG/DL Alkaline Phosphatase 144 U/L Aspartate Amino Transf (AST/SGOT) 48 U/L Alanine Aminotransferase (ALT/SGPT) 40 U/L Total Bilirubin 0.6 MG/DL Sodium Level 132 MEQ/L Potassium Level 4.0 MEQ/L Chloride Level 97 MEQ/L Carbon Dioxide Level 28.3 MEQ/L Anion Gap 7 MEQ/L Estimat Glomerular Filtration Rate 63 ML/MIN Lactic Acid Level 1.1 mmol/L Troponin I 0.05 NG/ML B-Type Natriuretic Peptide 205 PG/ML [facility] Medical Decision Making Medical Screen Exam Complete: Yes Emergency Medical Condition: Yes Medical Record Reviewed: Yes Differential Diagnosis Differential includes recurrent hemothorax, COPD exacerbation, pneumonia Narrative Course Chest x-ray has been done and shows no significant interval change continued right lower lobe airspace consolidation and loculated pleural effusion. This is compared to an x-ray of June 17, 2017. The patient had a CTA on June 17 which was negative for pulmonary embolus Patient has been given supplemental oxygen and repeated nebulizer treatments. His saturation is increased from the 80s to 92%. He remains short of breath with tachypnea, scattered rhonchi and use of accessory muscles. He has been given Solu-Medrol and 3 nebulizer treatments. His troponin is 0.05 Diagnosis Primary Impression: Acute exacerbation of chronic obstructive pulmonary disease (COPD) Trenton Phoenix MD Jul 06, 2017 14:46
[2017-07-06 14:48] LABS: AUTOMATED NEUTROPHIL # 5.5 TH/MM3 (1.8-7.7); BASOPHIL % 0.2 % (0.0-2.0); EOSINOPHIL % 0.3 % (0.0-4.0); HEMATOCRIT 32.6 % (39.0-51.0); LYMPH % 9.2 % (9.0-44.0); LYMPHOCYTE # 0.6 TH/MM3 (1.0-4.8); MEAN CELL VOLUME 90.3 FL (80.0-100.0); MEAN CORPUSCULAR HEMOGLOBIN 29.1 PG (27.0-34.0); MEAN CORPUSCULAR HGB CONC 32.2 % (32.0-36.0); NEUT % 82.3 % (16.0-70.0); PLATELET COUNT 248 TH/MM3 (150-450); RED BLOOD COUNT 3.61 MIL/MM3 (4.50-5.90); RED CELL DISTRIBUTION WIDTH 13.9 % (11.6-17.2); WHITE BLOOD COUNT 6.6 TH/MM3 (4.0-11.0)
[2017-07-06] MEDS: RESP: ALBUTEROL 2.5 MG/IPRATROPIUM 0.5 MG NEB (SCH) INH (14:51)
[2017-07-06 14:52] LABS: CHLORIDE 97 MEQ/L (98-107); SODIUM (NA) 132 MEQ/L (136-145)
[2017-07-06 14:55] LABS: HEMO FLAGS DIFF FINAL
[2017-07-06 14:57] LABS: ANION GAP 7 MEQ/L (5-15); BICARBONATE 28.3 MEQ/L (21.0-32.0); BLOOD UREA NITROGEN 20 MG/DL (7-18)
[2017-07-06 15:00] LABS: ALT (GPT) 40 U/L (12-78); AST (GOT) 48 U/L (15-37); GLOMERULAR FILTRATION RATE 63 ML/MIN (>89)
[2017-07-06 15:01] LABS: TOTAL BILIRUBIN ADULT 0.6 MG/DL (0.2-1.0)
[2017-07-06 15:03] LABS: ALKALINE PHOSPHATASE 144 U/L (45-117)
[2017-07-06 15:07] LABS: APTT (PATIENT) 30.4 SEC (24.3-30.1); PROTHROMBIN TIME - PATIENT 11.2 SEC (9.8-11.6)
[2017-07-06] MEDS ORDERED: methylPREDNISolone SOD SUCC 125 MG/2 ML VIAL IV PUSH ONE (15:30)
--- NOTE | 2017-07-06 15:30 | RADRPT ---
EXAM DATE/TIME: 07/06/2017 15:05 [facility] COMPARISON: CHEST SINGLE AP, June 17, 2017, 11:30. INDICATIONS : Short of breath MEDICAL HISTORY : Hypertension. Hypercholesterolemia. Chronic obstructive pulmonary disease, CVA SURGICAL HISTORY : Appendectomy. Inguinal hernia repair. Total knee replacement, Bilateral,Left salivery gland ENCOUNTER: Initial ACUITY: 1 day PAIN SCORE: 0/10 LOCATION: Bilateral chest FINDINGS: Redemonstration of right lower lobe airspace consolidation and loculated pleural effusion. Probable t race left pleural effusion. Cardiomediastinal contours are stable. Remainder of exam is unchanged. CONCLUSION: 1. No significant interval change with continued right lower lobe airspace consolidation and loculate d pleural effusion. 2. Probable trace left pleural effusion. Kelvin Puckett MD on July 06, 2017 at 15:27 Board Certified Radiologist. This report was verified electronically.
[2017-07-06 15:50] LABS: BLOOD, URINE NEG (NEG); GLUCOSE,URINE NEG (NEG); KETONE, URINE NEG (NEG); NITRITE,URINE NEG (NEG)
[2017-07-06 15:55] LABS: COMMENT (UR) CULT NOT INDICATED; CULTURE IF INDICATED CULT NOT INDICATED; MUCUS URINE MOD /lpf (OCC); RBC, URINE 0-3 /hpf (0-3); SQUAMOUS EPITHELIAL CELL URINE 0-5 /hpf (0-5); URINE COLOR YELLOW (YELLW/STRAW); WBC, URINE 0-2 /hpf (0-5)
--- NOTE | 2017-07-06 17:12 | HHI.HP ---
[facility] Esvin Steve MD Admission Diagnosis COPD EXACERBATION Diagnoses: (1) COPD (chronic obstructive pulmonary disease) (2) Hypertension Chief Complaint: Worsening cough and dyspnea Travel History International Travel<30 Days: No Contact w/Intl Traveler <30 Da: No Traveled to Known Affected Are: No History of Present Illness Written by Lolita Albert, acting as scribe for Dr. Barraza on 07/06/17 at 17: 01. Mr. Jackson is an 86-year-old male patient with a known medical history of hyperlipidemia, COPD, HTN and recent CVA who presented from [facility], with worsening cough and dyspnea x 4 days. Patient states that he has noticed a nonproductive cough develop 4 days ago, denies any recent fever, chills, chest pain, abdominal pain, n/v/d or dysuria. Does admit to shortness of breath and requiring home O2. There are reports of patient having complaints of right posterior chest pain on presentation but patient denies at time of assessment. After review of records patient suffered from a CVA a few months ago was discharged and readmitted for a pneumothorax, undergoing a CT placement , thoracentesis and VATS procedure. Patient was again readmitted to the hospital June 17 with a syncopal episode at home. Review of Systems Constitutional: DENIES: Fever, Chills Eyes: DENIES: Blurred vision, Double Vision Respiratory: COMPLAINS OF: Cough, Shortness of breath, DENIES: Sputum production Cardiovascular: DENIES: Chest pain, Palpitations Gastrointestinal: DENIES: Abdominal pain, Bloody stools, Constipation, Diarrhea , Nausea, Vomiting Except as stated in HPI: all other systems reviewed are Neg Past Family Social History Past Medical History CVA hypertension hypothyroidism dyslipidemia COPD Past Surgical History Appendectomy Left knee arthroplasty Right knee arthroplasty x 2 Inguinal hernia repair Bilateral cataracts Reported Medications Active Potassium Chloride ER (Potassium Chloride) 10 Meq Cap 10 Meq PO DAILY Lasix (Furosemide) 20 Mg Tab 20 Mg PO DAILY Tramadol (Tramadol HCl) 50 Mg Tab 50 Mg PO Q6HR PRN Xanax (Alprazolam) 0.5 Mg Tab 0.5 Mg PO Q4H PRN Adult Aspirin EC Low Strength (Aspirin) 81 Mg Tabec 81 Mg PO DAILY Oxygen (O2) Device Liter CHANG.CANULA CONTINUOUS Oxygen Concentrator Portable Gaseous 2 L/min via Nasal Canula Continuous For 99 months Reported Tamsulosin (Tamsulosin HCl) 0.4 Mg Cap 0.4 Mg PO DAILY Ferrous Sulfate 325 Mg (65 Mg Iron) Tablet 325 Mg PO TIDPC Calcium Carbonate 500 Mg Calcium (1250 Mg) Tab 1,200 Mg PO DAILY 1,250 mg calcium carbonate (500 mg elemental calcium) Restasis Opth (Cyclosporine Opth) 0.05% Emul 1 Drop EACH EYE BID Levothyroxine (Levothyroxine Sodium) 88 Mcg Tab 88 Mcg PO DAILY Symbicort Inh (Budesonide/Formoterol Fumarate) 160-4.5 Mcg/Act Aero 2 Puff INH Q12HR Lovastatin 40 Mg Tab 40 Mg PO DAILY Allergies: Coded Allergies: penicillin G (Unverified Allergy, Severe, Rash, 07/06/17) Active Ordered Medications Current Medications Medications (Trade) Dose Ordered Sig/Mariann Route Start Time Stop Time Status Last Admin (NS Flush) 2 ml UNSCH PRN IVF 07/06/17 14:30 Family History Denies any significant family medical history. Social History Denies any use of tobacco. Denies any alcohol use. Denies any illicit drug use. Physical Exam Vital Signs Vital Signs Date Time Temp Pulse Resp B/P (MAP) Pulse Ox O2 Delivery O2 Flow Rate FiO2 07/06/17 16:34 97.3 90 22 133/75 (94) 94 Nasal Cannula 2.00 07/06/17 16:27 92 22 132/75 (94) 94 Nasal Cannula 4.00 07/06/17 15:09 90 18 136/77 (96) 96 Nasal Cannula 4.00 07/06/17 14:48 95 Nasal Cannula 4.00 07/06/17 14:30 96 Nasal Cannula 4.00 07/06/17 14:30 78 87 Nasal Cannula 4.00 07/06/17 14:30 98.3 78 22 146/98 (114) 87 07/06/17 14:30 96 Nasal Cannula 4.00 Physical Exam GENERAL: This is a well-developed, frail-looking male patient, lying in bed on supplemental O2 in no apparent distress. SKIN: No rashes, ecchymoses or lesions. Warm and dry. Bilateral lower extremity pitting edema 3+. Multiple skin tears on upper and lower extremities. HEAD: Atraumatic. Normocephalic. Pupils equal round and reactive. Extraocular motions intact. No scleral icterus. No injection or drainage. Nose without bleeding. Throat without erythema, tonsillar hypertrophy or exudate. Uvula midline. Airway patent. NECK: Trachea midline. No JVD or lymphadenopathy. Supple. CARDIOVASCULAR: Regular rate and rhythm without murmurs, gallops, or rubs. RESPIRATORY: Clear to auscultation. Breath sounds diminished in anterior/ posterior bases. No wheezes, rales, or rhonchi. GASTROINTESTINAL: Abdomen soft, non-tender, nondistended. No guarding. MUSCULOSKELETAL: Extremities without clubbing, cyanosis. No joint tenderness, effusion, or edema noted. NEUROLOGICAL: Awake and alert. Cranial nerves II through XII intact. Motor and sensory grossly within normal limits. Five out of 5 muscle strength in all muscle groups. Normal speech. Laboratory Laboratory Tests Test 07/06/17 14:25 07/06/17 15:45 White Blood Count 6.6 Red Blood Count 3.61 Hemoglobin 10.5 Hematocrit 32.6 Mean Corpuscular Volume 90.3 Mean Corpuscular Hemoglobin 29.1 Mean Corpuscular Hemoglobin Concent 32.2 Red Cell Distribution Width 13.9 Platelet Count 248 Mean Platelet Volume 5.9 Neutrophils (%) (Auto) 82.3 Lymphocytes (%) (Auto) 9.2 Monocytes (%) (Auto) 8.0 Eosinophils (%) (Auto) 0.3 Basophils (%) (Auto) 0.2 Neutrophils # (Auto) 5.5 Lymphocytes # (Auto) 0.6 Monocytes # (Auto) 0.5 Eosinophils # (Auto) 0.0 Basophils # (Auto) 0.0 CBC Comment DIFF FINAL Differential Comment Prothrombin Time 11.2 Prothromb Time International Ratio 1.0 Activated Partial Thromboplast Time 30.4 Blood Urea Nitrogen 20 Creatinine 1.10 Random Glucose 103 Total Protein 7.6 Albumin 2.2 Calcium Level 8.2 Alkaline Phosphatase 144 Aspartate Amino Transf (AST/SGOT) 48 Alanine Aminotransferase (ALT/SGPT) 40 Total Bilirubin 0.6 Sodium Level 132 Potassium Level 4.0 Chloride Level 97 Carbon Dioxide Level 28.3 Anion Gap 7 Estimat Glomerular Filtration Rate 63 Lactic Acid Level 1.1 Troponin I 0.05 B-Type Natriuretic Peptide 205 Urine Color YELLOW Urine Turbidity CLEAR Urine pH 6.0 Urine Specific [place] 1.015 Urine Protein NEG Urine Glucose (UA) NEG Urine Ketones NEG Urine Occult Blood NEG Urine Nitrite NEG Urine Bilirubin NEG Urine Leukocyte Esterase NEG Urine RBC 0-3 Urine WBC 0-2 Urine Squamous Epithelial Cells 0-5 Urine Mucus MOD Microscopic Urinalysis Comment CULT NOT INDICATED Date/Time Source Procedure Growth Status 07/06/17 14:35 Blood Peripheral Aerobic Blood Culture Pending Received 07/06/17 14:35 Blood Peripheral Anaerobic Blood Culture Pending Received 07/06/17 14:40 Nasal Washing Influenza Types A,B Antigen (JOSE MARTIN) - Final NEGATIVE FOR FLU A AND B ANTIGEN.... Complete Result Diagram: 07/06/17 1425 07/06/17 1425 Imaging Last Impressions Chest X-Ray 07/06/177 Signed Impressions: Service Date/Time: Thursday, July 06, 2017 15:05 - CONCLUSION: 1. No significant interval change with continued right lower lobe airspace consolidation and loculated pleural effusion. 2. Probable trace left pleural effusion. Kelvin Puckett MD Caprinrose VTE Risk Assessment Caprini VTE Risk Assessment: Mod/High Risk (score >= 2) Caprini Risk Assessment Model Point Value = 1 Point Value = 2 Point Value = 3 Point Value = 5 Age 41-60 Minor surgery BMI > 25 kg/m2 Swollen legs Varicose veins or History of unexplained or recurrent spontaneous Oral contraceptives or hormone replacement Sepsis (< 1 month) Serious lung disease, including pneumonia (< 1 month) Abnormal pulmonary function Acute myocardial infarction Congestive heart failure (< 1 month) History of inflammatory bowel disease Medical patient at bed rest Age 61-74 Arthroscopic surgery Major open surgery (> 45 min) Laparoscopic surgery (> 45 min) Malignancy Confined to bed (> 72 hours) Immobilizing plaster cast Central venous access Age >= 75 History of VTE Family history of VTE Factor V Leiden Prothrombin [id number] Lupus anticoagulant Anticardiolipin antibodies Elevated serum homocysteine Heparin-induced thrombocytopenia Other congenital or acquired thrombophilia Stroke (< 1 month) Elective arthroplasty Hip, pelvis, or leg fracture Acute spinal cord injury (< 1 month) Prophylaxis Regimen Total Risk Factor Score Risk Level Prophylaxis Regimen 0-1 Low Early ambulation 2 Moderate Order ONE of the following: *Sequential Compression Device (SCD) *Heparin 5000 units SQ BID 3-4 Higher Order ONE of the following medications: *Heparin 5000 units SQ TID *Enoxaparin/Lovenox 40 mg SQ daily (WT < 150 kg, CrCl > 30 mL/min) *Enoxaparin/Lovenox 30 mg SQ daily (WT < 150 kg, CrCl > 10-29 mL/min) *Enoxaparin/Lovenox 30 mg SQ BID (WT < 150 kg, CrCl > 30 mL/min) AND/OR *Sequential Compression Device (SCD) 5 or more Highest Order ONE of the following medications: *Heparin 5000 units SQ TID (Preferred with Epidurals) *Enoxaparin/Lovenox 40 mg SQ daily (WT < 150 kg, CrCl > 30 mL/min) *Enoxaparin/Lovenox 30 mg SQ daily (WT < 150 kg, CrCl > 10-29 mL/min) *Enoxaparin/Lovenox 30 mg SQ BID (WT < 150 kg, CrCl > 30 mL/min) AND *Sequential Compression Device (SCD) Assessment and Plan Problem List: (1) Acute exacerbation of chronic obstructive pulmonary disease (COPD) ICD Code: J44.1 - Chronic obstructive pulmonary disease with (acute) exacerbation Status: Acute Assessment and Plan Mr. Jackson is an 86-year-old male patient with a known medical history of hyperlipidemia, COPD, HTN and recent CVA who presented from [facility], with worsening cough and dyspnea x 4 days. WBC 6.6. Afebrile. Lactic acid 1.1. BNP 205. COPD exacerbation, acute on chronic Recent hospitalization for treatment of PNA with COPD exacerbation CXR reviewed showing no change from previous image, continued right lower lobe airspace consolidation and loculated pleural effusion. Methylprednisolone 125 mg IV given in ED. Started on Methylprednisolone 60 mg IV q6hrs. Duonebs scheduled and PRN as needed. Continue Symbicort inhaler. Will start on short course of Azithromycin 250 mg IV q24hr. Influenza negative. BC pending, follow. UA reviewed and unremarkable. Supplemental O2 as needed, O2 dependant at home. Continue cardiac telemetry. Monitor for fevers. Supportive care. PT consulted, appreciate input Minimal elevation of troponin: Denies chest pain and no acute ST-T changes presented. Continue cardiac enzyme trends. Follow. EKG reviewed showing SR with first degree heart block, presence of PVCs. No ST changes to indicate ischemia. Continue aspirin. Congestive heart failure, systolic: 2-D ECHO reviewed from 04/2017, EF 65-70%. Continue home Lasix 20 mg PO daily and potassium supplementation. Bilateral lower extremity edema present. BNP 205. Continue to monitor. Iron deficiency anemia, chronic: Continue home Iron supplementation. Hypothyroidism, chronic: Continue home Levothyroxine. Hyperlipidemia, chronic: Continue home pravastatin. BPH, chronic: Continue home Flomax. DVT Prophylaxis: SCDs. This note was transcribed by swati Albert. I, Dr. Linden Barraza personally performed the history, physical exam, and medical decision making; and confirmed the accuracy of the information in the transcribed note. Authenticated by Dr. Linden Barraza on 07/06/17 at 17:01. Code Status Full code Discussed Condition With Patient, ED physician Lolita Albert Jul 06, 2017 17:12 Linden Barraza MD Jul 06, 2017 17:13
[2017-07-06] MEDS ORDERED: BISACODYL 10 MG SUPP RECTAL PRN (17:30)
[2017-07-06] MEDS ORDERED: SODIUM CHLORIDE 0.9% FLUSH 10 ML FLUSH IV FLUSH PRN (17:30)
[2017-07-06] MEDS ORDERED: MAGNESIUM HYDROXIDE SUSP 30 ML CUP PO PRN (17:30)
[2017-07-06] MEDS ORDERED: ONDANSETRON HCL 4 MG/2 ML VIAL IVP PRN (17:30)
[2017-07-06] MEDS ORDERED: SENNOSIDES 8.6 MG TAB PO PRN (17:30)
[2017-07-06] MEDS ORDERED: NALOXONE HCL 0.4 MG/ML AMP IV PUSH PRN (17:30)
[2017-07-06] MEDS ORDERED: RESP: ALBUTEROL 2.5 MG/IPRATROPIUM 0.5 MG NEB (PRN) NEB (17:30)
[2017-07-06] MEDS ORDERED: BENZONATATE 100 MG CAP PO PRN (18:15)
[2017-07-06] MEDS: FERROUS SULFATE 325 MG (65 MG ELEMENTAL IRON) TAB PO SCH (18:30)
[2017-07-06] MEDS: RESP: ALBUTEROL 2.5 MG/IPRATROPIUM 0.5 MG NEB (SCH) NEB ×3 (19:26→23:07)
[2017-07-06] MEDS ORDERED: AZITHROMYCIN INJ 250 MG in SODIUM CHLOR 0.9% 250 ML INJ 250 ML IV SCH (20:00)
[2017-07-06] MEDS ORDERED: RESTASIS EACH EYE SCH (21:00)
[2017-07-06] MEDS ORDERED: methylPREDNISolone SOD SUCC 125 MG/2 ML VIAL IV SCH (21:00)
[2017-07-06] MEDS: DOCUSATE SODIUM 50 MG/SENNA 8.6 MG TAB PO SCH (21:00)
[2017-07-06] MEDS: methylPREDNISolone SOD SUCC 40 MG/1 ML VIAL IV PUSH SCH (22:22)
[2017-07-06] MEDS: BUDESONIDE-FORMOTEROL 160/4.5 MCG INHALER INH SCH (22:23)
[2017-07-06] MEDS: SODIUM CHLORIDE 0.9% FLUSH 10 ML FLUSH IV FLUSH SCH (22:23)
[2017-07-07] VITALS (13 sets, daily range): BP systolic 109–140; BP diastolic 63–80; PULSE 76–104; RESP 20–40; TEMP 96.3–97.4; O2SAT 81–98
[2017-07-07] MEDS: RESP: ALBUTEROL 2.5 MG/IPRATROPIUM 0.5 MG NEB (SCH) NEB ×5 (03:43→20:09)
[2017-07-07 05:46] LABS: AUTOMATED NEUTROPHIL # 3.2 TH/MM3 (1.8-7.7); EOSINOPHIL % 0.1 % (0.0-4.0); HEMATOCRIT 26.3 % (39.0-51.0); HEMO FLAGS DIFF FINAL; LYMPH % 7.6 % (9.0-44.0); LYMPHOCYTE # 0.3 TH/MM3 (1.0-4.8); MEAN CELL VOLUME 89.4 FL (80.0-100.0); MEAN CORPUSCULAR HEMOGLOBIN 28.6 PG (27.0-34.0); MONO % 2.4 % (0.0-8.0); NEUT % 89.9 % (16.0-70.0); PLATELET COUNT 197 TH/MM3 (150-450); RED BLOOD COUNT 2.95 MIL/MM3 (4.50-5.90); RED CELL DISTRIBUTION WIDTH 13.9 % (11.6-17.2); WHITE BLOOD COUNT 3.6 TH/MM3 (4.0-11.0)
[2017-07-07] MEDS: LEVOTHYROXINE SODIUM 88 MCG TAB PO SCH (05:52)
[2017-07-07] MEDS: methylPREDNISolone SOD SUCC 40 MG/1 ML VIAL IV PUSH SCH (05:52)
[2017-07-07 06:05] LABS: BICARBONATE 25.3 MEQ/L (21.0-32.0)
[2017-07-07] MEDS: AZITHROMYCIN 250 MG TAB PO SCH (09:37)
[2017-07-07] MEDS: TAMSULOSIN HCL 0.4 MG CAP PO SCH (09:37)
[2017-07-07] MEDS: DOCUSATE SODIUM 50 MG/SENNA 8.6 MG TAB PO SCH ×2 (09:37→21:00)
[2017-07-07] MEDS: ASPIRIN EC 81 MG TABEC PO SCH (09:37)
[2017-07-07] MEDS: PRAVASTATIN SOD 40 MG TAB PO SCH (09:38)
[2017-07-07] MEDS: FUROSEMIDE 20 MG TAB PO SCH (09:38)
[2017-07-07] MEDS: FERROUS SULFATE 325 MG (65 MG ELEMENTAL IRON) TAB PO SCH ×3 (09:38→18:30)
[2017-07-07] MEDS: POTASSIUM CHLORIDE 10 MEQ CAP PO SCH (09:41)
[2017-07-07] MEDS: BUDESONIDE-FORMOTEROL 160/4.5 MCG INHALER INH SCH ×2 (09:42→22:15)
[2017-07-07] MEDS: SODIUM CHLORIDE 0.9% FLUSH 10 ML FLUSH IV FLUSH SCH ×2 (09:42→22:15)
[2017-07-07] MEDS ORDERED: guaiFENesin/CODEINE SYRUP 200 MG/20 MG/10 ML CUP PO PRN (11:15)
--- NOTE | 2017-07-07 11:18 | HHI.PR ---
Subjective Remarks Follow-up COPD exacerbation 07/07/17-patient seen and examined; still with some shortness of breath as well as cough production. Afebrile Objective Vitals Vital Signs Date Time Temp Pulse Resp B/P (MAP) Pulse Ox O2 Delivery O2 Flow Rate FiO2 07/07/17 08:00 96.8 83 20 113/71 (85) 86 07/07/17 07:38 94 Nasal Cannula 3.00 07/07/17 04:00 96.4 76 20 121/67 (85) 93 07/07/17 00:00 96.4 85 20 119/63 (81) 92 07/06/17 20:26 93 07/06/17 19:26 96 Nasal Cannula 4.00 07/06/17 18:30 97.8 76 18 148/86 (106) 94 07/06/17 18:15 07/06/17 17:53 74 20 128/76 (93) 94 Nasal Cannula 4.00 07/06/17 16:34 97.3 90 22 133/75 (94) 94 Nasal Cannula 2.00 07/06/17 16:27 92 22 132/75 (94) 94 Nasal Cannula 4.00 07/06/17 15:09 90 18 136/77 (96) 96 Nasal Cannula 4.00 07/06/17 14:48 95 Nasal Cannula 4.00 07/06/17 14:30 96 Nasal Cannula 4.00 07/06/17 14:30 78 87 Nasal Cannula 4.00 07/06/17 14:30 98.3 78 22 146/98 (114) 87 07/06/17 14:30 96 Nasal Cannula 4.00 I/O 07/06/17 07/06/17 07/06/17 07/07/17 07/07/17 07/07/17 07:00 15:00 23:00 07:00 15:00 23:00 Intake Total 240 ml Output Total 275 ml Balance -275 ml 240 ml Intake Oral 240 ml Output Urine Total 275 ml # Voids 1 1 # Bowel Movements 0 Result Diagram: 07/07/1752407/07/17524 Imaging Last Impressions Chest X-Ray 07/06/17 3757 Signed Impressions: Service Date/Time: Thursday, July 06, 2017 15:05 - CONCLUSION: 1. No significant interval change with continued right lower lobe airspace consolidation and loculated pleural effusion. 2. Probable trace left pleural effusion. Kelvin Puckett MD Objective Remarks GENERAL: NAD SKIN: Warm and dry. HEAD: Normocephalic. EYES: No scleral icterus. No injection or drainage. NECK: Supple, trachea midline. No JVD or lymphadenopathy. CARDIOVASCULAR: Regular rate and rhythm without murmurs, gallops, or rubs. RESPIRATORY: Breath sounds decreased bilaterally. No accessory muscle use. GASTROINTESTINAL: Abdomen soft, non-tender, nondistended. MUSCULOSKELETAL: No cyanosis, or edema. BACK: Nontender without obvious deformity. No CVA tenderness. A/P Problem List: (1) Acute exacerbation of chronic obstructive pulmonary disease (COPD) ICD Code: J44.1 - Chronic obstructive pulmonary disease with (acute) exacerbation Status: Acute Assessment and Plan COPD exacerbation, acute on chronic Recent hospitalization for treatment of PNA with COPD exacerbation CXR reviewed showing no change from previous image, continued right lower lobe airspace consolidation and loculated pleural effusion. on Methylprednisolone 40 mg IV q8hrs. Duonebs scheduled and PRN as needed. Continue azithromycin, Symbicort inhaler and add Spiriva. Influenza negative. Supplemental O2 as needed, O2 dependant at home. PT consulted, appreciate input Minimal elevation of troponin: . Continue aspirin. Congestive heart failure, systolic: 2-D ECHO reviewed from 04/2017, EF 65-70%. Continue home Lasix 20 mg PO daily and potassium supplementation. Bilateral lower extremity edema present. Continue to monitor. Iron deficiency anemia, chronic: Continue home Iron supplementation. Monitor CBC in a.m. Hypothyroidism, chronic: Continue home Levothyroxine. Hyperlipidemia, chronic: Continue home pravastatin. BPH, chronic: Continue home Flomax. DVT Prophylaxis: SCDs. Linden Barraza MD Jul 07, 2017 11:18
[2017-07-07 15:44] LABS: BLOOD GAS BASE EXCESS 3.3 mmol/L (-2-2); BLOOD GAS CARBOXYHEMOGLOBIN 1.6 % (0-4); BLOOD GAS HCO3 26 mmol/L (22-26); BLOOD GAS METHEMOGLOBIN 1.1 % (0-2); BLOOD GAS O2 HGB SATURATION 90 % (90-100); BLOOD GAS OXYGEN CONTENT 11.2 Vol % (12.0-20.0); BLOOD GAS PCO2 32 mmHg (38-42); BLOOD GAS PO2 60 mmHg (61-120); BLOOD GAS TOTAL HGB 8.7 G/DL (12.0-16.0)
[2017-07-07 15:45] LABS: CRITICAL VALUE YES; DRAW SITE RT RADIAL; FIO2 100 %; LITER FLOW 15 L/M; NUMBER OF ARTERIAL PUNCTURES 1; OXYGEN DEVICE NRB; STAT YES; ULNAR PULSE PRESENT
[2017-07-07] MEDS: TIOTROPIUM BROMIDE 18 MCG INH INH SCH (15:46)
--- NOTE | 2017-07-07 15:58 | RADRPT ---
EXAM DATE/TIME: 07/07/2017 15:45 [facility] COMPARISON: CHEST SINGLE AP, July 06, 2017, 15:05. INDICATIONS : Respiratory failure. MEDICAL HISTORY : Hypertension. Hypercholesterolemia. Chronic obstructive pulmonary disease. CVA. SURGICAL HISTORY : Appendectomy. Inguinal hernia repair. Total knee replacement, Bilateral, Left salivery gland ENCOUNTER: Subsequent ACUITY: 1 day PAIN SCORE: 0/10 LOCATION: Bilateral chest FINDINGS: The cardiac silhouette is enlarged in transverse diameter. There is prominence of the aortic knob is with calcification characteristic of atherosclerotic vascular disease. A moderate size right sided ef fusion is present. There is subsegmental atelectasis in the right base. The left lung is free of acut e parenchymal opacity. CONCLUSION: 1. Right basilar atelectasis and right-sided effusion. There has been no significant change when comp ared to the prior exam. Abiodun Zhang MD on July 07, 2017 at 15:56 Board Certified Radiologist. This report was verified electronically.
[2017-07-07] MEDS: guaiFENesin E.R. 600 MG TAB PO SCH ×2 (16:22→22:14)
[2017-07-07] MEDS: methylPREDNISolone SOD SUCC 125 MG/2 ML VIAL IV SCH ×2 (16:22→22:14)
--- NOTE | 2017-07-07 16:34 | HHI.PR ---
Addendum to Inpatient Note Addendum Reason: Additional Documentation Additional Information Patient with episode of desaturation requiring oxygen @ high volume Will transfer to intermediate care Stat ABG Check CTA pulmonary Increase Solu Medrol to 60mg Q8H Change admission to inpatient Linden Barraza MD Jul 07, 2017 16:34
[2017-07-07 18:58] LABS: CREATINE KINASE 96 U/L (39-308)
--- NOTE | 2017-07-07 19:02 | EKG ---
Date Performed: 07/06/2017 Time Performed: 14:40:58 PTAGE: 86 years EKG: Sinus rhythm WITH FIRST DEGREE AV BLOCK WITH OCCASIONAL SUPRAVENTRICULAR PREMATURE COMPLEXES MARKED LEFT AXIS DEV IATION Since previous tracing, no significant change noted ABNORMAL ECG PREVIOUS TRACING : 06/17/2017 11.14 DOCTOR: Bridger Chacko Interpretating Date/Time 07/07/2017 19:01:40
--- NOTE | 2017-07-07 19:15 | EKG ---
Date Performed: 07/06/2017 Time Performed: 20:16:27 PTAGE: 86 years EKG: Normal Sinus rhythm with first degree AV block Atrial premature complexes PREVIOUS TRACING : 07/06/2017 14.40 Compared to prior tracing no significant change DOCTOR: Bridger Chacko Interpretating Date/Time 07/07/2017 19:15:05
[2017-07-07] MEDS: RESP: ACETYLCYSTEINE 20% 30 ML NEB NEB SCH (20:09)
[2017-07-07] MEDS ORDERED: IOHEXOL 350 MG/ML 10 ML VIAL (for RAD DIAG) IVCONTRAST ONE (20:10)
--- NOTE | 2017-07-07 20:59 | RADRPT ---
EXAM DATE/TIME: 07/07/2017 19:43 [facility] COMPARISON: CT PULMONARY ANGIOGRAM, June 17, 2017, 13:08. INDICATIONS : Respiratory distress. Hypoxia. Evaluate for embolism. IV CONTRAST: 100 cc Omnipaque 350 (iohexol) IV RADIATION DOSE: 17.23 CTDIvol (mGy) MEDICAL HISTORY : Aneurysm, abdominal. Hypertension. Chronic obstructive pulmonary disease. SURGICAL HISTORY : Appendectomy. ENCOUNTER: Initial ACUITY: 1 day PAIN SCALE: 3/10 LOCATION: Bilateral chest TECHNIQUE: Volumetric scanning of the chest was performed using a pulmonary embolism protocol MIP images were re constructed. Using automated exposure control and adjustment of the mA and/or kV according to patien t size, radiation dose was kept as low as reasonably achievable to obtain optimal diagnostic quality images. DICOM format image data is available electronically for review and comparison. Follow-up recommendations for detected pulmonary nodules are based at a minimum on nodule size and pa tient risk factors according to Fleischner Society Guidelines. FINDINGS: There is a solitary round filling defect in the left upper lobe pulmonary artery and absent contrast in one of the subsegmental left upper lobe vessels. No filling defects seen on the right side. Prior CT pulmonary angiogram on 06/17/17 had demonstrated multiple findings including bilateral pleura l effusions, loculated fluid density in the lower right chest, patchy areas of consolidation and air bronchograms in the right lower lung and compressive atelectasis adjacent left pleural effusion. Sub pleural 7 mm nodules in the left lung are also present Today's examination, there has been reduction in the size of left pleural effusion. The findings in the right lung and pleura are stable. Prominent coronary artery calcifications. Possible right iftikhar r mass versus adenopathy measuring 3 cm. Is stable from prior. CONCLUSION: 1. Positive for pulmonary embolism with a solitary defect in the left upper lobe pulmonary artery. 2. Multiple findings in the right chest including opacifications, pleural effusion, loculated fluid c ollection, all stable from prior examination 06/17/17. 3. Interval reduction in size of left pleural effusion. Tay Rosado MD on July 07, 2017 at 20:31 Board Certified Radiologist. This report was verified electronically.
[2017-07-07] MEDS ORDERED: LORazepam 0.5 MG TAB PO ONE (22:45)
[2017-07-08] VITALS (10 sets, daily range): BP systolic 119–142; BP diastolic 69–80; PULSE 76–100; RESP 19–43; TEMP 97.3–98.7; O2SAT 92–100
[2017-07-08] MEDS ORDERED: HEPARIN - 10,000 UNITS/ML IV ADDITIVE IV PUSH STA (03:58)
[2017-07-08] MEDS ORDERED: HEPARIN SODIUM - IV 10,000 UNITS/10 ML VIAL IV PUSH PRN ×2 (04:45)
[2017-07-08] MEDS ORDERED: HEPARIN 25,000 UNITS-D5W 250 ML - PREMIX IV PRN (04:45)
[2017-07-08 05:04] LABS: AUTOMATED NEUTROPHIL # 9.9 TH/MM3 (1.8-7.7); BASOPHIL % 0.4 % (0.0-2.0); EOSINOPHIL % 0.1 % (0.0-4.0); HEMATOCRIT 26.6 % (39.0-51.0); LYMPH % 1.7 % (9.0-44.0); LYMPHOCYTE # 0.2 TH/MM3 (1.0-4.8); MEAN CELL VOLUME 92.4 FL (80.0-100.0); MEAN CORPUSCULAR HGB CONC 32.5 % (32.0-36.0); MONO % 1.4 % (0.0-8.0); NEUT % 96.4 % (16.0-70.0); PLATELET COUNT 178 TH/MM3 (150-450); RED BLOOD COUNT 2.88 MIL/MM3 (4.50-5.90); RED CELL DISTRIBUTION WIDTH 14.3 % (11.6-17.2); WHITE BLOOD COUNT 10.2 TH/MM3 (4.0-11.0)
[2017-07-08] MEDS: methylPREDNISolone SOD SUCC 125 MG/2 ML VIAL IV SCH (05:05)
[2017-07-08] MEDS: LEVOTHYROXINE SODIUM 88 MCG TAB PO SCH (05:05)
[2017-07-08 05:27] LABS: HEMO FLAGS DIFF FINAL
[2017-07-08] MEDS: RESP: ALBUTEROL 2.5 MG/IPRATROPIUM 0.5 MG NEB (SCH) NEB ×4 (07:58→19:18)
[2017-07-08] MEDS: RESP: ACETYLCYSTEINE 20% 30 ML NEB NEB SCH ×4 (07:58→19:18)
[2017-07-08] MEDS: TAMSULOSIN HCL 0.4 MG CAP PO SCH (08:17)
[2017-07-08] MEDS: POTASSIUM CHLORIDE 10 MEQ CAP PO SCH (08:18)
[2017-07-08] MEDS: AZITHROMYCIN 250 MG TAB PO SCH (08:18)
[2017-07-08] MEDS: TIOTROPIUM BROMIDE 18 MCG INH INH SCH (08:18)
[2017-07-08] MEDS: ASPIRIN EC 81 MG TABEC PO SCH (08:18)
[2017-07-08] MEDS: FUROSEMIDE 20 MG TAB PO SCH (08:19)
[2017-07-08] MEDS: DOCUSATE SODIUM 50 MG/SENNA 8.6 MG TAB PO SCH ×2 (08:19→20:31)
[2017-07-08] MEDS: PRAVASTATIN SOD 40 MG TAB PO SCH (08:19)
[2017-07-08] MEDS: FERROUS SULFATE 325 MG (65 MG ELEMENTAL IRON) TAB PO SCH ×3 (08:19→17:33)
[2017-07-08] MEDS: guaiFENesin E.R. 600 MG TAB PO SCH ×2 (08:19→20:31)
[2017-07-08] MEDS: SODIUM CHLORIDE 0.9% FLUSH 10 ML FLUSH IV FLUSH SCH ×2 (08:20→20:31)
[2017-07-08] MEDS: BUDESONIDE-FORMOTEROL 160/4.5 MCG INHALER INH SCH ×2 (08:20→20:32)
--- NOTE | 2017-07-08 09:54 | EKG ---
Date Performed: 07/07/2017 Time Performed: 16:02:25 PTAGE: 86 years EKG: Sinus rhythm WITH PACS MARKED LEFT AXIS DEVIATION LOW QRS VOLTAGE IN EXTREMITY LEADS ABNORMAL ECG PREVIOUS TRACING : 07/06/2017 20.16 DOCTOR: Brian Castro Interpretating Date/Time 07/08/2017 09:52:57
[2017-07-08 11:04] LABS: APTT (PATIENT) 56.4 SEC (24.3-30.1)
--- NOTE | 2017-07-08 12:09 | HHI.PR ---
Subjective Remarks Follow-up COPD exacerbation 07/07/17-patient seen and examined; still with some shortness of breath as well as cough production. Afebrile 07/08/17-patient seen and examined, port improvement or shortness of breath. Now complaining of hemoptysis due to heparin drip that was started as a result of diagnosis of PE Objective Vitals Vital Signs Date Time Temp Pulse Resp B/P (MAP) Pulse Ox O2 Delivery O2 Flow Rate FiO2 07/08/17 08:00 92 Partial Rebreather 13.00 07/08/17 08:00 83 07/08/17 08:00 97.9 83 23 142/80 (100) 93 07/08/17 04:01 97.3 80 43 131/79 (96) 92 07/08/17 04:00 76 07/08/17 00:01 78 27 133/73 (93) 100 07/08/17 00:00 78 07/07/17 21:15 96 Partial Rebreather 13.00 07/07/17 20:10 93 Nasal Cannula 6.00 07/07/17 20:09 140/70 (93) 07/07/17 18:00 86 33 118/80 (93) 98 07/07/17 15:13 90 Non-Rebreather 100 07/07/17 15:00 96 36 118/78 (91) 88 07/07/17 14:00 84 30 111/66 (81) 93 07/07/17 13:00 97.4 104 40 134/76 (95) 85 I/O 07/07/17 07/07/17 07/07/17 07/08/17 07/08/17 07/08/17 07:00 15:00 23:00 07:00 15:00 23:00 Intake Total 240 ml 0 ml 12 ml Output Total 0 ml 525 ml Balance 240 ml 0 ml 0 ml -513 ml Intake Oral 240 ml IV Total 12 ml Other 0 ml Output Urine Total 0 ml 525 ml # Voids 1 # Bowel Movements 0 Result Diagram: 07/08/17 0444 07/07/17 0525 Imaging Last Impressions Chest X-Ray 07/07/17 0000 Signed Impressions: Service Date/Time: Friday, July 07, 2017 15:45 - CONCLUSION: 1. Right basilar atelectasis and right-sided effusion. There has been no significant change when compared to the prior exam. Abiodun Zhang MD CT Angiography 07/07/17 0000 Signed Impressions: Service Date/Time: Friday, July 07, 2017 19:43 - CONCLUSION: 1. Positive for pulmonary embolism with a solitary defect in the left upper lobe pulmonary artery. 2. Multiple findings in the right chest including opacifications, pleural effusion, loculated fluid collection, all stable from prior examination 06/17/17. 3. Interval reduction in size of left pleural effusion. Tay Rosado MD Objective Remarks GENERAL: NAD SKIN: Warm and dry. HEAD: Normocephalic. EYES: No scleral icterus. No injection or drainage. NECK: Supple, trachea midline. No JVD or lymphadenopathy. CARDIOVASCULAR: Regular rate and rhythm without murmurs, gallops, or rubs. RESPIRATORY: Breath sounds decreased bilaterally. No accessory muscle use. GASTROINTESTINAL: Abdomen soft, non-tender, nondistended. MUSCULOSKELETAL: No cyanosis, or edema. BACK: Nontender without obvious deformity. No CVA tenderness. A/P Problem List: (1) Acute exacerbation of chronic obstructive pulmonary disease (COPD) ICD Code: J44.1 - Chronic obstructive pulmonary disease with (acute) exacerbation Status: Acute (2) Pulmonary embolism on left ICD Code: I26.99 - Other pulmonary embolism without acute cor pulmonale Assessment and Plan 86 yrs old man with Pulmonary embolism on left CT angiography noted and review by me with the finding of PE on the left Heparin drip was started overnight however due Hemoptysis will hold Heparin. Consider Lovenox Consult Hematology Check 2D echo to rule out Pulmonary HTN to current complaint of Respiratory failure COPD exacerbation, acute on chronic Recent hospitalization for treatment of PNA with COPD exacerbation CXR reviewed showing no change from previous image, continued right lower lobe airspace consolidation and loculated pleural effusion. on Methylprednisolone 60 mg IV q8hrs and change to 40mg IV Q8H. Duonebs scheduled and PRN as needed. Continue azithromycin, Symbicort inhaler and add Spiriva. Supplemental O2 as needed, O2 dependant at home. Minimal elevation of troponin: . Continue aspirin. Congestive heart failure, systolic: 2-D ECHO reviewed from 04/2017, EF 65-70%. Continue home Lasix 20 mg PO daily and potassium supplementation. Bilateral lower extremity edema present. Continue to monitor. Iron deficiency anemia, chronic: Continue home Iron supplementation. Monitor CBC in a.m. Hypothyroidism, chronic: Continue home Levothyroxine. Hyperlipidemia, chronic: Continue home pravastatin. BPH, chronic: Continue home Flomax. DVT Prophylaxis: SCDs. Linden Barraza MD Jul 08, 2017 12:09
[2017-07-08] MEDS: methylPREDNISolone SOD SUCC 40 MG/1 ML VIAL IV PUSH SCH ×2 (13:00→20:32)
--- NOTE | 2017-07-08 16:52 | ECHRPT ---
Indication: PE, ?RT HEART FUNCTION, HYPOXIA CONCLUSIONS Normal left ventricular size. Wall thickness is normal. The left ventricular systolic function is grossly normal on limited imaging. The left ventricular systolic function is low normal with an estimated ejection fraction in the rang e of 50- 55%. The right ventricular size is normal. Mild mitral valve regurgitation. There is moderate tricuspid regurgitation. The estimated pulmonary arterial pressure is 54 mmHg. The pulmonary valve is not well visualized. BP: 128 / 74 HR: Rhythm: Sinus MEASUREMENTS (Male / Female) Normal Values Technical Quality:Fair M-MODE LV Diastolic Diameter MM 4.0 cm 4.2 - 5.9 / 3.9 - 5.3 cm LV Systolic Diameter MM 2.6 cm LV Ejection Fraction MM Teich 66.2 % IVS Diastolic Thickness MM 0.9 cm 0.6 - 1.0 / 0.6 - 0.9 cm LVPW Diastolic Thickness MM 1.0 cm 0.6 - 1.0 / 0.6 - 0.9 cm LV Relative Wall Thickness MM 0.5 0.24 - 0.42 / 0.22 - 0.42 LV Mass Index MM 65.8 g/m 49 - 115 / 43 - 95 g/m RV Diastolic Diameter MM 2.6 cm DOPPLER Mitral E Point Velocity 73.1 cm/s Mitral A Point Velocity 42.0 cm/s Mitral E to A Ratio 1.7 LV E' Lateral Velocity 5.5 cm/s Mitral E to LV E' Lateral Ratio 13.4 LV E' Septal Velocity 4.6 cm/s Mitral E to LV E' Septal Ratio 16.0 TR Peak Velocity 331.0 cm/s TR Peak Gradient 43.8 mmHg FINDINGS LEFT VENTRICLE Normal left ventricular size. Wall thickness is normal. The left ventricular systolic function is grossly normal on limited imaging. The left ventricular systolic function is low normal with an estimated ejection fraction in the rang e of 50- 55%. RIGHT VENTRICLE The right ventricular size is normal. LEFT ATRIUM The left atrial size is normal. RIGHT ATRIUM The right atrial size is normal. ATRIAL SEPTUM Normal atrial septal thickness without atrial level shunting by limited color doppler interrogation. AORTA The aortic root and proximal ascending aorta are normal in size on limited imaging. MITRAL VALVE Mild mitral valve regurgitation. AORTIC VALVE Trileaflet aortic valve. No aortic valve stenosis or regurgitation. TRICUSPID VALVE There is moderate tricuspid regurgitation. The estimated pulmonary arterial pressure is 54 mmHg. PULMONARY VALVE The pulmonary valve is not well visualized. VESSELS The inferior vena cava is normal in size. PERICARDIUM No pericardial effusion. Brian Castro MD, FACC (Electronically Signed) Final Date:08 July 2017 16:47
[2017-07-08 17:39] LABS: APTT (PATIENT) 28.6 SEC (24.3-30.1)
[2017-07-08] MEDS ORDERED: LORazepam 0.5 MG TAB PO ONE (20:15)
[2017-07-08] MEDS: traMADol HCL 50 MG TAB PO PRN (20:30)
[2017-07-09] VITALS (9 sets, daily range): BP systolic 114–137; BP diastolic 66–86; PULSE 64–102; RESP 16–34; TEMP 97.1–98.8; O2SAT 90–100
--- NOTE | 2017-07-09 01:04 | MB ---
cc: MAGGIE BERMUDEZ DATE OF CONSULTATION 07/08/17 REASON FOR CONSULTATION Patient with pulmonary thromboembolism with hemoptysis and anemia. HISTORY OF PRESENT ILLNESS Mr. Jackson is an 86-year-old gentleman who has multiple medical issues. 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 History of stroke, COPD, hypertension, hyperlipidemia. He presents to the emergency department from assisted-living facility with worsening cough and dyspnea. He also had right sided chest pain. In the emergency department the patient had a CT angiogram and he was found to have pulmonary embolism involving the left upper lobe pulmonary artery. He was started on heparin GTT, however, he developed hemoptysis and had multiple episodes of spitting up bright red blood. His heparin drip has been stopped and he is only on aspirin. Hematology has been consulted to make further recommendations. The patient has had a complicated medical course recently. He was recently discharged from the hospital. On his last admission he had presented with a syncopal episode. He had a stroke 2 months ago and at that time he was taken off the Aggrenox and placed on Lovenox and Coumadin. He then developed a hemothorax for which he was readmitted. He underwent chest tube placement and VATS and finally went home. His last admission was due to pneumonia and COPD exacerbation. He was treated with antibiotics. The patient is currently awake and alert. He is sitting up and he is eating his dinner. He had right-sided chest pain which he states that has resolved. His O2 sats are in the mid 90s. He has not had any further episodes of hemoptysis since this morning. The patient's hemoglobin has been precipitously dropping. Since the beginning of this year he was in a normal range where his hemoglobin was between 13-15 but over the past 4-6 months it has been dropping and now it is in the 8 range. I have reviewed the medical record and it appears that he has been transfused 3 units of packed red blood cells. These blood transfusions were given to him in April of 2017. He has not had a stool hemoccult test. And it does not appear that he was evaluated by gastroenterology. He has been taking iron pills and he does endorse dark stools. REVIEW OF SYSTEMS Comprehensive 14-point review of systems was completed which is negative except as described in the HPI. PAST MEDICAL HISTORY History of CVA, hypertension, hyperlipidemia, COPD, hypothyroidism, history of hemothorax. PAST SURGICAL HISTORY Chest tube placement, appendectomy, left knee arthroplasty, right knee arthroplasty x2, inguinal hernia repair, bilateral cataracts. MEDICATIONS 1. Tramadol 50 milligrams p.o. q. 12 hours p.r.n. 2. Methylprednisolone 40 milligrams IV q. 8 hours. 3. DuoNebs one amp q. 4 hours. 4. Mucomyst 2 cc q. 4 hours p.r.n. 5. Guaifenesin 600 milligrams p.o. b.i.d. 6. Spiriva 18 micrograms INH daily. 7. Lasix 20 milligrams p.o. daily. 8. Pravastatin 40 milligrams p.o. daily. 9. Tamsulosin 0.4 milligrams p.o. daily. 10. Azithromycin 250 milligrams p.o. daily. 11. Levothyroxine 88 micrograms daily. 12. Tessalon Perles 100 milligrams p.o. t.i.d. 13. Zofran. 14. Milk of magnesia p.r.n. 15. Bisacodyl p.r.n. ALLERGIES ALLERGIC TO PENICILLIN G. FAMILY HISTORY Reviewed and noncontributory to this admission. SOCIAL HISTORY This is an elderly gentleman who lives in an assisted-living facility. He does not drink alcohol. He denies any tobacco abuse but did smoke in the past. PHYSICAL EXAMINATION VITAL SIGNS: Blood pressure is 119/69, pulse is in the 90s, temperature is 98.7, O2 sats are 92% on room air. GENERAL: Elderly male who is quite frail. He is sitting up in the bed. He is eating his dinner. HEENT: Pupils are equal, round, react to light EOMI. No oral thrush. No oral lesions. NECK: Supple. No JVD. No bruits. No lymphadenopathy. CHEST: Chest has some wheezing and scattered faint rhonchi. CARDIAC: Tachycardiac. No murmurs heard. ABDOMEN: Soft and nontender, nondistended. Bowel sounds are present. EXTREMITIES: Without any edema, erythema or cyanosis. SKIN: Without any petechiae, lesion or bruises. NEURO: No focal deficits. PSYCHIATRIC: Mood and affect is appropriate. LABORATORY DATA WBC in 10.2, hemoglobin is 8.6, MCV is 92.4, platelet count is 178. Serum chemistries show a sodium 132, potassium 4, CO2 is 25.3, BUN is 21, creatinine is 1.1, GFR 63, calcium is 7.9. IMAGING STUDIES CT angiogram was reviewed. ASSESSMENT/PLAN This is an 86-year-old gentleman who has multiple medical issues including history of chronic thrombocytopenia which was mild. This was thought to be due to chronic ITP. However, his platelet count is now normal. History of MGUS with a small monoclonal spike. COPD, hypertension, hyperlipidemia, history of stroke, history of hemothorax, anemia who presents to the emergency department with progressive dyspnea. 1. Pulmonary embolism in this chronically debilitated patient. He has had multiple hospitalizations. The patient was started on anticoagulation with heparin. Unfortunately, he developed hemoptysis. He also has a history of hemothorax which he developed after being on Lovenox and Coumadin. This patient appears to be a high risk for bleeding. His hemoglobin is also low. His hemoglobin has precipitously dropped over the past 6 months. He used to have a normal hemoglobin in the 15 range. At this point I would recommend holding off any anticoagulation. I would recommend obtaining a stool hemoccult, a GI evaluation is appropriate. We will obtain anemia studies, B12, folate studies. He does not appear to be having any hemolysis. Will check hemolysis labs. He has been on aspirin, I will hold that for now. In order to be complete. We will obtain Doppler ultrasound of the lower extremity. If he does have a DVT in lower extremities, we may consider placing an IVC filter in this patient. Once we have made sure that he is not bleeding and hemoglobin is stable we can consider restarting heparin. Thank you for allowing me to participate in the care of this patient. I will continue to follow this patient along. MD TRAVIS Liu/MAYKEL /12:11 AM /12:38 AM CHRISTOPHER
[2017-07-09] MEDS: LEVOTHYROXINE SODIUM 88 MCG TAB PO SCH (05:52)
[2017-07-09] MEDS: methylPREDNISolone SOD SUCC 40 MG/1 ML VIAL IV PUSH SCH ×3 (05:52→22:05)
[2017-07-09 06:13] LABS: AUTOMATED NEUTROPHIL # 9.2 TH/MM3 (1.8-7.7); HEMATOCRIT 26.5 % (39.0-51.0); HEMO FLAGS DIFF FINAL; LYMPHOCYTE # 0.3 TH/MM3 (1.0-4.8); MEAN CELL VOLUME 90.7 FL (80.0-100.0); MEAN CORPUSCULAR HEMOGLOBIN 29.8 PG (27.0-34.0); MEAN CORPUSCULAR HGB CONC 32.8 % (32.0-36.0); MONO % 4.5 % (0.0-8.0); NEUT % 92.5 % (16.0-70.0); PLATELET COUNT 212 TH/MM3 (150-450); RED BLOOD COUNT 2.92 MIL/MM3 (4.50-5.90); RED CELL DISTRIBUTION WIDTH 14.5 % (11.6-17.2); WHITE BLOOD COUNT 9.9 TH/MM3 (4.0-11.0)
[2017-07-09 06:23] LABS: POTASSIUM 4.2 MEQ/L (3.5-5.1)
[2017-07-09 06:27] LABS: BICARBONATE 26.8 MEQ/L (21.0-32.0)
[2017-07-09] MEDS: RESP: ALBUTEROL 2.5 MG/IPRATROPIUM 0.5 MG NEB (SCH) NEB ×4 (07:42→21:01)
[2017-07-09] MEDS: RESP: ACETYLCYSTEINE 20% 30 ML NEB NEB SCH ×4 (07:43→21:02)
[2017-07-09] MEDS: TIOTROPIUM BROMIDE 18 MCG INH INH SCH (09:00)
[2017-07-09] MEDS: AZITHROMYCIN 250 MG TAB PO SCH (09:00)
[2017-07-09] MEDS: POTASSIUM CHLORIDE 10 MEQ CAP PO SCH (09:00)
[2017-07-09] MEDS: FUROSEMIDE 20 MG TAB PO SCH (09:00)
[2017-07-09] MEDS: TAMSULOSIN HCL 0.4 MG CAP PO SCH (09:00)
[2017-07-09] MEDS: DOCUSATE SODIUM 50 MG/SENNA 8.6 MG TAB PO SCH ×2 (09:00→20:07)
[2017-07-09] MEDS: PRAVASTATIN SOD 40 MG TAB PO SCH (09:00)
[2017-07-09] MEDS: BUDESONIDE-FORMOTEROL 160/4.5 MCG INHALER INH SCH ×2 (09:00→20:07)
[2017-07-09] MEDS: SODIUM CHLORIDE 0.9% FLUSH 10 ML FLUSH IV FLUSH SCH ×2 (09:00→22:05)
[2017-07-09] MEDS: guaiFENesin E.R. 600 MG TAB PO SCH ×2 (09:00→20:08)
[2017-07-09] MEDS: FERROUS SULFATE 325 MG (65 MG ELEMENTAL IRON) TAB PO SCH ×3 (09:30→18:24)
--- NOTE | 2017-07-09 09:43 | RADRPT ---
EXAM DATE/TIME: 07/09/2017 08:26 [facility] COMPARISON: No previous studies available for comparison. INDICATIONS : Shortness of breath. MEDICAL HISTORY : Stroke. Aneurysm, abdominal. Hypercholesterolemia. Hearing aids. Neck pain. Glasses. Anticoagulant th erapy. Chest pain. Hypertension. COPD. Pnemonia. Dyspnea. Gastroesophageal reflux disease. Arthritis. Kindey stones. Basal carcinoma. MRSA. SURGICAL HISTORY : Appendectomy.Arthroscopy. Bilateral cataract surgery. ENCOUNTER: Initial ACUITY: 1 day PAIN SCORE: 0/10 LOCATION: Bilateral legs. TECHNIQUE: Venous ultrasound of the left and right leg was performed from the inguinal ligament to the proximal calf. Real-time, color Doppler and spectral tracing, compression and augmentation techniques were us ed. FINDINGS: RIGHT LEG: There is normal compressibility of the deep venous system from the inguinal region to the proximal ca lf. No echogenic clot is seen in the lumen of the common femoral, femoral, popliteal, and posterior tibial veins. There is a normal response of the venous system to proximal and distal augmentation an d respiration. LEFT LEG: There is echogenic thrombus within the lumen of the peroneal vein with absent flow by color Doppler a nd no focal augmentation. Decreased flow stenosis in the posterior tibial vein. There is normal com pressibility of the deep venous system from the inguinal region to the proximal calf. No echogenic c lot is seen in the lumen of the common femoral, femoral, or popliteal veins. There is a normal respo nse of the venous system to proximal and distal augmentation and respiration. CONCLUSION: 1. Evidence of deep venous thrombosis on the left side in the calf veins. 2. No evidence of deep venous thrombosis right lower extremity. Tay Rosado MD on July 09, 2017 at 9:39 Board Certified Radiologist. This report was verified electronically.
[2017-07-09 10:36] LABS: REVIEW FLAG FINAL
[2017-07-09 10:42] LABS: LDH SERUM 252 U/L (87-241); TRANSFERRIN IRON PROFILE 130 MG/DL (200-360)
[2017-07-09 11:07] LABS: FERRITIN 621 NG/ML (26-388)
--- NOTE | 2017-07-09 13:58 | HHI.PR ---
Subjective Remarks Follow-up COPD exacerbation 07/07/17-patient seen and examined; still with some shortness of breath as well as cough production. Afebrile 07/08/17-patient seen and examined, port improvement or shortness of breath. Now complaining of hemoptysis due to heparin drip that was started as a result of diagnosis of PE 07/09/17-patient seen and examined, states, he is tired and he is thinking about stopping all treatment. Still complains of shortness of breath Objective Vitals Vital Signs Date Time Temp Pulse Resp B/P (MAP) Pulse Ox O2 Delivery O2 Flow Rate FiO2 07/09/17 12:00 99 07/09/17 12:00 97.4 102 25 120/72 (88) 91 07/09/17 08:00 97.1 94 20 121/77 (92) 90 07/09/17 08:00 89 07/09/17 07:45 90 Partial Rebreather 12.00 07/09/17 04:12 98.5 64 17 137/84 (101) 100 07/09/17 04:00 72 07/09/17 00:00 90 07/09/17 00:00 98.8 98 16 136/86 (103) 95 07/08/17 21:08 98.7 98 23 119/69 (86) 92 07/08/17 20:00 76 07/08/17 19:18 95 Partial Rebreather 13.00 07/08/17 16:00 97.6 84 19 131/74 (93) 95 07/08/17 16:00 84 I/O 07/08/17 07/08/17 07/08/17 07/09/17 07/09/17 07/09/17 07:00 15:00 23:00 07:00 15:00 23:00 Intake Total 12 ml 92 ml 480 ml Output Total 525 ml 600 ml 500 ml Balance -513 ml 92 ml -120 ml -500 ml Intake Oral 480 ml IV Total 12 ml 92 ml Output Urine Total 525 ml 600 ml 500 ml # Bowel Movements 0 Result Diagram: 07/09/17 0550 07/09/17 0550 Imaging Last Impressions Lower Extremity Ultrasound 07/09/17 0000 Signed Impressions: Service Date/Time: June 08:26 - CONCLUSION: 1. Evidence of deep venous thrombosis on the left side in the calf veins. 2. No evidence of deep venous thrombosis right lower extremity. Tay Rosado MD Chest X-Ray 07/07/17 0000 Signed Impressions: Service Date/Time: Friday, July 07, 2017 15:45 - CONCLUSION: 1. Right basilar atelectasis and right-sided effusion. There has been no significant change when compared to the prior exam. Abiodun Zhang MD CT Angiography 07/07/17 0000 Signed Impressions: Service Date/Time: Friday, July 07, 2017 19:43 - CONCLUSION: 1. Positive for pulmonary embolism with a solitary defect in the left upper lobe pulmonary artery. 2. Multiple findings in the right chest including opacifications, pleural effusion, loculated fluid collection, all stable from prior examination 06/17/17. 3. Interval reduction in size of left pleural effusion. Tay Rosado MD Objective Remarks GENERAL: NAD SKIN: Warm and dry. HEAD: Normocephalic. EYES: No scleral icterus. No injection or drainage. NECK: Supple, trachea midline. No JVD or lymphadenopathy. CARDIOVASCULAR: Regular rate and rhythm without murmurs, gallops, or rubs. RESPIRATORY: Breath sounds decreased bilaterally. No accessory muscle use. GASTROINTESTINAL: Abdomen soft, non-tender, nondistended. MUSCULOSKELETAL: No cyanosis, or edema. BACK: Nontender without obvious deformity. No CVA tenderness. A/P Problem List: (1) Acute exacerbation of chronic obstructive pulmonary disease (COPD) ICD Code: J44.1 - Chronic obstructive pulmonary disease with (acute) exacerbation Status: Acute (2) Pulmonary embolism on left ICD Code: I26.99 - Other pulmonary embolism without acute cor pulmonale (3) DVT, lower extremity ICD Code: I82.409 - Acute embolism and thrombosis of unspecified deep veins of unspecified lower extremity Assessment and Plan 86 yrs old man with Pulmonary embolism on left LLE DVT CT angiography with the finding of PE on the left Doppler lower extremity positive for DVT left lower extremity Holding all anticoagulation secondary to hemoptysis and increased risk of bleeding Appreciate input from Hematology COPD exacerbation, acute on chronic Recent hospitalization for treatment of PNA with COPD exacerbation CXR reviewed showing no change from previous image, continued right lower lobe airspace consolidation and loculated pleural effusion. on Methylprednisolone 40 mg IV q8hrs Duonebs scheduled and PRN as needed. Continue azithromycin, Symbicort inhaler and Spiriva. Supplemental O2 as needed, O2 dependant at home. Minimal elevation of troponin: . Continue aspirin. Congestive heart failure, systolic: 2-D ECHO reviewed from 04/2017, EF 65-70%. Continue home Lasix 20 mg PO daily and potassium supplementation. Bilateral lower extremity edema present. Continue to monitor. Iron deficiency anemia, chronic: Continue home Iron supplementation. Hypothyroidism, chronic: Continue home Levothyroxine. Hyperlipidemia, chronic: Continue home pravastatin. BPH, chronic: Continue home Flomax. DVT Prophylaxis: SCDs. Consult palliative care medicine in [place] Garcia MD Jul 09, 2017 13:58
--- NOTE | 2017-07-09 15:17 | PD.CONS ---
HPI History of Present Illness This is a 86 year old male patient with a history COPD, who is currently in the intensive care unit for acute exacerbation of chronic obstructive pulmonary disease and pulmonary embolism, DVT, CHF, IRA, Hypothyroidism, Hyperlipidemia, BPH. He is being followed by hematology for anemia and they have recommended GI workup. The patient is not having any obvious active GI bleeding. He denies any nausea, vomiting, abdominal pain, or lower GI bleeding. HH is 8.7/26.5. The anemia workup is in progress by hematology. Further evaluation of anemia with EGD/Colonoscopy was discussed and the patient reports that he does not want any more testing done and would like to go with Hospice. (Malathi Sierra) PFSH Past Medical History CVA Hypertension Hypothyroidism Dyslipidemia COPD Past Surgical History Appendectomy Left knee arthroplasty Right knee arthroplasty x 2 Inguinal hernia repair Bilateral cataracts (Malathi Sierra) Coded Allergies: penicillin G (Unverified Allergy, Severe, Rash, 07/06/17) Medications Allergies Coded Allergies Type Severity Reaction Last Updated Verified penicillin G Allergy Severe Rash 07/06/17 No Active Scripts Medications Dose Route/Sig Max Daily Dose Days Date Category Dose Instructions Potassium Chloride ER (Potassium Chloride) 10 Meq Cap 10 Meq PO DAILY 06/20/17 Rx Lasix (Furosemide) 20 Mg Tab 20 Mg PO DAILY 06/20/17 Rx Tramadol (Tramadol HCl) 50 Mg Tab 50 Mg PO Q6HR PRN 06/19/17 Rx Xanax (Alprazolam) 0.5 Mg Tab 0.5 Mg PO Q4H PRN 06/19/17 Rx Tamsulosin (Tamsulosin HCl) 0.4 Mg Cap 0.4 Mg PO DAILY 06/17/17 Reported Ferrous Sulfate 325 Mg (65 Mg Iron) Tablet 325 Mg PO TIDPC 06/17/17 Reported Calcium Carbonate 500 Mg Calcium (1250 Mg) Tab 1,200 Mg PO DAILY 06/17/17 Reported 1,250 mg calcium carbonate (500 mg elemental calcium) Adult Aspirin EC Low Strength (Aspirin) 81 Mg Tabec 81 Mg PO DAILY 05/06/17 Rx Oxygen (O2) Device Liter CHANG.CANULA CONTINUOUS 05/05/17 Rx Oxygen Concentrator Portable Gaseous 2 L/min via Nasal Canula Continuous For 99 months Restasis Opth (Cyclosporine Opth) 0.05% Emul 1 Drop EACH EYE BID 12/04/16 Reported Levothyroxine (Levothyroxine Sodium) 88 Mcg Tab 88 Mcg PO DAILY 12/04/16 Reported Symbicort Inh (Budesonide/Formoterol Fumarate) 160-4.5 Mcg/Act Aero 2 Puff INH Q12HR 12/04/16 Reported Lovastatin 40 Mg Tab 40 Mg PO DAILY 12/04/16 Reported Family History Denies any significant family medical history. Social History Denies any use of tobacco. Denies any alcohol use. Denies any illicit drug use. (Malathi Sierra) Review of Systems Constitutional: COMPLAINS OF: Fatigue Respiratory: COMPLAINS OF: Cough, Hemoptysis, Sputum production, Shortness of breath Gastrointestinal: DENIES: Abdominal pain, Black stools, Bloody stools, Constipation, Diarrhea, Nausea, Vomiting ROS AFOGNAK, poor historian (Malathi Sierra) GI Exam Vitals I&O Vital Signs Date Time Temp Pulse Resp B/P (MAP) Pulse Ox O2 Delivery O2 Flow Rate FiO2 07/09/17 12:00 99 07/09/17 12:00 97.4 102 25 120/72 (88) 91 07/09/17 08:00 97.1 94 20 121/77 (92) 90 07/09/17 08:00 89 07/09/17 07:45 90 Partial Rebreather 12.00 07/09/17 04:12 98.5 64 17 137/84 (101) 100 07/09/17 04:00 72 07/09/17 00:00 90 07/09/17 00:00 98.8 98 16 136/86 (103) 95 07/08/17 21:08 98.7 98 23 119/69 (86) 92 07/08/17 20:00 76 07/08/17 19:18 95 Partial Rebreather 13.00 07/08/17 16:00 97.6 84 19 131/74 (93) 95 07/08/17 16:00 84 I/O 07/08/17 07/08/17 07/08/17 07/09/17 07/09/17 07/09/17 07:00 15:00 23:00 07:00 15:00 23:00 Intake Total 12 ml 92 ml 480 ml Output Total 525 ml 600 ml 500 ml Balance -513 ml 92 ml -120 ml -500 ml Intake Oral 480 ml IV Total 12 ml 92 ml Output Urine Total 525 ml 600 ml 500 ml # Bowel Movements 0 Imaging Last Impressions Lower Extremity Ultrasound 07/09/17 0000 Signed Impressions: Service Date/Time: June 08:26 - CONCLUSION: 1. Evidence of deep venous thrombosis on the left side in the calf veins. 2. No evidence of deep venous thrombosis right lower extremity. Tay Rosado MD Chest X-Ray 07/07/17 0000 Signed Impressions: Service Date/Time: Friday, July 07, 2017 15:45 - CONCLUSION: 1. Right basilar atelectasis and right-sided effusion. There has been no significant change when compared to the prior exam. Abiodun Zhang MD CT Angiography 07/07/17 0000 Signed Impressions: Service Date/Time: Friday, July 07, 2017 19:43 - CONCLUSION: 1. Positive for pulmonary embolism with a solitary defect in the left upper lobe pulmonary artery. 2. Multiple findings in the right chest including opacifications, pleural effusion, loculated fluid collection, all stable from prior examination 06/17/17. 3. Interval reduction in size of left pleural effusion. Tay Rosado MD Laboratory Test 07/08/17 17:13 07/09/17 05:50 Activated Partial Thromboplast Time 28.6 SEC White Blood Count 9.9 TH/MM3 Red Blood Count 2.92 MIL/MM3 Hemoglobin 8.7 GM/DL Hematocrit 26.5 % Mean Corpuscular Volume 90.7 FL Mean Corpuscular Hemoglobin 29.8 PG Mean Corpuscular Hemoglobin Concent 32.8 % Red Cell Distribution Width 14.5 % Platelet Count 212 TH/MM3 Mean Platelet Volume 6.3 FL Neutrophils (%) (Auto) 92.5 % Lymphocytes (%) (Auto) 3.0 % Monocytes (%) (Auto) 4.5 % Eosinophils (%) (Auto) 0.0 % Basophils (%) (Auto) 0.0 % Neutrophils # (Auto) 9.2 TH/MM3 Lymphocytes # (Auto) 0.3 TH/MM3 Monocytes # (Auto) 0.4 TH/MM3 Eosinophils # (Auto) 0.0 TH/MM3 Basophils # (Auto) 0.0 TH/MM3 CBC Comment DIFF FINAL Differential Comment Reticulocyte Count 2.0 % Absolute Reticulocyte Count 54.1 MIL/L Haptoglobin 198 MG/DL Blood Urea Nitrogen 30 MG/DL Creatinine 1.00 MG/DL Random Glucose 107 MG/DL Calcium Level 7.8 MG/DL Sodium Level 135 MEQ/L Potassium Level 4.2 MEQ/L Chloride Level 101 MEQ/L Carbon Dioxide Level 26.8 MEQ/L Anion Gap 7 MEQ/L Estimat Glomerular Filtration Rate 71 ML/MIN Iron Level 24 MCG/DL Total Iron Binding Capacity 182 MCG/DL Percent Iron Saturation 13.2 % Ferritin 621 NG/ML Lactate Dehydrogenase 252 U/L Vitamin B12 Level 788 PG/ML Date/Time Source Procedure Growth Status 07/06/17 14:35 Blood Peripheral Aerobic Blood Culture - Preliminary NO GROWTH IN 3 DAYS Resulted 07/06/17 14:35 Blood Peripheral Anaerobic Blood Culture - Preliminary NO GROWTH IN 3 DAYS Resulted 07/06/17 14:40 Nasal Washing Influenza Types A,B Antigen (JOSE MARTIN) - Final NEGATIVE FOR FLU A AND B ANTIGEN.... Complete Physical Examination HEENT: Normocephalic; atraumatic; no jaundice. CHEST: Resp shallow, even, mildly labored, partial rebreather. Hemoptysis. CARDIAC: RRR. ABDOMEN: Soft, nondistended, nontender; no hepatosplenomegaly; bowel sounds are present in all four quadrants. EXTREMITIES: No clubbing, cyanosis, or edema. SKIN: Generalized pallor PUBLIC SPACE ATTENDANT: Lethargic, AFOGNAK (Malathi Sierra) Assessment and Plan Plan ASSESSMENT: - Anemia, normocytic, hypochromic. HH 8.7/26.5. Has had some dark stools in past while he was on iron supplements, but not currently having any obvious active bleeding. Hematology following, requested GI workup- pt declining, states he would like to go with hospice. - Resp. Insufficiency, COPD exacerbation. PRM. - PE, DVT. Anticoagulation on hold secondary to hemoptysis and risk for bleeding - Hypothyroidism, Hyperlipidemia, BPH CHF per attending. PLAN: - Pt is declining GI evaluation for anemia. Would like to go with hospice - Gi will sign off, please reconsult as needed - Pt seen and and examined by Dr. Holcomb and myself and this note is written on his behalf (Malathi Sierra) Physician Comments Seen and examined with FERMIN, no active bleeding at this time. Pt. does not want any gi sánchez. He wants to go with hospice and comfort care only. Will sign off. Thank you (Camacho Holcomb MD) Malathi Sierra Jul 09, 2017 15:17 Camacho Holcomb MD Jul 10, 2017 14:13
[2017-07-09] MEDS: traMADol HCL 50 MG TAB PO PRN (20:08)
[2017-07-09] MEDS ORDERED: LORazepam 0.5 MG TAB PO ONE (22:00)
[2017-07-10] VITALS (9 sets, daily range): BP systolic 102–138; BP diastolic 61–84; PULSE 72–100; RESP 26–34; TEMP 97.3–97.9; O2SAT 90–95
[2017-07-10] MEDS: methylPREDNISolone SOD SUCC 40 MG/1 ML VIAL IV PUSH SCH ×3 (06:05→22:05)
[2017-07-10] MEDS: LEVOTHYROXINE SODIUM 88 MCG TAB PO SCH (06:05)
[2017-07-10] MEDS: RESP: ACETYLCYSTEINE 20% 30 ML NEB NEB SCH ×6 (07:44→19:40)
[2017-07-10] MEDS: RESP: ALBUTEROL 2.5 MG/IPRATROPIUM 0.5 MG NEB (SCH) NEB ×5 (07:44→19:40)
[2017-07-10] MEDS: AZITHROMYCIN 250 MG TAB PO SCH (09:00)
[2017-07-10] MEDS: PRAVASTATIN SOD 40 MG TAB PO SCH (09:17)
[2017-07-10] MEDS: TAMSULOSIN HCL 0.4 MG CAP PO SCH (09:17)
[2017-07-10] MEDS: FUROSEMIDE 20 MG TAB PO SCH (09:17)
[2017-07-10] MEDS: POTASSIUM CHLORIDE 10 MEQ CAP PO SCH (09:17)
[2017-07-10] MEDS: guaiFENesin E.R. 600 MG TAB PO SCH ×2 (09:17→19:44)
[2017-07-10] MEDS: TIOTROPIUM BROMIDE 18 MCG INH INH SCH (09:18)
[2017-07-10] MEDS: FERROUS SULFATE 325 MG (65 MG ELEMENTAL IRON) TAB PO SCH ×3 (09:18→18:28)
[2017-07-10] MEDS: DOCUSATE SODIUM 50 MG/SENNA 8.6 MG TAB PO SCH ×2 (09:18→19:45)
[2017-07-10] MEDS: SODIUM CHLORIDE 0.9% FLUSH 10 ML FLUSH IV FLUSH SCH ×2 (09:19→19:45)
[2017-07-10] MEDS: BUDESONIDE-FORMOTEROL 160/4.5 MCG INHALER INH SCH ×2 (09:19→19:43)
--- NOTE | 2017-07-10 12:55 | HHI.PR ---
Subjective Remarks Follow-up COPD exacerbation 07/07/17-patient seen and examined; still with some shortness of breath as well as cough production. Afebrile 07/08/17-patient seen and examined, port improvement or shortness of breath. Now complaining of hemoptysis due to heparin drip that was started as a result of diagnosis of PE 07/09/17-patient seen and examined, states, he is tired and he is thinking about stopping all treatment. Still complains of shortness of breath 07/10/17-patient seen and examined, states he started and complaint of pain would like some narcotics. Positive for shortness of breath. Patient was seen by gastroenterology yesterday however declines any GI evaluation Objective Vitals Vital Signs Date Time Temp Pulse Resp B/P (MAP) Pulse Ox O2 Delivery O2 Flow Rate FiO2 07/10/17 08:00 86 32 116/80 (92) 92 07/10/17 08:00 86 07/10/17 08:00 93 Partial Non-Rebreather 12.00 07/10/17 07:48 92 Partial Rebreather 12.00 07/10/17 04:00 90 07/10/17 04:00 97.9 88 27 126/80 (95) 93 07/10/17 04:00 97 Partial Non-Rebreather 12.00 07/10/17 00:01 97.5 07/10/17 00:00 72 07/10/17 00:00 90 26 138/84 (102) 93 07/10/17 00:00 96 Partial Non-Rebreather 12.00 07/09/17 20:08 95 Partial Rebreather 12.00 07/09/17 20:00 97.4 96 34 114/66 (82) 94 07/09/17 20:00 98 07/09/17 19:00 94 Partial Non-Rebreather 12.00 07/09/17 16:00 97.9 96 26 126/73 (90) 91 07/09/17 16:00 95 I/O 07/09/17 07/09/17 07/09/17 07/10/17 07/10/17 07/10/17 07:00 15:00 23:00 07:00 15:00 23:00 Intake Total 590 ml 240 ml Output Total 500 ml 650 ml 1050 ml Balance -500 ml -60 ml -810 ml Intake Oral 590 ml 240 ml Output Urine Total 500 ml 650 ml 1050 ml # Bowel Movements 0 0 Result Diagram: 07/09/17 0550 07/09/17 0550 Imaging Last Impressions Lower Extremity Ultrasound 07/09/17 0000 Signed Impressions: Service Date/Time: June 08:26 - CONCLUSION: 1. Evidence of deep venous thrombosis on the left side in the calf veins. 2. No evidence of deep venous thrombosis right lower extremity. Tay Rosado MD Chest X-Ray 07/07/17 0000 Signed Impressions: Service Date/Time: Friday, July 07, 2017 15:45 - CONCLUSION: 1. Right basilar atelectasis and right-sided effusion. There has been no significant change when compared to the prior exam. Abiodun Zhang MD CT Angiography 07/07/17 0000 Signed Impressions: Service Date/Time: Friday, July 07, 2017 19:43 - CONCLUSION: 1. Positive for pulmonary embolism with a solitary defect in the left upper lobe pulmonary artery. 2. Multiple findings in the right chest including opacifications, pleural effusion, loculated fluid collection, all stable from prior examination 06/17/17. 3. Interval reduction in size of left pleural effusion. Tay Rosado MD Objective Remarks GENERAL: NAD SKIN: Warm and dry. HEAD: Normocephalic. EYES: No scleral icterus. No injection or drainage. NECK: Supple, trachea midline. No JVD or lymphadenopathy. CARDIOVASCULAR: Regular rate and rhythm without murmurs, gallops, or rubs. RESPIRATORY: Breath sounds decreased bilaterally. No accessory muscle use. GASTROINTESTINAL: Abdomen soft, non-tender, nondistended. MUSCULOSKELETAL: No cyanosis, or edema. BACK: Nontender without obvious deformity. No CVA tenderness. A/P Problem List: (1) Acute exacerbation of chronic obstructive pulmonary disease (COPD) ICD Code: J44.1 - Chronic obstructive pulmonary disease with (acute) exacerbation Status: Acute (2) Pulmonary embolism on left ICD Code: I26.99 - Other pulmonary embolism without acute cor pulmonale (3) DVT, lower extremity ICD Code: I82.409 - Acute embolism and thrombosis of unspecified deep veins of unspecified lower extremity Assessment and Plan 86 yrs old man with Pulmonary embolism on left LLE DVT CT angiography with the finding of PE on the left Doppler lower extremity positive for DVT left lower extremity Holding all anticoagulation secondary to hemoptysis and increased risk of bleeding Appreciate input from Hematology COPD exacerbation, acute on chronic Recent hospitalization for treatment of PNA with COPD exacerbation CXR reviewed showing no change from previous image, continued right lower lobe airspace consolidation and loculated pleural effusion. on Methylprednisolone 40 mg IV q8hrs Duonebs scheduled and PRN as needed. Continue azithromycin, Symbicort inhaler and Spiriva. Supplemental O2 as needed, O2 dependant at home. Anemia, normocytic, hypochromic GI has been consulted however patient declined GI evaluation Minimal elevation of troponin: . Continue aspirin. Congestive heart failure, systolic: 2-D ECHO reviewed from 04/2017, EF 65-70%. Continue home Lasix 20 mg PO daily and potassium supplementation. Bilateral lower extremity edema present. Continue to monitor. Iron deficiency anemia, chronic: Continue home Iron supplementation. Hypothyroidism, chronic: Continue home Levothyroxine. Hyperlipidemia, chronic: Continue home pravastatin. BPH, chronic: Continue home Flomax. DVT Prophylaxis: SCDs. Consult palliative care medicine in a.m. Consult hospice Linden Barraza MD Jul 10, 2017 12:55
[2017-07-10] MEDS: traMADol HCL 50 MG TAB PO PRN ×2 (13:11→19:44)
[2017-07-10] MEDS: ALPRAZolam 0.5 MG TAB PO PRN ×2 (13:13→19:44)
[2017-07-10] MEDS: ACETAMINOPHEN 325 MG TAB PO PRN ×2 (16:09→22:11)
[2017-07-11] VITALS: BP 140/80; PULSE 64; RESP 17; TEMP 96.7; O2SAT 99
[2017-07-11 04:00] VITALS: BP 128/78; PULSE 100; PULSE 78; RESP 28; TEMP 97.2; TEMP 97.3; O2SAT 92
[2017-07-11] MEDS: methylPREDNISolone SOD SUCC 40 MG/1 ML VIAL IV PUSH SCH (05:40)
[2017-07-11] MEDS: LEVOTHYROXINE SODIUM 88 MCG TAB PO SCH (05:40)
[2017-07-11 07:30] VITALS: O2SAT 100
[2017-07-11] MEDS: RESP: ACETYLCYSTEINE 20% 30 ML NEB NEB SCH ×2 (07:40→11:39)
[2017-07-11] MEDS: RESP: ALBUTEROL 2.5 MG/IPRATROPIUM 0.5 MG NEB (SCH) NEB ×2 (07:40→11:39)
[2017-07-11 08:04] VITALS: BP 106/63; PULSE 88; RESP 28; TEMP 98.5; O2SAT 84
[2017-07-11] MEDS: AZITHROMYCIN 250 MG TAB PO SCH (09:00)
[2017-07-11] MEDS: guaiFENesin E.R. 600 MG TAB PO SCH (10:32)
[2017-07-11] MEDS: FERROUS SULFATE 325 MG (65 MG ELEMENTAL IRON) TAB PO SCH (10:32)
[2017-07-11] MEDS: BUDESONIDE-FORMOTEROL 160/4.5 MCG INHALER INH SCH (10:33)
[2017-07-11] MEDS: DOCUSATE SODIUM 50 MG/SENNA 8.6 MG TAB PO SCH (10:33)
[2017-07-11] MEDS: TAMSULOSIN HCL 0.4 MG CAP PO SCH (10:33)
[2017-07-11] MEDS: FUROSEMIDE 20 MG TAB PO SCH (10:33)
[2017-07-11] MEDS: TIOTROPIUM BROMIDE 18 MCG INH INH SCH (10:33)
[2017-07-11] MEDS: POTASSIUM CHLORIDE 10 MEQ CAP PO SCH (10:33)
[2017-07-11] MEDS: PRAVASTATIN SOD 40 MG TAB PO SCH (10:41)
[2017-07-11] MEDS: traMADol HCL 50 MG TAB PO PRN (10:42)
[2017-07-11] MEDS: SODIUM CHLORIDE 0.9% FLUSH 10 ML FLUSH IV FLUSH SCH (10:42)
--- NOTE | 2017-07-11 10:48 | HHI.PR ---
Subjective Remarks Follow-up COPD exacerbation 07/07/17-patient seen and examined; still with some shortness of breath as well as cough production. Afebrile 07/08/17-patient seen and examined, port improvement or shortness of breath. Now complaining of hemoptysis due to heparin drip that was started as a result of diagnosis of PE 07/09/17-patient seen and examined, states, he is tired and he is thinking about stopping all treatment. Still complains of shortness of breath 07/10/17-patient seen and examined, states he started and complaint of pain would like some narcotics. Positive for shortness of breath. Patient was seen by gastroenterology yesterday however declines any GI evaluation 07/11/17-patient seen and examined; currently on partial rebreather, afebrile Objective Vitals Vital Signs Date Time Temp Pulse Resp B/P (MAP) Pulse Ox O2 Delivery O2 Flow Rate FiO2 07/11/17 07:30 100 Partial Rebreather 12.00 07/11/17 04:00 92 Partial Non-Rebreather 12.00 07/11/17 04:00 97.2 78 28 128/78 (95) 92 07/11/17 04:00 78 07/11/17 00:00 64 07/11/17 00:00 96.7 64 17 140/80 (100) 99 07/11/17 00:00 98 Partial Non-Rebreather 12.00 07/10/17 20:00 95 Partial Non-Rebreather 12.00 07/10/17 20:00 90 07/10/17 20:00 97.3 100 28 116/61 (79) 95 07/10/17 19:40 93 Partial Rebreather 12.00 07/10/17 16:00 84 07/10/17 16:00 97.6 84 34 111/74 (86) 94 07/10/17 16:00 100 07/10/17 16:00 92 Partial Non-Rebreather 12.00 07/10/17 12:00 97.8 100 28 102/64 (77) 90 07/10/17 12:00 100 07/10/17 12:00 93 Partial Non-Rebreather 12.00 I/O 07/10/17 07/10/17 07/10/17 07/11/17 07/11/1707/11/17 07:00 15:00 23:00 07:00 15:00 23:00 Intake Total 240 ml 600 ml 60 ml Output Total 1050 ml 1150 ml 400 ml Balance -810 ml -550 ml -340 ml Intake Oral 240 ml 600 ml 60 ml Output Urine Total 1050 ml 1150 ml 400 ml # Bowel Movements 0 2 Result Diagram: 07/09/17 0550 07/09/17 0550 Objective Remarks GENERAL: NAD SKIN: Warm and dry. HEAD: Normocephalic. EYES: No scleral icterus. No injection or drainage. NECK: Supple, trachea midline. No JVD or lymphadenopathy. CARDIOVASCULAR: Regular rate and rhythm without murmurs, gallops, or rubs. RESPIRATORY: Breath sounds decreased bilaterally. No accessory muscle use. GASTROINTESTINAL: Abdomen soft, non-tender, nondistended. MUSCULOSKELETAL: No cyanosis, or edema. BACK: Nontender without obvious deformity. No CVA tenderness. A/P Problem List: (1) Acute exacerbation of chronic obstructive pulmonary disease (COPD) ICD Code: J44.1 - Chronic obstructive pulmonary disease with (acute) exacerbation Status: Acute (2) Pulmonary embolism on left ICD Code: I26.99 - Other pulmonary embolism without acute cor pulmonale (3) DVT, lower extremity ICD Code: I82.409 - Acute embolism and thrombosis of unspecified deep veins of unspecified lower extremity Assessment and Plan 86 yrs old man with Pulmonary embolism on left LLE DVT CT angiography with the finding of PE on the left Doppler lower extremity positive for DVT left lower extremity Continue to hold all anticoagulation secondary to hemoptysis and increased risk of bleeding Appreciate input from Hematology COPD exacerbation, acute on chronic Recent hospitalization for treatment of PNA with COPD exacerbation CXR reviewed showing no change from previous image, continued right lower lobe airspace consolidation and loculated pleural effusion. on Methylprednisolone 40 mg IV q8hrs Duonebs scheduled and PRN as needed. Continue azithromycin, Symbicort inhaler and Spiriva. Supplemental O2 as needed, O2 dependant at home. Likely hospice discharge on 07/13/17 Anemia, normocytic, hypochromic GI has been consulted however patient declined GI evaluation Minimal elevation of troponin: . Continue aspirin. Congestive heart failure, systolic: 2-D ECHO reviewed from 04/2017, EF 65-70%. Continue home Lasix 20 mg PO daily and potassium supplementation. Bilateral lower extremity edema present. Continue to monitor. Iron deficiency anemia, chronic: Continue home Iron supplementation. Hypothyroidism, chronic: Continue home Levothyroxine. Hyperlipidemia, chronic: Continue home pravastatin. BPH, chronic: Continue home Flomax. DVT Prophylaxis: SCDs. Consult palliative care medicine pending Consult hospice 07/13/17 for possible discharge to [facility] Linden Barraza MD Jul 11, 2017 10:48
[2017-07-11 12:00] VITALS: PULSE 95; RESP 23; TEMP 97.1
--- NOTE | 2017-07-11 12:38 | HHI.DS ---
Discharge Summary Admission Date Jul 07, 2017 at 16:27 Discharge Date: Jul 11, 2017 Admitting Diagnosis COPD EXACERBATION (1) Acute exacerbation of chronic obstructive pulmonary disease (COPD) ICD Code: J44.1 - Chronic obstructive pulmonary disease with (acute) exacerbation Status: Acute (2) Pulmonary embolism on left ICD Code: I26.99 - Other pulmonary embolism without acute cor pulmonale (3) DVT, lower extremity ICD Code: I82.409 - Acute embolism and thrombosis of unspecified deep veins of unspecified lower extremity Procedures none Brief History - From Admission Written by Lolita Albert, acting as scribe for Dr. Barraza on 07/06/17 at 17: 01. Mr. Jackson is an 86-year-old male patient with a known medical history of hyperlipidemia, COPD, HTN and recent CVA who presented from [facility], with worsening cough and dyspnea x 4 days. Patient states that he has noticed a nonproductive cough develop 4 days ago, denies any recent fever, chills, chest pain, abdominal pain, n/v/d or dysuria. Does admit to shortness of breath and requiring home O2. There are reports of patient having complaints of right posterior chest pain on presentation but patient denies at time of assessment. After review of records patient suffered from a CVA a few months ago was discharged and readmitted for a pneumothorax, undergoing a CT placement , thoracentesis and VATS procedure. Patient was again readmitted to the hospital June 17 with a syncopal episode at home. CBC/BMP: 07/09/17 0550 07/09/17 0550 Significant Findings Laboratory Tests Test 07/08/17 17:13 07/09/17 05:50 Red Blood Count 2.92 MIL/MM3 (4.50-5.90) Hemoglobin 8.7 GM/DL (13.0-17.0) Hematocrit 26.5 % (39.0-51.0) Mean Platelet Volume 6.3 FL (7.0-11.0) Neutrophils (%) (Auto) 92.5 % (16.0-70.0) Lymphocytes (%) (Auto) 3.0 % (9.0-44.0) Neutrophils # (Auto) 9.2 TH/MM3 (1.8-7.7) Lymphocytes # (Auto) 0.3 TH/MM3 (1.0-4.8) Blood Urea Nitrogen 30 MG/DL (7-18) Random Glucose 107 MG/DL (74-106) Calcium Level 7.8 MG/DL (8.5-10.1) Sodium Level 135 MEQ/L (136-145) Estimat Glomerular Filtration Rate 71 ML/MIN (>89) Iron Level 24 MCG/DL (65-175) Total Iron Binding Capacity 182 MCG/DL (250-450) Percent Iron Saturation 13.2 % (20-50) Ferritin 621 NG/ML (26-388) Lactate Dehydrogenase 252 U/L (87-241) PE at Discharge GENERAL: NAD SKIN: Warm and dry. HEAD: Normocephalic. EYES: No scleral icterus. No injection or drainage. NECK: Supple, trachea midline. No JVD or lymphadenopathy. CARDIOVASCULAR: Regular rate and rhythm without murmurs, gallops, or rubs. RESPIRATORY: Breath sounds decreased bilaterally. No accessory muscle use. GASTROINTESTINAL: Abdomen soft, non-tender, nondistended. MUSCULOSKELETAL: No cyanosis, or edema. BACK: Nontender without obvious deformity. No CVA tenderness. Hospital Course Patient was initially admitted secondary to COPD exacerbation along with respiratory failure and was found to have pulmonary embolism on the left along with left lower extremity DVT. Initially started on heparin drip however this was discontinued secondary to hemoptysis. Hematology was consulted. Gastroenterology was consulted for workup of anemia however patient declined any workup. Patient conditions continue to worsen, hospice was consulted and patient will be discharged to hospice care center. Pt Condition on Discharge: Guarded Discharge Disposition: Hospice/Med Facility Discharge Time: > 30 minutes Discharge Instructions DIET: Follow Instructions for: Heart Healthy Diet Activities you can perform: Regular-No Restrictions Follow up Referrals: PCP Follow-up - 2-3 Days New Medications: Tiotropium Inh (Spiriva Handihaler) 18 Mcg Cap 18 MCG INH DAILY for Breathing Treatment, #1 CAP 1 capsule = 18 mcg Continued Medications: Alprazolam (Xanax) 0.5 Mg Tab 0.5 MG PO Q4H PRN for ANXIETY, #12 TAB 0 Refills Budesonide-Formoterol Inh (Symbicort Inh) 160-4.5 Mcg/Act Aero 2 PUFF INH Q12HR, #1 INHALER 0 Refills Calcium Carbonate (Calcium Carbonate) 500 Mg Calcium (1250 Mg) Tab 1200 MG PO DAILY for Calcium Supplement, TAB 0 Refills 1,250 mg calcium carbonate (500 mg elemental calcium) Cyclosporine Opth (Restasis Opth) 0.05% Emul 1 DROP EACH EYE BID for Dry Eye, #1 BOX 0 Refills Ferrous Sulfate (Ferrous Sulfate) 325 Mg (65 Mg Iron) Tablet 325 MG PO TIDPC for Nutritional Supplement, TAB 0 Refills Furosemide (Lasix) 20 Mg Tab 20 MG PO DAILY for diuretic, #30 TAB 0 Refills Levothyroxine (Levothyroxine) 88 Mcg Tab 88 MCG PO DAILY for Thyroid, #30 TAB 0 Refills Lovastatin (Lovastatin) 40 Mg Tab 40 MG PO DAILY for Cholesterol Management, #30 TAB 0 Refills Potassium Chloride ER (Potassium Chloride ER) 10 Meq Cap 10 MEQ PO DAILY for Electrolyte Replacement, #30 CAP 0 Refills Tamsulosin (Tamsulosin) 0.4 Mg Cap 0.4 MG PO DAILY for Manage Prostate Problems, CAP 0 Refills Tramadol (Tramadol) 50 Mg Tab 50 MG PO Q6HR PRN for PAIN, #12 TAB 0 Refills Discontinued Medications: Aspirin DR (Adult Aspirin EC Low Strength) 81 Mg Tabec 81 MG PO DAILY for Blood Clot Prevention, #30 TAB 3 Refills Linden Barraza MD Jul 11, 2017 12:38
[2017-07-11] MEDS ORDERED: SPIRCAP INH (12:40)
== END 2017-07-11 14:20 | disposition hospice, inpatient (51) | DRG 175 ==
LOC: PHED 14:12 → PHEDA 15:52 → PH3A 18:05 → PHICU 07-07 12:24 → OBSVTOIN 07-07 16:27
PROVIDERS: ADMIT Hospitalist; ATTEND Hospitalist
DX: I26.99 Other pulmonary embolism without acute cor pulmonale (principal); J96.90 Respiratory failure, unspecified, unspecified whether with hypoxia or hypercapnia; J44.1 Chronic obstructive pulmonary disease with (acute) exacerbation; I50.20 Unspecified systolic (congestive) heart failure; I13.0 Hypertensive heart and chronic kidney disease with heart failure and stage 1 through stage 4 chronic kidney disease, or unspecified chronic kidney disease; R04.2 Hemoptysis; D69.3 Immune thrombocytopenic purpura; I82.4Z2 Acute embolism and thrombosis of unspecified deep veins of left distal lower extremity; Z99.81 Dependence on supplemental oxygen; E03.9 Hypothyroidism, unspecified; N40.0 Benign prostatic hyperplasia without lower urinary tract symptoms; E78.5 Hyperlipidemia, unspecified; D50.9 Iron deficiency anemia, unspecified; I44.0 Atrioventricular block, first degree; K21.9 Gastro-esophageal reflux disease without esophagitis; N18.9 Chronic kidney disease, unspecified; H91.93 Unspecified hearing loss, bilateral; D47.2 Monoclonal gammopathy; M19.90 Unspecified osteoarthritis, unspecified site; Z51.5 Encounter for palliative care; Z66 Do not resuscitate; Z86.73 Personal history of transient ischemic attack (TIA), and cerebral infarction without residual deficits; Z87.891 Personal history of nicotine dependence; Z88.0 Allergy status to penicillin
CPT/HCPCS: 36600; 71010; 71275; 80048; 80053; 81001; 82550; 82607; 82728; 82747; 82805; 83010; 83540; 83550; 83605; 83615; 83880; 84484; 85025; 85044; 85379; 85610; 85730; 87040; 87804; 93005; 93306; 93970; 94640; 94664; 94667; 94668; 96374; 96376; G0378; G8987-GP; G8988-GP; J1644; J2920; J2930; J7608; Q9967